=== PATIENT | female | born 1960 | race Caucasian/White ===

== ENCOUNTER → 2016-09-09 | Outpatient (CLI) | payer OTHER ==
[~2016-09-09] MED LIST: ACET-1228 PO; ASCO500T16 PO; CALCCHW PO; CHOL100010 PO; CMD/25 PO; CYAN10004 PO; DOXE50CA3 PO; DULO60CA44 PO; FOLI1TAB7 PO; IMT100 PO; IPRA17AE2 INH; IPRA1AER2 INH; OMEG10007 PO; SPRIN/30 INH; TRAM-10 PO; TRAZ50TA35 PO
--- NOTE | 2016-09-09 16:49 | DIAGNOSTIC IMAGING REPORT ---
Venous Doppler left leg LEFT VENOUS DOPP LOWER EXT UNILAT CLINICAL HISTORY: L LEG EDEMA pain. Edema. TECHNIQUE: Venous Doppler COMPARISON STUDY: None FINDINGS: Study is negative for acute deep venous thrombosis IMPRESSION: No evidence for acute deep venous thrombosis. Incidental note is made of 1.8 x 1.0 cm complex area adjacent to the superior medial calf which potentially represents an old hematoma Electronically signed by: Uche Everett M.D. 09/09/2016 4:47 PM Dictated Date/Time: 09/09/2016 4:46 PM
== END | disposition home or self-care (01) ==
LOC: C.ULTR 15:55
PROVIDERS: ATTEND Physician Assistant
DX: R60.0 Localized edema (principal)

== ENCOUNTER → 2017-08-05 | Outpatient (CLI) | payer OTHER ==
[~2017-08-05] MED LIST changes: -FOLI1TAB7 PO; +FOLI1TAB8 PO
--- NOTE | 2017-08-05 17:14 | DIAGNOSTIC IMAGING REPORT ---
BILATERAL UPPER EXTREMITY VENOUS DOPPLER HISTORY: Bilateral arm pain. COMPARISON STUDY: Venous Doppler 10/16/2013. FINDINGS: The bilateral internal jugular veins are patent. There is normal flow within the subclavian veins. There is normal flow and compressibility within the bilateral axillary, basilic, brachial, radial, ulnar, and visualized cephalic veins. IMPRESSION: No DVT within the right or left upper extremity. Electronically signed by: Luis Ricketts M.D. 08/05/2017 5:12 PM Dictated Date/Time: 08/05/2017 5:10 PM
--- NOTE | 2017-08-05 17:15 | DIAGNOSTIC IMAGING REPORT ---
ANKLE BRACHIAL INDEX COMPLETE HISTORY: Peripheral arterial disease. Right leg bypass graft. COMPARISON STUDY: Right lower extremity arterial Doppler study 09/20/2014. FINDINGS: The right ankle-brachial index measured with the posterior tibial artery was 1.01 and the dorsalis pedis artery was 1.15. The left ankle-brachial index measured with the posterior tibial artery is 1.05 and the dorsalis pedis artery was 1.15. IMPRESSION: Normal bilateral ankle brachial indices as described above. Electronically signed by: Luis Ricketts M.D. 08/05/2017 5:14 PM Dictated Date/Time: 08/05/2017 5:13 PM
== END | disposition home or self-care (01) ==
LOC: C.ULTR 14:44
PROVIDERS: ATTEND Nurse Practitioner
DX: I73.9 Peripheral vascular disease, unspecified (principal); M79.604 Pain in right leg; R60.0 Localized edema; M79.601 Pain in right arm; M79.602 Pain in left arm

== ENCOUNTER 2020-07-30 08:14 | Observation (INO) ==
[2020-07-30 09:49] LABS: Basophils # (auto) 0.02 K/uL (0-0.2); Basophils % (auto) 0.3 %; Eosinophils # (auto) 0.05 K/uL (0-0.5); Eosinophils % (auto) 0.7 %; Hematocrit (blood only) 38.8 % (37-47); Immature Granulocytes # (auto) 0.03 K/uL (0.00-0.02); Immature Granulocytes % (auto) 0.4 %; Lymphocytes # (auto) 1.13 K/uL (1.2-3.4); Lymphocytes % (auto) 15.3 %; Mean Corpuscular Hemoglobin 33.4 pg (25-34); Mean Corpuscular Hgb Conc 33.5 g/dL (32-36); Mean Corpuscular Volume 99.7 fL (80-100); Mean Platelet Volume 10.6 fL (7.4-10.4); Monocytes # (auto) 0.72 K/uL (0.11-0.59); Monocytes % (auto) 9.7 %; Neutrophils # (auto) 5.45 K/uL (1.4-6.5); Neutrophils % (auto) 73.6 %; Platelet Count 214 K/uL (130-400); RDW Coefficient of Variation 16.8 % (11.5-14.5); RDW Standard Deviation 60.5 fL (36.4-46.3); Red Blood Count 3.89 M/uL (4.2-5.4)
--- NOTE | 2020-07-30 09:53 | XRay Report ---
XR chest 1V portable CLINICAL HISTORY: Chest Pain COMPARISON STUDY: Chest radiograph July 22, 2014. FINDINGS: Lung volumes are normal. Lungs are clear. There is no pneumothorax or pleural effusion. Car diac size is normal. Mediastinal contours are normal. There is no evidence for pulmonary edema. IMPRESSION: No acute cardiopulmonary findings. ACT 112: Negative or not required by law. Electronically signed by: Jaime Zuñiga M.D. 07/30/2020 9:51 AM
[2020-07-30 10:07] LABS: Alanine Aminotransferase 35 U/L (12-78); Albumin Level 2.8 gm/dl (3.4-5.0); Aspartate Aminotransferase 61 U/L (15-37); BUN Creatinine Ratio 5.3 (10-20); Blood Urea Nitrogen 3 mg/dl (7-18); Carbon Dioxide 29 mmol/L (21-32); Chloride 102 mmol/L (98-107); Creatinine Clr Calc Pharmacy 76.8 ml/min; Est GFR (African American) 110.8; Est GFR (Non-African American) 95.6; Glucose 91 mg/dl (70-99); Potassium 3.2 mmol/L (3.5-5.1); Sodium 137 mmol/L (136-145)
[2020-07-30 10:12] LABS: Albumin Globulin Ratio 0.8 (0.9-2); Alkaline Phosphatase 188 U/L (45-117); Bilirubin,Total 1.1 mg/dl (0.2-1); Globulin 3.4 gm/dl (2.5-4.0); Total Protein 6.2 gm/dl (6.4-8.2); Troponin I < 0.015 ng/ml (0-0.045)
[2020-07-30 10:14] LABS: INR 2.7 (0.9-1.1); Prothrombin Time 25.1 Seconds (9.0-12.0)
--- NOTE | 2020-07-30 11:25 | Electrocardiogram Report ---
Test Reason : Blood Pressure : / mmHG Vent. Rate : 091 BPM Atrial Rate : 091 BPM P-R Int : 126 ms QRS Dur : 078 ms QT Int : 370 ms P-R-T Axes : 050 065 024 degrees QTc Int : 455 ms Normal sinus rhythm Nonspecific ST and T wave abnormality Abnormal ECG When compared with ECG of 20-DEC-2017 14:03, No significant change Confirmed by Cipriano Ledesma ([id number]) on 07/30/2020 11:24:30 AM Referred By: Stephen Carver Confirmed By:Cipriano Ledesma
--- NOTE | 2020-07-30 11:34 | History & Physical Report ---
Date of Service July 30, 2020 Assessment & Plan (1) Angina at rest: - Admit to [facility] - Consult cardiology, appreciate recommendations, anticipate cardiac catheterization tomorrow - Holding Coumadin - regimen of 1.5 mg daily with home INR checks. - Goal of INR below 1.8 to do cath - Continue Toprol XL 25 mg daily, sublingual nitroglycerin, aspirin and statin therapy. - Start IV heparin no bolus for ppx. - Allow diet now and make NPO after midnight (2) Tobacco abuse: - Cessation encouraged (3) HLD (hyperlipidemia): - Cont statin therapy as above. (4) Chronic pain: - Reports R hip and Left shoulder are main areas of pain - Pt reports home dosing of MS ER 30 mg HS and MS IR 15 mg HS - PDMP checked: Pt is prescribed MS ER 15 mg BID and MS IR 15 mg prn daily. Naloxone prn for reversal. - Medical marijuana oils used at home (5) MDD (major depressive disorder): - Recently given Rx for Paxil although has not started this medication yet. Had previously been on cymbalta but stopped taking it last year. Mood is worse recently. Pt had previously been underweight and currently struggling with nausea/further weight loss, this medication may assist with stopping further weight loss. Possible adverse effects and side effects were discussed with her by PCP. Pt reports anxiety about taking new medications. Consider outpatient psych/counseling/therapy. (6) DVT prophylaxis: - teds, scds, Coumadin on hold as above CODE: Full code Dispo: From home, likely to remain in the hospital x 1-2 days History of Present Illness Primary Care Provider: Pieter Benavides MD This mera 60 yo F with PMHx of PVD, DVT on coumadin, COPD, HTN, HLD, MTHFR mutation s/p multiple extensive venous grafting and procedures on BLE, anxiety, chronic pain on narcotics, avascular necrosis of the R hip, tobacco abuse, history of alcohol abuse, MDD, medical marijuana use, neuropathy who presents to the ER after referral from cardiology. Pt was referred to see cardiology by her PCP recently, and was in to see Dr. Carver yesterday, 07/29/20, where she was evaluated for a 3-week history of chest heaviness, tightness and palpitations. Her chest heaviness occurs at rest and with minimal exertion and last for short period of time. It is worsened with minimal exertion. She admits to dyspnea without lightheadedness or dizziness. Patient was instructed to hold Coumadin last evening which she has done in anticipation of cardiac cath. It was recommended that she have inpatient evaluation and coronary angiography due to EKG changes and unstable angina, however the patient preferred to wait an additional 24 hours before doing this due to significant anxiety. She has had a very poor appetite and feels nauseated daily with one episode of vomited daily as well. She states she weighs around 128 lbs but has weighed less than 100 lbs when she was having surgeries for veins due to clotting issues and was in [place] for extended hospitalizations a few years ago. She was unable to take any of her morning medications today due to her increased anxiety. Pt has been using her morphine sulfate ER 15 mg 2 tablets at bedtime along with immediate release morphine 15 mg at bedtime, as she would "rather suffer through the day and get some relief and sleep through the night". She receives narcotic medication from her PCP. She does use medical marijuana oils during the day. Her mood is poor, has been on cymbalta previously but hasn't been taking this for months. She was prescribed paxil at last PCP visit but hasn't started it. Patient is requesting "sleeping medication" prior to any second IV site insertion due to significant issues with placement with hx of poor venous access. Allergies Allergy/AdvReac Type Severity Reaction Status Date / Time vitamin K2 Allergy Severe SOB CHEST Verified 07/30/20 10:44 PAIN SHAKING Home Medications Medication Instructions Recorded Confirmed Type Combivent Respimat 1 puff INHALATION QID 09/13/18 07/30/20 History ascorbic acid (vitamin C) 500 mg PO QAM 09/13/18 07/30/20 History atorvastatin 40 mg PO QAM 09/13/18 07/30/20 History cyanocobalamin (vitamin B-12) 1,000 mcg PO QAM 09/13/18 07/30/20 History [Vitamin B-12] Medical Marijuanas ~ Oil Vape 0 inh INHALATION UD 07/30/20 07/30/20 History morphine 15 mg PO BID 07/30/20 07/30/20 History morphine 15 mg PO HS PRN 07/30/20 07/30/20 History warfarin 1.5 mg PO UD 07/30/20 07/30/20 History enoxaparin 50 mg SUBCUT Q12H #6 ml 08/01/20 Rx ergocalciferol (vitamin D2) 50,000 unit PO DAILY #10 cap 08/01/20 Rx nicotine [Nicoderm CQ] 21 mg TRANSDERMAL QAM #14 ea 08/01/20 Rx Past Med/Surg History Medical History (Updated 08/02/20 @ 00:05 by Background Harika) Chest pain Chronic back pain COPD (chronic obstructive pulmonary disease) COPD (chronic obstructive pulmonary disease) NO PROBLEMS Deep vein thrombosis Deep vein thrombosis (2016) FEMORAL BYPASS IN BILATERAL LEGS Degenerative disc disease Depression Diverticular disease Factor 5 Leiden mutation, heterozygous Fibromyalgia GERD (gastroesophageal reflux disease) History of MTHFR mutation Migraine MTHFR mutation Osteoarthritis PAD (peripheral artery disease) Peptic ulcer disease CURRENT Peripheral neuropathy Peripheral vascular disease Peripheral vascular disease Surgical History H/O surgical biopsy VAGINAL BIOPSY H/O vascular surgery MULTIPLE BILATERAL LEG SURGERIES History of arthroscopy LEFT SHOULDER History of section X1 History of cholecystectomy LAP History of colonoscopy History of esophagogastroduodenoscopy (EGD) EGD 12/23/2017. Sedation no issues. History of nasal septoplasty History of right cataract extraction History of tonsillectomy Social History Smoking Status: Current every day smoker Tobacco Type: Cigarettes Cigarettes Per Day: 30; Second Hand Exposure: No; Do You Dip or Chew Tobacco: No; Tobacco Cessation Education Requested by Patient: No Hx Alcohol Use: Yes Alcohol type: beer, wine and hard liquor Hx Substance Use: No Preferred Language: Estonian Communication Ability: Effective Acid Correction Hand Required: No Beliefs That Will Affect Care: None Current Living Situation: Alone Other Information That Helps Us Care for You: No ("i'm fragile and always cold") Feels Safe at Home: Yes Safety Concerns: Feels Safe At This Time Assistive Devices: None Review of Systems Review of Systems: Constitutional: No fever, sweats or chills, + fatigue Eyes: No diplopia, no worsening or blurred vision ENT: normal hearing, no trouble swallowing Respiratory: No cough, sputum, + dyspnea on exertion and with ADLs Cardiovascular: + Chronic intermittent chest pain, tightness and heaviness as per HPI, no palpitations, no lightheadedness or dizziness Abdomen: No pain, + nausea, + vomiting, + poor appetite, no diarrhea or constipation Musculoskeletal: Chronic right hip pain, left shoulder pain, no calf pain, no swelling Neurologic: No weakness, numbness/tingling, or balance problems Psychiatric: + anxiety and depression Skin: No rash or itch Physical Exam Physical Exam: General: awake, alert, no apparent distress, fatigue, + thin Head: Normocephalic, atraumatic ENT: PERRL, EOMI, no pharyngeal exudate, mucous membranes moist Chest: Clear to auscultation, on room air, no adventitious breath sounds Cardiac: Regular rate and rhythm, + few extra beats, no murmur, no JVD, normal peripheral pulses, good capillary refill Abdominal: NABS x 4 quadrants, soft, nondistended, nontender to palpation, no rebound or guarding Extremities: + Scarring lower legs bilaterally status post venous grafting otherwise normal inspection, no peripheral edema or erythema, calfs nontender to palpation Psych: + Depressed mood and flat affect Neuro: AAO x 3, strength intact bilaterally and rated 5/5, no motor deficits, speech is clear, no peripheral sensory deficits Results & Data Results & Data ([facility]) Vital Signs (Past 12 Hours) Vital Signs Temp Pulse Resp BP Pulse Ox 07/30/20 10:15 75 12 110/73 98 07/30/20 08:40 98 07/30/20 08:30 85 15 119/91 96 07/30/20 08:24 36.9 C 88 18 119/91 98 Laboratory Results Laboratory Results - last 24 hr 07/30/20 07/30/20 07/30/20 09:29 09:29 09:29 WBC 7.40 RBC 3.89 L Hgb 13.0 Hct 38.8 MCV 99.7 MCH 33.4 MCHC 33.5 RDW Std Deviation 60.5 H RDW Coeff of Shaun 16.8 H Plt Count 214 MPV 10.6 H Immature Gran % (Auto) 0.4 Neut % (Auto) 73.6 Lymph % (Auto) 15.3 Thomas % (Auto) 9.7 Eos % (Auto) 0.7 Baso % (Auto) 0.3 Neut # (Auto) 5.45 Lymph # (Auto) 1.13 L Thomas # (Auto) 0.72 H Eos # (Auto) 0.05 Baso # (Auto) 0.02 Immature Gran # (Auto) 0.03 H PT 25.1 H INR 2.7 H Sodium 137 Potassium 3.2 L Chloride 102 Carbon Dioxide 29 Anion Gap 6.0 BUN 3 L Creatinine 0.64 Est Cr Clr Drug Dosing 76.8 Est GFR ( Amer) 110.8 Est GFR (Non-Af Amer) 95.6 BUN/Creatinine Ratio 5.3 L Glucose 91 Calcium 9.0 Total Bilirubin 1.1 H AST 61 H ALT 35 Alkaline Phosphatase 188 H Troponin I < 0.015 Total Protein 6.2 L Albumin 2.8 L Globulin 3.4 Albumin/Globulin Ratio 0.8 L COVID-19 Eval Order SARS-CoV-2 (PCR) Influenza Type A (PCR) Influenza Type B (PCR) RSV (RT-PCR) 07/30/20 07/30/20 09:58 09:58 WBC RBC Hgb Hct MCV MCH MCHC RDW Std Deviation RDW Coeff of Shaun Plt Count MPV Immature Gran % (Auto) Neut % (Auto) Lymph % (Auto) Thomas % (Auto) Eos % (Auto) Baso % (Auto) Neut # (Auto) Lymph # (Auto) Thomas # (Auto) Eos # (Auto) Baso # (Auto) Immature Gran # (Auto) PT INR Sodium Potassium Chloride Carbon Dioxide Anion Gap BUN Creatinine Est Cr Clr Drug Dosing Est GFR ( Amer) Est GFR (Non-Af Amer) BUN/Creatinine Ratio Glucose Calcium Total Bilirubin AST ALT Alkaline Phosphatase Troponin I Total Protein Albumin Globulin Albumin/Globulin Ratio COVID-19 Eval Order CovFluRsv at [facility] SARS-CoV-2 (PCR) NEGATIVE Influenza Type A (PCR) Negative Influenza Type B (PCR) Negative RSV (RT-PCR) Negative Diagnostic Findings Chest X-Ray 07/30/20 08:40 XR chest 1V portable CLINICAL HISTORY: Chest Pain COMPARISON STUDY: Chest radiograph July 22, 2014. FINDINGS: Lung volumes are normal. Lungs are clear. There is no pneumothorax or pleural effusion. Cardiac size is normal. Mediastinal contours are normal. There is no evidence for pulmonary edema. IMPRESSION: No acute cardiopulmonary findings. ACT 112: Negative or not required by law. Electronically signed by: Jaime Zuñiga M.D. 07/30/2020 9:51 AM ECG Additional Comments: 30-JUL-2020 08:24:20 [facility]-EDSTAT ROUTINE RETRIEVAL Normal sinus rhythm Nonspecific ST and T wave abnormality Abnormal ECG When compared with ECG of 20-DEC-2017 14:03, No significant change Confirmed by Cipriano Ledesma ([id number]) on 07/30/2020 11:24:30 AM 25mm/s 10mm/mV 150Hz 9.0.9 12SL 241 HD ELIZABETH: 12 Referred by: Stephen Carver Confirmed By: Cipriano Ledesma Vent. rate 91 BPM AR interval 126 ms QRS duration 78 ms QT/QTc 370/455 ms Code Status & VTE Plan Code Status Full code - discussed with the patient at bedside Supervising Physician Co-Signing Physician Notes 60 yo F admitted with chest pain at rest angina symptoms initial cardiac markers , EKG wnl , ordered for serial markers , resting ECHO , cardiology hermilo Alexandra MD
[2020-07-30 11:40] LABS: Influenza A virus by PCR Negative (Neg); Influenza B virus by PCR Negative (Neg); RSV by PCR Negative (Neg); SARS CoV2 RNA(COVID-19) InHosp NEGATIVE (Negative)
[2020-07-30] MEDS ORDERED: IPRATROPIUM BROMIDE/ALBUTEROL respimat INH INH SCH (13:03)
[2020-07-30] MEDS ORDERED: ONDANSETRON INJ 2 MG/ML 2 ML VIAL IV PRN (13:03)
[2020-07-30] MEDS ORDERED: ACETAMINOPHEN 325 MG TAB PO PRN (13:03)
[2020-07-30] MEDS ORDERED: NITROGLYCERIN SL 0.4 MG/TAB TAB SL PRN (13:03)
--- NOTE | 2020-07-30 13:04 | Emergency Department Note ---
History of Present Illness General Chief complaint: Cardiac Assessment Stated complaint: CHEST PAIN/PALPITATIONS/REFERRED BY DR Orlando Seen by Provider: 07/30/20 08:40 Source: patient Mode of arrival: ambulatory Limitations: no limitations History of Present Illness Provider complaint: Chest pain Maximum Pain Intensity: 3 This is a 60-year-old female who presents to the ED with a chief complaint of chest pain. She was actually seen by Dr. Poe yesterday and told to come to the ER at that time. She decided to come in this morning. She is chronically on Coumadin for DVT. The patient states that she was told to come here because she needed a cardiac catheterization. She has recently been feeling tired and having heart palpitations as well as intermittent sharp pains and some heaviness in her chest. The patient has no other complaints at this time. No fevers or recent illness. Symptoms are worse with exertion. Home Medications Medication Instructions Recorded Confirmed Type Combivent Respimat 1 puff INHALATION QID 09/13/18 07/30/20 History ascorbic acid (vitamin C) 500 mg PO QAM 09/13/18 07/30/20 History atorvastatin 40 mg PO QAM 09/13/18 07/30/20 History cyanocobalamin (vitamin B-12) 1,000 mcg PO QAM 09/13/18 07/30/20 History [Vitamin B-12] Medical Marijuanas ~ Oil Vape 0 inh INHALATION UD 07/30/20 07/30/20 History morphine 15 mg PO BID 07/30/20 07/30/20 History morphine 15 mg PO HS PRN 07/30/20 07/30/20 History warfarin [Coumadin] 1.5 mg PO UD 07/30/20 07/30/20 History Allergies Allergy/AdvReac Type Severity Reaction Status Date / Time vitamin K2 Allergy Severe SOB CHEST Verified 07/30/20 10:44 PAIN SHAKING Past Med/Surg History Medical History (Updated 07/30/20 @ 13:05 by Bony Pulido DO) Chronic back pain COPD (chronic obstructive pulmonary disease) NO PROBLEMS Deep vein thrombosis (2016) FEMORAL BYPASS IN BILATERAL LEGS Degenerative disc disease Depression Diverticular disease Factor 5 Leiden mutation, heterozygous Fibromyalgia GERD (gastroesophageal reflux disease) History of MTHFR mutation Migraine Osteoarthritis Peptic ulcer disease CURRENT Peripheral neuropathy Peripheral vascular disease Surgical History H/O surgical biopsy VAGINAL BIOPSY H/O vascular surgery MULTIPLE BILATERAL LEG SURGERIES History of arthroscopy LEFT SHOULDER History of section X1 History of cholecystectomy LAP History of colonoscopy History of esophagogastroduodenoscopy (EGD) EGD 12/23/2017. Sedation no issues. History of nasal septoplasty History of right cataract extraction History of tonsillectomy Social History Smoking Status: Current every day smoker Tobacco Type: Cigarettes Second Hand Exposure: No; Hx Alcohol Use: No Hx Substance Use: Yes Last Used Substance: Unknown Last Used Substance Other:: DAILY USE MEDICAL MARIJUANA Substance Use Type Other:: DRONABINOL - FOR INCREASI NG APPETITE Preferred Language: Macedonian Communication Ability: Effective Breast Splitter Required: No Beliefs That Will Affect Care: None Current Living Situation: Alone Feels Safe at Home: Yes Assistive Devices: Glasses and Walker Review of Systems A total of 10 systems reviewed and were otherwise negative Physical Exam Vital Signs Vital Signs - 24 hr 07/30/20 08:24 07/30/20 08:30 07/30/20 08:40 Temperature 36.9 C Temperature Source Oral Pulse Rate 88 85 Pulse Rate from SpO2 Sensor 94 H Pulse Rhythm Regular Pulse Strength Normal Respiratory Rate 18 15 Respiratory Effort / Characteristics Non-Labored Spontaneous Respiratory Depth Normal Respiratory Pattern Regular Blood Pressure 119/91 119/91 Blood Pressure Mean 100 100 Blood Pressure Position Lying Pulse Oximetry 98 96 98 Oxygen Delivery Method Room Air Room Air Sepsis Recent Fever Within 48 Hours No Sepsis New/Unexplained Change in Mental Status No Sepsis Action Taken by Nursing No Action Required 07/30/20 10:15 07/30/20 10:30 07/30/20 11:00 Temperature Temperature Source Pulse Rate 75 80 82 Pulse Rate from SpO2 Sensor 75 84 Pulse Rhythm Pulse Strength Respiratory Rate 12 14 18 Respiratory Effort / Characteristics Respiratory Depth Respiratory Pattern Blood Pressure 110/73 100/67 99/65 L Blood Pressure Mean 85 78 76 Blood Pressure Position Pulse Oximetry 98 97 Oxygen Delivery Method Sepsis Recent Fever Within 48 Hours Sepsis New/Unexplained Change in Mental Status Sepsis Action Taken by Nursing 07/30/20 11:30 07/30/20 12:00 07/30/20 12:30 Temperature Temperature Source Pulse Rate 75 Pulse Rate from SpO2 Sensor 80 78 76 Pulse Rhythm Pulse Strength Respiratory Rate 20 22 17 Respiratory Effort / Characteristics Respiratory Depth Respiratory Pattern Blood Pressure 96/65 L 114/78 113/69 Blood Pressure Mean 75 90 83 Blood Pressure Position Pulse Oximetry 95 100 96 Oxygen Delivery Method Sepsis Recent Fever Within 48 Hours Sepsis New/Unexplained Change in Mental Status Sepsis Action Taken by Nursing 07/30/20 12:55 Temperature Temperature Source Pulse Rate Pulse Rate from SpO2 Sensor Pulse Rhythm Pulse Strength Respiratory Rate Respiratory Effort / Characteristics Respiratory Depth Respiratory Pattern Blood Pressure Blood Pressure Mean Blood Pressure Position Pulse Oximetry Oxygen Delivery Method Room Air Sepsis Recent Fever Within 48 Hours Sepsis New/Unexplained Change in Mental Status Sepsis Action Taken by Nursing CONSTITUTIONAL/VITAL SIGNS: Reviewed / noted above. GENERAL: Non-toxic in appearance. INTEGUMENTARY: Warm, dry, and [place]. HEAD: Normocephalic. EYES: without scleral icterus or trauma. ENT/OROPHARYNX: clear and moist. LYMPHADENOPATHY/NECK: Is supple without lymphadenopathy or meningismus. RESPIRATORY: Lungs clear and equal. CARDIOVASCULAR: Regular rate and rhythm. GI/ABDOMEN: Soft and nontender. No organomegaly or pulsatile mass. No rebound or guarding. Normal bowel sounds. EXTREMITIES: Warm and well perfused. BACK: No CVA tenderness. NEUROLOGICAL: Intact without focal deficits. PSYCHIATRIC: normal affect. MUSCULOSKELETAL: Normally developed with good muscle tone. TRIAGE NURSING DOCUMENTATION REVIEWED. Medical Decision Making Differential Diagnosis The differential that was considered includes acute myocardial infarction, acute coronary syndrome, myocarditis, pericarditis, pericardial effusions /tamponade, esophageal perforation, thoracic aortic dissection, pulmonary embolism, pneumonia, pneumothorax, pancreatitis, shingles, acute cholecystitis, perforated abdominal viscus. Medical Records Attestation: I reviewed the patient's medical records. Home Medications Current Medication List: was personally reviewed by me Laboratory Data Attestation: I reviewed the patient's lab results. Result diagrams: 07/30/20 09:29 07/30/20 09:29 Lab Results 07/30/20 07/30/20 07/30/20 Range/Units 09:29 09:29 09:29 WBC 7.40 (4.8-10.8) K/uL RBC 3.89 L (4.2-5.4) M/uL Hgb 13.0 (12.0-16.0) g/dL Hct 38.8 (37-47) % MCV 99.7 (80-100) fL MCH 33.4 (25-34) pg MCHC 33.5 (32-36) g/dL RDW Std Deviation 60.5 H (36.4-46.3) fL RDW Coeff of Shaun 16.8 H (11.5-14.5) % Plt Count 214 (130-400) K/uL MPV 10.6 H (7.4-10.4) fL Immature Gran % (Auto) 0.4 % Neut % (Auto) 73.6 % Lymph % (Auto) 15.3 % [place] % (Auto) 9.7 % Eos % (Auto) 0.7 % Baso % (Auto) 0.3 % Neut # (Auto) 5.45 (1.4-6.5) K/uL Lymph # (Auto) 1.13 L (1.2-3.4) K/uL [place] # (Auto) 0.72 H (0.11-0.59) K/uL Eos # (Auto) 0.05 (0-0.5) K/uL Baso # (Auto) 0.02 (0-0.2) K/uL Immature Gran # (Auto) 0.03 H (0.00-0.02) K/uL PT 25.1 H (9.0-12.0) Seconds INR 2.7 H (0.9-1.1) Sodium 137 (136-145) mmol/L Potassium 3.2 L (3.5-5.1) mmol/L Chloride 102 (98-107) mmol/L Carbon Dioxide 29 (21-32) mmol/L Anion Gap 6.0 (3-11) BUN 3 L (7-18) mg/dl Creatinine 0.64 (0.6-1.2) mg/dl Est Cr Clr Drug Dosing 76.8 ml/min Est GFR ( Amer) 110.8 Est GFR (Non-Af Amer) 95.6 BUN/Creatinine Ratio 5.3 L (10-20) Glucose 91 (70-99) mg/dl Calcium 9.0 (8.5-10.1) mg/dl Total Bilirubin 1.1 H (0.2-1) mg/dl AST 61 H (15-37) U/L ALT 35 (12-78) U/L Alkaline Phosphatase 188 H (45-117) U/L Troponin I < 0.015 (0-0.045) ng/ml Total Protein 6.2 L (6.4-8.2) gm/dl Albumin 2.8 L (3.4-5.0) gm/dl Globulin 3.4 (2.5-4.0) gm/dl Albumin/Globulin Ratio 0.8 L (0.9-2) COVID-19 Eval Order SARS-CoV-2 (PCR) (Negative) Influenza Type A (PCR) (Neg) Influenza Type B (PCR) (Neg) RSV (RT-PCR) (Neg) 07/30/20 07/30/20 Range/Units 09:58 09:58 WBC (4.8-10.8) K/uL RBC (4.2-5.4) M/uL Hgb (12.0-16.0) g/dL Hct (37-47) % MCV (80-100) fL MCH (25-34) pg MCHC (32-36) g/dL RDW Std Deviation (36.4-46.3) fL RDW Coeff of Shaun (11.5-14.5) % Plt Count (130-400) K/uL MPV (7.4-10.4) fL Immature Gran % (Auto) % Neut % (Auto) % Lymph % (Auto) % [place] % (Auto) % Eos % (Auto) % Baso % (Auto) % Neut # (Auto) (1.4-6.5) K/uL Lymph # (Auto) (1.2-3.4) K/uL [place] # (Auto) (0.11-0.59) K/uL Eos # (Auto) (0-0.5) K/uL Baso # (Auto) (0-0.2) K/uL Immature Gran # (Auto) (0.00-0.02) K/uL PT (9.0-12.0) Seconds INR (0.9-1.1) Sodium (136-145) mmol/L Potassium (3.5-5.1) mmol/L Chloride (98-107) mmol/L Carbon Dioxide (21-32) mmol/L Anion Gap (3-11) BUN (7-18) mg/dl Creatinine (0.6-1.2) mg/dl Est Cr Clr Drug Dosing ml/min Est GFR ( Amer) Est GFR (Non-Af Amer) BUN/Creatinine Ratio (10-20) Glucose (70-99) mg/dl Calcium (8.5-10.1) mg/dl Total Bilirubin (0.2-1) mg/dl AST (15-37) U/L ALT (12-78) U/L Alkaline Phosphatase (45-117) U/L Troponin I (0-0.045) ng/ml Total Protein (6.4-8.2) gm/dl Albumin (3.4-5.0) gm/dl Globulin (2.5-4.0) gm/dl Albumin/Globulin Ratio (0.9-2) COVID-19 Eval Order CovFluRsv at [facility] SARS-CoV-2 (PCR) NEGATIVE (Negative) Influenza Type A (PCR) Negative (Neg) Influenza Type B (PCR) Negative (Neg) RSV (RT-PCR) Negative (Neg) Imaging Data Radiologist's Impression: Chest X-Ray 07/30/20 08:40 XR chest 1V portable CLINICAL HISTORY: Chest Pain COMPARISON STUDY: Chest radiograph July 22, 2014. FINDINGS: Lung volumes are normal. Lungs are clear. There is no pneumothorax or pleural effusion. Cardiac size is normal. Mediastinal contours are normal. There is no evidence for pulmonary edema. IMPRESSION: No acute cardiopulmonary findings. ACT 112: Negative or not required by law. Electronically signed by: Jaime Zuñiga M.D. 07/30/2020 9:51 AM ECG Data Attestation: I personally reviewed and interpreted this ECG as follows: Indication: + chest pain Rate (beats per minute): 90 Rhythm: + normal sinus ECG ST segments: no ST elevation ECG Findings: no PVCs MDM Narrative Patient presents with chest pain as detailed above. The patient's EKG showed a normal sinus rhythm with some nonspecific changes. CBC and chemistry panel was unremarkable. INR 2.7. Troponin was negative and a chest x-ray did not show acute process. Dr. Medina saw the patient as the patient was referred from Dr. Carver. The hospitalist will see the patient for inpatient evaluation and care. Impression & Plan Chest pain Discharge Plan Visit Data Chief Complaint: Cardiac Assessment Stated Complaint: CHEST PAIN/PALPITATIONS/REFERRED BY ED Provider: Bony Pulido Discharge Problem: Chest pain Patient Disposition: Admitted As Inpatient Discharge Instructions Interventions: ED Discharge Assessment Last Done: 07/30/20 12:55 Discharge Problem: Chest pain Qualifiers: Chest pain type: precordial pain Qualified Code(s): R07.2 - Precordial pain
--- NOTE | 2020-07-30 13:12 | Cardiology Consultation ---
Date of Consultation July 30, 2020 Assessment & Plan (1) Unstable angina: (2) PVD (peripheral vascular disease): (3) Tobacco abuse: (4) MTHFR gene mutation: This patient has significant peripheral vascular disease and now presents with symptoms consistent with exertional angina which is crescendoing. The patient has been on warfarin due to history of DVT and MTHFR gene mutation. Her INR is 2.1. I will give her oral vitamin K today. She does list vitamin K as an allergy however, in further questioning she states that she underwent surgery and immediately afterwards was given some vitamin K which caused her to have shaking. It truly does not sound like an allergy to me but perhaps a reaction to postanesthesia. We will check an INR in the morning. I would like the INR to be more in the normal range as this patient has peripheral vascular disease including a previous graft of her lower extremity. This may limit our access options and I would not want to get into bleeding complications. She should be started on heparin tonight which can be stopped in the morning before her heart catheterization. History of Present Illness Attending Physician: Ree Alexandra MD History of Present Illness This is a 60-year-old female with an extensive past medical history for peripheral vascular disease. She is followed by vascular surgery and had a graft placed in her right lower extremity which by duplex in November was patent. Most of her surgical procedures have been done on the right lower extremity. According to records she did have a left femoral artery pseudoaneurysm repair. She has a MTHFR mutation and a previous right lower extremity DVT and is chronically anticoagulated with warfarin. She has a history of cigarette smoking. She was seen by Dr. Carver at our clinic yesterday with symptoms of activity related chest heaviness and tightness which she felt was crescendo angina. He recommended a cardiac catheterization however the patient was reluctant at that time to be admitted. She is now presented to the emergency department and has been admitted to the hospital. Allergies Allergy/AdvReac Type Severity Reaction Status Date / Time vitamin K2 Allergy Severe SOB CHEST Verified 07/30/20 10:44 PAIN SHAKING Home Medications Medication Instructions Recorded Confirmed Type Combivent Respimat 1 puff INHALATION QID 09/13/18 07/30/20 History ascorbic acid (vitamin C) 500 mg PO QAM 09/13/18 07/30/20 History atorvastatin 40 mg PO QAM 09/13/18 07/30/20 History cyanocobalamin (vitamin B-12) 1,000 mcg PO QAM 09/13/18 07/30/20 History [Vitamin B-12] Medical Marijuanas ~ Oil Vape 0 inh INHALATION UD 07/30/20 07/30/20 History morphine 15 mg PO BID 07/30/20 07/30/20 History morphine 15 mg PO HS PRN 07/30/20 07/30/20 History warfarin [Coumadin] 1.5 mg PO UD 07/30/20 07/30/20 History Patient History Medical History (Updated 07/31/20 @ 21:58 by Sujatha Prescott DO) Chronic back pain COPD (chronic obstructive pulmonary disease) NO PROBLEMS Deep vein thrombosis (2015) FEMORAL BYPASS IN BILATERAL LEGS Degenerative disc disease Depression Diverticular disease Factor 5 Leiden mutation, heterozygous Fibromyalgia GERD (gastroesophageal reflux disease) History of MTHFR mutation Migraine Osteoarthritis Peptic ulcer disease CURRENT Peripheral neuropathy Peripheral vascular disease Surgical History H/O surgical biopsy VAGINAL BIOPSY H/O vascular surgery MULTIPLE BILATERAL LEG SURGERIES History of arthroscopy LEFT SHOULDER History of section X1 History of cholecystectomy LAP History of colonoscopy History of esophagogastroduodenoscopy (EGD) EGD 12/23/2017. Sedation no issues. History of nasal septoplasty History of right cataract extraction History of tonsillectomy Social History Smoking Status: Current every day smoker Tobacco Type: Cigarettes Cigarettes Per Day: 30; Second Hand Exposure: No; Do You Dip or Chew Tobacco: No; Tobacco Cessation Education Requested by Patient: No Hx Alcohol Use: Yes Alcohol type: beer, wine and hard liquor Hx Substance Use: No Preferred Language: Lithuanian Communication Ability: Effective Automation Technologist Required: No Beliefs That Will Affect Care: None Current Living Situation: Alone Other Information That Helps Us Care for You: No ("i'm fragile and always cold") Feels Safe at Home: Yes Safety Concerns: Feels Safe At This Time Assistive Devices: None Review of Systems Review of Systems: All systems reviewed & are unremarkable except as noted in HPI & below Nothing additional to add. Physical Exam Physical Exam: General: no acute distress and stated age Head: normocephalic, no masses, lesions, tenderness or abnormalities Eyes: conjunctiva are pink and non-injected, sclera clear Neck: supple, no adenopathy, no bruits, normal jugular venous pulse, no hepatojugular reflux Chest: normal shape and normal respiratory effort Lungs: clear to auscultation and percussion Cardiac Exam: - regular rate & rhythm, no murmurs gallops or rubs - normal S1, normal S2 Pulses: 2(+) throughout Abdomen: abdomen soft, non-tender, no abnormal masses and no hepatosplenomegaly Musculoskeletal: no gait disturbance, no joint inflammation, no deforming arthritis Extremities: no edema and no cyanosis Neuro: grossly normal exam Results & Data ([facility]) Vital Signs (Past 12 Hours) Vital Signs Temp Pulse Pulse Resp BP BP Pulse Ox 07/30/20 13:05 37.3 C 77 18 127/83 98 07/30/20 12:30 75 17 113/69 96 07/30/20 12:00 22 114/78 100 07/30/20 11:30 20 96/65 L 95 07/30/20 11:00 82 18 99/65 L 97 07/30/20 10:30 80 14 100/67 07/30/20 10:15 75 12 110/73 98 07/30/20 08:40 98 07/30/20 08:30 85 15 119/91 96 07/30/20 08:24 36.9 C 88 18 119/91 98 Laboratory Results Laboratory Results - last 24 hr 07/30/20 07/30/20 07/30/20 09:29 09:29 09:29 WBC 7.40 RBC 3.89 L Hgb 13.0 Hct 38.8 MCV 99.7 MCH 33.4 MCHC 33.5 RDW Std Deviation 60.5 H RDW Coeff of Shaun 16.8 H Plt Count 214 MPV 10.6 H Immature Gran % (Auto) 0.4 Neut % (Auto) 73.6 Lymph % (Auto) 15.3 [place] % (Auto) 9.7 Eos % (Auto) 0.7 Baso % (Auto) 0.3 Neut # (Auto) 5.45 Lymph # (Auto) 1.13 L [place] # (Auto) 0.72 H Eos # (Auto) 0.05 Baso # (Auto) 0.02 Immature Gran # (Auto) 0.03 H PT 25.1 H INR 2.7 H Sodium 137 Potassium 3.2 L Chloride 102 Carbon Dioxide 29 Anion Gap 6.0 BUN 3 L Creatinine 0.64 Est Cr Clr Drug Dosing 76.8 Est GFR ( Amer) 110.8 Est GFR (Non-Af Amer) 95.6 BUN/Creatinine Ratio 5.3 L Glucose 91 Calcium 9.0 Total Bilirubin 1.1 H AST 61 H ALT 35 Alkaline Phosphatase 188 H Troponin I < 0.015 Total Protein 6.2 L Albumin 2.8 L Globulin 3.4 Albumin/Globulin Ratio 0.8 L COVID-19 Eval Order SARS-CoV-2 (PCR) Influenza Type A (PCR) Influenza Type B (PCR) RSV (RT-PCR) 07/30/20 07/30/20 09:58 09:58 WBC RBC Hgb Hct MCV MCH MCHC RDW Std Deviation RDW Coeff of Shaun Plt Count MPV Immature Gran % (Auto) Neut % (Auto) Lymph % (Auto) [place] % (Auto) Eos % (Auto) Baso % (Auto) Neut # (Auto) Lymph # (Auto) [place] # (Auto) Eos # (Auto) Baso # (Auto) Immature Gran # (Auto) PT INR Sodium Potassium Chloride Carbon Dioxide Anion Gap BUN Creatinine Est Cr Clr Drug Dosing Est GFR ( Amer) Est GFR (Non-Af Amer) BUN/Creatinine Ratio Glucose Calcium Total Bilirubin AST ALT Alkaline Phosphatase Troponin I Total Protein Albumin Globulin Albumin/Globulin Ratio COVID-19 Eval Order CovFluRsv at [facility] SARS-CoV-2 (PCR) NEGATIVE Influenza Type A (PCR) Negative Influenza Type B (PCR) Negative RSV (RT-PCR) Negative Medications Administered Current Inpatient Medications Acetaminophen (Acetaminophen 325 Mg Tab) 650 mg PO Q4H PRN PRN Reason: Moderate Pain Stop: 08/29/20 13:02 Albuterol (Albuterol Hfa 8 Gm Inhaler (Combivent Respimat P&T Subs)) 1 puffs INH QIDR TERENCE Stop: 08/29/20 14:59 Aspirin (Aspirin 81 Mg Ectab) 81 mg PO QAM TERENCE Stop: 08/30/20 08:59 Atorvastatin Calcium (Atorvastatin 40 Mg Tab) 40 mg PO QAM TERENCE Stop: 08/30/20 08:59 Sodium Chloride (Nss 1000ml) 1,000 mls @ 1 mls/hr IV .Q24H TERENCE Stop: 08/29/20 13:44 Ipratropium [place] (Ipratropium Hfa Inhaler (Combivent Respimat P&T Subs)) 1 puffs INH QIDR TERENCE Stop: 08/29/20 14:59 Metoprolol Succinate (Metoprolol Succ 25mg Ext Rel Tab) 25 mg PO QAM TERENCE Stop: 08/30/20 08:59 Morphine Sulfate (Morphine Sulfate Ir 15 Mg Tab (Immediate Release)) 15 mg PO HS PRN PRN Reason: Pain Stop: 08/13/20 13:02 Morphine Sulfate (Morphine Sulfate Cr 15 Mg Tabcr) 30 mg PO HS TERENCE Stop: 08/13/20 20:59 Nitroglycerin (Nitroglycerin Sl 0.4 Mg/Tab Tab) 0.4 mg SL PRN PRN PRN Reason: Chest Pain Stop: 08/29/20 13:02 Ondansetron HCl (Ondansetron Inj 2 Mg/Ml 2 Ml Vial) 4 mg IV Q4H PRN PRN Reason: Nausea And Vomiting Stop: 08/29/20 13:02 Phytonadione (Phytonadione 5 Mg Tab) 5 mg PO NOW STA Stop: 07/30/20 13:30
[2020-07-30] MEDS ORDERED: PHYTONADIONE 5 MG TAB PO STA (13:29)
[2020-07-30] MEDS ORDERED: Heparin IV Adult Wt-Based Standard *NO* Bolus Protocol IV ONE (13:48)
[2020-07-30] MEDS ORDERED: HEPARIN SODIUM/DEXTROSE 25,000 UNITS/500 ML BAG IV SCH (14:03)
[2020-07-30] MEDS: MoRPHine SULFATE CR 15 MG TABCR PO SCH (14:38)
[2020-07-30] MEDS ORDERED: POTASSIUM CHLORIDE CRTAB 20 MEQ TABCR PO STA (15:10)
[2020-07-30] MEDS: Ipratropium HFA Inhaler (Combivent Respimat P&T Subs) INH SCH ×2 (15:15→19:31)
[2020-07-30] MEDS: Albuterol HFA 8 GM Inhaler (Combivent Respimat P&T Subs) INH SCH ×2 (15:16→19:31)
[2020-07-30] MEDS: NICOTINE 21 MG/24 HR TDSY TD SCH (15:43)
[2020-07-30] MEDS: POTASSIUM CHLORIDE / WTR 10 MEQ/100 ML PLCT IV SCH ×2 (16:09→19:55)
[2020-07-30] MEDS ORDERED: MoRPHine SULFATE CR 15 MG TABCR PO SCH (21:00)
[2020-07-30] MEDS: MoRPHine SULFATE IR 15 MG TAB (IMMEDIATE RELEASE) PO PRN (21:01)
[2020-07-30 23:04] LABS: Partial Thromboplastin Ratio 4.3
[2020-07-30 23:07] LABS: Partial Thromboplastin Time 111.9 Seconds (21.0-31.0)
[2020-07-31] MEDS: SODIUM CHLORIDE 0.9% 1000ML 1,000 ML IV SCH ×2 (00:17→20:15)
[2020-07-31] MEDS: MoRPHine SULFATE CR 15 MG TABCR PO SCH ×3 (00:21→22:59)
[2020-07-31 06:55] LABS: Hematocrit (blood only) 37.5 % (37-47); Hemoglobin 12.2 g/dL (12.0-16.0); Mean Corpuscular Hemoglobin 33.2 pg (25-34); Mean Corpuscular Hgb Conc 32.5 g/dL (32-36); Mean Corpuscular Volume 102.2 fL (80-100); Mean Platelet Volume 10.5 fL (7.4-10.4); Platelet Count 216 K/uL (130-400); RDW Standard Deviation 64.2 fL (36.4-46.3); Red Blood Count 3.67 M/uL (4.2-5.4); White Blood Count 5.59 K/uL (4.8-10.8)
[2020-07-31] MEDS: Albuterol HFA 8 GM Inhaler (Combivent Respimat P&T Subs) INH SCH ×4 (06:58→20:15)
[2020-07-31] MEDS: Ipratropium HFA Inhaler (Combivent Respimat P&T Subs) INH SCH ×4 (06:59→20:15)
[2020-07-31 07:13] LABS: Estimated Average Glucose 94 mg/dl; Hemoglobin A1C 4.9 % (4.5-5.6)
[2020-07-31 07:18] LABS: INR 1.3 (0.9-1.1); Partial Thromboplastin Ratio 2.7; Prothrombin Time 12.8 Seconds (9.0-12.0)
[2020-07-31 07:30] LABS: Albumin Level 2.4 gm/dl (3.4-5.0); BUN Creatinine Ratio 5.3 (10-20); Calcium 8.1 mg/dl (8.5-10.1); Creatinine Clr Calc Pharmacy 79.1 ml/min; Est GFR (African American) 117.9; Est GFR (Non-African American) 101.8; Potassium 3.4 mmol/L (3.5-5.1)
[2020-07-31 07:33] LABS: Albumin Globulin Ratio 0.8 (0.9-2); Bilirubin,Total 1.4 mg/dl (0.2-1); Globulin 2.9 gm/dl (2.5-4.0); Phosphorus 3.5 mg/dl (2.5-4.9); Total Protein 5.3 gm/dl (6.4-8.2)
[2020-07-31] MEDS: NICOTINE 21 MG/24 HR TDSY TD SCH (08:27)
[2020-07-31] MEDS: ATORVASTATIN 40 MG TAB PO SCH (08:28)
[2020-07-31] MEDS: ASPIRIN 81 MG ECTAB PO SCH (08:28)
[2020-07-31] MEDS: METOPROLOL SUCC 25MG EXT REL TAB PO SCH (08:28)
[2020-07-31] MEDS ORDERED: POTASSIUM CHLORIDE CRTAB 20 MEQ TABCR PO ONE (10:15)
[2020-07-31] MEDS ORDERED: HEPARIN (PORCINE) 1000 UNIT/ML 10 ML (CATH LAB USE ONLY) ONE (11:04)
[2020-07-31] MEDS ORDERED: niCARdipine HCL INJ 2.5 MG/ML 10 ML AMP ONE (11:04)
[2020-07-31] MEDS ORDERED: MIDAZOLAM HCL 1 MG/ML 2ML VIAL ONE (11:04)
[2020-07-31] MEDS ORDERED: NITROGLYCERIN/D5W 100MCG/ML 20ML SYR ONE (11:04)
[2020-07-31] MEDS ORDERED: fentaNYL citrate 100 MCG/2 ML VIAL ONE (11:04)
--- NOTE | 2020-07-31 12:18 | Cardiac Catheterization ---
Date of Service July 31, 2020 Cardiac Cath Report Cardiac Cath Report Procedure: 1. Coronary angiography History: This is a 60-year-old female with severe peripheral vascular disease especially of her lower extremities. She presented with exertional chest pain and was referred for cardiac catheterization. She has a history of paroxysmal atrial fibrillation and has been anticoagulated with warfarin which needed to be reversed prior to the cardiac catheterization. Procedure summary: After informed consent was obtained the patient was brought to the cardiac catheterization lab where access was obtained using a retrograde Salinger technique from the right radial artery. Preformed 5 Iraqi diagnostic catheters were utilized for the coronary angiograms. Following the procedure the patient was returned to her room in stable condition. ACC data: Start time 11:31 AM End time 11:55 AM Opening aortic pressure 132/79 Closing aortic pressure 119/75 Sedation 2 mg intravenous Versed IV fluid 50 cc normal saline Contrast 40 cc Visipaque Fluoroscopy time 1.6 minutes Radiation 131 mGy DAP 13.46 Gy/cm Right dominant system AUC score 7 Coronary angiography: Selective injections of the left coronary artery revealed the left main trunk to be patent. The LAD extends to the apex of the heart. There is a large first diagonal branch which has a 50-60% narrowing at its ostium. A second diagonal branch is widely patent. The left circumflex artery consists principally of a large single marginal branch. The left circumflex artery is widely patent. Injections of the right coronary artery revealed to be dominant. The right coronary artery is widely patent. Summary: The patient has minor coronary artery disease of a single diagonal branch from the LAD. Otherwise, the coronary anatomy is widely patent. Recommendations: Encourage the patient to stop smoking. Continued medical management of the patient's vascular disease.
[2020-07-31] MEDS: MoRPHine SULFATE 2 MG/ML CARP IV PRN ×2 (13:19→18:27)
[2020-07-31] MEDS ORDERED: POTASSIUM CHLORIDE PWD 20 MEQ PACK PO ONE (14:00)
[2020-07-31 14:14] LABS: Partial Thromboplastin Time 27.3 Seconds (21.0-31.0)
[2020-07-31] MEDS ORDERED: WARFARIN SOD 2 MG TAB PO SCH (18:30)
--- NOTE | 2020-07-31 21:13 | Hospitalist Progress Note ---
Date of Service July 31, 2020 Assessment & Plan (1) Depression: Positive symptoms for depression including pain, fatigue, etc. She has had significant emotional stressors as above in addition to chronic pain that is poorly controlled on narcotic medication. She has discussed starting Paxil with her primary care provider, which would be a good thing to try upon discharge with close PCP follow-up and monitoring. (2) PAD (peripheral artery disease): chronic, stable, cont home therapy including aspirin and statin. Smoking cessation highly encouraged. (3) Deep vein thrombosis: h/o multiple recurring DVTs in setting of hypercoagulable mutation. Cont coumadin indefinitely. (4) MTHFR mutation: resume coumadin today post-procedure. (5) Tobacco abuse: - Cessation encouraged, Nicoderm. (6) Chronic pain: Chronic morphine-reviewed PDMP for accuracy.- Medical marijuana oils used at home for the last year. No recent changes in her supplier. (7) COPD (chronic obstructive pulmonary disease): chronic, stable. Stop smoking. Bronchodilator therapy as needed. (8) DVT prophylaxis: coumadin Full Code Dispo-to home in am. Sujatha Prescott DO [facility] Hospitalist Admission and Anticipated Discharge Date Admission Date: July 30, 2020 Subjective 60-year-old female with chronic pain on long-term morphine presented with EKG abnormalities and a 3-week history of palpitations and generalized symptoms including increased fatigue generalized pain, difficulty sleeping, apathy to food, and lack of concentration ability. She clearly has many symptoms consistent with depression and has recently been offered Paxil by her primary care provider. She reports trying Cymbalta in the past unsuccessfully because of GI upset. She was focusing on chest heaviness on admission, but now refers to her pain is all over and more generalized. Heart catheterization was clear today. Despite palpitations, telemetry review reveals no evidence of arrhythmia or PVCs. She does describe a recent emotional transition that is causing her stress where her daughter went from relying on her care to obtaining support in a new relationship, no longer needing her assistance. She verbalized this has made her feel badly. We also discussed that when people have chronic pain, depression is not far behind. We discussed better options for control of depression and how emotional pain can lead to somatic manifestations. She verbalized understanding and a renewed sense of enlightenment with respect to her symptoms. Review of Systems Review of Systems: All systems reviewed & are unremarkable except as noted in Subjective Physical Exam Physical Exam: CONSTITUTIONAL: WNWD, vitals as above, generally well-appearing EYES: normal conjunctivae, no scleral icterus ENT: external ear and nose normal, MMM RESPIRATORY: clear to auscultation bilaterally, no crackles, rales or wheezes, normal respiratory effort CARDIOVASCULAR: regular rate and rhythm, S1 and 2 heard without murmurs, gallops or rubs, no JVD, no peripheral edema, TR band in place on the right wrist. GASTROINTESTINAL: soft, nontender, nondistended. MUSCULOSKELETAL: strength 5/5 throughout, head is normocephalic and atraumatic, neck supple, normal palpation of chest wall without tenderness SKIN: warm and dry NEUROLOGIC: CN 2-12 grossly intact, no sensory deficit, normal cognition, normal speech. No gross focal deficits. PSYCHIATRIC: alert cooperative and oriented to person, place and time. Results & Data Results & Data ([facility]) Vital Signs (Past 12 Hours) Vital Signs Temp Pulse Pulse Resp BP Pulse Ox 07/31/20 19:36 36.8 C 74 16 117/71 99 07/31/20 17:22 36.8 C 69 18 107/69 98 07/31/20 16:22 36.9 C 73 17 115/64 97 07/31/20 16:00 74 07/31/20 15:22 36.8 C 68 20 105/72 98 07/31/20 14:22 36.8 C 72 18 117/69 97 07/31/20 13:22 36.9 C 69 17 111/76 97 07/31/20 13:15 36.8 C 75 18 120/74 98 07/31/20 13:02 36.8 C 71 18 104/65 99 07/31/20 12:45 64 18 113/75 98 07/31/20 12:30 36.9 C 74 18 129/70 98 07/31/20 12:20 76 18 100/67 96 07/31/20 12:06 72 18 126/80 98 07/31/20 11:00 83 119/74 96 Laboratory Results Short CBC 07/31/20 Range/Units 06:34 WBC 5.59 (4.8-10.8) K/uL Hgb 12.2 (12.0-16.0) g/dL Hct 37.5 (37-47) % Plt Count 216 (130-400) K/uL BMP 07/31/20 06:34 Sodium 143 Potassium 3.4 L Chloride 110 H Carbon Dioxide 30 BUN 3 L Creatinine 0.53 L Glucose 83 Calcium 8.1 L Liver Function 07/31/20 Range/Units 06:34 Total Bilirubin 1.4 H (0.2-1) mg/dl AST 49 H (15-37) U/L ALT 30 (12-78) U/L Alkaline Phosphatase 153 H (45-117) U/L Albumin 2.4 L (3.4-5.0) gm/dl Medications Administered Current Inpatient Medications Acetaminophen (Acetaminophen 325 Mg Tab) 650 mg PO Q4H PRN PRN Reason: Moderate Pain Stop: 08/29/20 13:02 Albuterol (Albuterol Hfa 8 Gm Inhaler (Combivent Respimat P&T Subs)) 1 puffs INH QIDR [facility] Stop: 08/29/20 14:59 Last Admin: 07/31/20 20:15 Dose: Not Given Documented by: Aspirin (Aspirin 81 Mg Ectab) 81 mg PO [facility] Stop: 08/30/20 08:59 Last Admin: 07/31/20 08:28 Dose: 81 mg Documented by: Atorvastatin Calcium (Atorvastatin 40 Mg Tab) 40 mg PO [facility] Stop: 08/30/20 08:59 Last Admin: 07/31/20 08:28 Dose: 40 mg Documented by: Sodium Chloride (Nss 1000ml) 1,000 mls @ 46 mls/hr IV .[id number] [facility] Stop: 08/30/20 00:00 Last Admin: 07/31/20 20:15 Dose: 46 mls/hr Documented by: Ipratropium [place] (Ipratropium Hfa Inhaler (Combivent Respimat P&T Subs)) 1 puffs INH QIDR [facility] Stop: 08/29/20 14:59 Last Admin: 07/31/20 20:15 Dose: Not Given Documented by: Metoprolol Succinate (Metoprolol Succ 25mg Ext Rel Tab) 25 mg PO [facility] Stop: 08/30/20 08:59 Last Admin: 07/31/20 08:28 Dose: 25 mg Documented by: Miscellaneous (Remove Nicoderm Patch) 1 ea N/A DAILY@0859 [facility] Stop: 08/30/20 08:58 Last Admin: 07/31/20 08:28 Dose: 1 ea Documented by: Morphine Sulfate (Morphine Sulfate Ir 15 Mg Tab (Immediate Release)) 15 mg PO HS PRN PRN Reason: Pain Stop: 08/13/20 13:02 Last Admin: 07/30/20 21:01 Dose: 15 mg Documented by: Morphine Sulfate (Morphine Sulfate Cr 15 Mg Tabcr) 15 mg PO Q12H [facility] Stop: 08/13/20 14:14 Last Admin: 07/31/20 12:37 Dose: 15 mg Documented by: Morphine Sulfate (Morphine Sulfate 2 Mg/Ml Carp) 2 mg IV Q2H PRN PRN Reason: Pain Stop: 08/14/20 10:09 Last Admin: 07/31/20 18:27 Dose: 2 mg Documented by: Nicotine (Nicotine 21 Mg/24 Hr Tdsy) 21 mg TD QAM [facility] Stop: 08/29/20 14:44 Last Admin: 07/31/20 08:27 Dose: 21 mg Documented by: Nitroglycerin (Nitroglycerin Sl 0.4 Mg/Tab Tab) 0.4 mg SL PRN PRN PRN Reason: Chest Pain Stop: 08/29/20 13:02 Ondansetron HCl (Ondansetron Inj 2 Mg/Ml 2 Ml Vial) 4 mg IV Q4H PRN PRN Reason: Nausea And Vomiting Stop: 08/29/20 13:02 Warfarin Sodium (Warfarin Sod 2 Mg Tab) 2 mg PO DAILY@1600 [facility] Stop: 08/30/20 18:29 Last Admin: 07/31/20 20:04 Dose: 2 mg Documented by:
[2020-07-31] MEDS ORDERED: IPRATROPIUM BROMIDE HFA INHALER INH PRN (22:07)
[2020-07-31] MEDS ORDERED: ALBUTEROL HFA 8 GM INHALER INH PRN (22:07)
[2020-07-31] MEDS: MoRPHine SULFATE IR 15 MG TAB (IMMEDIATE RELEASE) PO PRN (22:10)
[2020-08-01 07:05] LABS: Hemoglobin 11.4 g/dL (12.0-16.0); Mean Corpuscular Hemoglobin 33.8 pg (25-34); Mean Corpuscular Hgb Conc 32.6 g/dL (32-36); Mean Corpuscular Volume 103.9 fL (80-100); Platelet Count 203 K/uL (130-400); RDW Standard Deviation 64.5 fL (36.4-46.3); Red Blood Count 3.37 M/uL (4.2-5.4)
[2020-08-01 07:20] LABS: INR 1.1 (0.9-1.1); Prothrombin Time 10.8 Seconds (9.0-12.0)
[2020-08-01 07:34] LABS: Albumin Level 2.3 gm/dl (3.4-5.0); BUN Creatinine Ratio 4.5 (10-20); Calcium 8.4 mg/dl (8.5-10.1); Creatinine Clr Calc Pharmacy 97.4 ml/min; Est GFR (African American) 126.3; Potassium 4.1 mmol/L (3.5-5.1)
[2020-08-01 07:37] LABS: Albumin Globulin Ratio 0.8 (0.9-2); Bilirubin,Total 1.1 mg/dl (0.2-1); Globulin 2.9 gm/dl (2.5-4.0); Total Protein 5.2 gm/dl (6.4-8.2)
[2020-08-01] MEDS: ATORVASTATIN 40 MG TAB PO SCH (08:27)
[2020-08-01] MEDS: ASPIRIN 81 MG ECTAB PO SCH (08:27)
[2020-08-01] MEDS: METOPROLOL SUCC 25MG EXT REL TAB PO SCH (08:27)
[2020-08-01] MEDS: NICOTINE 21 MG/24 HR TDSY TD SCH (08:27)
[2020-08-01] MEDS: MoRPHine SULFATE 2 MG/ML CARP IV PRN (08:54)
--- NOTE | 2020-08-01 09:29 | Cardiology Progress Note ---
Date of Service August 01, 2020 Assessment & Plan (1) Unstable angina: (2) PVD (peripheral vascular disease): (3) Tobacco abuse: (4) MTHFR gene mutation: The patient's cardiac catheterization negative for significant coronary artery disease. I believe her chest pain is noncardiac in origin. The hospitalist note is appreciated. She does have a lot of mental health issues as well as opioid dependence. No additional cardiac testing at this time. The patient will need to be bridged with either heparin or Lovenox until her INR is therapeutic. She can be discharged per the hospitalist service. Admission and Anticipated Discharge Date Admission Date: July 30, 2020 Subjective Discussed the results of the cardiac cath with the patient. She had an uneventful night. Review of Systems Review of Systems: All systems reviewed & are unremarkable except as noted in Subjective Physical Exam Physical Exam: General: no acute distress and stated age Head: normocephalic, no masses, lesions, tenderness or abnormalities Eyes: conjunctiva are pink and non-injected, sclera clear Neck: supple, no adenopathy, no bruits, normal jugular venous pulse, no hepatojugular reflux Chest: normal shape and normal respiratory effort Lungs: clear to auscultation and percussion Cardiac Exam: - regular rate & rhythm, no murmurs gallops or rubs - normal S1, normal S2 Pulses: 2(+) throughout Abdomen: abdomen soft, non-tender, no abnormal masses and no hepatosplenomegaly Musculoskeletal: no gait disturbance, no joint inflammation, no deforming arthritis Extremities: no edema and no cyanosis Neuro: grossly normal exam Results & Data ([facility]) Vital Signs (Past 12 Hours) Vital Signs Temp Pulse Pulse Resp BP Pulse Ox 08/01/20 07:35 36.7 C 71 20 107/74 97 08/01/20 07:15 68 08/01/20 03:37 36.5 C 80 14 112/72 93 07/31/20 22:57 36.7 C 56 L 20 121/76 98 Laboratory Results Laboratory Results - last 24 hr 07/31/20 08/01/20 08/01/20 13:47 06:21 06:21 WBC 4.80 RBC 3.37 L Hgb 11.4 L Hct 35.0 L MCV 103.9 H MCH 33.8 MCHC 32.6 RDW Std Deviation 64.5 H RDW Coeff of Shaun 17.0 H Plt Count 203 MPV 11.0 H PT 10.8 INR 1.1 APTT 27.3 PTT Ratio 1.0 Sodium Potassium Chloride Carbon Dioxide Anion Gap BUN Creatinine Est Cr Clr Drug Dosing Est GFR ( Amer) Est GFR (Non-Af Amer) BUN/Creatinine Ratio Glucose Calcium Total Bilirubin AST ALT Alkaline Phosphatase Total Protein Albumin Globulin Albumin/Globulin Ratio 08/01/20 06:21 WBC RBC Hgb Hct MCV MCH MCHC RDW Std Deviation RDW Coeff of Shaun Plt Count MPV PT INR APTT PTT Ratio Sodium 143 Potassium 4.1 D Chloride 112 H Carbon Dioxide 28 Anion Gap 3.0 BUN 2 L Creatinine 0.43 L Est Cr Clr Drug Dosing 97.4 Est GFR ( Amer) 126.3 Est GFR (Non-Af Amer) 109.0 BUN/Creatinine Ratio 4.5 L Glucose 80 Calcium 8.4 L Total Bilirubin 1.1 H AST 50 H ALT 31 Alkaline Phosphatase 151 H Total Protein 5.2 L Albumin 2.3 L Globulin 2.9 Albumin/Globulin Ratio 0.8 L Medications Administered Current Inpatient Medications Acetaminophen (Acetaminophen 325 Mg Tab) 650 mg PO Q4H PRN PRN Reason: Moderate Pain Stop: 08/29/20 13:02 Albuterol (Albuterol Hfa 8 Gm Inhaler) 1 puffs INH QIDR PRN PRN Reason: SOB/wheezing Stop: 08/29/20 14:59 Aspirin (Aspirin 81 Mg Ectab) 81 mg PO [facility] Stop: 08/30/20 08:59 Last Admin: 08/01/20 08:27 Dose: 81 mg Documented by: Atorvastatin Calcium (Atorvastatin 40 Mg Tab) 40 mg PO [facility] Stop: 08/30/20 08:59 Last Admin: 08/01/20 08:27 Dose: 40 mg Documented by: Ipratropium Geff (Ipratropium Geff Hfa Inhaler) 1 puffs INH QIDR PRN PRN Reason: SOB/wheezing Stop: 08/29/20 14:59 Metoprolol Succinate (Metoprolol Succ 25mg Ext Rel Tab) [facility] Stop: 08/30/20 08:59 Last Admin: 08/01/20 08:27 Dose: 25 mg Documented by: Miscellaneous (Remove Nicoderm Patch) 1 ea N/A DAILY@0859 [facility] Stop: 08/30/20 08:58 Last Admin: 08/01/20 08:26 Dose: 1 ea Documented by: Morphine Sulfate (Morphine Sulfate Ir 15 Mg Tab (Immediate Release)) 15 mg PO HS PRN PRN Reason: Pain Stop: 08/13/20 13:02 Last Admin: 07/31/20 22:10 Dose: 15 mg Documented by: Morphine Sulfate (Morphine Sulfate Cr 15 Mg Tabcr) 15 mg PO Q12H [facility] Stop: 08/13/20 14:14 Last Admin: 07/31/20 22:59 Dose: 15 mg Documented by: Morphine Sulfate (Morphine Sulfate 2 Mg/Ml Carp) 2 mg IV Q2H PRN PRN Reason: Pain Stop: 08/14/20 10:09 Last Admin: 08/01/20 08:54 Dose: 2 mg Documented by: Nicotine (Nicotine 21 Mg/24 Hr Tdsy) 21 mg TD QAM [facility] Stop: 08/29/20 14:44 Last Admin: 08/01/20 08:27 Dose: 21 mg Documented by: Nitroglycerin (Nitroglycerin Sl 0.4 Mg/Tab Tab) 0.4 mg SL PRN PRN PRN Reason: Chest Pain Stop: 08/29/20 13:02 Ondansetron HCl (Ondansetron Inj 2 Mg/Ml 2 Ml Vial) 4 mg IV Q4H PRN PRN Reason: Nausea And Vomiting Stop: 08/29/20 13:02 Last Admin: 08/01/20 08:52 Dose: 4 mg Documented by: Warfarin Sodium (Warfarin Sod 2 Mg Tab) 2 mg PO DAILY@1600 [facility] Stop: 08/30/20 18:29 Last Admin: 07/31/20 20:04 Dose: 2 mg Documented by:
[2020-08-01] MEDS ORDERED: ENOXAPARIN INJ 60 MG/0.6 ML SYR SQ SCH (10:30)
[2020-08-01] MEDS: MoRPHine SULFATE CR 15 MG TABCR PO SCH (12:54)
--- NOTE | 2020-08-01 13:41 | Discharge Summary ---
Date of Service August 01, 2020 Admission HPI Per Admitting Provider This mera 60 yo F with PMHx of PVD, DVT on coumadin, COPD, HTN, HLD, MTHFR mutation s/p multiple extensive venous grafting and procedures on BLE, anxiety, chronic pain on narcotics, avascular necrosis of the R hip, tobacco abuse, history of alcohol abuse, MDD, medical marijuana use, neuropathy who presents to the ER after referral from cardiology. Pt was referred to see cardiology by her PCP recently, and was in to see Dr. Carver yesterday, 07/29/20, where she was evaluated for a 3-week history of chest heaviness, tightness and palpitations. Her chest heaviness occurs at rest and with minimal exertion and last for short period of time. It is worsened with minimal exertion. She admits to dyspnea without lightheadedness or dizziness. Patient was instructed to hold Coumadin last evening which she has done in anticipation of cardiac cath. It was recommended that she have inpatient evaluation and coronary angiography due to EKG changes and unstable angina, however the patient preferred to wait an additional 24 hours before doing this due to significant anxiety. She has had a very poor appetite and feels nauseated daily with one episode of vomited daily as well. She states she weighs around 128 lbs but has weighed less than 100 lbs when she was having surgeries for veins due to clotting issues and was in [place] for extended hospitalizations a few years ago. She was unable to take any of her morning medications today due to her increased anxiety. Pt has been using her morphine sulfate ER 15 mg 2 tablets at bedtime along with immediate release morphine 15 mg at bedtime, as she would "rather suffer through the day and get some relief and sleep through the night". She receives narcotic medication from her PCP. She does use medical marijuana oils during the day. Her mood is poor, has been on cymbalta previously but hasn't been taking this for months. She was prescribed paxil at last PCP visit but hasn't started it. Patient is requesting "sleeping medication" prior to any second IV site insertion due to significant issues with placement with hx of poor venous access. Admission Exam Per Admitting Provider General: awake, alert, no apparent distress, fatigue, + thin Head: Normocephalic, atraumatic ENT: PERRL, EOMI, no pharyngeal exudate, mucous membranes moist Chest: Clear to auscultation, on room air, no adventitious breath sounds Cardiac: Regular rate and rhythm, + few extra beats, no murmur, no JVD, normal peripheral pulses, good capillary refill Abdominal: NABS x 4 quadrants, soft, nondistended, nontender to palpation, no rebound or guarding Extremities: + Scarring lower legs bilaterally status post venous grafting otherwise normal inspection, no peripheral edema or erythema, calfs nontender to palpation Psych: + Depressed mood and flat affect Neuro: AAO x 3, strength intact bilaterally and rated 5/5, no motor deficits, speech is clear, no peripheral sensory deficits Principal Diagnosis Depression/Anxiety Uncontrolled chronic pain Narcotic dependence vitamin D insufficiency Deep vein thrombosis MTHFR mutation Tobacco abuse Discharge Exam CONSTITUTIONAL: WNWD, vitals as above, generally well-appearing EYES: normal conjunctivae, no scleral icterus ENT: external ear and nose normal, MMM RESPIRATORY: clear to auscultation bilaterally, no crackles, rales or wheezes, normal respiratory effort CARDIOVASCULAR: regular rate and rhythm, S1 and 2 heard without murmurs, woods ps or rubs, no JVD, no peripheral edema GASTROINTESTINAL: soft, nontender, nondistended. MUSCULOSKELETAL: strength 5/5 throughout, head is normocephalic and atraumatic, ambulating around the room. SKIN: warm and dry NEUROLOGIC: CN 2-12 grossly intact, no sensory deficit, normal cognition, normal speech. no gross deficits. PSYCHIATRIC: alert cooperative and oriented to person, place and time. Discharge Data Allergies Allergy/AdvReac Type Severity Reaction Status Date / Time vitamin K2 Allergy Severe SOB CHEST Verified 07/30/20 10:44 PAIN SHAKING Consultations 07/30/20 13:03 Consult Cardiology Routine Procedures Performed Operation Date: 07/31/20 11:00 Actual Procedures p Cath, Cors with Grafts (no LV) - Darryn Medina DO s Cineradiography w/Routine Exam - Darryn Medina DO Ordered Studies Laboratory Results WBC 4.80 K/uL (4.8-10.8) 08/01/20 06:21 RBC 3.37 M/uL (4.2-5.4) L 08/01/20 06:21 Hgb 11.4 g/dL (12.0-16.0) L 08/01/20 06:21 Hct 35.0 % (37-47) L 08/01/20 06:21 MCV 103.9 fL (80-100) H 08/01/20 06:21 MCH 33.8 pg (25-34) 08/01/20 06:21 MCHC 32.6 g/dL (32-36) 08/01/20 06: RDW Std Deviation 64.5 fL (36.4-46.3) H 08/01/20 06: RDW Coeff of Shaun 17.0 % (11.5-14.5) H 08/01/20 06:21 Plt Count 203 K/uL (130-400) 08/01/20 06:21 MPV 11.0 fL (7.4-10.4) H 08/01/20 06:21 Immature Gran % (Auto) 0.4 % 07/30/20 09: Neut % (Auto) 73.6 % 07/30/20 09:29 Lymph % (Auto) 15.3 % 07/30/20 09:29 Bowman % (Auto) 9.7 % 07/30/20 09:29 Eos % (Auto) 0.7 % 07/30/20 09:29 Baso % (Auto) 0.3 % 07/30/20 09:29 Neut # (Auto) 5.45 K/uL (1.4-6.5) 07/30/20 09:29 Lymph # (Auto) 1.13 K/uL (1.2-3.4) L 07/30/20 09:29 Bowman # (Auto) 0.72 K/uL (0.11-0.59) H 07/30/20 09:29 Eos # (Auto) 0.05 K/uL (0-0.5) 07/30/20 09:29 Baso # (Auto) 0.02 K/uL (0-0.2) 07/30/20 09:29 Immature Gran # (Auto) 0.03 K/uL (0.00-0.02) H 07/30/20 09:29 PT 10.8 Seconds (9.0-12.0) 08/01/20 06: INR 1.1 (0.9-1.1) 08/01/20 06:21 APTT 27.3 Seconds (21.0-31.0) 07/31/20 13:47 PTT Ratio 1.0 07/31/20 13:47 Sodium 143 mmol/L (136-145) 08/01/20 06:21 Potassium 4.1 mmol/L (3.5-5.1) D 08/01/20 06:21 Chloride 112 mmol/L (98-107) H 08/01/20 06:21 Carbon Dioxide 28 mmol/L (21-32) 08/01/20 06:21 Anion Gap 3.0 (3-11) 08/01/20 06:21 BUN 2 mg/dl (7-18) L 08/01/20 06:21 Creatinine 0.43 mg/dl (0.6-1.2) L 08/01/20 06:21 Est Cr Clr Drug Dosing 97.4 ml/min 08/01/20 06:21 Est GFR ( Amer) 126.3 08/01/20 06:21 Est GFR (Non-Af Amer) 109.0 08/01/20 06:21 BUN/Creatinine Ratio 4.5 (10-20) L 08/01/20 06:21 Glucose 80 mg/dl (70-99) 08/01/20 06:21 Estimat Average Glucose 94 mg/dl 07/31/20 06:34 Hemoglobin A1c 4.9 % (4.5-5.6) 07/31/20 06:34 Calcium 8.4 mg/dl (8.5-10.1) L 08/01/20 06:21 Phosphorus 3.5 mg/dl (2.5-4.9) 07/31/20 06:34 Magnesium 2.0 mg/dl (1.8-2.4) 07/31/20 06:34 Total Bilirubin 1.1 mg/dl (0.2-1) H 08/01/20 06:21 AST 50 U/L (15-37) H 08/01/20 06:21 ALT 31 U/L (12-78) 08/01/20 06:21 Alkaline Phosphatase 151 U/L (45-117) H 08/01/20 06:21 Troponin I < 0.015 ng/ml (0-0.045) 07/30/20 09:29 Total Protein 5.2 gm/dl (6.4-8.2) L 08/01/20 06:21 Albumin 2.3 gm/dl (3.4-5.0) L 08/01/20 06:21 Globulin 2.9 gm/dl (2.5-4.0) 08/01/20 06:21 Albumin/Globulin Ratio 0.8 (0.9-2) L 08/01/20 06:21 25-OH Vitamin D Total 26.3 ng/ml (30-100) L 08/01/20 12:55 TSH 3.910 uIu/ml (0.300-4.500) 08/01/20 06:21 COVID-19 Eval Order CovFluRsv at [facility] 07/30/20 09:58 SARS-CoV-2 (PCR) NEGATIVE (Negative) 07/30/20 09:58 Influenza Type A (PCR) Negative (Neg) 07/30/20 09:58 Influenza Type B (PCR) Negative (Neg) 07/30/20 09:58 RSV (RT-PCR) Negative (Neg) 07/30/20 09:58 Impressions Chest X-Ray 07/30/20 08:40 XR chest 1V portable CLINICAL HISTORY: Chest Pain COMPARISON STUDY: Chest radiograph July 22, 2014. FINDINGS: Lung volumes are normal. Lungs are clear. There is no pneumothorax or pleural effusion. Cardiac size is normal. Mediastinal contours are normal. There is no evidence for pulmonary edema. IMPRESSION: No acute cardiopulmonary findings. ACT 112: Negative or not required by law. Electronically signed by: Jaime Zuñiga M.D. 07/30/2020 9:51 AM Hospital Course (1) Depression: (2) PAD (peripheral artery disease): (3) Deep vein thrombosis: (4) MTHFR mutation: (5) Tobacco abuse: (6) Vitamin D insufficiency: (7) Chronic pain: The patient is a 60-year-old female who has been experiencing worsening pain fatigue, difficulty sleeping, apathy to food, lack of concentration ability over the last 3 weeks. She also reports significant palpitations during the day that are nonspecific in addition to some generalized chest pain. She has a known history of significant peripheral vascular disease and was admitted to the hospitalist service on telemetry. A consult was placed to cardiology. Given her exertional angina symptoms which appear to be crescendoing, a cardiac catheterization was recommended. She was given oral vitamin K to reverse her INR of 2.1. Cardiac catheterization was performed on 07/31. This revealed minor coronary artery disease of a single diagonal branch in the LAD otherwise the coronary anatomy was widely patent. She was returned to the floor and monitored again overnight. She remained hemodynamically stable and afebrile during her entire hospitalization and there were no events on telemetry during her stay. Additional work-up included a TSH which was within normal limits at 3.91 and a 25 hydroxy vitamin D level which was slightly insufficient at 26. She was given vitamin D supplementation prior to discharge and encouraged to follow-up with her primary care doctor after starting the Paxil which was recently recommended. It was clear through our conversation that she has uncontrolled depression and anxiety likely related to her chronic pain in addition to recent emotional stressors with her daughter. Further counseling to help with this is also recommended in addition to smoking cessation strategies, and looking into alternative therapies for improved pain control. She will need Lovenox for bridge therapy to Coumadin with a goal INR of 2-3. She is typically followed in the [facility] system, reporting to be a home check patient. INR on day of discharge was 1.1. At time of discharge she was feeling better from a symptom standpoint and close primary care follow-up was recommended. Total Time Total Time Spent Total Time Spent (In Minutes): 60 Total Time Includes: Examination of the Patient, Discharge Planning, Medication Reconciliation and Communication With Other Providers Discharge Plan Discharge Items Reason For Visit: UNSTABLE ANGINA Discharge Diagnosis: Depression/Anxiety Uncontrolled chronic pain Narcotic dependence vitamin D insufficiency Deep vein thrombosis MTHFR mutation Tobacco abuse Follow-up/Referrals: Pieter Benavides MD [Primary Care Provider] - (Date & Time 08/07/2020 4:00 PM Provider Pieter Benavides MD Department Family Practice [facility] ) Medications and DC Order Prescriptions: New enoxaparin 60 mg/0.6 mL Syringe 50 mg subcut Q12H Qty: 6 RF: 0 nicotine [Nicoderm CQ] 21 mg/24 hr Patch 24 Hour 21 mg transdermal QAM Qty: 14 RF: 0 ergocalciferol (vitamin D2) 1,250 mcg (50,000 unit) capsule 50,000 unit PO DAILY Qty: 10 RF: 0 Continued atorvastatin 40 mg Tablet 40 mg PO QAM RF: 0 ascorbic acid (vitamin C) 500 mg Capsule 500 mg PO QAM RF: 0 cyanocobalamin (vitamin B-12) [Vitamin B-12] 1,000 mcg Tablet 1,000 mcg PO QAM RF: 0 Combivent Respimat 20-100 mcg/actuation Mist 1 puff INHALATION QID RF: 0 morphine 15 mg Tablet Extended Release 15 mg PO BID RF: 0 warfarin [Coumadin] 1 mg Tablet 1.5 mg PO UD RF: 0 morphine 15 mg Tablet 15 mg PO HS PRN (Reason: Pain) RF: 0 Medical Marijuanas ~ Oil Vape 0 inh inhalation UD RF: 0 Admission Data Admit Date/Time: 07/30/20 12:12 Attending Provider: Sujatha Prescott Admit Provider: Renae Loo Primary Care Provider: Pieter Benavides Other Providers: Darryn Medina
== END 2020-08-01 15:03 | disposition home or self-care (01) ==
LOC: ED 08:14 → SUATTDRO 12:12 → INTOOBSV 12:12 → 2S 12:12
PROC: CLB.CCG (2020-07-31 11:00)

== ENCOUNTER 2022-05-30 11:33 | Inpatient (IN) ==
--- NOTE | 2022-05-30 12:14 | Emergency Department Note ---
Impression & Plan Acute confusion, Generalized weakness, Nausea & vomiting, Supratherapeutic INR, COPD exacerbation ED Provider Note INFORMANT: Patient and daughter ED PROVIDER(S): Micky Jarvis MD CHIEF COMPLAINT: Confusion and shortness of breath PLAN: Disposition: Admitted Condition: Good Outpatient prescription management: none Referral: None MEDICAL DECISION MAKING: Patient presented because of confusion. She also had respiratory complaints. She has a history of COPD. Her chest x-ray revealed COPD changes but no evidence of pneumonia. ECG showed no ischemia. The patient's CBC and chemistry panel were unremarkable. She did have a mild elevation of her CO2 which is abou t baseline for her. LFTs are minimally elevated but unchanged. There was no significant change in her ECG compared to prior. Patient's head CT did not reveal any acute bleeding or other gross abnormalities. She was found to have a significant elevation of her INR. I suspect this is secondary to her not eating and her antibiotic use. Urinalysis pending. Patient was treated with a DuoNeb and Solu-Medrol. Given the confusion and supratherapeutic INR coupled with her decline I discussed further management in the hospital. Patient and daughter were in agreement. Consultation was made with the [facility] service. Patient was evaluated in the ER and admitted for further management. After review of the information above and other included data, I feel the patient would benefit from inpatient treatment. Discussed with cnc manager.. Triage Nursing notes reviewed and agree them. Vital Signs: reviewed and remarkable for no significant abnormalities Prior /Outside records reviewed: none Differential diagnosis: Infection, hypoglycemia, electrolyte abnormalities, overdose, toxicologic, ACS,CVA, ICH, neurologic, trauma, as well as other pathologies. Diagnostics, as interpreted by me: ECG: Twelve-lead ECG reveals a normal sinus rhythm at 93 bpm. Inferior T wave inversion in anterior Q waves inversion present. No ST elevation. Cardiac Monitoring: Cardiac monitoring ordered by me: The patient was placed on continuous cardiac monitoring and observed. It revealed a normal sinus rhythm at 98 beats per minute without ectopy or evidence of dysrhythmia. Medical decision rules: none Imaging studies: Head CT: A noncontrast CT scan of the head was performed and was negative for tumor, fracture, intracranial hemorrhage, or other acute pathology. Chest x-ray. Findings: A chest x-ray was performed and revealed no pneumothorax, effusion, infiltrate, pulmonary edema, free air under the diaphragm, or wide mediastinum. Findings consistent with COPD noted. I refer you to the EMR for further details. HPI: The patient is a 62year old female who presents to the Emergency Room with complaints of confusion and shortness of breath. This started over the last week and is worsening. Patient's daughter is present and helps with the history. Patient had URI symptoms over a week ago and went to the primary physician. Chest x-ray was negative. The patient had worsening cough symptoms and feeling short of breath. She has a history of COPD and primary care then prescribed her an antibiotic, daughter thinks minocycline. The patient also notes the following associated symptoms, occasional nausea and vomiting, generalized weakness. Daughter notes that over the last 48 hours she has become more confused and more weak. Patient denies any trauma. She has chronic leg pain from peripheral neuropathy. She is on chronic pain medication for that. She denies any new or different pains. The patient has found no relieving factors. Current pain is rated as 0/10. Pt denies LOC, headache, fevers, chills, diaphoresis, visual changes, neck pain, chest pain, abdominal pain, back pain, melena, hematochezia, urinary symptoms, numbness, weakness, lymphadenopathy, rash, or other complaints. PAST MEDICAL HISTORY: See Below, DVT, arterial thromboembolism, supratherapeutic INR, ICH, COPD PAST SURGICAL HISTORY: See Below, vascular surgery right lower extremity SOCIAL HISTORY: See Below, smokes HOME MEDICATIONS: See Below ALLERGIES: See Below VITALS: See Below PHYSICAL EXAMINATION: GENERAL: Awake, tired-appearing, in no distress HENT: Normocephalic, atraumatic. Oropharynx unremarkable. EYES: Normal conjunctiva. Sclera non-icteric. PERRLA, EOMI NECK: Inspection normal. Non-tender. Supple. No nuchal rigidity. FROM. No masses. RESPIRATORY: Clear to auscultation. No wheezes. No rales. Normal respiratory effort. CARDIAC: Borderline tachycardic rate. Normal rhythm. No murmurs. No rubs. Extremities warm and well perfused. Pulses equal. No JVD. GI: Soft, non-distended. No tenderness to palpation. No rebound or guarding. No masses. RECTAL: Deferred. MUSCULOSKELETAL: Atraumatic. Chest examination reveals no tenderness. The back is symmetrical on inspection without obvious abnormality. There is no CVA tenderness to palpation. No joint edema. LOWER EXTREMITIES: Calves are equal size bilaterally and non-tender. Trace edema. No discoloration. Scars noted RLE NEURO: Occasional repetitive questioning. Otherwise relatively normal sensorium. No sensory or motor deficits noted. SKIN: No rash or jaundice noted. Past Med/Surg History Medical History (Updated 05/30/22 @ 17:49 by Micky Jarvis MD) Angina at rest Chest pain Chronic back pain Chronic pain COPD (chronic obstructive pulmonary disease) COPD (chronic obstructive pulmonary disease) NO PROBLEMS Deep vein thrombosis Deep vein thrombosis (2016) FEMORAL BYPASS IN BILATERAL LEGS Degenerative disc disease Depression Depression Diverticular disease DVT prophylaxis Factor 5 Leiden mutation, heterozygous Fibromyalgia GERD (gastroesophageal reflux disease) History of MTHFR mutation HLD (hyperlipidemia) MDD (major depressive disorder) Migraine MTHFR gene mutation MTHFR mutation Osteoarthritis PAD (peripheral artery disease) Peptic ulcer disease CURRENT Peripheral neuropathy Peripheral vascular disease Peripheral vascular disease PVD (peripheral vascular disease) Tobacco abuse Unstable angina Vitamin D insufficiency Surgical History H/O surgical biopsy VAGINAL BIOPSY H/O vascular surgery MULTIPLE BILATERAL LEG SURGERIES History of arthroscopy LEFT SHOULDER History of section X1 History of cholecystectomy LAP History of colonoscopy History of esophagogastroduodenoscopy (EGD) EGD 12/23/2017. Sedation no issues. History of nasal septoplasty History of right cataract extraction History of tonsillectomy Family History (Updated 05/30/22 @ 15:58 by Jimena Pat PA-C) Other Coronary heart disease Social History Smoking Status: Current every day smoker Tobacco Type: Cigarettes Cigarettes Per Day: 30; Second Hand Exposure: No; Hx Alcohol Use: Yes Alcohol type: beer, wine and hard liquor Hx Substance Use: No Preferred Language: Bahraini Communication Ability: Effective Commercial Account Executive Required: No Beliefs That Will Affect Care: None Current Living Situation: Alone Feels Safe at Home: Yes Assistive Devices: None Allergies Allergies Allergy/AdvReac Type Severity Reaction Status Date / Time vitamin K2 Allergy Severe SOB CHEST Verified 05/30/22 13:45 PAIN SHAKING Home Meds Home Medications Medication Instructions Recorded Confirmed ascorbic acid (vitamin C) 500 mg 500 mg PO QAM 09/13/18 05/30/22 capsule atorvastatin 40 mg tablet 40 mg PO QAM 09/13/18 05/30/22 cyanocobalamin (vitamin B-12) 1,000 mcg PO QAM 09/13/18 05/30/22 1,000 mcg tablet (Vitamin B-12) Medical Marijuanas ~ Oil Vape 0 inh inhalation UD 07/30/20 05/30/22 morphine 15 mg immediate release 15 mg PO BID PRN Severe Pain 07/30/20 05/30/22 tablet (Scale Score 7-10) morphine 15 mg tablet,extended 15 mg PO BID 07/30/20 05/30/22 release albuterol sulfate 90 mcg/actuation 2 puff inhalation QID PRN 05/30/22 05/30/22 aerosol inhaler Shortness Of Breath Or Wheezing aspirin 81 mg tablet,delayed 81 mg PO DAILY 05/30/22 05/30/22 release cyclobenzaprine 5 mg tablet 5 mg PO HS 05/30/22 05/30/22 doxycycline hyclate 100 mg capsule 100 mg PO BID 05/30/22 05/30/22 gabapentin 300 mg capsule 300 mg PO TID 05/30/22 05/30/22 mirtazapine 30 mg tablet 30 mg PO HS 05/30/22 05/30/22 warfarin 2.5 mg tablet 1.25 mg PO UD 05/30/22 05/30/22 Results & Data (ED) Vital Signs Vital Signs - 24 hr 05/30/22 11:40 05/30/22 12:09 05/30/22 11:49 Temperature 36.4 C L Temperature Source Temporal Artery Scan Pulse Rate 98 H 98 H 97 H Pulse Rate from SpO2 Sensor Pulse Rhythm Regular Respiratory Rate 22 19 Respiratory Effort / Characteristics Respiratory Depth Respiratory Pattern Blood Pressure 119/78 Blood Pressure Mean 91 Pulse Oximetry 96 97 Oxygen Delivery Method Room Air Room Air Oxygen Flow Rate 0 Sepsis Recent Fever Within 48 Hours No Sepsis New/Unexplained Change in Mental Status N/A Sepsis Action Taken by Nursing No Action Required Oxygen Flow Rate - Titration 05/30/22 11:49 05/30/22 11:49 05/30/22 11:50 Temperature Temperature Source Pulse Rate 95 H Pulse Rate from SpO2 Sensor 95 H Pulse Rhythm Respiratory Rate 15 Respiratory Effort / Characteristics Non-Labored Spontaneous Respiratory Depth Normal Respiratory Pattern Regular Blood Pressure Blood Pressure Mean Pulse Oximetry 97 98 Oxygen Delivery Method Room Air Room Air Oxygen Flow Rate 0 Sepsis Recent Fever Within 48 Hours Sepsis New/Unexplained Change in Mental Status Sepsis Action Taken by Nursing Oxygen Flow Rate - Titration 0 05/30/22 12:00 05/30/22 12:00 05/30/22 12:30 Temperature Temperature Source Pulse Rate 96 H 91 H Pulse Rate from SpO2 Sensor 97 H Pulse Rhythm Respiratory Rate 16 11 L Respiratory Effort / Characteristics Respiratory Depth Respiratory Pattern Blood Pressure 120/85 Blood Pressure Mean 96 Pulse Oximetry 99 Oxygen Delivery Method Room Air Oxygen Flow Rate Sepsis Recent Fever Within 48 Hours Sepsis New/Unexplained Change in Mental Status Sepsis Action Taken by Nursing Oxygen Flow Rate - Titration 05/30/22 12:50 05/30/22 12:51 05/30/22 13:02 Temperature Temperature Source Pulse Rate 96 H 118 H Pulse Rate from SpO2 Sensor 92 H Pulse Rhythm Respiratory Rate 16 11 L Respiratory Effort / Characteristics Respiratory Depth Respiratory Pattern Blood Pressure 116/79 Blood Pressure Mean 91 Pulse Oximetry 91 Oxygen Delivery Method Oxygen Flow Rate Sepsis Recent Fever Within 48 Hours Sepsis New/Unexplained Change in Mental Status Sepsis Action Taken by Nursing Oxygen Flow Rate - Titration 05/30/22 13:30 05/30/22 13:30 05/30/22 14:00 Temperature Temperature Source Pulse Rate 93 H Pulse Rate from SpO2 Sensor 93 H Pulse Rhythm Respiratory Rate 17 Respiratory Effort / Characteristics Respiratory Depth Respiratory Pattern Blood Pressure 110/84 113/72 Blood Pressure Mean 92 85 Pulse Oximetry 98 Oxygen Delivery Method Room Air Oxygen Flow Rate Sepsis Recent Fever Within 48 Hours Sepsis New/Unexplained Change in Mental Status Sepsis Action Taken by Nursing Oxygen Flow Rate - Titration 05/30/22 14:00 Temperature Temperature Source Pulse Rate 96 H Pulse Rate from SpO2 Sensor 96 H Pulse Rhythm Respiratory Rate 25 H Respiratory Effort / Characteristics Respiratory Depth Respiratory Pattern Blood Pressure Blood Pressure Mean Pulse Oximetry 97 Oxygen Delivery Method Oxygen Flow Rate Sepsis Recent Fever Within 48 Hours Sepsis New/Unexplained Change in Mental Status Sepsis Action Taken by Nursing Oxygen Flow Rate - Titration Laboratory Data 05/30/22 12:17 05/30/22 12:17 Lab Results 05/30/22 05/30/22 05/30/22 Range/Units 12:17 12:17 12:17 WBC 8.80 (4.8-10.8) K/ul RBC 3.87 L (4.20-5.40) M/uL Hgb 13.2 (12.0-16.0) g/dl Hct 37.5 (37.0-47.0) % MCV 96.9 (80.0-100.0) fL MCH 34.1 H (25.0-34.0) pg MCHC 35.2 (32.0-36.0) g/dL RDW Std Deviation 51.8 H (36.4-46.3) fL RDW Coeff of Shaun 14.6 H (11.5-14.5) % Plt Count 261 (130-400) K/uL MPV 10.8 (9.4-12.4) fL Immature Gran % (Auto) 0.5 % Neut % (Auto) 83.0 % Lymph % (Auto) 8.8 % Eaton % (Auto) 7.4 % Eos % (Auto) 0.0 % Baso % (Auto) 0.3 % Neut # (Auto) 7.31 H (1.40-6.50) K/uL Lymph # (Auto) 0.77 L (1.2-3.4) K/uL Eaton # (Auto) 0.65 H (0.11-0.59) K/uL Eos # (Auto) 0.00 (0-0.50) K/uL Baso # (Auto) 0.03 (0-0.2) K/uL Immature Gran # (Auto) 0.04 (0.01-0.20) K/uL PT > 90.0 H (9.0-12.0) Seconds INR > 9.6 H* (0.9-1.1) VBG pH (7.36-7.41) VBG pCO2 (38-50) mmHg VBG pO2 mmHg VBG HCO3 mmol/L VBG O2 Saturation % VBG Base Excess mEq/L Sodium 135 L (136-145) mmol/L Potassium 3.7 (3.5-5.1) mmol/L Chloride 92 L (98-107) mmol/L Carbon Dioxide 35 H (21-32) mmol/L Anion Gap 8 (3-11) BUN 12 (6-23) mg/dl Creatinine 0.82 (0.6-1.2) mg/dl Est Cr Clr Drug Dosing 51.9 ml/min Est GFR ( Amer) 87.6 ml/min Est GFR (Non-Af Amer) 75.6 ml/min BUN/Creatinine Ratio 14.6 (10-20) Glucose 94 (70-99(Fasting)) mg/dl Calcium 9.2 (8.5-10.1) mg/dl Magnesium 1.6 L (1.7-2.4) mg/dl Total Bilirubin 0.7 (0.2-1.0) mg/dl AST 45 H (13-39) U/L ALT 24 (7-52) U/L Alkaline Phosphatase 162 H (34-104) U/L Troponin I High Sens 10.3 (0-14) pg/ml B-Natriuretic Peptide (0-100) pg/ml Total Protein 7.1 (6.0-8.3) gm/dl Albumin 3.5 (3.4-5.0) gm/dl Globulin 3.6 (2.5-4.0) gm/dl Albumin/Globulin Ratio 1.0 (0.9-2) SARS-CoV-2, RNA, NAAT (NEGATIVE) 05/30/22 05/30/22 05/30/22 Range/Units 12:17 13:30 13:30 WBC (4.8-10.8) K/ul RBC (4.20-5.40) M/uL Hgb (12.0-16.0) g/dl Hct (37.0-47.0) % MCV (80.0-100.0) fL MCH (25.0-34.0) pg MCHC (32.0-36.0) g/dL RDW Std Deviation (36.4-46.3) fL RDW Coeff of Shaun (11.5-14.5) % Plt Count (130-400) K/uL MPV (9.4-12.4) fL Immature Gran % (Auto) % Neut % (Auto) % Lymph % (Auto) % Eaton % (Auto) % Eos % (Auto) % Baso % (Auto) % Neut # (Auto) (1.40-6.50) K/uL Lymph # (Auto) (1.2-3.4) K/uL Eaton # (Auto) (0.11-0.59) K/uL Eos # (Auto) (0-0.50) K/uL Baso # (Auto) (0-0.2) K/uL Immature Gran # (Auto) (0.01-0.20) K/uL PT (9.0-12.0) Seconds INR (0.9-1.1) VBG pH 7.44 H (7.36-7.41) VBG pCO2 52 H (38-50) mmHg VBG pO2 27 mmHg VBG HCO3 35 mmol/L VBG O2 Saturation < 60.0 % VBG Base Excess 9.4 mEq/L Sodium (136-145) mmol/L Potassium (3.5-5.1) mmol/L Chloride (98-107) mmol/L Carbon Dioxide (21-32) mmol/L Anion Gap (3-11) BUN (6-23) mg/dl Creatinine (0.6-1.2) mg/dl Est Cr Clr Drug Dosing ml/min Est GFR ( Amer) ml/min Est GFR (Non-Af Amer) ml/min BUN/Creatinine Ratio (10-20) Glucose (70-99(Fasting)) mg/dl Calcium (8.5-10.1) mg/dl Magnesium (1.7-2.4) mg/dl Total Bilirubin (0.2-1.0) mg/dl AST (13-39) U/L ALT (7-52) U/L Alkaline Phosphatase (34-104) U/L Troponin I High Sens (0-14) pg/ml B-Natriuretic Peptide 122 H (0-100) pg/ml Total Protein (6.0-8.3) gm/dl Albumin (3.4-5.0) gm/dl Globulin (2.5-4.0) gm/dl Albumin/Globulin Ratio (0.9-2) SARS-CoV-2, RNA, NAAT NEGATIVE (NEGATIVE) Administered Medications Sodium Chloride (Nss) 500 mls @ 125 mls/hr IV .Q4H TERENCE Stop: 06/29/22 14:44 Last Admin: 05/30/22 15:34 Dose: 125 mls/hr Documented By: ANNA Discontinued Medications Albuterol (Albut/Ipratrop 3mg/0.5mg Neb 3 Ml Vial) 3 ml NEB NOW STA; Protocol Stop: 05/30/22 13:24 Last Admin: 05/30/22 13:31 Dose: 3 ml Documented By: ANNA Promethazine HCl 12.5 mg/ (Sodium Chloride) 50.5 mls @ 202 mls/hr IV Q6H PRN PRN Reason: Nausea And Vomiting Stop: 06/29/22 14:31 Last Infusion: 05/30/22 15:27 Dose: 0 mls/hr Documented By: Admin: 05/30/22 14:41 Dose: 202 mls/hr Documented By: AM Sodium Chloride (Nss 1000ml) 500 mls @ 999 mls/hr IV .Q31M ONE Stop: 05/30/22 15:15 Last Infusion: 05/30/22 15:38 Dose: 0 mls/hr Documented By: Admin: 05/30/22 14:52 Dose: 999 mls/hr Documented By: AM Methylprednisolone (Methylprednisolone 125 Mg/2 Ml Vial) 60 mg IV NOW STA Stop: 05/30/22 13:24 Last Admin: 05/30/22 13:28 Dose: 60 mg Documented By: ANNA Phytonadione (Phytonadione 5 Mg Tab) 5 mg PO NOW STA Stop: 05/30/22 15:08 Last Admin: 05/30/22 15:36 Dose: 5 mg Documented By: ANNA Imaging Data Radiologist's Impression: Chest X-Ray 05/30/22 11:49 XR chest 1V portable HISTORY: 62 years-old Female Dyspnea acute shortness of breath COMPARISON: Chest radiograph 07/30/2020 TECHNIQUE: AP view of the chest FINDINGS: Cardiomediastinal and hilar silhouettes are within normal limits. No pneumothorax, large pleural effusion, airspace consolidation or overt pulmonary edema. Bones appear grossly intact. Cholecystectomy. Mid to lower thoracic levoscoliosis. IMPRESSION: No acute process. ACT 112: Negative or not required by law. The above report was generated using voice recognition software. It may contain grammatical, syntax or spelling errors. Electronically signed by: Quan Coker M.D. 05/30/2022 12:[address] 05/30/22 12:02 CT head/brain wo con CLINICAL HISTORY: 62 years-old Female with confusion. Acutely altered mental status TECHNIQUE: Multiple axial CT images of the head were obtained without contrast. A dose lowering technique was utilized adhering to the principles of ALARA. CT DOSE: 601.98 mGy.cm COMPARISON: 12/20/2017 FINDINGS: No acute intracranial hemorrhage, midline shift, intracranial mass, hydrocephalus, territorial ischemia or abnormal extra-axial collection. Mild involutional changes. White matter hypodensities suggestive of chronic microvascular ischemic disease. The calvarium is intact. Prior bilateral lens repair. The paranasal sinuses, mastoid air cells, and middle ear cavities are clear. IMPRESSION: No acute intracranial abnormality. ACT 112: Negative or not required by law. The above report was generated using voice recognition software. It may contain grammatical, syntax or spelling errors. Electronically signed by: Quan Coker M.D. 05/30/2022 1:06 PM Discharge Plan Visit Data Chief Complaint: Shortness of Breath/Dyspnea Stated Complaint: DIFFICULTY BREATHING, CONFUSION, GENERALIZED PAIN ED Provider: Micky Jarvis Discharge Problem: Acute confusion, Generalized weakness, Nausea & vomiting, Supratherapeutic INR, COPD exacerbation Discharge Instructions Interventions: ED Discharge Assessment Last Done: 05/30/22 17:37
[2022-05-30 12:39] LABS: Basophils # (auto) 0.03 K/uL (0-0.2); Basophils % (auto) 0.3 %; Hematocrit (blood only) 37.5 % (37.0-47.0); Hemoglobin 13.2 g/dl (12.0-16.0); Immature Granulocytes # (auto) 0.04 K/uL (0.01-0.20); Immature Granulocytes % (auto) 0.5 %; Lymphocytes # (auto) 0.77 K/uL (1.2-3.4); Lymphocytes % (auto) 8.8 %; Mean Corpuscular Hemoglobin 34.1 pg (25.0-34.0); Mean Corpuscular Hgb Conc 35.2 g/dL (32.0-36.0); Mean Corpuscular Volume 96.9 fL (80.0-100.0); Mean Platelet Volume 10.8 fL (9.4-12.4); Monocytes # (auto) 0.65 K/uL (0.11-0.59); Monocytes % (auto) 7.4 %; Neutrophils # (auto) 7.31 K/uL (1.40-6.50); Platelet Count 261 K/uL (130-400); RDW Coefficient of Variation 14.6 % (11.5-14.5); RDW Standard Deviation 51.8 fL (36.4-46.3); Red Blood Count 3.87 M/uL (4.20-5.40)
--- NOTE | 2022-05-30 12:51 | XRay Report ---
XR chest 1V portable HISTORY: 62 years-old Female Dyspnea acute shortness of breath COMPARISON: Chest radiograph 07/30/2020 TECHNIQUE: AP view of the chest FINDINGS: Cardiomediastinal and hilar silhouettes are within normal limits. No pneumothorax, large pleural effu augie, airspace consolidation or overt pulmonary edema. Bones appear grossly intact. Cholecystectomy. Mid to lower thoracic levoscoliosis. IMPRESSION: No acute process. ACT 112: Negative or not required by law. The above report was generated using voice recognition software. It may contain grammatical, syntax o r spelling errors. Electronically signed by: Quan Coker M.D. 05/30/2022 12:50 PM
[2022-05-30 12:52] LABS: Albumin Level 3.5 gm/dl (3.4-5.0); BUN Creatinine Ratio 14.6 (10-20); Bilirubin,Total 0.7 mg/dl (0.2-1.0); Calcium 9.2 mg/dl (8.5-10.1); Creatinine Clr Calc Pharmacy 51.9 ml/min; Est GFR (African American) 87.6 ml/min; Est GFR (Non-African American) 75.6 ml/min; Globulin 3.6 gm/dl (2.5-4.0); Magnesium 1.6 mg/dl (1.7-2.4); Potassium 3.7 mmol/L (3.5-5.1); Total Protein 7.1 gm/dl (6.0-8.3)
[2022-05-30 12:59] LABS: Troponin I High Sensitivity 10.3 pg/ml (0-14)
--- NOTE | 2022-05-30 13:07 | CT Scan Report ---
CT head/brain wo con CLINICAL HISTORY: 62 years-old Female with confusion. Acutely altered mental status TECHNIQUE: Multiple axial CT images of the head were obtained without contrast. A dose lowering tech nique was utilized adhering to the principles of ALARA. CT DOSE: 601.98 mGy.cm COMPARISON: 12/20/2017 FINDINGS: No acute intracranial hemorrhage, midline shift, intracranial mass, hydrocephalus, territorial ischem ia or abnormal extra-axial collection. Mild involutional changes. White matter hypodensities suggesti ve of chronic microvascular ischemic disease. The calvarium is intact. Prior bilateral lens repair. The paranasal sinuses, mastoid air cells, and m iddle ear cavities are clear. IMPRESSION: No acute intracranial abnormality. ACT 112: Negative or not required by law. The above report was generated using voice recognition software. It may contain grammatical, syntax o r spelling errors. Electronically signed by: Quan Coker M.D. 05/30/2022 1:06 PM
[2022-05-30 13:15] LABS: Prothrombin Time > 90.0 Seconds (9.0-12.0)
[2022-05-30 13:21] LABS: INR > 9.6 (0.9-1.1)
[2022-05-30] MEDS ORDERED: ALBUT/IPRATROP 3MG/0.5MG NEB 3 ML VIAL NEB STA (13:23)
[2022-05-30] MEDS ORDERED: methylPREDNISolone 125 MG/2 ML VIAL IV STA (13:23)
[2022-05-30 13:39] LABS: Base Excess VBG 9.4 mEq/L; HCO3 VBG 35 mmol/L; Oxygen Saturation VBG < 60.0 %; PCO2 VBG 52 mmHg (38-50); PO2 VBG 27 mmHg; pH VBG 7.44 (7.36-7.41)
--- NOTE | 2022-05-30 14:06 | History & Physical Report ---
Date of Service May 30, 2022 Assessment & Plan (1) Encephalopathy: Plan: Patient is 62 y/o F with PMH HTN, HLD, COPD, PVD s/p extensive surgery, recurrent DVT chronically anticoagulated on Coumadin, MTHFR mutation, chronic pain, neuropathy, chronic narcotic use, medical marijuana use, anxiety, depression, tobacco use presented to ER for altered mental status x 2 days ? Metabolic encephalopathy possibly secondary to underlying illness, dehydration CT head: No acute changes UA negative Drug screen positive opiates (pt on chronic morphine) Pt denies increased morhine use at home Hold morphine, gabapentin, mirtazapine, Flexeril for now and monitor mental sta tus IVF (2) Bronchitis: Plan: COPD History URI symptoms 2 weeks ago 05/21/2022 outpatient respiratory panel positive for coronavirus NL63, negative SARS-CoV-2, Negative group A strep PCR, CXR: no acute findings on report. She was treated conservatively. She was having continued fatigue, rhinorrhea and cough 05/26/2022 started doxycycline Today in ER afebrile, no hypoxia on room air. No leukocytosis. Negative SARS-CoV-2. Negative Respiratory panel CXR: No acute infiltrate ER doctor reported mild wheezing. Patient was given Solu-Medrol, albuterol neb with resolution of wheezing Patient reports resolution of cough, congestion and denies increased shortness of breath. Less likely COPD exacerbation at this time Will hold further steroids, hold doxycycline and further monitor Start Rocephin to cover pulmonary source and possible underlying UTI Scheduled DuoNebs CBC, CMP in a.m. (3) Supratherapeutic INR: (4) Nausea & vomiting: Plan: Nausea, intermittent vomiting past couple of days Possibly secondary to doxycycline Denies abdominal pain Gentle IVF Clear liquid diet for now Phenergan as needed nausea secondary to prolonged QTc Monitor (5) Recurrent deep vein thrombosis (DVT): (6) MTHFR gene mutation: Plan: Chronically anticoagulated on Coumadin INR:>9.6 CT head: No acute bleed No other acute bleeding reported Vitamin K 5 mg p.o. ?possible vitamin K IV allergy listed. Reported pt coming out of surgery and anesthesia and was given IV vitamin K and had noted shaking. It was unclear if this was secondary to vitamin K but it was listed as an allergy Hold Coumadin INR in a.m. (7) Hypomagnesemia: Plan: Magnesium: 1.6 Replace and monitor (8) Peripheral neuropathy: (9) Chronic pain: Plan: On chronic morphine Hold morphine, gabapentin, Flexeril currently with altered mental status (10) PAD (peripheral artery disease): Plan: History extensive surgery including (right common femoral embolectomy, right popliteal and right AT/DP embolectomy and lower leg fasciotomies in 06/2014, s/p angioplasty right SFA on 02/18/2015, right common femoral artery to peroneal artery bypass 08/19/2015) Continue aspirin, atorvastatin [place] [facility] [place] (11) Prolonged QT interval: Plan: Avoid QTc prolonging agents when possible EKG in a.m. (12) Tobacco use: Plan: Smoking cessation encouraged DVT Prophylaxis Current supratherapeutic INR Full Code as per discussion with pt Follows with Dr Benavides for routine care Pt was seen and care coordinated with Dr Carreon. See addendum I spent a total of 76 minutes reviewing notes, outpatient records, labs, medication, coordinating, documenting and providing care for this patient excluding time spent in the performance of separately billed services. Plan delayed entry date of service noted above Attending Addendum: care coordinated with EDGAR Freguson please refer to her notes for full details, I agree with her notes patient seen and examined, records reviewed by myself as well on exam, patient seen sitting up in bed, not in distress states breathing is somewhat better patient noted to be forgetful no other symptoms diagnoses and plan of care as per EDGAR Ferguson notes Jim Carreon MD History of Present Illness Chief Complaint: [facility] Primary Care Provider: Pieter Benavides MD Patient is 62 y/o F with PMH HTN, HLD, COPD, PVD s/p extensive surgery including (right common femoral embolectomy, right popliteal and right AT/DP embolectomy and lower leg fasciotomies in 06/2014, s/p angioplasty right SFA on 02/18/2015, right common femoral artery to peroneal artery bypass 08/19/2015), recurrent DVT chronically anticoagulated on Coumadin, MTHFR mutation, chronic pain, neuropathy, chronic narcotic use, medical marijuana use, anxiety, depression, tobacco use presented to ER for altered mental status. History obtained from patient, patient's daughter, outpatient chart review. Patient reports sore throat, green rhinorrhea, green productive cough, tactile fevers 2 weeks ago. Reports grandchild had strep throat at the time. She was seen at PCPs office. Outpatient chart reviewed and on 05/21/2022 respiratory panel positive for coronavirus NL63, negative SARS-CoV-2, Negative group A strep PCR, CXR: no acute findings on report. She was treated conservatively. She was having continued fatigue, rhinorrhea and cough and called PCPs office on 05/26/2022 and was called in doxycycline. States sore throat, rhinorrhea and cough have resolved. No further fever/chills. She does not think she has been feeling short of breath. Is unsure if she has been having wheezing. Denies chest pain. Past 4 days with nausea and intermittent vomiting. Has decreased appetite. Has not been eating or drinking. Denies abdominal pain. Daughter thinks vomiting started after started taking doxycycline. Does not think she took her doxycycline yesterday. Patient states she overall does not feel well. Patient with increased confusion in the past 2 days. Daughter states that she has been repeating herself and they have had the same conversation numerous times. She also is uncertain of the date. Daughter states at baseline patient will have some forgetfulness and usually makes notes as reminders but is not this confused. Daughter does report history of delirium during past hospitalizations. Patient manages own medications and previously was doing well with this. Patient states recently has only been taking morphine once daily at bedtime for pain. Patient currently confused on her home medications and dosages. She states she has been taking Coumadin 1.25mg daily, last dose was yesterday. Per outpatient [facility] pharmacy on 05/14/22 INR: 4.6 and Coumadin dose was 0mg on Mon, Wed, Fri and 1.25mg all other days. She does not have recorded INR in chart since that time. She does not think that she has taken additional morphine. Chronic leg swelling, denies any increase. Denies diaphoresis, hematemesis, melena, hematochezia, abdominal pain, CURRY, dizziness, syncope, vision changes, neck pain, CP, orthopnea, palpitations, hemoptysis, otalgia, extremity weakness, rashes, dysuria, urinary frequency, hematuria.. Allergies Allergy/AdvReac Type Severity Reaction Status Date / Time vitamin K2 Allergy Severe SOB CHEST Verified 05/30/22 13:45 PAIN SHAKING Home Medications Medication Instructions Recorded Confirmed Type ascorbic acid (vitamin C) 500 mg 500 mg PO QAM 09/13/18 05/30/22 History capsule atorvastatin 40 mg tablet 40 mg PO QAM 09/13/18 05/30/22 History cyanocobalamin (vitamin B-12) 1,000 mcg PO QAM 09/13/18 05/30/22 History 1,000 mcg tablet (Vitamin B-12) Medical Marijuanas ~ Oil Vape 0 inh inhalation UD 07/30/20 05/30/22 History morphine 15 mg immediate release 15 mg PO BID PRN Severe Pain 07/30/20 05/30/22 History tablet (Scale Score 7-10) morphine 15 mg tablet,extended 15 mg PO BID 07/30/20 05/30/22 History release albuterol sulfate 90 mcg/actuation 2 puff inhalation QID PRN 05/30/22 05/30/22 History aerosol inhaler Shortness Of Breath Or Wheezing aspirin 81 mg tablet,delayed 81 mg PO DAILY 05/30/22 05/30/22 History release cyclobenzaprine 5 mg tablet 5 mg PO HS 05/30/22 05/30/22 History doxycycline hyclate 100 mg capsule 100 mg PO BID 05/30/22 05/30/22 History gabapentin 300 mg capsule 300 mg PO TID 05/30/22 05/30/22 History mirtazapine 30 mg tablet 30 mg PO HS 05/30/22 05/30/22 History warfarin 2.5 mg tablet 1.25 mg PO UD 05/30/22 05/30/22 History Past Med/Surg History Medical History (Updated 05/30/22 @ 17:49 by Micky Jarvis MD) Angina at rest Chest pain Chronic back pain Chronic pain COPD (chronic obstructive pulmonary disease) COPD (chronic obstructive pulmonary disease) NO PROBLEMS Deep vein thrombosis Deep vein thrombosis (2016) FEMORAL BYPASS IN BILATERAL LEGS Degenerative disc disease Depression Depression Diverticular disease DVT prophylaxis Factor 5 Leiden mutation, heterozygous Fibromyalgia GERD (gastroesophageal reflux disease) History of MTHFR mutation HLD (hyperlipidemia) MDD (major depressive disorder) Migraine MTHFR gene mutation MTHFR mutation Osteoarthritis PAD (peripheral artery disease) Peptic ulcer disease CURRENT Peripheral neuropathy Peripheral vascular disease Peripheral vascular disease PVD (peripheral vascular disease) Tobacco abuse Unstable angina Vitamin D insufficiency Surgical History H/O surgical biopsy VAGINAL BIOPSY H/O vascular surgery MULTIPLE BILATERAL LEG SURGERIES History of arthroscopy LEFT SHOULDER History of section X1 History of cholecystectomy LAP History of colonoscopy History of esophagogastroduodenoscopy (EGD) EGD 12/23/2017. Sedation no issues. History of nasal septoplasty History of right cataract extraction History of tonsillectomy Family History (Updated 05/30/22 @ 15:58 by Jimena Pat PA-C) Other Coronary heart disease Social History Smoking Status: Current every day smoker Tobacco Type: Cigarettes Cigarettes Per Day: 30; Second Hand Exposure: No; Do You Dip or Chew Tobacco: No; Tobacco Cessation Education Requested by Patient: No Hx Alcohol Use: Yes Alcohol type: beer, wine and hard liquor Hx Substance Use: No Preferred Language: Telugu Communication Ability: Effective [employer] Science [employer] Required: No Beliefs That Will Affect Care: None Current Living Situation: Alone Other Information That Helps Us Care for You: No Feels Safe at Home: Yes Safety Concerns: Feels Safe At This Time Assistive Devices: None Review of Systems Review of Systems: All systems reviewed & are unremarkable except as noted in HPI & below Physical Exam Physical Exam: General: no acute distress, thin elderly female Head: normocephalic, atraumatic Eyes: PERRL, EOM's intact, conjunctiva non-injected, anicteric ENT: normal inspection external ears, nose, mucous membranes dry Neck: supple, trachea midline Lungs: clear, no respiratory distress, no wheezing/rhonchi/rales CV: RRR, no murmur, no pretibial edema Abd: normal BS, soft, non-tender Ext: no cyanosis, no calf tenderness, +surgical scars noted right leg, right leg trace edema Neuro: Alert, oriented to person and place. Thinks 2022 or 2022, unsure of month or day. no focal deficits noted, normal affect Skin: warm, dry Results & Data Results & Data ([facility]) Vital Signs (Past 12 Hours) Vital Signs Temp Pulse Resp BP Pulse Ox O2 Del Method O2 Flow Rate 05/30/22 13:30 93 H 17 98 Room Air 05/30/22 13:30 110/84 05/30/22 13:02 118 H 11 L 91 05/30/22 12:51 116/79 05/30/22 12:50 96 H 16 05/30/22 12:30 91 H 11 L 05/30/22 12:00 96 H 16 99 Room Air 05/30/22 12:00 120/85 05/30/22 11:50 95 H 15 98 Room Air 05/30/22 11:49 97 Room Air 0 05/30/22 11:49 97 H 19 97 Room Air 0 05/30/22 12:09 98 H 05/30/22 11:40 36.4 C L 98 H 22 119/78 96 Room Air Laboratory Results Short CBC 05/30/22 Range/Units 12:17 WBC 8.80 (4.8-10.8) K/ul Hgb 13.2 (12.0-16.0) g/dl Hct 37.5 (37.0-47.0) % Plt Count 261 (130-400) K/uL BMP 05/30/22 12:17 Sodium 135 L Potassium 3.7 Chloride 92 L Carbon Dioxide 35 H BUN 12 Creatinine 0.82 Glucose 94 Calcium 9.2 Liver Function 05/30/22 Range/Units 12:17 Total Bilirubin 0.7 (0.2-1.0) mg/dl AST 45 H (13-39) U/L ALT 24 (7-52) U/L Alkaline Phosphatase 162 H (34-104) U/L Albumin 3.5 (3.4-5.0) gm/dl Urine 05/30/22 Range/Units 15:19 Urine Color Dark Yellow Urine Appearance Clear (Clear) Urine pH 6.0 (4.5-7.5) Ur Specific [place] 1.011 (1.000-1.030) Urine Protein Negative (Negative) Urine Glucose (UA) Negative (Negative) Diagnostic Findings Chest X-Ray 05/30/22 11:49 XR chest 1V portable HISTORY: 62 years-old Female Dyspnea acute shortness of breath COMPARISON: Chest radiograph 07/30/2020 TECHNIQUE: AP view of the chest FINDINGS: Cardiomediastinal and hilar silhouettes are within normal limits. No pneumothorax, large pleural effusion, airspace consolidation or overt pulmonary edema. Bones appear grossly intact. Cholecystectomy. Mid to lower thoracic levoscoliosis. IMPRESSION: No acute process. ACT 112: Negative or not required by law. The above report was generated using voice recognition software. It may contain grammatical, syntax or spelling errors. Electronically signed by: Quan Coker M.D. 05/30/2022 12:[address] 05/30/22 12:02 CT head/brain wo con CLINICAL HISTORY: 62 years-old Female with confusion. Acutely altered mental status TECHNIQUE: Multiple axial CT images of the head were obtained without contrast. A dose lowering technique was utilized adhering to the principles of ALARA. CT DOSE: 601.98 mGy.cm COMPARISON: 12/20/2017 FINDINGS: No acute intracranial hemorrhage, midline shift, intracranial mass, hydr ocephalus, territorial ischemia or abnormal extra-axial collection. Mild involutional changes. White matter hypodensities suggestive of chronic microvascular ischemic disease. The calvarium is intact. Prior bilateral lens repair. The paranasal sinuses, mastoid air cells, and middle ear cavities are clear. IMPRESSION: No acute intracranial abnormality. ACT 112: Negative or not required by law. The above report was generated using voice recognition software. It may contain grammatical, syntax or spelling errors. Electronically signed by: Quan Coker M.D. 05/30/2022 1:06 PM ECG Rate (beats per minute): 93 Rhythm: sinus rhythm Additional Comments: t wave flattening inferior, anterior, lateral leads
[2022-05-30] MEDS ORDERED: PROMETHAZINE HCL 12.5 MG in SODIUM CHLORIDE 0.9% 50 ML IV PRN (14:32)
[2022-05-30] MEDS ORDERED: SODIUM CHLORIDE 0.9% 1000ML 500 ML IV ONE (14:45)
--- NOTE | 2022-05-30 14:50 | Electrocardiogram Report ---
Test Reason : Blood Pressure : / mmHG Vent. Rate : 093 BPM Atrial Rate : 093 BPM P-R Int : 116 ms QRS Dur : 086 ms QT Int : 438 ms P-R-T Axes : 038 064 -33 degrees QTc Int : 544 ms Normal sinus rhythm Diffuse Nonspecific ST and T wave abnormality Abnormal ECG When compared with ECG of 30-JUL-2020 08:24, No significant change Confirmed by Catarino Jewell ([id number]) on 05/30/2022 2:49:58 PM Referred By: NO PCP Confirmed By:Catarino Jewell
[2022-05-30] MEDS ORDERED: PHYTONADIONE 5 MG TAB PO STA (15:07)
[2022-05-30 15:33] LABS: Appearance Urine Clear (Clear); Bilirubin Urine Negative (Negative); Blood Urine Negative (Negative); Color Urine Dark Yellow; Glucose Urine UA Negative (Negative); Ketones Urine Trace (Negative); Leukocyte Esterase Urine Negative (Negative); Nitrite Urine Negative (Negative); Protein Urine Negative (Negative); Specific Gravity Urine 1.011 (1.000-1.030); Urobilinogen Urine Negative (Negative)
[2022-05-30] MEDS: SODIUM CHLORIDE 0.9% 500 ML IV SCH ×2 (15:34→19:47)
[2022-05-30 15:54] LABS: Amphetamines+Metham, Urine Neg (Neg); Barbiturates, Urine Neg (Neg); Benzodiazepine, Urine Neg (Neg); Cocaine, Urine Neg (Neg); MDMA (Ecstacy), Urine Neg (Neg); Methadone, Urine Neg (Neg); Opiate, Urine Pos (Neg); Phencyclidine, Urine Neg (Neg)
[2022-05-30 16:31] LABS: Adenovirus PCR Not Detected (NotDetected); Bordetella parapertussis PCR Not Detected (NotDetected); Bordetella pertussis PCR Not Detected (NotDetected); Chlamydia pneumoniae PCR Not Detected (NotDetected); Coronavirus 229E PCR Not Detected (NotDetected); Coronavirus CoV-2 (COVID19)PCR Not Detected (NotDetected); Coronavirus HKU1 PCR Not Detected (NotDetected); Coronavirus NL63 PCR Not Detected (NotDetected); Coronavirus OC43PCR Not Detected (NotDetected); Human Metapneumovirus PCR Not Detected (NotDetected); Influenza A PCR Not Detected (NotDetected); Influenza B PCR Not Detected (NotDetected); Mycoplasma pneumoniae PCR Not Detected (NotDetected); Parainfluenza Virus 1 PCR Not Detected (NotDetected); Parainfluenza Virus 2 PCR Not Detected (NotDetected); Parainfluenza Virus 3 PCR Not Detected (NotDetected); Parainfluenza Virus 4 PCR Not Detected (NotDetected); Respiratory Syncytial VirusPCR Not Detected (NotDetected); Rhinovirus/Enterovirus PCR Not Detected (NotDetected)
[2022-05-30] MEDS ORDERED: MAGNESIUM SULFATE / D5W 1 GM/100 ML BAG IV ONE (17:36)
[2022-05-30] MEDS ORDERED: SODIUM CHLORIDE 0.9% 1000ML 1,000 ML IV SCH (17:36)
[2022-05-30] MEDS ORDERED: POLYETHYLENE (MIRALAX) 17 GM PACK PO PRN (17:36)
[2022-05-30] MEDS ORDERED: ACETAMINOPHEN 325 MG TAB PO PRN (17:36)
[2022-05-30] MEDS ORDERED: PROMETHAZINE HCL 6.25 MG in SODIUM CHLORIDE 0.9% 50 ML IV PRN (17:36)
[2022-05-30] MEDS: THIAMINE HCL 100 MG in SYRINGE 9 ML IV SCH (17:59)
[2022-05-30] MEDS: cefTRIAXone SODIUM 1,000 MG in DEXTROSE 5% AD-VAN 50 ML IV SCH (18:03)
[2022-05-30 18:27] LABS: Vitamin B12 > 1500 pg/ml (180-914)
[2022-05-30] MEDS: ALBUT/IPRATROP 3MG/0.5MG NEB 3 ML VIAL NEB SCH (19:26)
--- NOTE | 2022-05-30 23:25 | Magnetic Resonance Report ---
Exam(s): MRI HEAD Without Contrast EXAM: MR Head Without Intravenous Contrast CLINICAL HISTORY: Reason for exam: confusion, r/o acute cva. TECHNIQUE: Magnetic resonance images of the head/brain without intravenous contrast in multiple planes. COMPARISON: No relevant prior studies available. FINDINGS: No acute intracranial hemorrhage. No midline shift or mass effect. The territorial aviles-white matter differentiation is maintained throughout. Age-related cerebral volume loss. Periventricular and subcortical white matter T2 signal intensity, consistent with chronic microangiopathy. The visualized orbits appear grossly unremarkable. The calvarium is intact. The visualized paranasal sinuses and mastoid air cells are grossly clear. IMPRESSION: No acute intracranial hemorrhage, midline shift, or mass effect. No acute territorial infarct. Electronically signed by: Stevenson Mohr MD 05/30/22 23:24 PM
[2022-05-30] MEDS ORDERED: MoRPHine SULFATE IR 15 MG TAB (IMMEDIATE RELEASE) PO STA (23:44)
[2022-05-31] MEDS: ALBUT/IPRATROP 3MG/0.5MG NEB 3 ML VIAL NEB SCH ×2 (07:23→11:00)
[2022-05-31 07:35] LABS: Basophils # (auto) 0.02 K/uL (0-0.2); Basophils % (auto) 0.3 %; Eosinophils # (auto) 0.01 K/uL (0-0.50); Eosinophils % (auto) 0.2 %; Hematocrit (blood only) 32.1 % (37.0-47.0); Hemoglobin 11.1 g/dl (12.0-16.0); Immature Granulocytes # (auto) 0.05 K/uL (0.01-0.20); Immature Granulocytes % (auto) 0.8 %; Lymphocytes # (auto) 1.24 K/uL (1.2-3.4); Lymphocytes % (auto) 20.4 %; Mean Corpuscular Hemoglobin 34.4 pg (25.0-34.0); Mean Corpuscular Hgb Conc 34.6 g/dL (32.0-36.0); Mean Corpuscular Volume 99.4 fL (80.0-100.0); Mean Platelet Volume 10.8 fL (9.4-12.4); Monocytes # (auto) 0.62 K/uL (0.11-0.59); Monocytes % (auto) 10.2 %; Neutrophils # (auto) 4.13 K/uL (1.40-6.50); Neutrophils % (auto) 68.1 %; Nucleated RBC # (auto) 0.02 K/uL (0-0.12); Nucleated RBC % (auto) 0.3 %; Platelet Count 181 K/uL (130-400); RDW Coefficient of Variation 14.7 % (11.5-14.5); RDW Standard Deviation 53.6 fL (36.4-46.3); Red Blood Count 3.23 M/uL (4.20-5.40); White Blood Count 6.07 K/ul (4.8-10.8)
[2022-05-31 07:48] LABS: Albumin Level 2.5 gm/dl (3.4-5.0); Bilirubin,Total 0.8 mg/dl (0.2-1.0); Calcium 8.1 mg/dl (8.5-10.1); Potassium 3.3 mmol/L (3.5-5.1)
[2022-05-31 07:55] LABS: Albumin Globulin Ratio 0.9 (0.9-2); Creatinine Clr Calc Pharmacy 69.9 ml/min; Est GFR (African American) 110.4 ml/min; Est GFR (Non-African American) 95.3 ml/min; Globulin 2.7 gm/dl (2.5-4.0); Total Protein 5.2 gm/dl (6.0-8.3)
[2022-05-31 08:05] LABS: INR 2.3 (0.9-1.1)
[2022-05-31] MEDS: MoRPHine SULFATE IR 15 MG TAB (IMMEDIATE RELEASE) PO PRN ×2 (08:42→23:26)
[2022-05-31] MEDS: FOLIC ACID 1 MG in SYRINGE 9.8 ML IV SCH (08:43)
[2022-05-31] MEDS: THIAMINE HCL 100 MG in SYRINGE 9 ML IV SCH (08:43)
[2022-05-31] MEDS: ATORVASTATIN 40 MG TAB PO SCH (08:47)
[2022-05-31] MEDS: ASPIRIN 81 MG ECTAB PO SCH (08:47)
[2022-05-31] MEDS: GABAPENTIN 300 MG CAP PO SCH ×2 (08:47→13:13)
[2022-05-31] MEDS: CYANOCOBALAMIN (B-12) 500 MCG TABLET PO SCH (08:47)
[2022-05-31] MEDS ORDERED: FIRST - Mouthwash BLM 119 ML PO PRN (10:22)
[2022-05-31] MEDS ORDERED: FIRST - Mouthwash BLM 119 ML PO ONE (10:45)
[2022-05-31] MEDS ORDERED: ALBUT/IPRATROP 3MG/0.5MG NEB 3 ML VIAL NEB PRN (13:06)
--- NOTE | 2022-05-31 16:18 | Hospitalist Progress Note ---
Date of Service May 31, 2022 Assessment & Plan (1) Encephalopathy: Plan: Per admitting EDGAR notes with addendum: Patient is 62 y/o F with PMH HTN, HLD, COPD, PVD s/p extensive surgery, recurrent DVT chronically anticoagulated on Coumadin, MTHFR mutation, chronic p ain, neuropathy, chronic narcotic use, medical marijuana use, anxiety, depression, tobacco use presented to ER for altered mental status x 2 days ? Metabolic encephalopathy possibly secondary to underlying illness, dehydration CT head: No acute changes UA negative Drug screen positive opiates (pt on chronic morphine) Pt denies increased morhine use at home Hold morphine, gabapentin, mirtazapine, Flexeril for now and monitor mental status IVF 05/31 Mental status much improved compared to yesterday Brain MRI: No acute CVA, no acute process TSH, folate, vitamin B12: Normal Confusion likely secondary to possible accidental polypharmacy, underlying acute bronchitis Continue IV ceftriaxone for acute bronchitis, as needed nebs Continue usual morphine p.o. twice daily as needed, gabapentin at at bedtime, Flexeril as needed PT and OT evaluation Monitor closely (2) Bronchitis: Plan: COPD History URI symptoms 2 weeks ago 05/21/2022 outpatient respiratory panel positive for coronavirus NL63, negative SARS-CoV-2, Negative group A strep PCR, CXR: no acute findings on report. She was treated conservatively. She was having continued fatigue, rhinorrhea and cough 05/26/2022 started doxycycline Today in ER afebrile, no hypoxia on room air. No leukocytosis. Negative SARS-CoV-2. Negative Respiratory panel CXR: No acute infiltrate ER doctor reported mild wheezing. Patient was given Solu-Medrol, albuterol neb with resolution of wheezing Patient reports resolution of cough, congestion and denies increased shortness of breath. Less likely COPD exacerbation at this time Will hold further steroids, hold doxycycline and further monitor Start Rocephin to cover pulmonary source and possible underlying UTI Scheduled DuoNebs CBC, CMP in a.m. 05/31 On room air, no wheezing Continue IV ceftriaxone, as needed nebs Monitor closely Blood cultures negative so far (3) Supratherapeutic INR: Plan: INR 2.3 Was given vitamin K 5 mg p.o. yesterday Check INR tomorrow (4) Nausea & vomiting: Plan: Nausea, intermittent vomiting past couple of days Possibly secondary to doxycycline Denies abdominal pain Gentle IVF Clear liquid diet for now Phenergan as needed nausea secondary to prolonged QTc Monitor 05/31 Nausea and vomiting likely secondary to doxycycline Improving Continue to monitor (5) Recurrent deep vein thrombosis (DVT): (6) MTHFR gene mutation: Plan: Chronically anticoagulated on Coumadin INR:>9.6 CT head: No acute bleed No other acute bleeding reported Vitamin K 5 mg p.o. ?possible vitamin K IV allergy listed. Reported pt coming out of surgery and anesthesia and was given IV vitamin K and had noted shaking. It was unclear if this was secondary to vitamin K but it was listed as an allergy Hold Coumadin INR in a.m. 05/31 INR 2.3 Check INR tomorrow (7) Hypomagnesemia: Plan: Magnesium: 1.6 Replace and monitor Hypokalemia Replacement in progress (8) Peripheral neuropathy: (9) Chronic pain: Plan: On chronic morphine Measurements of meds per above (10) PAD (peripheral artery disease): Plan: History extensive surgery including (right common femoral embolectomy, right popliteal and right AT/DP embolectomy and lower leg fasciotomies in 06/2014, s/p angioplasty right SFA on 02/18/2015, right common femoral artery to peroneal artery bypass 08/19/2015) Continue aspirin, atorvastatin Continue outpatient [facility] [place] (11) Prolonged QT interval: Plan: Avoid QTc prolonging agents when possible EKG in a.m. Repeat EKG pending (12) Tobacco use: Plan: Smoking cessation encouraged DVT Prophylaxis INR 2.3 Full Code as per discussion with pt Disposition Anticipate discharge to home medically stable plan of care discussed with patient and her daughter Nicolasa at the bedside in detail and at length all questions answered they are understanding, agreeable, comfortable with the plan of care Plan delayed entry date of service noted above Attending Addendum: care coordinated with EDGAR Ferguson please refer to her notes for full details, I agree with her notes patient seen and examined, records reviewed by myself as well on exam, patient seen sitting up in bed, not in distress states breathing is somewhat better patient noted to be forgetful no other symptoms diagnoses and plan of care as per EDGAR Ferguson notes Jim Carreon MD Admission and Anticipated Discharge Date Admission Date: May 31, 2022 Subjective Follow-up for altered mental status, confusion, bronchitis Etc. Seen resting in bed, sitting up, patient's daughter Nicolasa at the bedside visiting Patient alert, oriented x3, answering questions appropriate Able to identify what she ate for breakfast adequately Able to discuss Coumadin dosing, and routine with INR checks As per patient's daughter, patient mental status is significantly better today Patient reports sore throat and irritation of her mouth Worse with eating/drinking Reports some chest congestion, occasional cough No shortness of breath No other symptoms Review of Systems Review of Systems: all noted and negative except for above Physical Exam Physical Exam: General- oriented x 3, not in distress, speaks in sentences with no effort or accessory muscle use Mouth-positive erythema in the hypopharynx, dry tongue No oral thrush Eyes- anicteric Neck- no JVD Lungs-somewhat diminished but clear breath sounds bilaterally, no rales/wheezes Heart- normal rate, regular rhythm; no murmurs Abdomen- normal bowel sounds, nondistended, soft, nontender Extremities- no pretibial edema, no calf tenderness Neuro- alert, oriented x 3; no gross focal neurologic deficits Skin- warm & dry Results & Data Results & Data ([facility]) Vital Signs (Past 12 Hours) Vital Signs Temp Pulse Pulse Resp BP BP Pulse Ox 05/31/22 15:37 37.0 C 110 H 18 102/74 96 05/31/22 14:12 107 H 05/31/22 11:23 36.7 C 89 18 99/63 L 97 05/31/22 11:02 73 18 98 05/31/22 07:49 36.8 C 84 16 109/73 93 05/31/22 07:26 80 16 98 05/31/22 07:14 05/31/22 06:00 87 05/31/22 04:58 36.8 C 90 17 103/71 94 O2 Del Method 05/31/22 15:37 Room Air 05/31/22 14:12 05/31/22 11:23 Room Air 05/31/22 11:02 Room Air 05/31/22 07:49 Room Air 05/31/22 07:26 Room Air 05/31/22 07:14 Room Air 05/31/22 06:00 05/31/22 04:58 Room Air all noted and reviewed including below
[2022-05-31] MEDS: POTASSIUM CHLORIDE CRTAB 20 MEQ TABCR PO STA ×2 (16:38→16:47)
[2022-05-31] MEDS ORDERED: POTASSIUM CHLORIDE PWD 20 MEQ PACK PO ONE (17:00)
[2022-05-31] MEDS: cefTRIAXone SODIUM 1,000 MG in DEXTROSE 5% AD-VAN 50 ML IV SCH (17:10)
[2022-06-01 07:26] LABS: INR 1.2 (0.9-1.1); Prothrombin Time 12.7 Seconds (9.0-12.0)
--- NOTE | 2022-06-01 08:56 | Electrocardiogram Report ---
Test Reason : Blood Pressure : / mmHG Vent. Rate : 085 BPM Atrial Rate : 085 BPM P-R Int : 138 ms QRS Dur : 074 ms QT Int : 376 ms P-R-T Axes : 065 059 -05 degrees QTc Int : 447 ms Normal sinus rhythm Diffuse Nonspecific ST and T wave abnormality Abnormal ECG When compared with ECG of 30-MAY-2022 11:53, No significant change Confirmed by Catarino Jewell ([id number]) on 06/01/2022 8:55:35 AM Referred By: NO PCP Confirmed By:Catarino Jewell
[2022-06-01] MEDS: ASPIRIN 81 MG ECTAB PO SCH (08:59)
[2022-06-01] MEDS: ATORVASTATIN 40 MG TAB PO SCH (08:59)
[2022-06-01] MEDS: CYANOCOBALAMIN (B-12) 500 MCG TABLET PO SCH (08:59)
[2022-06-01] MEDS: FOLIC ACID 1 MG in SYRINGE 9.8 ML IV SCH (09:00)
[2022-06-01] MEDS: THIAMINE HCL 100 MG in SYRINGE 9 ML IV SCH (09:00)
[2022-06-01] MEDS ORDERED: LACTULOSE SYRUP 20 GM/30 ML UDC PO ONE (09:13)
[2022-06-01 09:24] LABS: BUN Creatinine Ratio 13.7 (10-20); Creatinine Clr Calc Pharmacy 59.6 ml/min; Est GFR (African American) 100.9 ml/min; Potassium 3.9 mmol/L (3.5-5.1)
[2022-06-01] MEDS: CHLORASEPTIC 1.4% SOLN 180 ML BTL MT SCH ×4 (11:31→19:59)
[2022-06-01] MEDS: FLUTICASONE PROPIONATE NA SPR 16 GM BTL SCH ×2 (11:32→19:58)
--- NOTE | 2022-06-01 13:01 | Hospitalist Progress Note ---
Date of Service June 01, 2022 Assessment & Plan (1) Encephalopathy: Plan: Per admitting [facility] notes with addendum: Patient is 62 y/o F with PMH HTN, HLD, COPD, PVD s/p extensive surgery, recurrent DVT chronically anticoagulated on Coumadin, MTHFR mutation, chronic p ain, neuropathy, chronic narcotic use, medical marijuana use, anxiety, depression, tobacco use presented to ER for altered mental status x 2 days ? Metabolic encephalopathy possibly secondary to underlying illness, dehydration CT head: No acute changes UA negative Drug screen positive opiates (pt on chronic morphine) Pt denies increased morhine use at home Hold morphine, gabapentin, mirtazapine, Flexeril for now and monitor mental status IVF 05/31 Mental status much improved compared to yesterday Brain MRI: No acute CVA, no acute process TSH, folate, vitamin B12: Normal Confusion likely secondary to possible accidental polypharmacy, underlying acute bronchitis Continue IV ceftriaxone for acute bronchitis, as needed nebs Continue usual morphine p.o. twice daily as needed, gabapentin at at bedtime, Flexeril as needed PT and OT evaluation Monitor closely 06/01 Patient oriented x3, answers all questions appropriately Able to give good recollection of medical history Continue IV ceftriaxone for acute bronchitis, possible upper respiratory infection Tolerating usual morphine, gabapentin, Flexeril We will confirm with patient if she actually takes Remeron at bedtime (2) Bronchitis: Plan: COPD History URI symptoms 2 weeks ago 05/21/2022 outpatient respiratory panel positive for coronavirus NL63, negative SARS-CoV-2, Negative group A strep PCR, CXR: no acute findings on report. She was treated conservatively. She was having continued fatigue, rhinorrhea and cough 05/26/2022 started doxycycline Today in ER afebrile, no hypoxia on room air. No leukocytosis. Negative SARS-CoV-2. Negative Respiratory panel CXR: No acute infiltrate ER doctor reported mild wheezing. Patient was given Solu-Medrol, albuterol neb with resolution of wheezing Patient reports resolution of cough, congestion and denies increased shortness of breath. Less likely COPD exacerbation at this time Will hold further steroids, hold doxycycline and further monitor Start Rocephin to cover pulmonary source and possible underlying UTI Scheduled DuoNebs CBC, CMP in a.m. 05/31 On room air, no wheezing Continue IV ceftriaxone, as needed nebs Monitor closely Blood cultures negative so far 06/01 Respiratory status stable Ambulating in the hallways with no problems Blood cultures negative (3) Supratherapeutic INR: Plan: INR 2.3 Was given vitamin K 5 mg p.o. yesterday Check INR tomorrow 06/01 INR 1.2 Resume Coumadin, 1.5 mg today, heparin subcu every 8 hours until INR therapeutic Check INR daily (4) Nausea & vomiting: Plan: Nausea, intermittent vomiting past couple of days Possibly secondary to doxycycline Denies abdominal pain Gentle IVF Clear liquid diet for now Phenergan as needed nausea secondary to prolonged QTc Monitor 05/31 Nausea and vomiting likely secondary to doxycycline Improving Continue to monitor 06/01 Nausea and vomiting improved Chloraseptic spray every 6 hours (5) Recurrent deep vein thrombosis (DVT): Plan: Patient reports bilateral leg edema of the legs-mild is chronic (6) MTHFR gene mutation: Plan: Chronically anticoagulated on Coumadin INR:>9.6 CT head: No acute bleed No other acute bleeding reported Vitamin K 5 mg p.o. ?possible vitamin K IV allergy listed. Reported pt coming out of surgery and anesthesia and was given IV vitamin K and had noted shaking. It was unclear if this was secondary to vitamin K but it was listed as an allergy Hold Coumadin INR in a.m. 05/31 INR 2.3 Check INR tomorrow 06/01 Coumadin 1.5 mg today Heparin subcu every 8 hours (7) Hypomagnesemia: Plan: Magnesium: 1.6 Replace and monitor Hypokalemia Replacement in progress (8) Peripheral neuropathy: (9) Chronic pain: Plan: On chronic morphine Measurements of meds per above (10) PAD (peripheral artery disease): Plan: History extensive surgery including (right common femoral embolectomy, right popliteal and right AT/DP embolectomy and lower leg fasciotomies in 06/2014, s/p angioplasty right SFA on 02/18/2015, right common femoral artery to peroneal artery bypass 08/19/2015) Continue aspirin, atorvastatin Continue outpatient [facility] [place] (11) Prolonged QT interval: Plan: Avoid QTc prolonging agents when possible EKG in a.m. Repeat EKG QT corrected normal (12) Tobacco use: Plan: Smoking cessation encouraged DVT Prophylaxis INR 1.2 Full Code as per discussion with pt Disposition Anticipate discharge to home medically stable plan of care discussed with patient and her daughter Nicolasa at the bedside in detail and at length all questions answered they are understanding, agreeable, comfortable with the plan of care Admission and Anticipated Discharge Date Admission Date: May 31, 2022 Subjective Follow-up for confusion, acute bronchitis, etc. Seen sitting up in bed, comfortable, not in distress, on room air States she feels improved compared to yesterday Denies shortness of breath, has intermittent dry cough, reports some chest congestion but ambulating in the hallways with no shortness of breath, cough, chest pain Still having sore throat, associated with nasal drainage Denies abdominal pain, nausea or vomiting, tolerating diet well Positive constipation, last bowel movement last week Positive flatus No other symptom Review of Systems Review of Systems: all noted and negative except for above Physical Exam Physical Exam: General- oriented x 3, not in distress, speaks in sentences with no effort or accessory muscle use Eyes- anicteric Neck- no JVD Lungs- clear breath sounds, no crackles or wheezing bilaterally Heart- normal rate, regular rhythm; no murmurs Abdomen- normal bowel sounds, nondistended, soft, no tenderness Extremities-mild edema left greater than right, no erythema/warmth/tenderness Neuro- alert, oriented x 3; no gross focal neurologic deficits Skin- warm & dry Results & Data Results & Data ([facility]) Vital Signs (Past 12 Hours) Vital Signs Temp Pulse Pulse Resp BP Pulse Ox O2 Del Method 06/01/22 07:25 36.6 C 83 18 93/60 L 96 Room Air 06/01/22 07:30 Room Air 06/01/22 07:28 83 06/01/22 04:00 36.8 C 89 18 107/72 95 Room Air all noted and reviewed including below
[2022-06-01] MEDS: MoRPHine SULFATE IR 15 MG TAB (IMMEDIATE RELEASE) PO PRN (13:11)
[2022-06-01] MEDS: HEPARIN SOD 5,000 UNIT/0.5 ML VIAL SQ SCH ×2 (15:41→20:00)
[2022-06-01] MEDS ORDERED: WARFARIN SOD 2 MG TAB PO ONE (16:00)
[2022-06-01] MEDS: cefTRIAXone SODIUM 1,000 MG in DEXTROSE 5% AD-VAN 50 ML IV SCH (17:59)
[2022-06-01] MEDS: GABAPENTIN 300 MG CAP PO SCH (20:00)
[2022-06-02] MEDS: CHLORASEPTIC 1.4% SOLN 180 ML BTL MT SCH ×6 (01:44→20:32)
[2022-06-02] MEDS: MoRPHine SULFATE IR 15 MG TAB (IMMEDIATE RELEASE) PO PRN (01:59)
[2022-06-02] MEDS: HEPARIN SOD 5,000 UNIT/0.5 ML VIAL SQ SCH ×3 (04:29→23:17)
[2022-06-02 07:21] LABS: INR 1.2 (0.9-1.1); Prothrombin Time 12.4 Seconds (9.0-12.0)
[2022-06-02] MEDS: CYANOCOBALAMIN (B-12) 500 MCG TABLET PO SCH (09:07)
[2022-06-02] MEDS: ATORVASTATIN 40 MG TAB PO SCH (09:07)
[2022-06-02] MEDS: FOLIC ACID 1 MG TAB PO SCH (09:08)
[2022-06-02] MEDS: FLUTICASONE PROPIONATE NA SPR 16 GM BTL SCH ×2 (09:08→20:30)
[2022-06-02] MEDS: ASPIRIN 81 MG ECTAB PO SCH (09:08)
[2022-06-02] MEDS: THIAMINE HCL 100 MG TAB PO SCH (09:08)
[2022-06-02 10:22] LABS: Codeine Urine NEGATIVE ng/mL (<50); Hydrocodone Urine NEGATIVE ng/mL (<50); Hydromor Urine 634 ng/mL (<50); Morphine Urine >10000 ng/mL (<50); Norhydrocodone Conf Ur NEGATIVE ng/mL (<50); Noroxycodone Urine NEGATIVE ng/mL (<50); Oxycodone Urine NEGATIVE ng/mL (<50); Oxymorph Urine NEGATIVE ng/mL (<50)
--- NOTE | 2022-06-02 12:37 | Hospitalist Progress Note ---
Date of Service June 02, 2022 Assessment & Plan (1) Bronchitis: (2) Encephalopathy: Plan: (1) Encephalopathy: *Possible accidental OD of narcotics *Possible Toxic encephalopathy due to narcotics Plan: Per admitting [facility] notes with addendum: Patient is 62 y/o F with PMH HTN, HLD, COPD, PVD s/p extensive surgery, recurrent DVT chronically anticoagulated on Coumadin, MTHFR mutation, chronic pain, neuropathy, chronic narcotic use, medical marijuana use, anxiety, depression, tobacco use presented to ER for altered mental status x 2 days ? Metabolic encephalopathy possibly secondary to underlying illness, dehydration CT head: No acute changes UA negative Drug screen positive opiates (pt on chronic morphine) Pt denies increased morhine use at home Hold morphine, gabapentin, mirtazapine, Flexeril for now and monitor mental status IVF 05/31 Mental status much improved compared to yesterday Brain MRI: No acute CVA, no acute process TSH, folate, vitamin B12: Normal Confusion likely secondary to possible accidental polypharmacy, underlying acute bronchitis Continue IV ceftriaxone for acute bronchitis, as needed nebs Continue usual morphine p.o. twice daily as needed, gabapentin at at bedtime, Flexeril as needed PT and OT evaluation Monitor closely 06/01 Patient oriented x3, answers all questions appropriately Able to give good recollection of medical history Continue IV ceftriaxone for acute bronchitis, possible upper respiratory infection Tolerating usual morphine, gabapentin, Flexeril We will confirm with patient if she actually takes Remeron at bedtime 06/02 Mental status back to baseline Continue ceftriaxone Monitor closely (2) Bronchitis: Plan: COPD History URI symptoms 2 weeks ago 05/21/2022 outpatient respiratory panel positive for coronavirus NL63, negative SARS-CoV-2, Negative group A strep PCR, CXR: no acute findings on report. She was treated conservatively. She was having continued fatigue, rhinorrhea and cough 05/26/2022 started doxycycline Today in ER afebrile, no hypoxia on room air. No leukocytosis. Negative SARS-CoV-2. Negative Respiratory panel CXR: No acute infiltrate ER doctor reported mild wheezing. Patient was given Solu-Medrol, albuterol neb with resolution of wheezing Patient reports resolution of cough, congestion and denies increased shortness of breath. Less likely COPD exacerbation at this time Will hold further steroids, hold doxycycline and further monitor Start Rocephin to cover pulmonary source and possible underlying UTI Scheduled DuoNebs CBC, CMP in a.m. 05/31 On room air, no wheezing Continue IV ceftriaxone, as needed nebs Monitor closely Blood cultures negative so far 06/01 Respiratory status stable Ambulating in the hallways with no problems Blood cultures negative 06/02 Continues to improve Monitor closely (3) Supratherapeutic INR: Plan: INR 2.3 Was given vitamin K 5 mg p.o. yesterday Check INR tomorrow 06/01 INR 1.2 Resume Coumadin, 1.5 mg today, heparin subcu every 8 hours until INR therapeutic Check INR daily 06/02 INR still 1.2 Coumadin 2 mg given Heparin subcu until INR therapeutic INR daily (4) Nausea & vomiting: Plan: Nausea, intermittent vomiting past couple of days Possibly secondary to doxycycline Denies abdominal pain Gentle IVF Clear liquid diet for now Phenergan as needed nausea secondary to prolonged QTc Monitor 05/31 Nausea and vomiting likely secondary to doxycycline Improving Continue to monitor 06/01 Nausea and vomiting improved Chloraseptic spray every 6 hours 06/02 Resolved (5) Recurrent deep vein thrombosis (DVT): Plan: Patient reports bilateral leg edema of the legs-mild is chronic (6) MTHFR gene mutation: Plan: Chronically anticoagulated on Coumadin INR:>9.6 CT head: No acute bleed No other acute bleeding reported Vitamin K 5 mg p.o. ?possible vitamin K IV allergy listed. Reported pt coming out of surgery and anesthesia and was given IV vitamin K and had noted shaking. It was unclear if this was secondary to vitamin K but it was listed as an allergy Hold Coumadin INR in a.m. 05/31 INR 2.3 Check INR tomorrow 06/01 Coumadin 1.5 mg today Heparin subcu every 8 hours (7) Hypomagnesemia: Plan: Magnesium: 1.6 Replace and monitor Hypokalemia Replacement in progress (8) Peripheral neuropathy: (9) Chronic pain: Plan: On chronic morphine Measurements of meds per above (10) PAD (peripheral artery disease): Plan: History extensive surgery including (right common femoral embolectomy, right popliteal and right AT/DP embolectomy and lower leg fasciotomies in 06/2014, s/p angioplasty right SFA on 02/18/2015, right common femoral artery to peroneal artery bypass 08/19/2015) Continue aspirin, atorvastatin Continue outpatient [facility] vascular surgery follow-up (11) Prolonged QT interval: Plan: Avoid QTc prolonging agents when possible EKG in a.m. Repeat EKG QT corrected normal (12) Tobacco use: Plan: Smoking cessation encouraged DVT Prophylaxis INR 1.2 Coumadin Full Code as per discussion with pt Disposition Anticipate discharge to home medically stable plan of care discussed with patient and her daughter Nicolasa at the bedside in detail and at length all questions answered Admission and Anticipated Discharge Date Admission Date: May 31, 2022 Subjective Follow-up for encephalopathy, acute bronchitis, etc. Seen resting in bed, sitting up, not in distress, States she continues to feel improved overall No problems with breathing, minimal dry cough Sore throat improving No other new symptoms Review of Systems Review of Systems: all noted and negative except for above Physical Exam Physical Exam: General- oriented x 3, not in distress, speaks in sentences with no effort or accessory muscle use Eyes- anicteric Neck- no JVD Lungs- clear BS BL Heart- normal rate, regular rhythm; no murmurs Abdomen- normal bowel sounds, nondistended, soft, nontender Extremities- no pretibial edema, no calf tenderness Neuro- alert, oriented x 3; no gross focal neurologic deficits Skin- warm & dry Results & Data Results & Data ([facility]) Vital Signs (Past 12 Hours) Vital Signs Temp Pulse Pulse Resp BP BP Pulse Ox 06/02/22 10:47 36.8 C 75 18 91/62 L 98 06/02/22 07:30 83 06/02/22 07:25 36.8 C 87 18 88/60 L 97 06/02/22 03:20 38.6 C H 78 16 96/69 L 96 O2 Del Method 06/02/22 10:47 Room Air 06/02/22 07:30 06/02/22 07:25 Room Air 06/02/22 03:20 Room Air all noted and reviewed including below
[2022-06-02] MEDS ORDERED: WARFARIN SOD 2 MG TAB PO SCH (16:00)
[2022-06-02] MEDS ORDERED: WARFARIN SOD 0.5 MG TAB PO ONE (16:56)
[2022-06-02] MEDS: cefTRIAXone SODIUM 1,000 MG in DEXTROSE 5% AD-VAN 50 ML IV SCH (17:43)
[2022-06-02] MEDS: GABAPENTIN 300 MG CAP PO SCH (20:30)
[2022-06-02] MEDS ORDERED: OLANZapine 10 MG/2.1 ML SDV IM STA (21:47)
[2022-06-02] MEDS ORDERED: LACTATED RINGER'S 1,000 ML IV ONE (21:49)
[2022-06-03] MEDS ORDERED: LORazepam 0.5 MG TAB PO STA (01:23)
[2022-06-03] MEDS: CHLORASEPTIC 1.4% SOLN 180 ML BTL MT SCH ×6 (01:29→19:57)
[2022-06-03] MEDS: MELATONIN 3 MG TAB PO PRN ×2 (01:34→22:02)
[2022-06-03] MEDS: HEPARIN SOD 5,000 UNIT/0.5 ML VIAL SQ SCH (05:10)
[2022-06-03] MEDS ORDERED: SODIUM CHLORIDE 0.9% 1000ML 500 ML IV ONE (07:25)
[2022-06-03 08:06] LABS: Basophils # (auto) 0.05 K/uL (0-0.2); Basophils % (auto) 0.7 %; Eosinophils # (auto) 0.18 K/uL (0-0.50); Eosinophils % (auto) 2.5 %; Hematocrit (blood only) 28.7 % (37.0-47.0); Hemoglobin 9.6 g/dl (12.0-16.0); Immature Granulocytes # (auto) 0.06 K/uL (0.01-0.20); Immature Granulocytes % (auto) 0.8 %; Lymphocytes # (auto) 1.31 K/uL (1.2-3.4); Lymphocytes % (auto) 18.1 %; Mean Corpuscular Hemoglobin 33.8 pg (25.0-34.0); Mean Corpuscular Hgb Conc 33.4 g/dL (32.0-36.0); Mean Corpuscular Volume 101.1 fL (80.0-100.0); Mean Platelet Volume 11.3 fL (9.4-12.4); Monocytes # (auto) 0.71 K/uL (0.11-0.59); Monocytes % (auto) 9.8 %; Neutrophils # (auto) 4.91 K/uL (1.40-6.50); Neutrophils % (auto) 68.1 %; Platelet Count 189 K/uL (130-400); RDW Coefficient of Variation 14.7 % (11.5-14.5); RDW Standard Deviation 54.8 fL (36.4-46.3); Red Blood Count 2.84 M/uL (4.20-5.40); White Blood Count 7.22 K/ul (4.8-10.8)
[2022-06-03 08:30] LABS: INR 1.1 (0.9-1.1)
[2022-06-03 08:51] LABS: BUN Creatinine Ratio 10.4 (10-20); Calcium 8.2 mg/dl (8.5-10.1); Creatinine Clr Calc Pharmacy 64.5 ml/min; Est GFR (African American) 107.7 ml/min; Est GFR (Non-African American) 92.9 ml/min; Potassium 3.7 mmol/L (3.5-5.1)
[2022-06-03] MEDS: FLUTICASONE PROPIONATE NA SPR 16 GM BTL SCH ×2 (09:27→19:57)
[2022-06-03] MEDS: THIAMINE HCL 100 MG TAB PO SCH (09:28)
[2022-06-03] MEDS: ATORVASTATIN 40 MG TAB PO SCH (09:28)
[2022-06-03] MEDS: CYANOCOBALAMIN (B-12) 500 MCG TABLET PO SCH (09:28)
[2022-06-03] MEDS: FOLIC ACID 1 MG TAB PO SCH (09:28)
[2022-06-03] MEDS: ASPIRIN 81 MG ECTAB PO SCH (09:28)
[2022-06-03] MEDS ORDERED: MIRTAZAPINE TAB 15 MG TAB PO ONE (09:41)
[2022-06-03] MEDS: ENOXAPARIN INJ 40 MG/0.4 ML SYR SQ SCH (11:12)
--- NOTE | 2022-06-03 13:21 | Hospitalist Progress Note ---
Date of Service June 03, 2022 Assessment & Plan (1) Bronchitis: (2) Encephalopathy: Plan: (1) Encephalopathy: *Possible accidental OD of narcotics *Possible Toxic encephalopathy due to narcotics Plan: Per admitting [facility] notes with addendum: Patient is 62 y/o F with PMH HTN, HLD, COPD, PVD s/p extensive surgery, recurrent DVT chronically anticoagulated on Coumadin, MTHFR mutation, chronic pain, neuropathy, chronic narcotic use, medical marijuana use, anxiety, depression, tobacco use presented to ER for altered mental status x 2 days ? Metabolic encephalopathy possibly secondary to underlying illness, dehydration CT head: No acute changes UA negative Drug screen positive opiates (pt on chronic morphine) Pt denies increased morhine use at home Hold morphine, gabapentin, mirtazapine, Flexeril for now and monitor mental status IVF 05/31 Mental status much improved compared to yesterday Brain MRI: No acute CVA, no acute process TSH, folate, vitamin B12: Normal Confusion likely secondary to possible accidental polypharmacy, underlying acute bronchitis Continue IV ceftriaxone for acute bronchitis, as needed nebs Continue usual morphine p.o. twice daily as needed, gabapentin at at bedtime, Flexeril as needed PT and OT evaluation Monitor closely 06/01 Patient oriented x3, answers all questions appropriately Able to give good recollection of medical history Continue IV ceftriaxone for acute bronchitis, possible upper respiratory infection Tolerating usual morphine, gabapentin, Flexeril We will confirm with patient if she actually takes Remeron at bedtime 06/02 Mental status back to baseline Continue ceftriaxone Monitor closely 06/03 agitated overnight consistent with delirium resume usual Remeron 30mg- verified with outpatient pharmacy records delirium prevention strategies monitor closely (2) Bronchitis: Plan: COPD History URI symptoms 2 weeks ago 05/21/2022 outpatient respiratory panel positive for coronavirus NL63, negative SARS-CoV-2, Negative group A strep PCR, CXR: no acute findings on report. She was treated conservatively. She was having continued fatigue, rhinorrhea and cough 05/26/2022 started doxycycline Today in ER afebrile, no hypoxia on room air. No leukocytosis. Negative SARS-CoV-2. Negative Respiratory panel CXR: No acute infiltrate ER doctor reported mild wheezing. Patient was given Solu-Medrol, albuterol neb with resolution of wheezing Patient reports resolution of cough, congestion and denies increased shortness of breath. Less likely COPD exacerbation at this time Will hold further steroids, hold doxycycline and further monitor Start Rocephin to cover pulmonary source and possible underlying UTI Scheduled DuoNebs CBC, CMP in a.m. 05/31 On room air, no wheezing Continue IV ceftriaxone, as needed nebs Monitor closely Blood cultures negative so far 06/01 Respiratory status stable Ambulating in the hallways with no problems Blood cultures negative 06/02 Continues to improve Monitor closely 06/03 mostly resolved (3) Supratherapeutic INR: Plan: INR 2.3 Was given vitamin K 5 mg p.o. yesterday Check INR tomorrow 06/01 INR 1.2 Resume Coumadin, 1.5 mg today, heparin subcu every 8 hours until INR therapeutic Check INR daily 06/02 INR still 1.2 Coumadin 2 mg given Heparin subcu until INR therapeutic INR daily 06/03 INR 1.[address] Estrada recommend coumadin 2.5mg po monitor INR Lovenox 40mg SQ daily (4) Nausea & vomiting: Plan: Nausea, intermittent vomiting past couple of days Possibly secondary to doxycycline Denies abdominal pain Gentle IVF Clear liquid diet for now Phenergan as needed nausea secondary to prolonged QTc Monitor 05/31 Nausea and vomiting likely secondary to doxycycline Improving Continue to monitor 06/01 Nausea and vomiting improved Chloraseptic spray every 6 hours 06/03 Resolved (5) Recurrent deep vein thrombosis (DVT): Plan: Patient reports bilateral leg edema of the legs-mild is chronic (6) MTHFR gene mutation: Plan: Chronically anticoagulated on Coumadin INR:>9.6 CT head: No acute bleed No other acute bleeding reported Vitamin K 5 mg p.o. ?possible vitamin K IV allergy listed. Reported pt coming out of surgery and anesthesia and was given IV vitamin K and had noted shaking. It was unclear if this was secondary to vitamin K but it was listed as an allergy Hold Coumadin INR in a.m. 05/31 INR 2.3 Check INR tomorrow 06/01 Coumadin 1.5 mg today Heparin subcu every 8 hours 06/03 management per above (7) Hypomagnesemia: Plan: Magnesium: 1.6 Replace and monitor Hypokalemia Replacement in progress (8) Peripheral neuropathy: (9) Chronic pain: Plan: On chronic morphine Measurements of meds per above (10) PAD (peripheral artery disease): Plan: History extensive surgery including (right common femoral embolectomy, right popliteal and right AT/DP embolectomy and lower leg fasciotomies in 06/2014, s/p angioplasty right SFA on 02/18/2015, right common femoral artery to peroneal artery bypass 08/19/2015) Continue aspirin, atorvastatin [place] [facility] [place] (11) Prolonged QT interval: Plan: Avoid QTc prolonging agents when possible EKG in a.m. Repeat EKG QT corrected normal (12) Tobacco use: Plan: Smoking cessation encouraged DVT Prophylaxis INR 1.1 Coumadin Full Code as per discussion with pt Disposition Anticipate discharge to home medically stable plan of care discussed with patient and her daughter Nicolasa at the bedside in detail and at length all questions answered Admission and Anticipated Discharge Date Admission Date: May 31, 2022 Subjective ff up for confusion, acute bronchitis, etc seen resting in bed, comfortable sitting up was agitated overnight, required zyprexa, ativan alert but appears somewhat confused states she feels like she is in a residential etc patient reassured states breathing is fine sore throat improving no other symptoms Review of Systems Review of Systems: all noted and negative except for above Physical Exam Physical Exam: General- oriented x 2, not in distress, speaks in sentences with no effort or accessory muscle use Eyes- anicteric Neck- no JVD Lungs- clear BS bilaterally, no rales/wheezes Heart- normal rate, regular rhythm; no murmurs Abdomen- normal bowel sounds, nondistended, soft, nontender Extremities- no pretibial edema, no calf tenderness Neuro- alert, oriented x 2; no gross focal neurologic deficits Skin- warm & dry Results & Data Results & Data ([facility]) Vital Signs (Past 12 Hours) Vital Signs Temp Pulse Resp BP BP Pulse Ox O2 Del Method 06/03/22 12:01 37.3 C 96 H 18 95/65 L 95 Room Air 06/03/22 10:14 Room Air 06/03/22 08:45 62 101/68 06/03/22 07:18 36.5 C 88 16 86/56 L 98 Room Air all noted and reviewed including below
[2022-06-03] MEDS ORDERED: WARFARIN SOD 2.5 MG TAB PO SCH (16:00)
[2022-06-03] MEDS: cefTRIAXone SODIUM 1,000 MG in DEXTROSE 5% AD-VAN 50 ML IV SCH (17:20)
[2022-06-03] MEDS ORDERED: MIRTAZAPINE TAB 15 MG TAB PO SCH (21:00)
[2022-06-04] MEDS: CHLORASEPTIC 1.4% SOLN 180 ML BTL MT SCH ×6 (01:19→20:22)
[2022-06-04 07:53] LABS: INR 1.2 (0.9-1.1); Prothrombin Time 13.1 Seconds (9.0-12.0)
[2022-06-04] MEDS: CYANOCOBALAMIN (B-12) 500 MCG TABLET PO SCH (08:10)
[2022-06-04] MEDS: ENOXAPARIN INJ 40 MG/0.4 ML SYR SQ SCH (08:10)
[2022-06-04] MEDS: SODIUM CHLORIDE 0.9% 1000ML 1,000 ML IV SCH ×2 (08:10→23:23)
[2022-06-04] MEDS: FLUTICASONE PROPIONATE NA SPR 16 GM BTL SCH ×2 (08:10→20:19)
[2022-06-04] MEDS: THIAMINE HCL 100 MG TAB PO SCH (08:11)
[2022-06-04] MEDS: ATORVASTATIN 40 MG TAB PO SCH (08:11)
[2022-06-04] MEDS: FOLIC ACID 1 MG TAB PO SCH (08:11)
[2022-06-04] MEDS: ASPIRIN 81 MG ECTAB PO SCH (08:11)
[2022-06-04] MEDS: MoRPHine SULFATE IR 15 MG TAB (IMMEDIATE RELEASE) PO PRN (09:28)
[2022-06-04 10:42] LABS: Basophils # (auto) 0.03 K/uL (0-0.2); Basophils % (auto) 0.5 %; Eosinophils # (auto) 0.11 K/uL (0-0.50); Eosinophils % (auto) 1.9 %; Hematocrit (blood only) 26.7 % (37.0-47.0); Hemoglobin 9.2 g/dl (12.0-16.0); Immature Granulocytes % (auto) 1.7 %; Lymphocytes # (auto) 0.89 K/uL (1.2-3.4); Lymphocytes % (auto) 15.5 %; Mean Corpuscular Hemoglobin 34.3 pg (25.0-34.0); Mean Corpuscular Hgb Conc 34.5 g/dL (32.0-36.0); Mean Corpuscular Volume 99.6 fL (80.0-100.0); Mean Platelet Volume 10.8 fL (9.4-12.4); Monocytes # (auto) 0.65 K/uL (0.11-0.59); Monocytes % (auto) 11.3 %; Neutrophils # (auto) 3.98 K/uL (1.40-6.50); Neutrophils % (auto) 69.1 %; Platelet Count 184 K/uL (130-400); RDW Standard Deviation 54.4 fL (36.4-46.3); Red Blood Count 2.68 M/uL (4.20-5.40); White Blood Count 5.76 K/ul (4.8-10.8)
--- NOTE | 2022-06-04 13:15 | Hospitalist Progress Note ---
Date of Service June 04, 2022 Assessment & Plan (1) Bronchitis: (2) Encephalopathy: Plan: (1) Encephalopathy: *Possible accidental OD of narcotics *Possible Toxic encephalopathy due to narcotics Plan: Per admitting [facility] notes with addendum: Patient is 62 y/o F with PMH HTN, HLD, COPD, PVD s/p extensive surgery, recurrent DVT chronically anticoagulated on Coumadin, MTHFR mutation, chronic pain, neuropathy, chronic narcotic use, medical marijuana use, anxiety, depression, tobacco use presented to ER for altered mental status x 2 days ? Metabolic encephalopathy possibly secondary to underlying illness, dehydration CT head: No acute changes UA negative Drug screen positive opiates (pt on chronic morphine) Pt denies increased morhine use at home Hold morphine, gabapentin, mirtazapine, Flexeril for now and monitor mental status IVF 05/31 Mental status much improved compared to yesterday Brain MRI: No acute CVA, no acute process TSH, folate, vitamin B12: Normal Confusion likely secondary to possible accidental polypharmacy, underlying acute bronchitis Continue IV ceftriaxone for acute bronchitis, as needed nebs Continue usual morphine p.o. twice daily as needed, gabapentin at at bedtime, Flexeril as needed PT and OT evaluation Monitor closely 06/01 Patient oriented x3, answers all questions appropriately Able to give good recollection of medical history Continue IV ceftriaxone for acute bronchitis, possible upper respiratory infection Tolerating usual morphine, gabapentin, Flexeril We will confirm with patient if she actually takes Remeron at bedtime 06/02 Mental status back to baseline Continue ceftriaxone Monitor closely 06/03 agitated overnight consistent with delirium resume usual Remeron 30mg- verified with outpatient pharmacy records delirium prevention strategies monitor closely 06/04 Patient had a good night Continue usual Remeron at night Delirium prevention strategies (2) Bronchitis: Plan: COPD History URI symptoms 2 weeks ago 05/21/2022 outpatient respiratory panel positive for coronavirus NL63, negative SARS-CoV-2, Negative group A strep PCR, CXR: no acute findings on report. She was treated conservatively. She was having continued fatigue, rhinorrhea and cough 05/26/2022 started doxycycline Today in ER afebrile, no hypoxia on room air. No leukocytosis. Negative SARS-CoV-2. Negative Respiratory panel CXR: No acute infiltrate ER doctor reported mild wheezing. Patient was given Solu-Medrol, albuterol neb with resolution of wheezing Patient reports resolution of cough, congestion and denies increased shortness of breath. Less likely COPD exacerbation at this time Will hold further steroids, hold doxycycline and further monitor Start Rocephin to cover pulmonary source and possible underlying UTI Scheduled DuoNebs CBC, CMP in a.m. 05/31 On room air, no wheezing Continue IV ceftriaxone, as needed nebs Monitor closely Blood cultures negative so far 06/01 Respiratory status stable Ambulating in the hallways with no problems Blood cultures negative 06/02 Continues to improve Monitor closely 06/03 mostly resolved 06/04 Respiratory status stable Cough resolved (3) Supratherapeutic INR: Plan: INR 2.3 Was given vitamin K 5 mg p.o. yesterday Check INR tomorrow 06/01 INR 1.2 Resume Coumadin, 1.5 mg today, heparin subcu every 8 hours until INR therapeutic Check INR daily 06/02 INR still 1.2 Coumadin 2 mg given Heparin subcu until INR therapeutic INR daily 06/03 INR 1.1 discussed with [address] [id number] Dr. Estrada recommend coumadin 2.5mg po monitor INR Lovenox 40mg SQ daily 06/04 Management per below (4) Nausea & vomiting: Plan: Nausea, intermittent vomiting past couple of days Possibly secondary to doxycycline Denies abdominal pain Gentle IVF Clear liquid diet for now Phenergan as needed nausea secondary to prolonged QTc Monitor 05/31 Nausea and vomiting likely secondary to doxycycline Improving Continue to monitor 06/01 Nausea and vomiting improved Chloraseptic spray every 6 hours 06/03 Resolved 06/04 Resolved (5) Recurrent deep vein thrombosis (DVT): Plan: Patient reports bilateral leg edema of the legs-mild is chronic (6) MTHFR gene mutation: Plan: Chronically anticoagulated on Coumadin INR:>9.6 CT head: No acute bleed No other acute bleeding reported Vitamin K 5 mg p.o. ?possible vitamin K IV allergy listed. Reported pt coming out of surgery and anesthesia and was given IV vitamin K and had noted shaking. It was unclear if this was secondary to vitamin K but it was listed as an allergy Hold Coumadin INR in a.m. 05/31 INR 2.3 Check INR tomorrow 06/01 Coumadin 1.5 mg today Heparin subcu every 8 hours 06/03 management per above 06/04 Admitted with supratherapeutic INR of more than 9 Vitamin K 5 mg p.o. given Patient's INR still 1.2 despite increasing Coumadin Patient having challenges at home managing her Coumadin, calling the Coumadin clinic Discussed with Dr. Estrada regarding transitioning patient to NOAC Dr. Estrada recommending Eliquis 2.5 mg p.o. twice daily Follow-up closely with hematology clinic (7) Hypomagnesemia: Plan: Magnesium: 1.6 Replace and monitor Hypokalemia Replacement in progress (8) Peripheral neuropathy: (9) Chronic pain: Plan: On chronic morphine Measurements of meds per above (10) PAD (peripheral artery disease): Plan: History extensive surgery including (right common femoral embolectomy, right popliteal and right AT/DP embolectomy and lower leg fasciotomies in 06/2014, s/p angioplasty right SFA on 02/18/2015, right common femoral artery to peroneal artery bypass 08/19/2015) Continue aspirin, atorvastatin Continue outpatient [facility] vascular surgery follow-up (11) Prolonged QT interval: Plan: Avoid QTc prolonging agents when possible EKG in a.m. Repeat EKG QT corrected normal (12) Tobacco use: Plan: Smoking cessation encouraged DVT Prophylaxis We will transition to Eliquis tonryanne Full Code as per discussion with pt Disposition Anticipate discharge to home tomorrow medically stable plan of care discussed with patient and her daughter Nicolasa over the phone in detail and at length all questions answered They are understanding and agreeable with plan of care Admission and Anticipated Discharge Date Admission Date: May 31, 2022 Subjective ff up for confusion, etc No acute events overnight as per RN seen resting in bed, sitting up, in good spirits Alert, oriented x3, answers all questions appropriately States she continues to feel improved No shortness of breath, chest pain, sore throat improving No bleeding No leg pain No other symptoms Review of Systems Review of Systems: all noted and negative except for above Physical Exam Physical Exam: General- oriented x 3, not in distress, speaks in sentences with no effort or accessory muscle use Eyes- anicteric Neck- no JVD Lungs- clear breath sounds bilaterally, no rales/wheezes Heart- normal rate, regular rhythm; no murmurs Abdomen- normal bowel sounds, nondistended, soft, nontender Extremities- no pretibial edema, no calf tenderness Neuro- alert, oriented x 3; no gross focal neurologic deficits Skin- warm & dry Results & Data Results & Data ([facility]) Vital Signs (Past 12 Hours) Vital Signs Temp Pulse Resp BP Pulse Ox O2 Del Method 06/04/22 10:57 36.9 C 87 16 96/61 L 99 Room Air 06/04/22 10:14 Room Air 06/04/22 07:21 36.8 C 70 16 90/66 L 95 Room Air 06/04/22 05:05 88/59 L 06/04/22 04:00 36.9 C 81 20 83/48 L 97 Room Air all noted and reviewed including below
[2022-06-04] MEDS ORDERED: FLUCONAZOLE 50 MG TAB PO ONE (17:05)
[2022-06-04] MEDS: cefTRIAXone SODIUM 1,000 MG in DEXTROSE 5% AD-VAN 50 ML IV SCH (17:21)
[2022-06-04] MEDS: APIXABAN 2.5 MG TAB PO SCH (20:20)
[2022-06-04] MEDS: MELATONIN 3 MG TAB PO PRN (20:56)
[2022-06-04] MEDS ORDERED: MIRTAZAPINE TAB 15 MG TAB PO SCH (21:00)
[2022-06-05] MEDS: CHLORASEPTIC 1.4% SOLN 180 ML BTL MT SCH ×3 (01:49→07:31)
--- NOTE | 2022-06-05 06:11 | Consultation ---
Date of Consultation June 05, 2022 Assessment & Plan (1) Recurrent deep vein thrombosis (DVT): Patient with recurrent DVT has been on warfarin but with some issues consistent therapeutic dosing. She been followed in the anticoagulation clinic by Dr. Estrada. I coordinated a conversation between Dr. Estrada and the hospital service and treatment decisions will be made through that interaction Plan Dr. Estrada will be offering advice for optimal further anticoagulation management History of Present Illness Reason for Consultation: History of pathologic thrombosis currently on warfarin, consultation seeks input on conversion to a DOAC Attending Physician: Jim Carreon MD Allergies Allergy/AdvReac Type Severity Reaction Status Date / Time vitamin K2 Allergy Severe SOB CHEST Verified 05/30/22 13:45 PAIN SHAKING Home Medications Medication Instructions Recorded Confirmed Type ascorbic acid (vitamin C) 500 mg 500 mg PO QAM 09/13/18 05/30/22 History capsule atorvastatin 40 mg tablet 40 mg PO QAM 09/13/18 05/30/22 History cyanocobalamin (vitamin B-12) 1,000 mcg PO QAM 09/13/18 05/30/22 History 1,000 mcg tablet (Vitamin B-12) Medical Marijuanas ~ Oil Vape 0 inh inhalation UD 07/30/20 05/30/22 History morphine 15 mg immediate release 15 mg PO BID PRN Severe Pain 07/30/20 05/30/22 History tablet (Scale Score 7-10) morphine 15 mg tablet,extended 15 mg PO BID 07/30/20 05/30/22 History release albuterol sulfate 90 mcg/actuation 2 puff inhalation QID PRN 05/30/22 05/30/22 History aerosol inhaler Shortness Of Breath Or Wheezing aspirin 81 mg tablet,delayed 81 mg PO DAILY 05/30/22 05/30/22 History release cyclobenzaprine 5 mg tablet 5 mg PO HS 05/30/22 05/30/22 History doxycycline hyclate 100 mg capsule 100 mg PO BID 05/30/22 05/30/22 History gabapentin 300 mg capsule 300 mg PO TID 05/30/22 05/30/22 History mirtazapine 30 mg tablet 30 mg PO HS 05/30/22 05/30/22 History warfarin 2.5 mg tablet 1.25 mg PO UD 05/30/22 05/30/22 History Patient History Medical History (Updated 05/30/22 @ 17:49 by Micky Jarvis MD) Angina at rest Chest pain Chronic back pain Chronic pain COPD (chronic obstructive pulmonary disease) COPD (chronic obstructive pulmonary disease) NO PROBLEMS Deep vein thrombosis Deep vein thrombosis (2016) FEMORAL BYPASS IN BILATERAL LEGS Degenerative disc disease Depression Depression Diverticular disease DVT prophylaxis Factor 5 Leiden mutation, heterozygous Fibromyalgia GERD (gastroesophageal reflux disease) History of MTHFR mutation HLD (hyperlipidemia) MDD (major depressive disorder) Migraine MTHFR gene mutation MTHFR mutation Osteoarthritis PAD (peripheral artery disease) Peptic ulcer disease CURRENT Peripheral neuropathy Peripheral vascular disease Peripheral vascular disease PVD (peripheral vascular disease) Tobacco abuse Unstable angina Vitamin D insufficiency Surgical History H/O surgical biopsy VAGINAL BIOPSY H/O vascular surgery MULTIPLE BILATERAL LEG SURGERIES History of arthroscopy LEFT SHOULDER History of section X1 History of cholecystectomy LAP History of colonoscopy History of esophagogastroduodenoscopy (EGD) EGD 12/23/2017. Sedation no issues. History of nasal septoplasty History of right cataract extraction History of tonsillectomy Family History (Updated 05/30/22 @ 15:58 by Jimena Pat PA-C) Other Coronary heart disease Social History Smoking Status: Current every day smoker Tobacco Type: Cigarettes Cigarettes Per Day: 30; Second Hand Exposure: No; Do You Dip or Chew Tobacco: No; Tobacco Cessation Education Requested by Patient: No Hx Alcohol Use: Yes Alcohol type: beer, wine and hard liquor Hx Substance Use: No Preferred Language: [place] Communication Ability: Effective [employer] Required: No Beliefs That Will Affect Care: None Current Living Situation: Alone Other Information That Helps Us Care for You: No Feels Safe at Home: Yes Safety Concerns: Feels Safe At This Time Assistive Devices: None Results & Data ([facility]) Vital Signs (Past 12 Hours) Vital Signs Temp Pulse Resp BP Pulse Ox O2 Del Method 06/05/22 03:42 36.9 C 87 18 122/70 98 Room Air 06/05/22 00:00 36.9 C 89 18 110/64 97 Room Air 06/04/22 19:00 37.0 C 85 18 112/77 98 Room Air 03/10/23 20:00 36.7 C 87 18 114/77 97 Room Air 06/04/22 19:39 Room Air PG Care Time/CCT Total # of Minutes Spent Total Time Spent with Patient: Total time spent is greater than 50% in coordination of care (as documented) at patient's floor/unit and/or counseling patient: Coding Level of Care Code None Diagnoses Recurrent deep vein thrombosis (DVT) I82.409
[2022-06-05] MEDS: CYANOCOBALAMIN (B-12) 500 MCG TABLET PO SCH (07:30)
[2022-06-05] MEDS: FOLIC ACID 1 MG TAB PO SCH (07:30)
[2022-06-05] MEDS: FLUTICASONE PROPIONATE NA SPR 16 GM BTL SCH (07:30)
[2022-06-05] MEDS: ATORVASTATIN 40 MG TAB PO SCH (07:30)
[2022-06-05] MEDS: ASPIRIN 81 MG ECTAB PO SCH (07:30)
[2022-06-05] MEDS: THIAMINE HCL 100 MG TAB PO SCH (07:30)
[2022-06-05] MEDS: APIXABAN 2.5 MG TAB PO SCH (07:31)
[2022-06-05] MEDS ORDERED: LACTULOSE SYRUP 20 GM/30 ML UDC PO ONE (09:43)
--- NOTE | 2022-06-05 09:43 | Hospitalist Progress Note ---
Date of Service June 05, 2022 Assessment & Plan (1) Acute confusion: Plan: 1) Bronchitis: (2) Encephalopathy: Plan: (1) Encephalopathy: *Possible accidental OD of narcotics *Possible Toxic encephalopathy due to narcotics Plan: Per admitting EDGAR notes with addendum: Patient is 62 y/o F with PMH HTN, HLD, COPD, PVD s/p extensive surgery, recurrent DVT chronically anticoagulated on Coumadin, MTHFR mutation, chronic pain, neuropathy, chronic narcotic use, medical marijuana use, anxiety, depression, tobacco use presented to ER for altered mental status x 2 days Metabolic encephalopathy possibly secondary to underlying illness-acute bronchitis, dehydration-possible accidental overdose of narcotics CT head: No acute changes UA negative Drug screen positive opiates (pt on chronic morphine) Brain MRI: No acute CVA, no acute process TSH, folate, vitamin B12: Normal Bronchitis treated as below Usual morphine, gabapentin, Flexeril, Remeron gradually reintroduce Patient's mental status gradually improved, back to baseline (2) Acute bronchitis: Plan: COPD History URI symptoms 2 weeks ago 05/21/2022 outpatient respiratory panel positive for coronavirus NL63, negative SARS-CoV-2, Negative group A strep PCR, CXR: no acute findings on report. She was treated conservatively. She was having continued fatigue, rhinorrhea and cough 05/26/2022 started doxycycline ER afebrile, no hypoxia on room air. No leukocytosis. Negative SARS-CoV-2. Negative Respiratory panel CXR: No acute infiltrate ER doctor reported mild wheezing. Patient was given Solu-Medrol, albuterol neb with resolution of wheezing Patient reports resolution of cough, congestion and denies increased shortness of breath. Less likely COPD exacerbation at this time Cough, congestion resolved Given ceftriaxone IV x5 days Discharge on cefdinir x2 more days (3) Supratherapeutic INR: Plan: History of recurrent DVTs, arterial thrombosis MTHFR mutation INR more than 9.6 on admission Patient likely accidentally ingested additional Coumadin when she was confused Vitamin K 5 mg p.o. given INR lowered to 1.2, given increased dose of Coumadin but INR still low Patient having difficulty with managing Coumadin at home Discussed with gluer and slicer hand Dr. Estrada, agreed to transition patient to Eliquis 2.5 mg p.o. twice daily Discharge plan: Eliquis 2.5 mg p.o. daily follow-up with gluer and slicer hand in 2 weeks (4) Nausea & vomiting: Plan: Nausea, intermittent vomiting past couple of days Likely secondary to doxycycline Resolved (5) Recurrent deep vein thrombosis (DVT): Plan: Patient reports bilateral leg edema of the legs-mild is chronic Recent Doppler ultrasound: Negative for DVT (6) MTHFR gene mutation: Plan: Chronically anticoagulated on Coumadin Management per above (7) Hypomagnesemia: Plan: Hypokalemia Replaced (8) Peripheral neuropathy: (9) Chronic pain: Plan: On chronic morphine Measurements of meds per above (10) PAD (peripheral artery disease): Plan: History extensive surgery including (right common femoral embolectomy, right popliteal and right AT/DP embolectomy and lower leg fasciotomies in 06/2014, s/p angioplasty right SFA on 02/18/2015, right common femoral artery to peroneal artery bypass 08/19/2015) Continue aspirin, atorvastatin Continue outpatient [facility] [place] vascular surgery follow-up (11) Prolonged QT interval: Plan: Avoid QTc prolonging agents when possible Repeat EKG QT corrected normal (12) Tobacco use: Plan: Smoking cessation encouraged Disposition: Discharge to home Follow-up with PCP in 1 week Follow-up with gluer and slicer hand in 2 weeks (2) Encephalopathy: Admission and Anticipated Discharge Date Admission Date: May 31, 2022 Subjective Follow-up for encephalopathy, acute bronchitis, etc. Seen sitting up in bed, comfortable, not in distress In good spirits States she feels fine overall Oriented, answering questions appropriately No bleeding No shortness of breath, chest pain, dizziness, palpitations Reports positive constipation with positive flatus, no nausea or vomiting No other symptoms States she is ready and like to be discharged today Review of Systems Review of Systems: all noted and negative except for above Physical Exam Physical Exam: General- oriented x 3, not in distress, speaks in sentences with no effort or accessory muscle use Eyes- anicteric Neck- no JVD Lungs- clear breath sounds bilaterally, no rales/wheezes Heart- normal rate, regular rhythm; no murmurs Abdomen- normal bowel sounds, nondistended, soft, nontender Extremities- no pretibial edema, no calf tenderness Neuro- alert, oriented x 3; no gross focal neurologic deficits Skin- warm & dry Results & Data Results & Data ([facility]) Vital Signs (Past 12 Hours) Vital Signs Temp Pulse Resp BP BP Pulse Ox O2 Del Method 06/05/22 07:35 Room Air 06/05/22 07:33 36.9 C 92 H 20 112/77 96 Room Air 06/05/22 03:42 36.9 C 87 18 122/70 98 Room Air 06/05/22 00:00 36.9 C 89 18 110/64 97 Room Air all noted and reviewed including below
--- NOTE | 2022-06-05 10:08 | Discharge Summary ---
Discharge Summary Date of Service June 05, 2022 Notes For Next Care Provider Medication Changes From Visit New medications: Eliquis 2.5 mg p.o. twice daily Cefdinir 30 mg p.o. twice daily x2 days Discontinued medications: Warfarin- changed to Eliquis, patient having challenges with Coumadin doses Flexeril- to avoid confusion Doxycycline-changed to cefdinir Medication changes: Morphine changed to HS from BID (patient only takes gabapentin at bedtime) Gabapentin changed to HS (patient only takes gabapentin at bedtime) Admission HPI Per Admitting Provider Patient is 62 y/o F with PMH HTN, HLD, COPD, PVD s/p extensive surgery including (right common femoral embolectomy, right popliteal and right AT/DP embolectomy and lower leg fasciotomies in 06/2014, s/p angioplasty right SFA on 02/18/2015, right common femoral artery to peroneal artery bypass 08/19/2015), recurrent DVT chronically anticoagulated on Coumadin, MTHFR mutation, chronic pain, neuropathy, chronic narcotic use, medical marijuana use, anxiety, depression, tobacco use presented to ER for altered mental status. History obtained from patient, patient's daughter, outpatient chart review. Patient reports sore throat, green rhinorrhea, green productive cough, tactile fevers 2 weeks ago. Reports grandchild had strep throat at the time. She was seen at PCPs office. Outpatient chart reviewed and on 05/21/2022 respiratory panel positive for coronavirus NL63, negative SARS-CoV-2, Negative group A strep PCR, CXR: no acute findings on report. She was treated conservatively. She was having continued fatigue, rhinorrhea and cough and called PCPs office on 05/26/2022 and was called in doxycycline. States sore throat, rhinorrhea and cough have resolved. No further fever/chills. She does not think she has been feeling short of breath. Is unsure if she has been having wheezing. Denies chest pain. Past 4 days with nausea and intermittent vomiting. Has decreased appetite. Has not been eating or drinking. Denies abdominal pain. Daughter thinks vomiting started after started taking doxycycline. Does not think she took her doxycycline yesterday. Patient states she overall does not feel well. Patient with increased confusion in the past 2 days. Daughter states that she has been repeating herself and they have had the same conversation numerous times. She also is uncertain of the date. Daughter states at baseline patient will have some forgetfulness and usually makes notes as reminders but is not this confused. Daughter does report history of delirium during past hospitalizations. Patient manages own medications and previously was doing well with this. Patient states recently has only been taking morphine once daily at bedtime for pain. Patient currently confused on her home medications and dosages. She states she has been taking Coumadin 1.25mg daily, last dose was yesterday. Per outpatient [facility] pharmacy on 05/14/22 INR: 4.6 and Coumadin dose was 0mg on Mon, Wed, Fri and 1.25mg all other days. She does not have recorded INR in chart since that time. She does not think that she has taken additional morphine. Chronic leg swelling, denies any increase. Denies diaphoresis, hematemesis, melena, hematochezia, abdominal pain, CURRY, dizziness, syncope, vision changes, neck pain, CP, orthopnea, palpitations, hemoptysis, otalgia, extremity weakness, rashes, dysuria, urinary frequency, hematuria.. Principal Dx & Hospital Course #1 = Principal Diagnosis (1) Acute confusion: (1) Encephalopathy: *Possible accidental OD of narcotics *Possible Toxic encephalopathy due to narcotics Plan: Per admitting [facility] notes with addendum: Patient is 62 y/o F with PMH HTN, HLD, COPD, PVD s/p extensive surgery, recurrent DVT chronically anticoagulated on Coumadin, MTHFR mutation, chronic pain, neuropathy, chronic narcotic use, medical marijuana use, anxiety, depression, tobacco use presented to ER for altered mental status x 2 days Metabolic encephalopathy possibly secondary to underlying illness-acute bronchitis, dehydration-possible accidental overdose of narcotics CT head: No acute changes UA negative Drug screen positive opiates (pt on chronic morphine) Brain MRI: No acute CVA, no acute process TSH, folate, vitamin B12: Normal Bronchitis treated as below Usual morphine, gabapentin, Flexeril, Remeron gradually reintroduce Patient's mental status gradually improved, back to baseline (2) Acute bronchitis: Plan: COPD History URI symptoms 2 weeks ago 05/21/2022 outpatient respiratory panel positive for coronavirus NL63, negative SARS-CoV-2, Negative group A strep PCR, CXR: no acute findings on report. She was treated conservatively. She was having continued fatigue, rhinorrhea and cough 05/26/2022 started doxycycline ER afebrile, no hypoxia on room air. No leukocytosis. Negative SARS-CoV-2. Negative Respiratory panel CXR: No acute infiltrate ER doctor reported mild wheezing. Patient was given Solu-Medrol, albuterol neb with resolution of wheezing Patient reports resolution of cough, congestion and denies increased shortness of breath. Less likely COPD exacerbation at this time Cough, congestion resolved Given ceftriaxone IV x5 days Discharge on cefdinir x2 more days (3) Supratherapeutic INR, possible accidental intake of additional Coumadin due to confusion Plan: History of recurrent DVTs, arterial thrombosis MTHFR mutation INR more than 9.6 on admission Patient likely accidentally ingested additional Coumadin when she was confused Vitamin K 5 mg p.o. given INR lowered to 1.2, given increased dose of Coumadin but INR still low Patient having difficulty with managing Coumadin at home Discussed with raw finish mill operator Dr. Estrada, agreed to transition patient to Eliquis 2.5 mg p.o. twice daily Discharge plan: Eliquis 2.5 mg p.o. daily follow-up with raw finish mill operator in 2 weeks (4) Nausea & vomiting: Plan: Nausea, intermittent vomiting past couple of days Likely secondary to doxycycline Resolved (5) Recurrent deep vein thrombosis (DVT), arterial thrombosis: Plan: Patient reports bilateral leg edema of the legs-mild is chronic Recent Doppler ultrasound: Negative for DVT (6) MTHFR gene mutation: Plan: Chronically anticoagulated on Coumadin Management per above (7) Hypomagnesemia: Plan: Hypokalemia Replaced (8) Peripheral neuropathy: (9) Chronic pain: Plan: On chronic morphine Measurements of meds per above (10) PAD (peripheral artery disease): Plan: History extensive surgery including (right common femoral embolectomy, right popliteal and right AT/DP embolectomy and lower leg fasciotomies in 06/2014, s/p angioplasty right SFA on 02/18/2015, right common femoral artery to peroneal artery bypass 08/19/2015) Continue aspirin, atorvastatin Continue outpatient [facility] vascular surgery follow-up (11) Prolonged QT interval: Plan: Avoid QTc prolonging agents when possible Repeat EKG QT corrected normal (12) Tobacco use: Plan: Smoking cessation encouraged Disposition: Discharge to home Follow-up with PCP in 1 week Follow-up with raw finish mill operator in 2 weeks Discharge Exam General- oriented x 3, not in distress, speaks in sentences with no effort or accessory muscle use Eyes- anicteric Neck- no JVD Lungs- clear breath sounds bilaterally, no rales/wheezes Heart- normal rate, regular rhythm; no murmurs Abdomen- normal bowel sounds, nondistended, soft, nontender Extremities- no pretibial edema, no calf tenderness Neuro- alert, oriented x 3; no gross focal neurologic deficits Skin- warm & dry Updated Medication List Medication Instructions Recorded Confirmed Type ascorbic acid (vitamin C) 500 mg 500 mg PO QAM 09/13/18 05/30/22 History capsule atorvastatin 40 mg tablet 40 mg PO QAM 09/13/18 05/30/22 History cyanocobalamin (vitamin B-12) 1,000 mcg PO QAM 09/13/18 05/30/22 History 1,000 mcg tablet (Vitamin B-12) Medical Marijuanas ~ Oil Vape 0 inh inhalation UD 07/30/20 05/30/22 History morphine 15 mg immediate release 15 mg PO BID PRN Severe Pain 07/30/20 05/30/22 History tablet (Scale Score 7-10) morphine 15 mg tablet,extended 15 mg PO BID 07/30/20 05/30/22 History release albuterol sulfate 90 mcg/actuation 2 puff inhalation QID PRN 05/30/22 05/30/22 History aerosol inhaler Shortness Of Breath Or Wheezing aspirin 81 mg tablet,delayed 81 mg PO DAILY 05/30/22 05/30/22 History release cyclobenzaprine 5 mg tablet 5 mg PO HS 05/30/22 05/30/22 History doxycycline hyclate 100 mg capsule 100 mg PO BID 05/30/22 05/30/22 History gabapentin 300 mg capsule 300 mg PO TID 05/30/22 05/30/22 History mirtazapine 30 mg tablet 30 mg PO HS 05/30/22 05/30/22 History warfarin 2.5 mg tablet 1.25 mg PO UD 05/30/22 05/30/22 History apixaban 2.5 mg tablet (Eliquis) 2.5 mg PO BID 30 days #60 tabs 06/05/22 Rx cefdinir 300 mg capsule 300 mg PO BID 2 days #4 caps 06/05/22 Rx Hospital Stay Data Consultations 05/30/22 14:08 ED Decision to Admit Stat 06/04/22 10:18 Consult Hematology Routine Diagnostic Imagining Performed 05/30/22 12:02 CT head/brain wo con Stat 05/30/22 17:00 MRI Brain [MR brain wo con] Routine COMPARISON: No relevant prior studies available. FINDINGS: No acute intracranial hemorrhage. No midline shift or mass effect. The territorial aviles-white matter differentiation is maintained throughout. Age-related cerebral volume loss. Periventricular and subcortical white matter T2 signal intensity, consistent with chronic microangiopathy. The visualized orbits appear grossly unremarkable. The calvarium is intact. The visualized paranasal sinuses and mastoid air cells are grossly clear. IMPRESSION: No acute intracranial hemorrhage, midline shift, or mass effect. No acute territorial infarct. Electronically signed by: Stevenson Mohr MD 05/30/22 23:24 PM Pending Results Patient Have Any Pending Studies at Discharge: No Discharge Instructions Given to Patient (Per Discharging Provider) PLEASE REFER TO YOUR NEW MEDICATION LIST AND FOLLOW INSTRUCTIONS CAREFULLY. YOUR NEW MEDICATIONS INCLUDE: Stop Coumadin. Start Eliquis 2.5 mg p.o. twice daily. (Blood thinner to prevent blood clots.) You still need 2 more days of antibiotics- Cefdinir 300mg BID. Take a laxative daily. Plenty of fluids. Always maintain well-hydrated. PLEASE CALL YOUR PRIMARY CARE PHYSICIAN OR RETURN TO THE ER IF WITH WORSENING OF SYMPTOMS, INCLUDING Confusion, fevers chills, shortness of breath, cough, abdominal pain, bleeding, etc. FOLLOW UP WITH PRIMARY CARE PHYSICIAN OUTLINED ABOVE. IF YOU SUSTAIN ANY HEAD INJURY, PLEASE PROCEED TO THE ER IMMEDIATELY FOR EVALUATION, EVEN IF YOU ARE NOT HAVING ANY SYMPTOMS. Total Time Total Time Spent Total Time Spent (In Minutes): >30 minutes
== END 2022-06-05 11:38 | disposition home or self-care (01) | DRG 917 ==
LOC: EDINP 11:33 → ED 11:33 → EDINP 17:37 → 2N 21:27

== ENCOUNTER 2022-06-12 16:52 | Inpatient (IN) ==
[2022-06-12] MEDS ORDERED: ONDANSETRON INJ 2 MG/ML 2 ML VIAL IV STA (17:03)
[2022-06-12] MEDS ORDERED: ACETAMINOPHEN 1,000 MG/100 ML VIAL IV STA (17:03)
[2022-06-12] MEDS ORDERED: MoRPHine SULFATE 4 MG/ML 1 ML CARP\\VIAL IV STA (17:03)
[2022-06-12] MEDS ORDERED: SODIUM CHLORIDE 0.9% 1000ML 500 ML IV ONE (17:03)
--- NOTE | 2022-06-12 17:09 | Emergency Department Note ---
Impression & Plan Closed fracture of left hip, Hypokalemia, Fall, Coagulopathy ED Provider Note NAME: ELVIE GUERRA AGE: 62 SEX: F : 1960 ARRIVES VIA: Ambulance INFORMANT: [Patient][nursing, ems] ED PROVIDER(S): [Zechariah Meyers MD] CHIEF COMPLAINT: Fall, hip pain HISTORY OF PRESENT ILLNESS: The patient is a 62-year-old female who was in her basic health today. She was at her home and somehow, fell. She had been leaning on the counter. Patient did not lose consciousness, she did not hit her head or injure her neck. She landed on her left hip and was not able to walk after. The pain in the hip is severe. She denies back pain or chest pain, there is no rib pain. No abdominal pain. Of note, she is on Eliquis. In route to the hospital, the patient was given 50 mcg of fentanyl intranasal. Looking at old records, the patient was discharged from the hospital about a week ago. She was in for confusion thought secondary to medications. PMHx/PSHx: See Below SOCIAL HISTORY: See Below. PHYSICAL EXAM: GENERAL: Patient is in mild distress from pain. HEENT: No acute trauma, normocephalic atraumatic, mucous membranes moist, no nasal congestion. NECK: No stridor, no adenopathy, nontender cervical spine, trachea is midline. LUNGS: Clear to auscultation bilaterally, no wheeze, no rhonchi, breath sounds equal. HEART: Without murmurs gallops or rubs, regular rate and rhythm. ABDOMEN: Soft, nontender, bowel sounds positive, no peritonitis. EXTREMITIES: No cyanosis. There is some mild edema to the left lower extremity. The left foot is warm. She can wiggle the toes on the left without difficulty. The left knee does not seem tender and the patella is in proper position. The left lower extremity in general is externally rotated and slightly shortened. She is tender to palpate the left hip and left proximal femur. NEUROLOGIC: Oriented x 3, no acute motor or sensory deficits, no focal weakness. SKIN: No rash, no jaundice, no diaphoresis. DIFFERENTIAL DIAGNOSIS: Hip fracture, femur fracture, pelvis fracture, contusion, strain, sprain, intracranial bleeding or C-spine injury, among others. EMERGENCY DEPARTMENT COURSE/PROCEDURES: Prior/Outside records reviewed: Recent discharge note. ECG per my interpretation: Indication was fall and hip fracture. The ECG shows a normal sinus rhythm with a rate of 94. There is significant baseline artifact. No obvious ST elevation, no PVCs. QTc is 460. Continuous Cardiac Monitoring per my interpretation: An order was placed for continuous cardiac monitoring. The monitor shows a rate of 98 with normal sinus rhythm. MEDICAL DECISION MAKING: There is no leukocytosis. The patient is anemic however, this is a baseline finding for her. There is a normal platelet count. INR is elevated at 1.3, likely from her Eliquis use. Potassium was low at 3.1. No renal failure. No concerning liver enzyme elevation. ECG shows a normal sinus rhythm, no ischemia or dysrhythmia. Chest film does not show mediastinal widening, pneumonia or pneumothorax per my review. Left hip and pelvis film shows a left hip fracture, no pelvic fracture per my review. Brain CT shows no acute bleed or mass effect. C-spine CT shows no acute fracture. On exam, the patient had left hip pain, no other injuries noted by exam. The patient received IV saline, 500 cc. She was given IV potassium, IV Zofran and IV morphine, she was given IV Tylenol. A Villanueva catheter was placed. I did speak with the patient about her findings, she understands the need for a hospital stay and that she will require orthopedic surgery. I did speak with case management. I did call and speak with orthopedics, Dr. Baker. I spoke with the on-call hospitalist. DISPOSITION: The patient's presentation and findings warrant a hospital stay. Past Med/Surg History Medical History Angina at rest Chest pain Chronic back pain Chronic pain COPD (chronic obstructive pulmonary disease) COPD (chronic obstructive pulmonary disease) NO PROBLEMS Deep vein thrombosis Deep vein thrombosis (2016) FEMORAL BYPASS IN BILATERAL LEGS Degenerative disc disease Depression Depression Diverticular disease DVT prophylaxis Factor 5 Leiden mutation, heterozygous Fibromyalgia GERD (gastroesophageal reflux disease) History of MTHFR mutation HLD (hyperlipidemia) MDD (major depressive disorder) Migraine MTHFR gene mutation MTHFR mutation Osteoarthritis PAD (peripheral artery disease) Peptic ulcer disease CURRENT Peripheral neuropathy Peripheral vascular disease Peripheral vascular disease PVD (peripheral vascular disease) Tobacco abuse Unstable angina Vitamin D insufficiency Surgical History H/O surgical biopsy VAGINAL BIOPSY H/O vascular surgery MULTIPLE BILATERAL LEG SURGERIES History of arthroscopy LEFT SHOULDER History of section X1 History of cholecystectomy LAP History of colonoscopy History of esophagogastroduodenoscopy (EGD) EGD 12/23/2017. Sedation no issues. 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 Required: No Beliefs That Will Affect Care: None Current Living Situation: Alone Feels Safe at Home: Yes Assistive Devices: None Allergies Allergies Allergy/AdvReac Type Severity Reaction Status Date / Time vitamin K2 Allergy Severe SOB CHEST Verified 05/30/22 13:45 PAIN SHAKING Home Meds Home Medications Medication Instructions Recorded Confirmed ascorbic acid (vitamin C) 500 mg 500 mg PO QAM 09/13/18 05/30/22 capsule atorvastatin 40 mg tablet 40 mg PO QAM 09/13/18 05/30/22 cyanocobalamin (vitamin B-12) 1,000 mcg PO QAM 09/13/18 05/30/22 1,000 mcg tablet (Vitamin B-12) Medical Marijuanas ~ Oil Vape 0 inh inhalation UD 07/30/20 05/30/22 albuterol sulfate 90 mcg/actuation 2 puff inhalation QID PRN 05/30/22 05/30/22 aerosol inhaler Shortness Of Breath Or Wheezing aspirin 81 mg tablet,delayed 81 mg PO DAILY 05/30/22 05/30/22 release mirtazapine 30 mg tablet 30 mg PO HS 05/30/22 05/30/22 Previous Rx's Medication Instructions Recorded apixaban 2.5 mg tablet (Eliquis) 2.5 mg PO BID 30 days #60 tabs 06/05/22 gabapentin 300 mg capsule 300 mg PO HS #30 caps 03/11/23 morphine 15 mg immediate release 15 mg PO HS #10 tabs 06/05/22 tablet morphine 15 mg tablet,extended 15 mg PO HS #10 tabs 06/05/22 release Results & Data (ED) Vital Signs Vital Signs - 24 hr 06/12/22 17:03 06/12/22 17:03 06/12/22 18:00 Pulse Rate 98 H 99 H Pulse Rate [Right Finger] 98 H Pulse Rhythm [Right Finger] Regular Respiratory Rate 18 18 Respiratory Effort / Characteristics Non-Labored Spontaneous Non-Labored Spontaneous Respiratory Depth Normal Normal Respiratory Pattern Regular Regular Blood Pressure 111/81 Blood Pressure [Right Arm] 111/81 Blood Pressure Mean 91 Blood Pressure Mean [Right Arm] 91 Blood Pressure Position Lying Blood Pressure Position [Right Arm] Lying Pulse Oximetry 97 97 Oxygen Delivery Method Room Air Room Air Sepsis Recent Fever Within 48 Hours No Sepsis New/Unexplained Change in Mental Status No Sepsis Action Taken by Nursing No Action Required Home Medications Current Medication List: was personally reviewed by me Laboratory Data Attestation: I reviewed the patient's lab results. 06/12/22 17:18 06/12/22 17:18 Lab Results 06/12/22 06/12/22 06/12/22 Range/Units 17:18 17:18 17:18 WBC 9.02 (4.8-10.8) K/ul RBC 3.10 L (4.20-5.40) M/uL Hgb 10.5 L (12.0-16.0) g/dl Hct 31.5 L (37.0-47.0) % MCV 101.6 H (80.0-100.0) fL MCH 33.9 (25.0-34.0) pg MCHC 33.3 (32.0-36.0) g/dL RDW Std Deviation 53.9 H (36.4-46.3) fL RDW Coeff of Shaun 14.5 (11.5-14.5) % Plt Count 356 (130-400) K/uL MPV 10.6 (9.4-12.4) fL Immature Gran % (Auto) 0.7 % Neut % (Auto) 78.9 % Lymph % (Auto) 10.2 % [place] % (Auto) 7.3 % Eos % (Auto) 2.5 % Baso % (Auto) 0.4 % Neut # (Auto) 7.11 H (1.40-6.50) K/uL Lymph # (Auto) 0.92 L (1.2-3.4) K/uL [place] # (Auto) 0.66 H (0.11-0.59) K/uL Eos # (Auto) 0.23 (0-0.50) K/uL Baso # (Auto) 0.04 (0-0.2) K/uL Immature Gran # (Auto) 0.06 (0.01-0.20) K/uL PT 14.0 H (9.0-12.0) Seconds INR 1.3 H (0.9-1.1) APTT 34.1 H (21.0-31.0) Seconds PTT Ratio 1.2 Sodium 138 (136-145) mmol/L Potassium 3.1 L (3.5-5.1) mmol/L Chloride 102 (98-107) mmol/L Carbon Dioxide 28 (21-32) mmol/L Anion Gap 8 (3-11) BUN 3 L (6-23) mg/dl Creatinine 0.56 L (0.6-1.2) mg/dl Est Cr Clr Drug Dosing 80.3 ml/min Est GFR ( Amer) 114.2 ml/min Est GFR (Non-Af Amer) 98.5 ml/min BUN/Creatinine Ratio 5.4 L (10-20) Glucose 90 (70-99(Fasting)) mg/dl Calcium 8.2 L (8.5-10.1) mg/dl Total Bilirubin 0.7 (0.2-1.0) mg/dl AST 38 (13-39) U/L ALT 23 (7-52) U/L Alkaline Phosphatase 129 H (34-104) U/L Total Protein 5.6 L (6.0-8.3) gm/dl Albumin 2.6 L (3.4-5.0) gm/dl Globulin 3.0 (2.5-4.0) gm/dl Albumin/Globulin Ratio 0.9 (0.9-2) Administered Medications Morphine Sulfate (Morphine Sulfate 4 Mg/Ml 1 Ml Carp\Vial) 4 mg IV Q30M PRN PRN Reason: Severe Pain (Rating 7,8,9,10) Stop: 06/26/22 17:02 Last Admin: 06/12/22 17:59 Dose: 4 mg Documented By: FELISA Discontinued Medications Acetaminophen (Ofirmev) 1,000 mg in 100 mls @ 400 mls/hr IV NOW STA Stop: 06/12/22 17:17 Last Infusion: 06/12/22 17:59 Dose: 0 mls/hr Documented By: Admin: 06/12/22 17:15 Dose: 400 mls/hr Documented By: FELISA Sodium Chloride (Nss 1000ml) 500 mls @ 999 mls/hr IV .Q31M ONE Stop: 06/12/22 17:33 Last Admin: 06/12/22 17:17 Dose: 999 mls/hr Documented By: FELISA Morphine Sulfate (Morphine Sulfate 4 Mg/Ml 1 Ml Carp\Vial) 4 mg IV NOW STA Stop: 06/12/22 17:04 Last Admin: 06/12/22 17:16 Dose: 4 mg Documented By: FELISA Ondansetron HCl (Ondansetron Inj 2 Mg/Ml 2 Ml Vial) 4 mg IV NOW STA Stop: 06/12/22 17:04 Last Admin: 06/12/22 17:16 Dose: 4 mg Documented By: FELISA Imaging Data Radiologist's Impression: Cervical Spine CT 06/12/22 17:03 CT OF THE CERVICAL SPINE WITHOUT CONTRAST CLINICAL HISTORY: fall, pain COMPARISON STUDY: Cervical spine radiograph December 24, 2012 and MRI of the cervical spine December 25, 2012. TECHNIQUE: Helical axial images of the cervical spine were obtained without IV contrast. Sagittal and coronal reconstructions were viewed. Automated exposure control was utilized for the study. A dose lowering technique was utilized adhering to the principles of ALARA. FINDINGS: Mild leftward curvature of the cervical spine. Vertebral body heights are maintained. No acute cervical spine fracture or subluxation is present. There is no prevertebral edema. Facet joints are intact. Moderate multilevel degenerative changes are present. There is an air-fluid level with secretions within the left maxillary sinus. Mild emphysema with the lung apices. IMPRESSION: No acute cervical spine fracture or subluxation. ACT 112: Negative or not required by law. Electronically signed by: Jaime Zuñiga M.D. 06/12/2022 6:[address] 06/12/22 17:03 CT OF THE HEAD WITHOUT CONTRAST CLINICAL HISTORY: eliquis, fall COMPARISON STUDY: Head CT and MRI of the brain May 30, 2022. CT DOSE: 954.40 mGy.cm TECHNIQUE: Helical axial images of the head were obtained without IV contrast. Automated exposure control was utilized for the study. A dose lowering technique was utilized adhering to the principles of ALARA. FINDINGS: No acute intracranial hemorrhage, midline shift or mass effect is present. The ventricular system is unremarkable. The basal cisterns are patent. No extra-axial collections are present. There are no findings to suggest acute dural sinus thrombosis or acute territorial infarct. There is no acute calvarial fracture. Left maxillary sinus secretions are noted with air-fluid level. These have increased since MRI of May 30, 2022. IMPRESSION: 1. No acute intracranial findings. 2. No acute calvarial fracture. ACT 112: Negative or not required by law. Electronically signed by: Jaime Zuñiga M.D. 06/12/2022 6:06 PM Hip/Pelvis X-Ray 06/12/22 17:03 XR hip LT 2V w pelvis CLINICAL HISTORY: fall, pain COMPARISON: CTA of the abdomen and pelvis December 20, 2017. FINDINGS: There is an acute displaced left femoral neck fracture. Fracture is displaced approximately 1.4 cm. There is no proximal right femoral fracture. Old right inferior pubic ramus fracture is noted. Sacroiliac joints and symphysis pubis are intact. IMPRESSION: Acute displaced left femoral neck fracture. ACT 112: Negative or not required by law. Electronically signed by: Jaime Zuñiga M.D. 06/12/2022 6:08 PM Chest X-Ray 06/12/22 17:04 XR chest 1V portable CLINICAL HISTORY: hip fx COMPARISON STUDY: Chest radiograph May 30, 2022. FINDINGS: Lung volumes are normal. Lungs are clear. There is no pneumothorax or pleural effusion. Cardiac size is normal. Mediastinal contours are normal. There is no evidence for pulmonary edema. IMPRESSION: No acute cardiopulmonary findings. ACT 112: Negative or not required by law. Electronically signed by: Jaime Zuñiga M.D. 06/12/2022 6:02 PM Discharge Plan Visit Data Chief Complaint: Fall Stated Complaint: FALL, HIP PAIN ED Provider: Zechariah Meyers Discharge Problem: Closed fracture of left hip, Hypokalemia, Fall, Coagulopathy Patient Disposition: Admitted As Inpatient Condition: Fair Forms Stand Alone Forms: [facility] [employer] Prescriptions Prescriptions: No Action atorvastatin 40 mg Tablet 40 mg PO QAM ascorbic acid (vitamin C) 500 mg Capsule 500 mg PO QAM cyanocobalamin (vitamin B-12) [Vitamin B-12] 1,000 mcg Tablet 1,000 mcg PO QAM Medical Marijuanas ~ Oil Vape 0 inh inhalation UD mirtazapine 30 mg tablet 30 mg PO HS aspirin 81 mg Tablet,Delayed Release (Dr/Ec) 81 mg PO DAILY albuterol sulfate 90 mcg/actuation HFA aerosol inhaler 2 puff INHALATION QID PRN (Reason: Shortness Of Breath Or Wheezing) Eliquis 2.5 mg Tablet 2.5 mg PO BID 30 Days Qty: 60 1RF gabapentin 300 mg capsule 300 mg PO HS Qty: 30 0RF morphine 15 mg Tablet Extended Release 15 mg PO HS Qty: 10 0RF morphine 15 mg Tablet 15 mg PO HS Qty: 10 0RF Referrals Referrals: Pieter Benavides MD [Primary Care Provider] - Closed fracture of left hip Qualifiers: Encounter type: initial encounter Qualified Code(s): S72.002A - Fracture of unspecified part of neck of left femur, initial encounter for closed fracture Fall Qualifiers: Encounter type: initial encounter Qualified Code(s): W19.XXXA - Unspecified fall, initial encounter
[2022-06-12 17:52] LABS: Albumin Globulin Ratio 0.9 (0.9-2); Albumin Level 2.6 gm/dl (3.4-5.0); BUN Creatinine Ratio 5.4 (10-20); Basophils # (auto) 0.04 K/uL (0-0.2); Basophils % (auto) 0.4 %; Bilirubin,Total 0.7 mg/dl (0.2-1.0); Calcium 8.2 mg/dl (8.5-10.1); Creatinine Clr Calc Pharmacy 80.3 ml/min; Eosinophils # (auto) 0.23 K/uL (0-0.50); Eosinophils % (auto) 2.5 %; Est GFR (African American) 114.2 ml/min; Est GFR (Non-African American) 98.5 ml/min; Hematocrit (blood only) 31.5 % (37.0-47.0); Hemoglobin 10.5 g/dl (12.0-16.0); Immature Granulocytes # (auto) 0.06 K/uL (0.01-0.20); Immature Granulocytes % (auto) 0.7 %; Lymphocytes # (auto) 0.92 K/uL (1.2-3.4); Lymphocytes % (auto) 10.2 %; Mean Corpuscular Hemoglobin 33.9 pg (25.0-34.0); Mean Corpuscular Hgb Conc 33.3 g/dL (32.0-36.0); Mean Corpuscular Volume 101.6 fL (80.0-100.0); Mean Platelet Volume 10.6 fL (9.4-12.4); Monocytes # (auto) 0.66 K/uL (0.11-0.59); Monocytes % (auto) 7.3 %; Neutrophils # (auto) 7.11 K/uL (1.40-6.50); Neutrophils % (auto) 78.9 %; Platelet Count 356 K/uL (130-400); Potassium 3.1 mmol/L (3.5-5.1); RDW Coefficient of Variation 14.5 % (11.5-14.5); RDW Standard Deviation 53.9 fL (36.4-46.3); Total Protein 5.6 gm/dl (6.0-8.3); White Blood Count 9.02 K/ul (4.8-10.8)
[2022-06-12] MEDS: MoRPHine SULFATE 4 MG/ML 1 ML CARP\\VIAL IV PRN ×3 (17:59→19:28)
--- NOTE | 2022-06-12 18:03 | XRay Report ---
XR chest 1V portable CLINICAL HISTORY: hip fx COMPARISON STUDY: Chest radiograph May 30, 2022. FINDINGS: Lung volumes are normal. Lungs are clear. There is no pneumothorax or pleural effusion. Car diac size is normal. Mediastinal contours are normal. There is no evidence for pulmonary edema. IMPRESSION: No acute cardiopulmonary findings. ACT 112: Negative or not required by law. Electronically signed by: Jaime Zuñiga M.D. 06/12/2022 6:02 PM
[2022-06-12 18:05] LABS: INR 1.3 (0.9-1.1); Partial Thromboplastin Ratio 1.2; Partial Thromboplastin Time 34.1 Seconds (21.0-31.0)
[2022-06-12] MEDS ORDERED: POTASSIUM CHLORIDE / WTR 10 MEQ/100 ML PLCT IV ONE (18:06)
--- NOTE | 2022-06-12 18:09 | XRay Report ---
XR hip LT 2V w pelvis CLINICAL HISTORY: fall, pain COMPARISON: CTA of the abdomen and pelvis December 20, 2017. FINDINGS: There is an acute displaced left femoral neck fracture. Fracture is displaced approximatel y 1.4 cm. There is no proximal right femoral fracture. Old right inferior pubic ramus fracture is not ed. Sacroiliac joints and symphysis pubis are intact. IMPRESSION: Acute displaced left femoral neck fracture. ACT 112: Negative or not required by law. Electronically signed by: Jaime Zuñiga M.D. 06/12/2022 6:08 PM
--- NOTE | 2022-06-12 18:09 | CT Scan Report ---
CT OF THE HEAD WITHOUT CONTRAST CLINICAL HISTORY: eliquis, fall COMPARISON STUDY: Head CT and MRI of the brain May 30, 2022. CT DOSE: 954.40 mGy.cm TECHNIQUE: Helical axial images of the head were obtained without IV contrast. Automated exposure con trol was utilized for the study. A dose lowering technique was utilized adhering to the principles o f ALARA. FINDINGS: No acute intracranial hemorrhage, midline shift or mass effect is present. The ventricular system is unremarkable. The basal cisterns are patent. No extra-axial collections are present. There are no findings to suggest acute dural sinus thrombosis or acute territorial infarct. There is no acu te calvarial fracture. Left maxillary sinus secretions are noted with air-fluid level. These have inc reased since MRI of May 30, 2022. IMPRESSION: 1. No acute intracranial findings. 2. No acute calvarial fracture. ACT 112: Negative or not required by law. Electronically signed by: Jaime Zuñiga M.D. 06/12/2022 6:06 PM
--- NOTE | 2022-06-12 18:14 | CT Scan Report ---
CT OF THE CERVICAL SPINE WITHOUT CONTRAST CLINICAL HISTORY: fall, pain COMPARISON STUDY: Cervical spine radiograph December 24, 2012 and MRI of the cervical spine Septemb 2012. TECHNIQUE: Helical axial images of the cervical spine were obtained without IV contrast. Sagittal a nd coronal reconstructions were viewed. Automated exposure control was utilized for the study. A do se lowering technique was utilized adhering to the principles of ALARA. FINDINGS: Mild leftward curvature of the cervical spine. Vertebral body heights are maintained. No ac [place] cervical spine fracture or subluxation is present. There is no prevertebral edema. Facet joints a re intact. Moderate multilevel degenerative changes are present. There is an air-fluid level with sec retions within the left maxillary sinus. Mild emphysema with the lung apices. IMPRESSION: No acute cervical spine fracture or subluxation. ACT 112: Negative or not required by law. Electronically signed by: Jaime Zuñiga M.D. 06/12/2022 6:11 PM
[2022-06-12 18:47] LABS: Appearance Urine Clear (Clear); Bilirubin Urine Negative (Negative); Blood Urine Negative (Negative); Color Urine Yellow; Glucose Urine UA Negative (Negative); Ketones Urine Negative (Negative); Leukocyte Esterase Urine Negative (Negative); Nitrite Urine Negative (Negative); Protein Urine Negative (Negative); Specific Gravity Urine 1.004 (1.000-1.030); Urobilinogen Urine Negative (Negative)
[2022-06-12] MEDS ORDERED: HYDROmorphone INJ 0.5 MG/0.5 ML SYR IV STA ×2 (19:30→20:33)
--- NOTE | 2022-06-12 20:08 | History & Physical Report ---
Date of Service June 12, 2022 Assessment & Plan (1) Closed fracture of left hip: (2) Fall: (3) Hypokalemia: (4) Recurrent deep vein thrombosis (DVT): (5) Chronic pain: (6) Peripheral neuropathy: (7) Insomnia: Plan L femoral neck fracture 2/ Fall: -Hip xray: Acute displaced left femoral neck fracture. -CT C spine, CT head and CXR: no acute finding -VSS - normal Cr and pt has chronic anemia but hgb similar to previous values -NPO after MN ---- ortho consult ---- will hold aspirin and eliquis ---- depending on the ortho recommendation will decide on starting pt on therapeutic heparin drip -K+ getting repleted -Pt is acceptable risk for surgery Chronic pain with morphine use: -will continue pts ER morphine 15mg qhs and hold her short active morphine ---- will do prn 1mg IV morphine q6hr for severe pain Insomnia and peripheral neuropathy: -continue Gabapentin and remeron qhs PAD with multiple surgeries: -will hold aspirin due to potential surgery -will continue statin COPD: -prn albuterol Diet: Heart healthy, but NPO after MN DVT PPx: acute Hip fracture, NO AC or SCD Code Status: FULL CODE Emergency Contact:DaughterYaquelin Sifuentes [phone] History of Present Illness Chief Complaint: fall Primary Care Provider: Pieter Benavides MD Pt is a 62 y/o F with hx of COPD, HTN, HLD, PAD with multiple surgery, recurrent DVT on eliquis, chronic morphine use, MTFHR mutation, Depression, anxiety came to the ER after a mechanical fall. Pt fell at her home and hit her L side. Denied any LOC or head trauma or prodromal symptoms. At bedside: pt complained of L leg pain. Denied any N/V or CURRY or dizziness. Denied any hx of OK or CVA. Has tolerated Gen anesthesia in the past Ortho aware of the pt. Allergies Allergy/AdvReac Type Severity Reaction Status Date / Time vitamin K2 Allergy Severe SOB CHEST Verified 06/12/22 19:16 PAIN SHAKING Home Medications Medication Instructions Recorded Confirmed Type ascorbic acid (vitamin C) 500 mg 500 mg PO QAM 09/13/18 06/12/22 History capsule atorvastatin 40 mg tablet 40 mg PO QAM 09/13/18 06/12/22 History cyanocobalamin (vitamin B-12) 1,000 mcg PO QAM 09/13/18 06/12/22 History 1,000 mcg tablet (Vitamin B-12) Medical Marijuanas ~ Oil Vape 0 inh inhalation UD 07/30/20 06/12/22 History albuterol sulfate 90 mcg/actuation 2 puff inhalation QID PRN 05/30/22 06/12/22 History aerosol inhaler Shortness Of Breath Or Wheezing mirtazapine 30 mg tablet 30 mg PO HS 05/30/22 06/12/22 History gabapentin 300 mg capsule 300 mg PO HS #30 caps 06/05/22 06/12/22 Rx morphine 15 mg tablet,extended 15 mg PO HS #10 tabs 06/05/22 06/12/22 Rx release apixaban 5 mg tablet (Eliquis) 5 mg PO BID 06/12/22 06/12/22 History aspirin 81 mg capsule 81 mg PO DAILY 06/12/22 06/12/22 History morphine 15 mg immediate release 15 mg PO BID PRN Severe Pain 06/12/22 06/12/22 History tablet (Scale Score 7-10) Past Med/Surg History Medical History (Updated 06/12/22 @ 20:05 by Leonel Sanchez MD) Angina at rest Chest pain Chronic back pain Chronic pain COPD (chronic obstructive pulmonary disease) COPD (chronic obstructive pulmonary disease) NO PROBLEMS Deep vein thrombosis Deep vein thrombosis (2015) FEMORAL BYPASS IN BILATERAL LEGS Degenerative disc disease Depression Depression Diverticular disease DVT prophylaxis Factor 5 Leiden mutation, heterozygous Fibromyalgia GERD (gastroesophageal reflux disease) History of MTHFR mutation HLD (hyperlipidemia) MDD (major depressive disorder) Migraine MTHFR gene mutation MTHFR mutation Osteoarthritis PAD (peripheral artery disease) Peptic ulcer disease CURRENT Peripheral neuropathy Peripheral vascular disease Peripheral vascular disease PVD (peripheral vascular disease) Tobacco abuse Unstable angina Vitamin D insufficiency Surgical History H/O surgical biopsy VAGINAL BIOPSY H/O vascular surgery MULTIPLE BILATERAL LEG SURGERIES History of arthroscopy LEFT SHOULDER History of section X1 History of cholecystectomy LAP History of colonoscopy History of esophagogastroduodenoscopy (EGD) EGD 12/23/2017. Sedation no issues. History of nasal septoplasty History of right cataract extraction History of tonsillectomy Family History Other Coronary heart disease Social History Smoking Status: Never smoker Tobacco Type: Cigarettes Cigarettes Per Day: 30; Second Hand Exposure: No; Hx Alcohol Use: Yes Alcohol type: beer, wine and hard liquor Hx Substance Use: No Preferred Language: Sami Communication Ability: Effective Lab Rn Required: No Beliefs That Will Affect Care: None Current Living Situation: Alone Feels Safe at Home: Yes Assistive Devices: None Review of Systems Review of Systems: At least 10 Review of systems were reviewed and all negative except as indicated in HPI Physical Exam Physical Exam: General:. NAD, well developed, well nourished, average body habitus HEENT:. Normocephalic and atraumatic, Normal Conjunctiva, EOMI, Sclera is non- icteric Lungs:. No signs of respiratory distress, CTA, no wheezing or crackles Heart:. Normal S1, S2, no murmur Abdominal:. ND, Soft, NT MSK:externally rotated L leg, no swelling near the L hip area but TTP, RLE: mild pitting edema with multiple scars Psych:. AAOx3, normal affect Results & Data Results & Data Vital Signs (Past 12 Hours) Vital Signs Pulse Pulse Resp BP BP Pulse Ox O2 Del Method 06/12/22 19:02 98 H 18 102/63 98 Room Air 06/12/22 18:00 99 H 06/12/22 17:03 98 H 18 111/81 97 Room Air 06/12/22 17:03 98 H 18 111/81 97 Room Air Laboratory Results Short CBC 06/12/22 Range/Units 17:18 WBC 9.02 (4.8-10.8) K/ul Hgb 10.5 L (12.0-16.0) g/dl Hct 31.5 L (37.0-47.0) % Plt Count 356 (130-400) K/uL BMP 06/12/22 17:18 Sodium 138 Potassium 3.1 L Chloride 102 Carbon Dioxide 28 BUN 3 L Creatinine 0.56 L Glucose 90 Calcium 8.2 L Liver Function 06/12/22 Range/Units 17:18 Total Bilirubin 0.7 (0.2-1.0) mg/dl AST 38 (13-39) U/L ALT 23 (7-52) U/L Alkaline Phosphatase 129 H (34-104) U/L Albumin 2.6 L (3.4-5.0) gm/dl Urine 06/12/22 Range/Units 18:13 Urine Color Yellow Urine Appearance Clear (Clear) Urine pH 6.0 (4.5-7.5) Ur Specific [place] 1.004 (1.000-1.030) Urine Protein Negative (Negative) Urine Glucose (UA) Negative (Negative) Diagnostic Findings Cervical Spine CT 06/12/22 17:03 CT OF THE CERVICAL SPINE WITHOUT CONTRAST CLINICAL HISTORY: fall, pain COMPARISON STUDY: Cervical spine radiograph December 24, 2012 and MRI of the cervical spine December 25, 2012. TECHNIQUE: Helical axial images of the cervical spine were obtained without IV contrast. Sagittal and coronal reconstructions were viewed. Automated exposure control was utilized for the study. A dose lowering technique was utilized adhering to the principles of ALARA. FINDINGS: Mild leftward curvature of the cervical spine. Vertebral body heights are maintained. No acute cervical spine fracture or subluxation is present. There is no prevertebral edema. Facet joints are intact. Moderate multilevel degenerative changes are present. There is an air-fluid level with secretions within the left maxillary sinus. Mild emphysema with the lung apices. IMPRESSION: No acute cervical spine fracture or subluxation. ACT 112: Negative or not required by law. Electronically signed by: Jaime Zuñiga M.D. 06/12/2022 6:[address] 06/12/22 17:03 CT OF THE HEAD WITHOUT CONTRAST CLINICAL HISTORY: eliquis, fall COMPARISON STUDY: Head CT and MRI of the brain May 30, 2022. CT DOSE: 954.40 mGy.cm TECHNIQUE: Helical axial images of the head were obtained without IV contrast. Automated exposure control was utilized for the study. A dose lowering technique was utilized adhering to the principles of ALARA. FINDINGS: No acute intracranial hemorrhage, midline shift or mass effect is present. The ventricular system is unremarkable. The basal cisterns are patent. No extra-axial collections are present. There are no findings to suggest acute dural sinus thrombosis or acute territorial infarct. There is no acute calvarial fracture. Left maxillary sinus secretions are noted with air-fluid level. These have increased since MRI of May 30, 2022. IMPRESSION: 1. No acute intracranial findings. 2. No acute calvarial fracture. ACT 112: Negative or not required by law. Electronically signed by: Jaime Zuñiga M.D. 06/12/2022 6:06 PM Hip/Pelvis X-Ray 06/12/22 17:03 XR hip LT 2V w pelvis CLINICAL HISTORY: fall, pain COMPARISON: CTA of the abdomen and pelvis December 20, 2017. FINDINGS: There is an acute displaced left femoral neck fracture. Fracture is displaced approximately 1.4 cm. There is no proximal right femoral fracture. Old right inferior pubic ramus fracture is noted. Sacroiliac joints and symphysis pubis are intact. IMPRESSION: Acute displaced left femoral neck fracture. ACT 112: Negative or not required by law. Electronically signed by: Jaime Zuñiga M.D. 06/12/2022 6:08 PM Chest X-Ray 06/12/22 17:04 XR chest 1V portable CLINICAL HISTORY: hip fx COMPARISON STUDY: Chest radiograph May 30, 2022. FINDINGS: Lung volumes are normal. Lungs are clear. There is no pneumothorax or pleural effusion. Cardiac size is normal. Mediastinal contours are normal. There is no evidence for pulmonary edema. IMPRESSION: No acute cardiopulmonary findings. ACT 112: Negative or not required by law. Electronically signed by: Jaime Zuñiga M.D. 06/12/2022 6:02 PM Code Status & VTE Plan VTE Prophylaxis Plan VTE Prophylaxis will be ordered: Yes (1) Closed fracture of left hip Encounter type: initial encounter Qualified Code(s): S72.002A - Fracture of unspecified part of neck of left femur, initial encounter for closed fracture (2) Fall Encounter type: initial encounter Qualified Code(s): W19.XXXA - Unspecified fall, initial encounter
[2022-06-12] MEDS ORDERED: ALBUTEROL HFA 8 GM INHALER INH PRN (21:37)
[2022-06-12] MEDS: MoRPHine SULFATE 2 MG/ML CARP IV PRN (23:35)
[2022-06-12] MEDS: MoRPHine SULFATE CR 15 MG TABCR PO SCH (23:35)
[2022-06-12] MEDS: GABAPENTIN 300 MG CAP PO SCH (23:55)
[2022-06-12] MEDS: MIRTAZAPINE TAB 15 MG TAB PO SCH (23:55)
[2022-06-13] MEDS: MoRPHine SULFATE 2 MG/ML CARP IV PRN ×3 (05:22→21:52)
[2022-06-13 07:39] LABS: Basophils # (auto) 0.03 K/uL (0-0.2); Basophils % (auto) 0.4 %; Eosinophils # (auto) 0.06 K/uL (0-0.50); Eosinophils % (auto) 0.8 %; Hematocrit (blood only) 28.8 % (37.0-47.0); Hemoglobin 9.4 g/dl (12.0-16.0); Immature Granulocytes # (auto) 0.04 K/uL (0.01-0.20); Immature Granulocytes % (auto) 0.5 %; Lymphocytes # (auto) 0.42 K/uL (1.2-3.4); Lymphocytes % (auto) 5.4 %; Mean Corpuscular Hemoglobin 33.3 pg (25.0-34.0); Mean Corpuscular Hgb Conc 32.6 g/dL (32.0-36.0); Mean Corpuscular Volume 102.1 fL (80.0-100.0); Mean Platelet Volume 10.5 fL (9.4-12.4); Monocytes # (auto) 0.77 K/uL (0.11-0.59); Monocytes % (auto) 9.9 %; Neutrophils # (auto) 6.43 K/uL (1.40-6.50); Platelet Count 277 K/uL (130-400); RDW Coefficient of Variation 14.5 % (11.5-14.5); RDW Standard Deviation 54.3 fL (36.4-46.3); Red Blood Count 2.82 M/uL (4.20-5.40); White Blood Count 7.75 K/ul (4.8-10.8)
--- NOTE | 2022-06-13 07:40 | Electrocardiogram Report ---
Test Reason : Blood Pressure : / mmHG Vent. Rate : 094 BPM Atrial Rate : 094 BPM P-R Int : 126 ms QRS Dur : 066 ms QT Int : 368 ms P-R-T Axes : 072 072 085 degrees QTc Int : 460 ms Poor data quality, interpretation may be adversely affected Normal sinus rhythm Nonspecific T wave abnormality Abnormal ECG When compared with ECG of 31-MAY-2022 17:56, Nonspecific T wave abnormality, improved in Inferior leads Nonspecific T wave abnormality, worse in Lateral leads Confirmed by Reilly Ramirez ([id number]) on 06/13/2022 7:40:03 AM Referred By: REFERRED SELF Confirmed By:Oleg Ramirez
[2022-06-13 08:11] LABS: Albumin Level 2.6 gm/dl (3.4-5.0); Calcium 7.9 mg/dl (8.5-10.1); Creatinine Clr Calc Pharmacy 102.4 ml/min; Est GFR (African American) 124.6 ml/min; Est GFR (Non-African American) 107.5 ml/min; Globulin 2.6 gm/dl (2.5-4.0); Potassium 4.2 mmol/L (3.5-5.1); Total Protein 5.2 gm/dl (6.0-8.3)
--- NOTE | 2022-06-13 09:39 | Orthopedic Consultation ---
Date of Consultation June 13, 2022 Assessment & Plan (1) Closed fracture of left hip: The patient is a 62 year old female who sustained a Traumatic Osteoporotic fracture of left femoral neck in setting of ground level fall. After orthopedic consult discussing the patients treatment options of conservative versus surgical intervention, the patient and her daughter her POA agreed for a planned hemiarthroplasty. Since the patient was ambulatory prior to the injury and to avoid the risks of bed sores, pulmonary complications, and to give the patient the best chance for ambulation, I recommended surgery. The POA understands the risks of surgery, which include but are not limited to: bleeding, infection, re- operation, damage to nerves and arteries, continued pain, failure of the hardware, fracture, dislocation, DVT, DE, stroke, and . In addition the patient and POA is aware of the 20% morbidity associated with hip fracture for up to 1 year following a hip fracture. The POA understands all of these instructions and explanations, all of their questions have been satisfactorily addressed. The patient and POA has elected to proceed with surgery and the informed consent was signed via telephone confirmation. The patient has a Villanueva in place. Continue pain control. Unable to preform today as unable to reverse Eliquis and OR is unavailable. Can eat today, NPO with fluids after midnight. The patient has been admitted to the Hospitalist service. The patient has been placed on the add-on list for tomorrow and I or Dr. Shepard will preform depending on OR and surgeon availability. Will plan to proceed with surgery tomorrow if medically cleared. Present on Admission?: Yes History of Present Illness Reason for Consultation: Left hip fracture Requesting Physician: Dr. Baker covering for Dr. Shepard Attending Physician: Belem Mays MD History of Present Illness Pt is a 62 year old female with ground level fall was brought to ED and X-rays were obtained and she was found to have a femoral neck fracture. She was admitted to hospitalist service. She has a hx of COPD, HTN, HLD, PAD with multiple surgery, recurrent DVT on Eliquis, chronic morphine use, MTFHR mutation, Depression, anxiety, dementia. Her daughter is her POA. She is an ambulator that uses assisted devices for long distances. They would prefer to have Dr. Shepard take care of her. Allergies Allergy/AdvReac Type Severity Reaction Status Date / Time vitamin K2 Allergy Severe SOB CHEST Verified 06/12/22 19:16 PAIN SHAKING Home Medications Medication Instructions Recorded Confirmed Type ascorbic acid (vitamin C) 500 mg 500 mg PO QAM 09/13/18 06/12/22 History capsule atorvastatin 40 mg tablet 40 mg PO QAM 09/13/18 06/12/22 History cyanocobalamin (vitamin B-12) 1,000 mcg PO QAM 09/13/18 06/12/22 History 1,000 mcg tablet (Vitamin B-12) Medical Marijuanas ~ Oil Vape 0 inh inhalation UD 07/30/20 06/12/22 History albuterol sulfate 90 mcg/actuation 2 puff inhalation QID PRN 05/30/22 06/12/22 History aerosol inhaler Shortness Of Breath Or Wheezing mirtazapine 30 mg tablet 30 mg PO HS 05/30/22 06/12/22 History gabapentin 300 mg capsule 300 mg PO HS #30 caps 06/05/22 06/12/22 Rx morphine 15 mg tablet,extended 15 mg PO HS #10 tabs 06/05/22 06/12/22 Rx release apixaban 5 mg tablet (Eliquis) 5 mg PO BID 06/12/22 06/12/22 History aspirin 81 mg capsule 81 mg PO DAILY 06/12/22 06/12/22 History morphine 15 mg immediate release 15 mg PO BID PRN Severe Pain 06/12/22 06/12/22 History tablet (Scale Score 7-10) Patient History Medical History Angina at rest Chest pain Chronic back pain Chronic pain COPD (chronic obstructive pulmonary disease) COPD (chronic obstructive pulmonary disease) NO PROBLEMS Deep vein thrombosis Deep vein thrombosis (2016) FEMORAL BYPASS IN BILATERAL LEGS Degenerative disc disease Depression Depression Diverticular disease DVT prophylaxis Factor 5 Leiden mutation, heterozygous Fibromyalgia GERD (gastroesophageal reflux disease) History of MTHFR mutation HLD (hyperlipidemia) MDD (major depressive disorder) Migraine MTHFR gene mutation MTHFR mutation Osteoarthritis PAD (peripheral artery disease) Peptic ulcer disease CURRENT Peripheral neuropathy Peripheral vascular disease Peripheral vascular disease PVD (peripheral vascular disease) Tobacco abuse Unstable angina Vitamin D insufficiency Surgical History H/O surgical biopsy VAGINAL BIOPSY H/O vascular surgery MULTIPLE BILATERAL LEG SURGERIES History of arthroscopy LEFT SHOULDER History of section X1 History of cholecystectomy LAP History of colonoscopy History of esophagogastroduodenoscopy (EGD) EGD 12/23/2017. Sedation no issues. History of nasal septoplasty History of right cataract extraction History of tonsillectomy Family History Other Coronary heart disease Social History Smoking Status: Current every day smoker Tobacco Type: Cigarettes Cigarettes Per Day: 30; Second Hand Exposure: No; Do You Dip or Chew Tobacco: No; Tobacco Cessation Education Requested by Patient: No Hx Alcohol Use: Yes Alcohol type: beer, wine and hard liquor Hx Substance Use: No Preferred Language: Cymraes Communication Ability: Effective Hot Box Operator Required: No Beliefs That Will Affect Care: None Current Living Situation: Alone Other Information That Helps Us Care for You: No Feels Safe at Home: Yes Safety Concerns: Feels Safe At This Time Assistive Devices: None Review of Systems Review of Systems: Unobtainable due to cognitive status Physical Exam Physical Exam: Patient sleepy and confused. LLE: Sensation to light touch unchanged. BCR < 2sec. Able to move toes and ankle. Shortened and externally rotated. + tenderness to palpation groin. Results & Data Vital Signs (Past 12 Hours) Vital Signs Temp Pulse Pulse Resp BP Pulse Ox O2 Del Method 06/13/22 07:55 36.4 C L 102 H 16 104/63 97 Room Air 06/13/22 07:52 95 H 06/13/22 03:07 37.4 C 99 H 18 118/70 100 Nasal Cannula 06/12/22 22:50 Nasal Cannula 06/12/22 22:50 36.9 C 98 H 16 140/72 98 Nasal Cannula 06/12/22 23:02 98 H O2 Flow Rate 06/13/22 07:55 06/13/22 07:52 06/13/22 03:07 4 06/12/22 22:50 4 06/12/22 22:50 4 06/12/22 23:02 Laboratory Results Laboratory Results WBC 7.75 K/ul (4.8-10.8) 06/13/22 07:05 RBC 2.82 M/uL (4.20-5.40) L 06/13/22 07:05 Hgb 9.4 g/dl (12.0-16.0) L 06/13/22 07:05 Hct 28.8 % (37.0-47.0) L 06/13/22 07:05 MCV 102.1 fL (80.0-100.0) H 06/13/22 07:05 MCH 33.3 pg (25.0-34.0) 06/13/22 07:05 MCHC 32.6 g/dL (32.0-36.0) 06/13/22 07:05 RDW Std Deviation 54.3 fL (36.4-46.3) H 06/13/22 07:05 RDW Coeff of Shaun 14.5 % (11.5-14.5) 06/13/22 07:05 Plt Count 277 K/uL (130-400) 06/13/22 07:05 MPV 10.5 fL (9.4-12.4) 06/13/22 07:05 Immature Gran % (Auto) 0.5 % 06/13/22 07:05 Neut % (Auto) 83.0 % 06/13/22 07:05 Lymph % (Auto) 5.4 % 06/13/22 07:05 [place] % (Auto) 9.9 % 06/13/22 07:05 Eos % (Auto) 0.8 % 06/13/22 07:05 Baso % (Auto) 0.4 % 06/13/22 07:05 Neut # (Auto) 6.43 K/uL (1.40-6.50) 06/13/22 07:05 Lymph # (Auto) 0.42 K/uL (1.2-3.4) L 06/13/22 07:05 [place] # (Auto) 0.77 K/uL (0.11-0.59) H 06/13/22 07:05 Eos # (Auto) 0.06 K/uL (0-0.50) 06/13/22 07:05 Baso # (Auto) 0.03 K/uL (0-0.2) 06/13/22 07:05 Immature Gran # (Auto) 0.04 K/uL (0.01-0.20) 06/13/22 07:05 PT 14.0 Seconds (9.0-12.0) H 06/12/22 17:18 INR 1.3 (0.9-1.1) H 06/12/22 17:18 APTT 34.1 Seconds (21.0-31.0) H 06/12/22 17:18 PTT Ratio 1.2 06/12/22 17:18 Sodium 142 mmol/L (136-145) 06/13/22 05:38 Potassium 4.2 mmol/L (3.5-5.1) D 06/13/22 05:38 Chloride 108 mmol/L (98-107) H 06/13/22 05:38 Carbon Dioxide 27 mmol/L (21-32) 06/13/22 05:38 Anion Gap 7 (3-11) 06/13/22 05:38 BUN 3 mg/dl (6-23) L 06/13/22 05:38 Creatinine 0.43 mg/dl (0.6-1.2) L 06/13/22 05:38 Est Cr Clr Drug Dosing 102.4 ml/min 06/13/22 05:38 Est GFR ( Amer) 124.6 ml/min 06/13/22 05:38 Est GFR (Non-Af Amer) 107.5 ml/min 06/13/22 05:38 BUN/Creatinine Ratio 7.0 (10-20) L 06/13/22 05:38 Glucose 78 mg/dl (70-99(Fasting)) 06/13/22 05:38 Calcium 7.9 mg/dl (8.5-10.1) L 06/13/22 05:38 Total Bilirubin 1.0 mg/dl (0.2-1.0) 06/13/22 05:38 AST 48 U/L (13-39) H 06/13/22 05:38 ALT 25 U/L (7-52) 06/13/22 05:38 Alkaline Phosphatase 130 U/L (34-104) H 06/13/22 05:38 Total Protein 5.2 gm/dl (6.0-8.3) L 06/13/22 05:38 Albumin 2.6 gm/dl (3.4-5.0) L 06/13/22 05:38 Globulin 2.6 gm/dl (2.5-4.0) 06/13/22 05:38 Albumin/Globulin Ratio 1.0 (0.9-2) 06/13/22 05:38 Urine Color Yellow 06/12/22 18:13 Urine Appearance Clear (Clear) 06/12/22 18:13 Urine pH 6.0 (4.5-7.5) 06/12/22 18:13 Ur Specific [place] 1.004 (1.000-1.030) 06/12/22 18:13 Urine Protein Negative (Negative) 06/12/22 18:13 Urine Glucose (UA) Negative (Negative) 06/12/22 18:13 Urine Ketones Negative (Negative) 06/12/22 18:13 Urine Blood Negative (Negative) 06/12/22 18:13 Urine Nitrite Negative (Negative) 06/12/22 18:13 Urine Bilirubin Negative (Negative) 06/12/22 18:13 Urine Urobilinogen Negative (Negative) 06/12/22 18:13 Ur Leukocyte Esterase Negative (Negative) 06/12/22 18:13 SARS-CoV-2, RNA, NAAT NEGATIVE (NEGATIVE) 06/12/22 18:[address] 06/12/22 17:03 CT OF THE CERVICAL SPINE WITHOUT CONTRAST CLINICAL HISTORY: fall, pain COMPARISON STUDY: Cervical spine radiograph December 24, 2012 and MRI of the cervical spine December 25, 2012. TECHNIQUE: Helical axial images of the cervical spine were obtained without IV contrast. Sagittal and coronal reconstructions were viewed. Automated exposure control was utilized for the study. A dose lowering technique was utilized adhering to the principles of ALARA. FINDINGS: Mild leftward curvature of the cervical spine. Vertebral body heights are maintained. No acute cervical spine fracture or subluxation is present. There is no prevertebral edema. Facet joints are intact. Moderate multilevel degenerative changes are present. There is an air-fluid level with secretions within the left maxillary sinus. Mild emphysema with the lung apices. IMPRESSION: No acute cervical spine fracture or subluxation. ACT 112: Negative or not required by law. Electronically signed by: Jaime Zuñiga M.D. 06/12/2022 6:[address] 06/12/22 17:03 CT OF THE HEAD WITHOUT CONTRAST CLINICAL HISTORY: eliquis, fall COMPARISON STUDY: Head CT and MRI of the brain May 30, 2022. CT DOSE: 954.40 mGy.cm TECHNIQUE: Helical axial images of the head were obtained without IV contrast. Automated exposure control was utilized for the study. A dose lowering technique was utilized adhering to the principles of ALARA. FINDINGS: No acute intracranial hemorrhage, midline shift or mass effect is present. The ventricular system is unremarkable. The basal cisterns are patent. No extra-axial collections are present. There are no findings to suggest acute dural sinus thrombosis or acute territorial infarct. There is no acute calvarial fracture. Left maxillary sinus secretions are noted with air-fluid level. These have increased since MRI of May 30, 2022. IMPRESSION: 1. No acute intracranial findings. 2. No acute calvarial fracture. ACT 112: Negative or not required by law. Electronically signed by: Jaime Zuñiga M.D. 06/12/2022 6:06 PM Hip/Pelvis X-Ray 06/12/22 17:03 XR hip LT 2V w pelvis CLINICAL HISTORY: fall, pain COMPARISON: CTA of the abdomen and pelvis December 20, 2017. FINDINGS: There is an acute displaced left femoral neck fracture. Fracture is displaced approximately 1.4 cm. There is no proximal right femoral fracture. Old right inferior pubic ramus fracture is noted. Sacroiliac joints and symphysis pubis are intact. IMPRESSION: Acute displaced left femoral neck fracture. ACT 112: Negative or not required by law. Electronically signed by: Jaime Zuñiga M.D. 06/12/2022 6:08 PM Chest X-Ray 06/12/22 17:04 XR chest 1V portable CLINICAL HISTORY: hip fx COMPARISON STUDY: Chest radiograph May 30, 2022. FINDINGS: Lung volumes are normal. Lungs are clear. There is no pneumothorax or pleural effusion. Cardiac size is normal. Mediastinal contours are normal. There is no evidence for pulmonary edema. IMPRESSION: No acute cardiopulmonary findings. ACT 112: Negative or not required by law. Electronically signed by: Jaime Zuñiga M.D. 06/12/2022 6:02 PM (1) Closed fracture of left hip Encounter type: initial encounter Qualified Code(s): S72.002A - Fracture of unspecified part of neck of left femur, initial encounter for closed fracture
[2022-06-13] MEDS: CYANOCOBALAMIN (B-12) 500 MCG TABLET PO SCH (09:42)
[2022-06-13] MEDS: ASCORBIC ACID 500 MG TAB PO SCH (09:42)
[2022-06-13] MEDS: ATORVASTATIN 40 MG TAB PO SCH (09:42)
--- NOTE | 2022-06-13 13:19 | Hospitalist Progress Note ---
Date of Service June 13, 2022 Assessment & Plan (1) Closed fracture of left hip: Plan: L femoral neck fracture 2/ Fall: Hip xray: Acute displaced left femoral neck fracture. CT C spine, CT head and CXR: no acute findin Aspirin and eliquis are on hold Adequate pain medications, n.p.o. for tonight for possible surgery tomorrow Appreciate Ortho input and recommendation (2) Fall: Plan: Likely mechanical fall (3) Hypokalemia: Plan: Will be replaced (4) Recurrent deep vein thrombosis (DVT): Plan: Has been on Eliquis On hold for possible surgery tomorrow (5) Chronic pain: Plan: Chronic pain with morphine use: Will continue pts ER morphine 15mg qhs and hold her short active morphine Will do prn 1mg IV morphine q6hr for severe pain No pain at rest (6) Peripheral neuropathy: Plan: PAD with multiple surgeries: -will hold aspirin due to potential surgery -will continue statin (7) Insomnia: Plan: Insomnia and peripheral neuropathy: -continue Gabapentin and remeron qhs Plan COPD: -prn albuterol Diet: Heart healthy, but NPO after MN DVT PPx: acute Hip fracture, NO AC or SCD Code Status: FULL CODE Emergency Contact:DaughterYaquelin Sifuentes [phone] Admission and Anticipated Discharge Date Admission Date: June 12, 2022 Subjective 06/13/2022 The patient was seen and examined in medical telemetry unit She has been pleasantly confused but denies any other significant symptoms Complains of pain in the left hip secondary to fracture Review of Systems Review of Systems: All systems reviewed and are unremarkable except as noted below Musculoskeletal: Pain in the left hip with movement of the left lower extremity Physical Exam Physical Exam: Lying in bed comfortably Constitutional: + ill appearing and average body habitus Eyes: PERRL, conjunctivae normal, anicteric sclerae ENMT: external ear and nose normal, oropharynx normal Neck: trachea midline, no thyromegaly Respiratory: no respiratory distress Auscultation: lungs clear to auscultation bilaterally Cardiovascular: Rate/Rhythm: regular rate and regular rhythm; not tachycardic Heart Sounds: normal S1 and normal S2; no murmur Extremities: no edema Gastrointestinal (Abdomen): Inspection/Auscultation: normal bowel sounds; abdomen not distended Percussion/Palpation: abdomen soft; abdomen nontender Musculoskeletal: Hip: + hip abnormal to inpsection (Left hip area) and + joint line tenderness (Left hip) Any movement of the left lower extremity produces pain in the left hip Neurologic: Alert and awake. Pleasantly confused. Moves all limbs though less with the left lower extremity Lymphatic: no cervical or axillary lymphadenopathy Results & Data Results & Data Vital Signs (Past 12 Hours) Vital Signs Temp Pulse Pulse Resp BP Pulse Ox O2 Del Method 06/13/22 12:14 36.8 C 89 16 91/60 L 98 Room Air 06/13/22 11:18 Nasal Cannula 06/13/22 07:55 36.4 C L 102 H 16 104/63 97 Room Air 06/13/22 07:52 95 H 06/13/22 03:07 37.4 C 99 H 18 118/70 100 Nasal Cannula O2 Flow Rate 06/13/22 12:14 06/13/22 11:18 2 06/13/22 07:55 06/13/22 07:52 06/13/22 03:07 4 Laboratory Results Short CBC 06/12/22 06/13/22 Range/Units 17:18 07:05 WBC 9.02 7.75 (4.8-10.8) K/ul Hgb 10.5 L 9.4 L (12.0-16.0) g/dl Hct 31.5 L 28.8 L (37.0-47.0) % Plt Count 356 277 (130-400) K/uL BMP 06/12/22 06/13/22 17:18 05:38 Sodium 138 142 Potassium 3.1 L 4.2 D Chloride 102 108 H Carbon Dioxide 28 27 BUN 3 L 3 L Creatinine 0.56 L 0.43 L Glucose 90 78 Calcium 8.2 L 7.9 L Liver Function 06/12/22 06/13/22 Range/Units 17:18 05:38 Total Bilirubin 0.7 1.0 (0.2-1.0) mg/dl AST 38 48 H (13-39) U/L ALT 23 25 (7-52) U/L Alkaline Phosphatase 129 H 130 H (34-104) U/L Albumin 2.6 L 2.6 L (3.4-5.0) gm/dl Urine 06/12/22 Range/Units 18:13 Urine Color Yellow Urine Appearance Clear (Clear) Urine pH 6.0 (4.5-7.5) Ur Specific [place] 1.004 (1.000-1.030) Urine Protein Negative (Negative) Urine Glucose (UA) Negative (Negative) Medications Administered Current Inpatient Medications Albuterol (Albuterol Hfa 8 Gm Inhaler) 2 puffs INH QID PRN PRN Reason: Shortness Of Breath Or Wheezing Stop: 07/12/22 21:36 Ascorbic Acid (Ascorbic Acid 500 Mg Tab) 500 mg PO [facility] Stop: 07/13/22 08:59 Last Admin: 06/13/22 09:42 Dose: 500 mg Atorvastatin Calcium (Atorvastatin 40 Mg Tab) 40 mg PO [facility] Stop: 07/13/22 08:59 Last Admin: 06/13/22 09:42 Dose: 40 mg Cyanocobalamin (Cyanocobalamin (B-12) 500 Mcg Tablet) 1,000 mcg PO [facility] Stop: 07/13/22 08:59 Last Admin: 06/13/22 09:42 Dose: 1,000 mcg Gabapentin (Gabapentin 300 Mg Cap) 300 mg PO [facility] Stop: 07/12/22 21:36 Last Admin: 06/12/22 23:55 Dose: 300 mg Mirtazapine (Mirtazapine Tab 15 Mg Tab) 30 mg PO [facility] Stop: 07/12/22 21:36 Last Admin: 06/12/22 23:55 Dose: 30 mg Morphine Sulfate (Morphine Sulfate 4 Mg/Ml 1 Ml Carp\Vial) 4 mg IV Q30M PRN PRN Reason: Severe Pain (Rating 7,8,9,10) Stop: 06/26/22 17:02 Last Admin: 06/12/22 19:28 Dose: 4 mg Morphine Sulfate (Morphine Sulfate Cr 15 Mg Tabcr) 15 mg PO [facility] Stop: 06/26/22 21:36 Last Admin: 06/12/22 23:35 Dose: 15 mg Morphine Sulfate (Morphine Sulfate 2 Mg/Ml Carp) 1 mg IV Q6H PRN PRN Reason: Severe Pain (Scale 7, 8, 9,10) Stop: 06/26/22 21:36 Last Admin: 06/13/22 05:22 Dose: 1 mg (1) Closed fracture of left hip Encounter type: initial encounter Qualified Code(s): S72.002A - Fracture of unspecified part of neck of left femur, initial encounter for closed fracture (2) Fall Encounter type: initial encounter Qualified Code(s): W19.XXXA - Unspecified fall, initial encounter
[2022-06-13] MEDS: ACETAMINOPHEN 325 MG TAB PO PRN (18:40)
[2022-06-13] MEDS: MoRPHine SULFATE CR 15 MG TABCR PO SCH (20:13)
[2022-06-13] MEDS: GABAPENTIN 300 MG CAP PO SCH (20:13)
[2022-06-13] MEDS: MIRTAZAPINE TAB 15 MG TAB PO SCH (20:13)
[2022-06-14] MEDS: MELATONIN 3 MG TAB PO PRN ×2 (00:25→22:46)
[2022-06-14 07:29] LABS: Basophils # (auto) 0.06 K/uL (0-0.2); Basophils % (auto) 0.8 %; Eosinophils # (auto) 0.36 K/uL (0-0.50); Eosinophils % (auto) 4.9 %; Hematocrit (blood only) 31.6 % (37.0-47.0); Hemoglobin 10.2 g/dl (12.0-16.0); Immature Granulocytes # (auto) 0.02 K/uL (0.01-0.20); Immature Granulocytes % (auto) 0.3 %; Lymphocytes # (auto) 1.22 K/uL (1.2-3.4); Lymphocytes % (auto) 16.5 %; Mean Corpuscular Hemoglobin 33.3 pg (25.0-34.0); Mean Corpuscular Hgb Conc 32.3 g/dL (32.0-36.0); Mean Corpuscular Volume 103.3 fL (80.0-100.0); Mean Platelet Volume 10.6 fL (9.4-12.4); Monocytes # (auto) 0.68 K/uL (0.11-0.59); Monocytes % (auto) 9.2 %; Neutrophils # (auto) 5.05 K/uL (1.40-6.50); Neutrophils % (auto) 68.3 %; Platelet Count 300 K/uL (130-400); RDW Coefficient of Variation 14.6 % (11.5-14.5); RDW Standard Deviation 55.2 fL (36.4-46.3); Red Blood Count 3.06 M/uL (4.20-5.40); White Blood Count 7.39 K/ul (4.8-10.8)
[2022-06-14 07:53] LABS: BUN Creatinine Ratio 8.3 (10-20); Calcium 7.9 mg/dl (8.5-10.1); Creatinine Clr Calc Pharmacy 92.3 ml/min; Est GFR (African American) 120.1 ml/min; Est GFR (Non-African American) 103.7 ml/min; Potassium 3.5 mmol/L (3.5-5.1)
[2022-06-14] MEDS: ACETAMINOPHEN 325 MG TAB PO PRN (08:35)
[2022-06-14] MEDS: ATORVASTATIN 40 MG TAB PO SCH (08:36)
[2022-06-14] MEDS: ASCORBIC ACID 500 MG TAB PO SCH (08:36)
[2022-06-14] MEDS: CYANOCOBALAMIN (B-12) 500 MCG TABLET PO SCH (08:36)
--- NOTE | 2022-06-14 08:42 | Anesthesiology Consultation ---
Date of Service June 14, 2022 Assessment & Plan Chart Review Chart Review: data entry representative initiated History Surgery Operation Date: 06/14/22 07:00 Proposed Procedures p Left Anterior Total Hip Arthroplasty - Alberto Shepard DO Height/Weight Height: 5 ft 2 in Weight: 49.4 kg Allergies Allergy/AdvReac Type Severity Reaction Status Date / Time vitamin K2 Allergy Severe SOB CHEST Verified 06/12/22 19:16 PAIN SHAKING Medications Home Medications Medication Instructions Recorded Confirmed Last Taken ascorbic acid (vitamin C) 500 mg 500 mg PO QAM 09/13/18 06/12/22 07/29/20 capsule atorvastatin 40 mg tablet 40 mg PO QAM 09/13/18 06/12/22 06/12/22 09:00 cyanocobalamin (vitamin B-12) 1,000 mcg PO QAM 09/13/18 06/12/22 07/29/20 1,000 mcg tablet (Vitamin B-12) Medical Marijuanas ~ Oil Vape 0 inh inhalation UD 07/30/20 06/12/22 Unknown albuterol sulfate 90 mcg/actuation 2 puff inhalation QID PRN 05/30/22 06/12/22 Unknown aerosol inhaler Shortness Of Breath Or Wheezing mirtazapine 30 mg tablet 30 mg PO HS 05/30/22 06/12/22 Unknown gabapentin 300 mg capsule 300 mg PO HS #30 caps 06/05/22 06/12/22 Unknown morphine 15 mg tablet,extended 15 mg PO HS #10 tabs 06/05/22 06/12/22 07/29/20 release apixaban 5 mg tablet (Eliquis) 5 mg PO BID 06/12/22 06/12/22 06/12/22 09:00 aspirin 81 mg capsule 81 mg PO DAILY 06/12/22 06/12/22 Unknown morphine 15 mg immediate release 15 mg PO BID PRN Severe Pain 06/12/22 06/12/22 Unknown tablet (Scale Score 7-10) Active Medications Generic Name Dose Route Start Last Admin Trade Name Freq PRN Reason Stop Dose Admin Acetaminophen 650 mg 06/13/22 18:33 06/14/22 08:35 Acetaminophen 325 Mg Tab PO 07/13/22 18:32 650 mg Q4H PRN Administration Pain Ascorbic Acid 500 mg 06/13/22 09:00 06/14/22 08:36 Ascorbic Acid 500 Mg Tab PO 07/13/22 08:59 500 mg QAM TERENCE Administration Atorvastatin Calcium 40 mg 06/13/22 09:00 06/14/22 08:36 Atorvastatin 40 Mg Tab PO 07/13/22 08:59 40 mg QAM [facility] Administration Cyanocobalamin 1,000 mcg 06/13/22 09:00 06/14/22 08:36 Cyanocobalamin (B-12) 500 Mcg Tablet PO 07/13/22 08:59 1,000 mcg QAM TER[facility] Administration Gabapentin 300 mg 06/12/22 21:37 06/13/22 20:13 Gabapentin 300 Mg Cap PO 07/12/22 21:36 300 mg HS [facility] Administration Melatonin 3 mg 06/13/22 23:55 06/14/22 00:25 Melatonin 3 Mg Tab PO 07/13/22 23:54 3 mg HS PRN Administration Sleep Mirtazapine 30 mg 06/12/22 21:37 06/13/22 20:13 Mirtazapine Tab 15 Mg Tab PO 07/12/22 21:36 30 mg HS [facility] Administration Morphine Sulfate 4 mg 06/12/22 17:03 06/12/22 19:28 Morphine Sulfate 4 Mg/Ml 1 Ml Carp\Vial IV 06/26/22 17:02 4 mg Q30M PRN Administration Severe Pain (Rating 7,8,9,10) Morphine Sulfate 15 mg 06/12/22 21:37 06/13/22 20:13 Morphine Sulfate Cr 15 Mg Tabcr PO 06/26/22 21:36 15 mg HS [facility] Administration Morphine Sulfate 1 mg 06/12/22 21:37 06/13/22 21:52 Morphine Sulfate 2 Mg/Ml Carp IV 06/26/22 21:36 1 mg Q6H PRN Administration Severe Pain (Scale 7, 8, 9,10) NPO Date Last Intake of Fluids: 06/13/22 Time Last Intake of Fluids: 00:00 Time Last Intake of Solids: 17:30 Past Medical History Medical History Angina at rest Chest pain Chronic back pain Chronic pain COPD (chronic obstructive pulmonary disease) COPD (chronic obstructive pulmonary disease) NO PROBLEMS Deep vein thrombosis Deep vein thrombosis (2016) FEMORAL BYPASS IN BILATERAL LEGS Degenerative disc disease Depression Depression Diverticular disease DVT prophylaxis Factor 5 Leiden mutation, heterozygous Fibromyalgia GERD (gastroesophageal reflux disease) History of MTHFR mutation HLD (hyperlipidemia) MDD (major depressive disorder) Migraine MTHFR gene mutation MTHFR mutation Osteoarthritis PAD (peripheral artery disease) Peptic ulcer disease CURRENT Peripheral neuropathy Peripheral vascular disease Peripheral vascular disease PVD (peripheral vascular disease) Tobacco abuse Unstable angina Vitamin D insufficiency Past Family History Family History Other Coronary heart disease Past Surgical History Surgical History H/O surgical biopsy VAGINAL BIOPSY H/O vascular surgery MULTIPLE BILATERAL LEG SURGERIES History of arthroscopy LEFT SHOULDER History of section X1 History of cholecystectomy LAP History of colonoscopy History of esophagogastroduodenoscopy (EGD) EGD 12/23/2017. Sedation no issues. History of nasal septoplasty History of right cataract extraction History of tonsillectomy Social History Smoking Status: Current every day smoker tobacco type: cigarettes Smoking cigarettes per day: 30 Do You Dip or Chew Tobacco: No Hx Alcohol Use: Yes Alcohol type: beer, wine and hard liquor alcohol intake frequency: a few times a month Hx Substance Use: No substance use type: does not use Substance Use Type Other:: DRONABINOL - FOR INCREASING APPETITE Last Used Substance: Unknown Last Used Substance Other:: DAILY USE MEDICAL MARIJUANA Physical Exam Vital Signs Last Vital Signs Temp 98.4 F 06/14/22 06:47 Pulse 93 H 06/14/22 06:47 Resp 18 06/14/22 06:47 BP 114/77 06/14/22 06:47 Pulse Ox 98 06/14/22 06:47 O2 Del Method Nasal Cannula 06/14/22 06:47 O2 Flow Rate 2 06/14/22 06:47 Testing Laboratory Results 06/14/22 07:04 06/14/22 07:04 PT 14.0 Seconds (9.0-12.0) H 06/12/22 17:18 INR 1.3 (0.9-1.1) H 06/12/22 17:18 APTT 34.1 Seconds (21.0-31.0) H 06/12/22 17:18 Urine Color Yellow 06/12/22 18:13 Urine Appearance Clear (Clear) 06/12/22 18:13 Urine pH 6.0 (4.5-7.5) 06/12/22 18:13 Ur Specific [place] 1.004 (1.000-1.030) 06/12/22 18:13 Urine Protein Negative (Negative) 06/12/22 18:13 Urine Glucose (UA) Negative (Negative) 06/12/22 18:13 Urine Ketones Negative (Negative) 06/12/22 18:13 Urine Nitrite Negative (Negative) 06/12/22 18:13 Ur Leukocyte Esterase Negative (Negative) 06/12/22 18:13 Electrocardiogram Date: 06/12/22 Poor data quality, interpretation may be adversely affected Normal sinus rhythm, rate 94 bpm Nonspecific T wave abnormality Abnormal ECG When compared with ECG of 31-MAY-2022 17:56, Nonspecific T wave abnormality, improved in Inferior leads Nonspecific T wave abnormality, worse in Lateral leads Confirmed by Reilly Ramirez ([id number]) on 06/13/2022 7:40:03 AM Chest X-Ray Date: 06/12/22
[2022-06-14] MEDS ORDERED: ceFAZolin 2000MG 2,000 MG/15 ML SYR IV ONE (10:00)
--- NOTE | 2022-06-14 10:03 | History & Physical Bridge Note ---
Date of Service June 14, 2022 History & Physical Bridge Note I have examined the patient, reviewed the History & Physical and in the interval since the performance of the History & Physical I have noted the following changes of clinical significance: no changes noted
--- NOTE | 2022-06-14 10:03 | Orthopedic Progress Note ---
Date of Service June 14, 2022 Assessment & Plan (1) Closed fracture of left hip: I discussed the diagnosis and treatment options with her at bedside. We will proceed with a left anterior total of arthroplasty. She understands the risk benefits alternatives procedure elected to proceed. Questions were answered. I will talk to her power of health care attorney before I sign consent. She is currently NPO. We will plan to do the procedure later today. Subjective Genesis was seen and examined at bedside this morning. Overall she seems fairly comfortable. She is also a little bit confused. She does not recall falling and injuring her left hip. She was comfortable overnight. She has no new complaints.. Review of Systems All systems reviewed & are unremarkable except as noted in HPI & below. Physical Exam On physical examination of her left hip, she has pain with logroll. There are no abrasions, lesions, lacerations of the skin.. Results & Data Results & Data Laboratory Results . Diagnostic Findings X-rays of the left hip and pelvis show a displaced left femoral neck fracture.. PG Care Time/CCT Total # of Minutes Spent Total Time Spent with Patient: Total time spent is greater than 50% in coordination of care (as documented) at patient's floor/unit and/or counseling patient: Coding Level of Care Code 81117 SUB INP/OBS CARE 2/35MIN (57 - DECISION FOR SURGERY) Diagnoses Closed fracture of left hip S72.002A Encounter type: initial encounter (1) Closed fracture of left hip Encounter type: initial encounter Qualified Code(s): S72.002A - Fracture of unspecified part of neck of left femur, initial encounter for closed fracture
[2022-06-14] MEDS ORDERED: PROPOFOL IV EMULSION 10 MG/ML 20 ML VIAL IV ONE (11:53)
[2022-06-14] MEDS ORDERED: DEXAMETHASONE SOD INJ 4 MG/ML VIAL ONE (11:53)
[2022-06-14] MEDS ORDERED: fentaNYL citrate PF 100 MCG/2 ML VIAL ONE (11:53)
[2022-06-14] MEDS ORDERED: ONDANSETRON INJ 2 MG/ML 2 ML VIAL ONE (11:53)
[2022-06-14] MEDS ORDERED: MIDAZOLAM HCL 1 MG/ML 2ML VIAL ONE (11:54)
[2022-06-14] MEDS: MoRPHine SULFATE 2 MG/ML CARP IV PRN (12:05)
[2022-06-14] MEDS ORDERED: SODIUM CHLORIDE 0.9% 250 ML IV PRN (13:01)
[2022-06-14] MEDS ORDERED: Nursing to Pharmacy Communication STA (13:05)
[2022-06-14] MEDS ORDERED: ORTHO JOINT MIX INFIL ONE (13:30)
[2022-06-14] MEDS ORDERED: ROCURONIUM BROMIDE 10 MG/ML 5 ML VIAL IV ONE (13:56)
[2022-06-14] MEDS ORDERED: ePHEDrine sulfate 50 MG/ML AMP ONE (13:56)
[2022-06-14] MEDS ORDERED: PHENYLEPHRINE 100MCG/ML 5ML SYR ONE (13:56)
[2022-06-14] MEDS ORDERED: SUGAMMADEX SODIUM 200 MG/2 ML VIAL IV ONE (13:56)
[2022-06-14] MEDS ORDERED: PHENYLEPHRINE HCL 10 MG/ML VIAL ONE (14:06)
--- NOTE | 2022-06-14 14:51 | Hospitalist Progress Note ---
Date of Service June 14, 2022 Assessment & Plan (1) Closed fracture of left hip: Plan: L femoral neck fracture 2/ Fall: Hip xray: Acute displaced left femoral neck fracture. CT C spine, CT head and CXR: no acute findin Aspirin and eliquis are on hold Adequate pain medications, n.p.o. for tonight for possible surgery tomorrow Appreciate Ortho input and recommendation Will have left total hip arthroplasty this afternoon by Dr. Shepard Pain medications as per Ortho-Will need PT and OT evaluation History of hospital psychosis Significant as per the daughter and is requesting psych evaluation We will see her following surgery and may ask for psych evaluation while in the hospital (2) Fall: Plan: Likely mechanical fall Likely to need rehab placement (3) Hypokalemia: Plan: Will be replaced Normalized (4) Recurrent deep vein thrombosis (DVT): Plan: Has been on Eliquis On hold for possible surgery tomorrow We will restart Eliquis as per Ortho recommendation (5) Chronic pain: Plan: Chronic pain with morphine use: Will continue pts ER morphine 15mg qhs and hold her short active morphine Will do prn 1mg IV morphine q6hr for severe pain No pain at rest (6) Peripheral neuropathy: Plan: PAD with multiple surgeries: -will hold aspirin due to potential surgery -will continue statin (7) Insomnia: Plan: Insomnia and peripheral neuropathy: -continue Gabapentin and remeron qhs Plan COPD: -prn albuterol Diet: Heart healthy, but NPO after MN DVT PPx: acute Hip fracture, NO AC or SCD Code Status: FULL CODE Emergency Contact:DaughterYaquelin Sifuentes [phone] Admission and Anticipated Discharge Date Admission Date: June 12, 2022 Subjective 06/13/2022 The patient was seen and examined in medical telemetry unit She has been pleasantly confused but denies any other significant symptoms Complains of pain in the left hip secondary to fracture 12/15/2022 The patient was seen and examined in medical telemetry unit in presence of the daughter She has significant psychosis while in the hospital Still has pain in the left hip but no other acute symptoms We will have surgical repair of the left hip fracture this afternoon Review of Systems Review of Systems: All systems reviewed and are unremarkable except as noted below Musculoskeletal: Pain in the left hip with movement of the left lower extremity Physical Exam Physical Exam: Lying in bed comfortably Constitutional: + ill appearing and average body habitus Eyes: PERRL, conjunctivae normal, anicteric sclerae ENMT: external ear and nose normal, oropharynx normal Neck: trachea midline, no thyromegaly Respiratory: no respiratory distress Auscultation: lungs clear to auscultation bilaterally Cardiovascular: Rate/Rhythm: regular rate and regular rhythm; not tachycardic Heart Sounds: normal S1 and normal S2; no murmur Extremities: no edema Gastrointestinal (Abdomen): Inspection/Auscultation: normal bowel sounds; abdomen not distended Percussion/Palpation: abdomen soft; abdomen nontender Musculoskeletal: Hip: + hip abnormal to inpsection (Left hip area) and + joint line tenderness (Left hip) Neurologic: Alert, awake. Pleasantly confused. Generally weak Psychiatric: Significant occurrence of psychosis while in the hospital. The daughter requested to have a psych evaluation. We will see how she does after surgery and then go from the Lymphatic: no cervical or axillary lymphadenopathy Results & Data Results & Data Vital Signs (Past 12 Hours) Vital Signs Temp Pulse Pulse Resp BP Pulse Ox O2 Del Method 06/14/22 13:06 37 C 90 20 116/70 95 Room Air 06/14/22 11:22 80 06/14/22 11:22 Nasal Cannula 06/14/22 10:54 36.9 C 90 16 92/59 L 92 Room Air 06/14/22 06:47 36.9 C 93 H 18 114/77 98 Nasal Cannula 06/14/22 03:00 78 16 O2 Flow Rate 06/14/22 13:06 06/14/22 11:22 06/14/22 11:22 2 06/14/22 10:54 06/14/22 06:47 2 06/14/22 03:00 Laboratory Results Short CBC 06/14/22 Range/Units 07:04 WBC 7.39 (4.8-10.8) K/ul Hgb 10.2 L (12.0-16.0) g/dl Hct 31.6 L (37.0-47.0) % Plt Count 300 (130-400) K/uL BMP 06/14/22 07:04 Sodium 142 Potassium 3.5 Chloride 107 Carbon Dioxide 33 H BUN 4 L Creatinine 0.48 L Glucose 83 Calcium 7.9 L Medications Administered Current Inpatient Medications Acetaminophen (Acetaminophen 325 Mg Tab) 650 mg PO Q4H PRN PRN Reason: Pain Stop: 07/13/22 18:32 Last Admin: 06/14/22 08:35 Dose: 650 mg Albuterol (Albuterol Hfa 8 Gm Inhaler) 2 puffs INH QID PRN PRN Reason: Shortness Of Breath Or Wheezing Stop: 07/12/22 21:36 Ascorbic Acid (Ascorbic Acid 500 Mg Tab) 500 mg PO QAM [facility] Stop: 07/13/22 08:59 Last Admin: 06/14/22 08:36 Dose: 500 mg Atorvastatin Calcium (Atorvastatin 40 Mg Tab) 40 mg PO QAM [facility] Stop: 07/13/22 08:59 Last Admin: 06/14/22 08:36 Dose: 40 mg Cyanocobalamin (Cyanocobalamin (B-12) 500 Mcg Tablet) 1,000 mcg PO QAM [facility] Stop: 07/13/22 08:59 Last Admin: 06/14/22 08:36 Dose: 1,000 mcg Gabapentin (Gabapentin 300 Mg Cap) 300 mg PO [facility] Stop: 07/12/22 21:36 Last Admin: 06/13/22 20:13 Dose: 300 mg Sodium Chloride (Nss) 250 mls @ 15 mls/hr IV .[id number] PRN PRN Reason: For Transfusion Duration Stop: 06/14/22 23:02 Melatonin (Melatonin 3 Mg Tab) 3 mg PO HS PRN PRN Reason: Sleep Stop: 07/13/22 23:54 Last Admin: 06/14/22 00:25 Dose: 3 mg Mirtazapine (Mirtazapine Tab 15 Mg Tab) 30 mg PO [facility] Stop: 07/12/22 21:36 Last Admin: 06/13/22 20:13 Dose: 30 mg Morphine Sulfate (Morphine Sulfate 4 Mg/Ml 1 Ml Carp\Vial) 4 mg IV Q30M PRN PRN Reason: Severe Pain (Rating 7,8,9,10) Stop: 06/26/22 17:02 Last Admin: 06/12/22 19:28 Dose: 4 mg Morphine Sulfate (Morphine Sulfate Cr 15 Mg Tabcr) 15 mg PO HS [facility] Stop: 06/26/22 21:36 Last Admin: 06/13/22 20:13 Dose: 15 mg Morphine Sulfate (Morphine Sulfate 2 Mg/Ml Carp) 1 mg IV Q6H PRN PRN Reason: Severe Pain (Scale 7, 8, 9,10) Stop: 06/26/22 21:36 Last Admin: 06/14/22 12:05 Dose: 1 mg (1) Closed fracture of left hip Encounter type: initial encounter Qualified Code(s): S72.002A - Fracture of unspecified part of neck of left femur, initial encounter for closed fracture (2) Fall Encounter type: initial encounter Qualified Code(s): W19.XXXA - Unspecified fall, initial encounter
--- NOTE | 2022-06-14 15:02 | Fluoroscopy Report ---
FL hip LT 1V CLINICAL HISTORY: LT ANTERIOR TOTALleft hip arthroplasty COMPARISON STUDY: 06/12/2022 FLUOROSCOPY TIME: 14 seconds FLUOROSCOPY IMAGES: 3 EXPOSURE DOSE: 0.95 mGy FINDINGS: Total joint arthroplasty demonstrates satisfactory alignment. Expected postoperative soft t issue swelling with deep tissue air. No acute fracture or unexpected opaque foreign body. IMPRESSION: Fluoroscopic assistance as above. ACT 112: Negative or not required by law. Electronically signed by: Quan Coker M.D. 06/14/2022 3:00 PM
[2022-06-14] MEDS ORDERED: PROMETHAZINE HCL 12.5 MG in SODIUM CHLORIDE 0.9% 50 ML IV PRN (15:05)
[2022-06-14] MEDS ORDERED: ePHEDrine sulfate 50 MG/ML AMP IV PRN (15:05)
[2022-06-14] MEDS ORDERED: ONDANSETRON INJ 2 MG/ML 2 ML VIAL IV PRN (15:05)
[2022-06-14] MEDS ORDERED: NALOXONE HCL 0.4 MG/1 ML VIAL/CARP IV PRN (15:05)
[2022-06-14] MEDS ORDERED: ATROPINE SULFATE 0.1 MG/ML 10ML SYR IV PRN (15:05)
[2022-06-14] MEDS ORDERED: FLUMAZENIL 0.1 MG/1 ML 10 ML VIAL IV PRN (15:05)
--- NOTE | 2022-06-14 15:05 | Operative Report ---
PG Post Operative Report Pre & Post Diagnosis Operation Date: 06/14/22 07:00 Pre-Op Diagnosis: Displaced left femoral neck fracture Post-Op Diagnosis: Displaced left femoral neck fracture I identified the patient and participated in the time-out.: Yes Procedure Operation Date: 06/14/22 07:00 Actual Procedures p Left Anterior Total Hip Arthroplasty(Left) - Alberto Shepard DO Surgeon Alberto Shepard DO Patient Accounts Specialist Alberto Sauceda PA-C Estimated Blood Loss 100 Findings Consistent with Post-Op Diagnosis Specimens Left femoral head Description of Procedure Implants used I used a [employer] total hip arthroplasty system with a size 4 standard offset Avenir Complete stem, a 46 mm G7 cup with a 25mm screw, an E1 polyethylene liner, a 32 mm ceramic head with a +0 neck. Genesis was brought down from her room for the above procedure. She was seen in the preoperative holding area and the operative extremity was identified and signed. She was given a preoperative antibiotic, and TXA. She was then taken back to the operating room and laid on the table in the supine position. She was given general anesthesia. The operative leg was secured to a Puristst leg positioner. The hip was then prepped and draped in sterile fashion. A timeout was done and the patient and the operative extremity was properly identified. An anterior approach was used. Dissection was taken down through the fascia and the tensor muscle belly was retracted laterally and the rectus was retracted medially. The circumflex vessels were identified and ligated. The capsule was then incised and tagged for later repair. The femoral neck was then cut and the femoral head and neck were removed. The acetabulum was exposed. Time was spent doing a complete circumferential labral release. Sequential reaming of the acetabulum up to a size 45 reamer was done. Final reamings were done under fluoroscopy to ensure appropriate version. A Biomet 46 mm G7 cup was then impacted into place. A single 25 mm screw was placed. The E1 polyethylene liner was then snapped into place. Surrounding soft tissues were then injected with 100 cc of an orthopedic pain control cocktail. The proximal femur was then exposed. Sequential broaching up to a size 4 broach was done. Off that broach a size 32 head with a 0 neck was trialed. The hip was reduced and fluoroscopic images showed anatomic alignment of the implants in acceptable length. The broach was removed. The final size 4 Avenir Complete stem was then impacted into place. A ceramic 32 mm head with a 0 neck was then impacted onto the stem and the hip was reduced. Final fluoroscopic images showed anatomic alignment of the hip. The capsule was then closed with #1 Vicryl suture. A dilute betadyne lavage was then done for 3 minutes. The joint was then irrigated with normal saline solution. The fascia was closed with #1 PDS suture. Skin was closed with 2-0 Vicryl, fanny, and a Silverlon dressing. She was then transferred to a hospital bed and taken to the post anesthesia care unit in stable condition. She tolerated the procedure well. Alberto Sauceda PA-C, was present for the entire procedure. He was critical for patient positioning, prepping, draping, retraction exposure, wound closure and application of sterile dressing. I attest to the content of the Intraoperative Record and any orders documented therein. Any exceptions are noted below.
[2022-06-14] MEDS: fentaNYL citrate PF 100 MCG/2 ML VIAL IV PRN ×4 (15:16→15:31)
[2022-06-14] MEDS: HYDROmorphone INJ 1 MG/ML SYRINGE IV PRN ×3 (15:36→15:46)
--- NOTE | 2022-06-14 15:45 | Anesthesiology Progress Note ---
Date of Service June 14, 2022 Anesthesia Post Procedure Vital Signs Vital Signs: Temp Pulse Pulse Pulse Resp BP BP 06/14/22 15:25 101 H 15 115/74 06/14/22 15:35 94 H 17 114/73 06/14/22 15:15 97 H 15 108/77 06/14/22 15:05 98.2 F 96 H 16 97/67 L 06/14/22 13:06 98.6 F 90 20 116/70 06/14/22 11:22 80 06/14/22 11:22 06/14/22 10:54 98.4 F 90 16 92/59 L 06/14/22 06:47 98.4 F 93 H 18 114/77 06/14/22 03:00 78 16 06/14/22 00:57 94 H 06/14/22 00:38 06/14/22 00:01 98.6 F 94 H 18 117/74 06/13/22 18:31 99.1 F 101 H 16 118/73 Pulse Ox O2 Del Method O2 Flow Rate 06/14/22 15:25 96 Oxymask 2 06/14/22 15:35 98 Oxymask 2 06/14/22 15:15 97 Oxymask 2 06/14/22 15:05 96 Oxymask 2 06/14/22 13:06 95 Room Air 06/14/22 11:22 06/14/22 11:22 Nasal Cannula 2 06/14/22 10:54 92 Room Air 06/14/22 06:47 98 Nasal Cannula 2 06/14/22 03:00 06/14/22 00:57 06/14/22 00:38 Nasal Cannula 2 06/14/22 00:01 94 Room Air 06/13/22 18:31 90 Room Air Pain Intensity Left Hip: Pain Intensity: 7 Transfer of Care Handoff Completed per policy Notes Mental Status: alert / awake / arousable and participated in evaluation Patient Amnestic to Procedure: Yes Nausea / Vomiting: adequately controlled Pain: adequately controlled Airway Patency, RR, SpO2: stable & adequate BP & HR: stable & adequate Hydration State: stable & adequate Anesthetic Complications: no major complications apparent and Pt Satisfied with anesthetic care
--- NOTE | 2022-06-14 19:37 | XRay Report ---
XR hip LT min 2V CLINICAL HISTORY: Post-Operative implant position TECHNIQUE: 2 views of the left hip were obtained. Comparison: Comparison is made to hip radiographs 06/12/2022 FINDINGS: Patient is status post total hip arthroplasty with expected postsurgical changes including soft tissu e swelling and subcutaneous emphysema. IMPRESSION: Expected postoperative appearance status post placement of total hip arthroplasty. ACT 112: Negative or not required by law. Electronically signed by: Flakito Evans M.D. 06/14/2022 7:35 PM
[2022-06-14] MEDS: MoRPHine SULFATE CR 15 MG TABCR PO SCH (22:46)
[2022-06-14] MEDS: GABAPENTIN 300 MG CAP PO SCH (22:46)
[2022-06-14] MEDS: MIRTAZAPINE TAB 15 MG TAB PO SCH (22:46)
[2022-06-14] MEDS: ceFAZolin 2000MG 2,000 MG/15 ML SYR IV SCH (22:47)
[2022-06-14] MEDS ORDERED: OLANZapine 10 MG/2.1 ML SDV IM STA (23:17)
[2022-06-15] MEDS: ceFAZolin 2000MG 2,000 MG/15 ML SYR IV SCH ×2 (00:27→06:25)
[2022-06-15] MEDS: MoRPHine SULFATE 2 MG/ML CARP IV PRN ×3 (02:15→16:59)
--- NOTE | 2022-06-15 05:58 | Orthopedic Progress Note ---
Date of Service June 15, 2022 Assessment & Plan (1) Status post left hip replacement: Overall she is doing fairly well. She is not having much pain in the left hip. She will be seen by physical therapy today for ambulation and range of motion exercises. She is on Eliquis for DVT prophylaxis. She is orthopedically stable for discharge when medically ready. Full orthopedic discharge instructions were placed in the discharge summary. Leyda Hurtado was seen and examined at bedside this morning. Overall she is doing fairly well. She is not having too much pain in the left hip. She has not been up and ambulating yet. She has no complaints.. Review of Systems All systems reviewed & are unremarkable except as noted in HPI & below. Physical Exam On physical examination of the left hip, the dressing is clean and dry. Her leg is out full extension. She has active dorsiflexion plantarflexion of her left ankle.. Results & Data Results & Data Laboratory Results . Diagnostic Findings Postoperative x-rays of the left hip show the prosthesis to be in anatomic alignment without any evidence of fracture, screws, or loosening.. PG Care Time/CCT Total # of Minutes Spent Total Time Spent with Patient: Total time spent is greater than 50% in coordination of care (as documented) at patient's floor/unit and/or counseling patient: Coding Level of Care Code 89289 Post Operative Follow-Up Diagnoses Status post left hip replacement Z96.642
[2022-06-15 08:34] LABS: Basophils # (auto) 0.01 K/uL (0-0.2); Basophils % (auto) 0.1 %; Hematocrit (blood only) 26.4 % (37.0-47.0); Hemoglobin 8.7 g/dl (12.0-16.0); Immature Granulocytes # (auto) 0.04 K/uL (0.01-0.20); Immature Granulocytes % (auto) 0.6 %; Lymphocytes % (auto) 8.9 %; Mean Corpuscular Hemoglobin 33.1 pg (25.0-34.0); Mean Corpuscular Volume 100.4 fL (80.0-100.0); Mean Platelet Volume 11.2 fL (9.4-12.4); Monocytes # (auto) 0.72 K/uL (0.11-0.59); Monocytes % (auto) 10.7 %; Neutrophils # (auto) 5.37 K/uL (1.40-6.50); Neutrophils % (auto) 79.7 %; Platelet Count 283 K/uL (130-400); RDW Coefficient of Variation 14.6 % (11.5-14.5); RDW Standard Deviation 53.2 fL (36.4-46.3); Red Blood Count 2.63 M/uL (4.20-5.40); White Blood Count 6.74 K/ul (4.8-10.8)
[2022-06-15 08:52] LABS: BUN Creatinine Ratio 9.8 (10-20); Calcium 7.7 mg/dl (8.5-10.1); Creatinine Clr Calc Pharmacy 86.9 ml/min; Est GFR (African American) 117.8 ml/min; Est GFR (Non-African American) 101.6 ml/min; Potassium 3.7 mmol/L (3.5-5.1)
[2022-06-15] MEDS: APIXABAN 5 MG TABLET PO SCH ×3 (10:04→20:11)
[2022-06-15] MEDS: ASPIRIN 81 MG ECTAB PO SCH (10:04)
[2022-06-15] MEDS: CYANOCOBALAMIN (B-12) 500 MCG TABLET PO SCH (10:04)
[2022-06-15] MEDS: ASCORBIC ACID 500 MG TAB PO SCH (10:05)
[2022-06-15] MEDS: ATORVASTATIN 40 MG TAB PO SCH (10:05)
--- NOTE | 2022-06-15 15:49 | Hospitalist Progress Note ---
Date of Service June 15, 2022 Assessment & Plan (1) Closed fracture of left hip: Plan: L femoral neck fracture 2/ Fall: Hip xray: Acute displaced left femoral neck fracture. CT C spine, CT head and CXR: no acute findin Aspirin and eliquis are on hold Adequate pain medications, n.p.o. for tonight for possible surgery tomorrow Appreciate Ortho input and recommendation Will have left total hip arthroplasty this afternoon by Dr. Shepard Pain medications as per Ortho-Will need PT and OT evaluation Status post left anterior total hip arthroplasty on 06/14/2022 Will need PT OT evaluation and placement History of hospital psychosis Significant as per the daughter and is requesting psych evaluation We will see her following surgery and may ask for psych evaluation while in the hospital Remains depressed and will ask for psychiatric evaluation (2) Fall: Plan: Likely mechanical fall Likely to need rehab placement (3) Hypokalemia: Plan: Will be replaced Normalized (4) Recurrent deep vein thrombosis (DVT): Plan: Has been on Eliquis On hold for possible surgery tomorrow We will restart Eliquis as per Ortho recommendation Eliquis has been started (5) Chronic pain: Plan: Chronic pain with morphine use: Will continue pts ER morphine 15mg qhs and hold her short active morphine Will do prn 1mg IV morphine q6hr for severe pain No pain at rest (6) Peripheral neuropathy: Plan: PAD with multiple surgeries: -will hold aspirin due to potential surgery -will continue statin (7) Insomnia: Plan: Insomnia and peripheral neuropathy: -continue Gabapentin and remeron qhs Plan COPD: -prn albuterol Diet: Heart healthy, but NPO after MN DVT PPx: acute Hip fracture, NO AC or SCD Code Status: FULL CODE Emergency Contact:Daughter- Maria [phone] Admission and Anticipated Discharge Date Admission Date: June 12, 2022 Subjective 06/13/2022 The patient was seen and examined in medical telemetry unit She has been pleasantly confused but denies any other significant symptoms Complains of pain in the left hip secondary to fracture 12/15/2022 The patient was seen and examined in medical telemetry unit in presence of the daughter She has significant psychosis while in the hospital Still has pain in the left hip but no other acute symptoms We will have surgical repair of the left hip fracture this afternoon 12/16/2022 The patient was seen and examined in medical telemetry unit She is status post left anterior total hip arthroplasty Complains pain in the left hip with movement Remains anxious and looks depressed We will ask for psychiatric evaluation Review of Systems Review of Systems: All systems reviewed and are unremarkable except as noted below Musculoskeletal: Pain in the left hip with movement of the left lower extremity Physical Exam Physical Exam: Lying in bed comfortably Constitutional: + ill appearing and average body habitus Eyes: PERRL, conjunctivae normal, anicteric sclerae ENMT: external ear and nose normal, oropharynx normal Neck: trachea midline, no thyromegaly Respiratory: no respiratory distress Auscultation: lungs clear to auscultation bilaterally Cardiovascular: Rate/Rhythm: regular rate and regular rhythm; not tachycardic Heart Sounds: normal S1 and normal S2; no murmur Extremities: no edema Gastrointestinal (Abdomen): Inspection/Auscultation: normal bowel sounds; abdomen not distended Percussion/Palpation: abdomen soft; abdomen nontender Musculoskeletal: Hip: + hip abnormal to inpsection (Left hip area) and + joint line tenderness (Left hip) Neurologic: Alert and awake. Pleasantly confused. Pain in the left hip with movement of the left lower extremity Psychiatric: Has depression Lymphatic: no cervical or axillary lymphadenopathy Results & Data Results & Data Vital Signs (Past 12 Hours) Vital Signs Temp Pulse Resp BP Pulse Ox O2 Del Method 06/15/22 12:17 37.0 C 100 H 16 100/65 94 Room Air 06/15/22 07:48 36.7 C 100 H 16 93/65 L 96 Room Air Laboratory Results Short CBC 06/15/22 Range/Units 07:46 WBC 6.74 (4.8-10.8) K/ul Hgb 8.7 L (12.0-16.0) g/dl Hct 26.4 L (37.0-47.0) % Plt Count 283 (130-400) K/uL BMP 06/15/22 07:46 Sodium 142 Potassium 3.7 Chloride 107 Carbon Dioxide 32 BUN 5 L Creatinine 0.51 L Glucose 113 H Calcium 7.7 L Medications Administered Current Inpatient Medications Acetaminophen (Acetaminophen 325 Mg Tab) 650 mg PO Q4H PRN PRN Reason: Pain Stop: 07/13/22 18:32 Last Admin: 06/14/22 08:35 Dose: 650 mg Albuterol (Albuterol Hfa 8 Gm Inhaler) 2 puffs INH QID PRN PRN Reason: Shortness Of Breath Or Wheezing Stop: 07/12/22 21:36 Apixaban (Apixaban 5 Mg Tablet) 5 mg PO BID [facility] Stop: 07/15/22 07:59 Last Admin: 06/15/22 10:12 Dose: Not Given Ascorbic Acid (Ascorbic Acid 500 Mg Tab) 500 mg PO QAM [facility] Stop: 07/13/22 08:59 Last Admin: 06/15/22 10:05 Dose: 500 mg Aspirin (Aspirin 81 Mg Ectab) 81 mg PO DAILY [facility] Stop: 07/15/22 08:59 Last Admin: 06/15/22 10:04 Dose: 81 mg Atorvastatin Calcium (Atorvastatin 40 Mg Tab) 40 mg PO QAM [facility] Stop: 07/13/22 08:59 Last Admin: 06/15/22 10:05 Dose: 40 mg Cyanocobalamin (Cyanocobalamin (B-12) 500 Mcg Tablet) 1,000 mcg PO QAM [facility] Stop: 07/13/22 08:59 Last Admin: 06/15/22 10:04 Dose: 1,000 mcg Gabapentin (Gabapentin 300 Mg Cap) 300 mg PO [facility] Stop: 07/12/22 21:36 Last Admin: 06/14/22 22:46 Dose: 300 mg Melatonin (Melatonin 3 Mg Tab) 3 mg PO HS PRN PRN Reason: Sleep Stop: 07/13/22 23:54 Last Admin: 06/14/22 00:25 Dose: 3 mg Mirtazapine (Mirtazapine Tab 15 Mg Tab) 30 mg PO HS [facility] Stop: 07/12/22 21:36 Last Admin: 06/14/22 22:46 Dose: 30 mg Morphine Sulfate (Morphine Sulfate 4 Mg/Ml 1 Ml Carp\Vial) 4 mg IV Q30M PRN PRN Reason: Severe Pain (Rating 7,8,9,10) Stop: 06/26/22 17:02 Last Admin: 06/12/22 19:28 Dose: 4 mg Morphine Sulfate (Morphine Sulfate Cr 15 Mg Tabcr) 15 mg PO HS [facility] Stop: 06/26/22 21:36 Last Admin: 06/14/22 22:46 Dose: 15 mg Morphine Sulfate (Morphine Sulfate 2 Mg/Ml Carp) 1 mg IV Q6H PRN PRN Reason: Severe Pain (Scale 7, 8, 9,10) Stop: 06/26/22 21:36 Last Admin: 06/15/22 10:16 Dose: 1 mg (1) Closed fracture of left hip Encounter type: initial encounter Qualified Code(s): S72.002A - Fracture of unspecified part of neck of left femur, initial encounter for closed fracture (2) Fall Encounter type: initial encounter Qualified Code(s): W19.XXXA - Unspecified fall, initial encounter
--- NOTE | 2022-06-15 15:55 | Psychiatric Consultation ---
Date of Consultation June 15, 2022 Impression / Recommendations Impression 62] yo old woman with history of hospital-acquired delirium admitted for hip fracture now s/p repair whose daughter reports has been becoming increasingly paranoid when talking with her on the phone over the last two days. She certainly has many risk factors for developing hospital acquired delirium given use of opioids from hip fracture, history of delirium, recent surgery, pain, and decreased sleep. She did not present with signs of confusion or psychosis/paranoia during my assessment but delirium classically waxes and wanes so I may have caught her in a moment of improvement. Use of low dose antipsychotic an option if felt to be safe given recent concerns for periods of excessive sedation to help treat what sounds like developing paranoia from delirium. (1) Delirium: Plan -Consider seroquel 12.5 mg po HS prn and can titrate up to 25mg po HS prn for delirium with psychosis as needed; would check EKG QTc routinely. -Consider melatonin 3mg qhs -Continue with delirium prevention measures: raising blinds during the day, closing at night, frequent re-orientation, contact with family/friends, explaining procedures/nursing care measures prior to physical contact, correct any hearing and visual impairments and trying to limit use of deliriogenic medications as possible -For behavioral emergency: olanzapine 2.5 mg IM x 1 (DO NOT exceed 10mg per 24 hours, check EKG if IM dose required, NEVER co-administer with IM or IV benzodiazepines). Psych History Identifying Data 62 yo woman with a history of chronic pain, insomnia admitted medically following hip fracture and now s/p left hip replacement. Psychiatry consulted for medication recommendations for possible delirium. Chief Complaint "I'm good I guess". History of Present Illness Genesis was admitted for lip hip fracture and had surgery yesterday. Today she reports some improvement in pain but continues to have a lot of pain. Her sleep has been "ok". She is glad to have the surgery behind her and hopeful that the pain will continue to get better. She confirms a history of delirium/confusion/psychosis during prior hospitalizations or subacute rehab stays that has always improved once she returns home (she said sometimes symptoms last a few days after returning home but then go away). She denies experiencing any visual or auditory hallucinations, delusions, or paranoia currently but collateral from her daughter notable for Genesis calling her at home and reported high levels of anxiety that seem to be consistent with paranoia and how she has presented in the past. Genesis cannot recall what medications she received in the past when she developed psychosis/delirium but thinks they were helpful and she only took them short-term. She would be willing to try them again as she doesn't want to develop such symptoms and prefers to "get ahead of things". She is oriented x3 though takes a moment to recall the mo nth (settles on May as "I think it's still my birthday month"). Further collateral per psych liason's note from 06/15/2022: "Met with pt. who endorses significant chronic pain. Genesis gives verbal authorization for this RN to talk with her daughter, Maria ([phone]). Maria reports pt. has a history of psychotic episodes during hospitalization and is concerned it is a barrier to her mom's healing. Maria is hopeful that psychiatry would be able to make medication recommendations to help with psychotic symptoms. Per Maria, pt. has not experienced any type of psychosis outside of the hospital setting. Pt. does have a history of anxiety and depression and is prescribed Remeron by PCP. Pt. does not have any history of inpatient mental health treatment. Maria reports pt. is reassured when family visits. Pt. is visiting with her sister and [id number]. Denies any needs at this time." Allergies Allergy/AdvReac Type Severity Reaction Status Date / Time vitamin K2 Allergy Severe SOB CHEST Verified 06/12/22 19:16 PAIN SHAKING Home Medications Medication Instructions Recorded Confirmed Type ascorbic acid (vitamin C) 500 mg 500 mg PO QAM 09/13/18 06/12/22 History capsule atorvastatin 40 mg tablet 40 mg PO QAM 09/13/18 06/12/22 History cyanocobalamin (vitamin B-12) 1,000 mcg PO QAM 09/13/18 06/12/22 History 1,000 mcg tablet (Vitamin B-12) Medical Marijuanas ~ Oil Vape 0 inh inhalation UD 07/30/20 06/12/22 History albuterol sulfate 90 mcg/actuation 2 puff inhalation QID PRN 05/30/22 06/12/22 History aerosol inhaler Shortness Of Breath Or Wheezing mirtazapine 30 mg tablet 30 mg PO HS 05/30/22 06/12/22 History gabapentin 300 mg capsule 300 mg PO HS #30 caps 06/05/22 06/12/22 Rx morphine 15 mg tablet,extended 15 mg PO HS #10 tabs 06/05/22 06/12/22 Rx release apixaban 5 mg tablet (Eliquis) 5 mg PO BID 06/12/22 06/12/22 History aspirin 81 mg capsule 81 mg PO DAILY 06/12/22 06/12/22 History morphine 15 mg immediate release 15 mg PO BID PRN Severe Pain 06/12/22 06/12/22 History tablet (Scale Score 7-10) Patient History Medical History Angina at rest Chest pain Chronic back pain Chronic pain COPD (chronic obstructive pulmonary disease) COPD (chronic obstructive pulmonary disease) NO PROBLEMS Deep vein thrombosis Deep vein thrombosis (2015) FEMORAL BYPASS IN BILATERAL LEGS Degenerative disc disease Depression Depression Diverticular disease DVT prophylaxis Factor 5 Leiden mutation, heterozygous Fibromyalgia GERD (gastroesophageal reflux disease) History of MTHFR mutation HLD (hyperlipidemia) MDD (major depressive disorder) Migraine MTHFR gene mutation MTHFR mutation Osteoarthritis PAD (peripheral artery disease) Peptic ulcer disease CURRENT Peripheral neuropathy Peripheral vascular disease Peripheral vascular disease PVD (peripheral vascular disease) Tobacco abuse Unstable angina Vitamin D insufficiency Surgical History H/O surgical biopsy VAGINAL BIOPSY H/O vascular surgery MULTIPLE BILATERAL LEG SURGERIES History of arthroscopy LEFT SHOULDER History of section X1 History of cholecystectomy LAP History of colonoscopy History of esophagogastroduodenoscopy (EGD) EGD 12/23/2017. Sedation no issues. History of nasal septoplasty History of right cataract extraction History of tonsillectomy Family History Other Coronary heart disease Social History Smoking Status: Current every day smoker Tobacco Type: Cigarettes Cigarettes Per Day: 30; Second Hand Exposure: No; Do You Dip or Chew Tobacco: No; Tobacco Cessation Education Requested by Patient: No Hx Alcohol Use: Yes Alcohol type: beer, wine and hard liquor Hx Substance Use: No Preferred Language: Khmer Communication Ability: Unable Can Inspector Required: No Beliefs That Will Affect Care: None Current Living Situation: Alone Other Information That Helps Us Care for You: No Feels Safe at Home: Yes Safety Concerns: Feels Safe At This Time Assistive Devices: None Physical Exam Psychiatric: Orientation: alert and oriented x 3 Apperance: appropriately dressed and appropriately groomed Eye Contact: good eye contact Motor Behavior: no abnormal motor movements Speech: normal rate/rhythm/volume of speech Affect: + constricted affect Mood: + anxious mood; no depressed mood Thought Process: linear/logical thought process Thought Content: reality based without delusions Suicidal Thoughts: denies suicidal thoughts Homicidal Thoughts: denies homicidal thoughts Hallucinations: no auditory hallucinations and no visual hallucinations Cognition: recent memory grossly intact, remote memory grossly intact, attention grossly intact and language grossly intact Estimated Intelligence: consistent with education level Insight: + fair insight Judgment: + fair judgement Vital Signs (Past 24 Hours): Last Vital Signs Temp 37.0 C 06/15/22 12:17 Pulse 100 H 06/15/22 12:17 Resp 16 06/15/22 12:17 BP 100/65 06/15/22 12:17 Pulse Ox 94 06/15/22 12:17 O2 Del Method Room Air 06/15/22 12:17 O2 Flow Rate 5 06/14/22 20:00 Review of Systems All systems reviewed & are unremarkable except as noted in HPI & below Results & Data (PSY) Laboratory Results Na+ normal Diagnostic Findings QTc 460ms on EKG on 06/12/2022 Medications Administered Acetaminophen (Acetaminophen 325 Mg Tab) 650 mg PO Q4H PRN PRN Reason: Pain Stop: 07/13/22 18:32 Last Admin: 06/14/22 08:35 Dose: 650 mg Documented By: Admin: 06/13/22 18:40 Dose: 650 mg Documented By: GILMAR Apixaban (Apixaban 5 Mg Tablet) 5 mg PO BID TERENCE Stop: 07/15/22 07:59 Last Admin: 06/15/22 10:12 Dose: Not Given Documented By: Admin: 06/15/22 10:04 Dose: 5 mg Documented By: PATT Ascorbic Acid (Ascorbic Acid 500 Mg Tab) 500 mg PO QAM TERENCE Stop: 07/13/22 08:59 Last Admin: 06/15/22 10:05 Dose: 500 mg Documented By: Admin: 06/14/22 08:36 Dose: 500 mg Documented By: Admin: 06/13/22 09:42 Dose: 500 mg Documented By: GILMAR Aspirin (Aspirin 81 Mg Ectab) 81 mg PO DAILY TERENCE Stop: 07/15/22 08:59 Last Admin: 06/15/22 10:04 Dose: 81 mg Documented By: PATT Atorvastatin Calcium (Atorvastatin 40 Mg Tab) 40 mg PO QAM TERENCE Stop: 07/13/22 08:59 Last Admin: 06/15/22 10:05 Dose: 40 mg Documented By: Admin: 06/14/22 08:36 Dose: 40 mg Documented By: Admin: 06/13/22 09:42 Dose: 40 mg Documented By: GILMAR Cyanocobalamin (Cyanocobalamin (B-12) 500 Mcg Tablet) 1,000 mcg PO QAM TERENCE Stop: 07/13/22 08:59 Last Admin: 06/15/22 10:04 Dose: 1,000 mcg Documented By: Admin: 06/14/22 08:36 Dose: 1,000 mcg Documented By: Admin: 06/13/22 09:42 Dose: 1,000 mcg Documented By: GILMAR Gabapentin (Gabapentin 300 Mg Cap) 300 mg PO HS TERENCE Stop: 07/12/22 21:36 Last Admin: 06/14/22 22:46 Dose: 300 mg Documented By: Admin: 06/13/22 20:13 Dose: 300 mg Documented By: Admin: 06/12/22 23:55 Dose: 300 mg Documented By: RACHEL Melatonin (Melatonin 3 Mg Tab) 3 mg PO HS PRN PRN Reason: Sleep Stop: 07/13/22 23:54 Last Admin: 06/14/22 00:25 Dose: 3 mg Documented By: NIKKY Mirtazapine (Mirtazapine Tab 15 Mg Tab) 30 mg PO HS TERENCE Stop: 07/12/22 21:36 Last Admin: 06/14/22 22:46 Dose: 30 mg Documented By: Admin: 06/13/22 20:13 Dose: 30 mg Documented By: Admin: 06/12/22 23:55 Dose: 30 mg Documented By: RACHEL Morphine Sulfate (Morphine Sulfate 4 Mg/Ml 1 Ml Carp\\Vial) 4 mg IV Q30M PRN PRN Reason: Severe Pain (Rating 7,8,9,10) Stop: 06/26/22 17:02 Last Admin: 06/12/22 19:28 Dose: 4 mg Documented By: Admin: 06/12/22 18:53 Dose: 4 mg Documented By: Admin: 06/12/22 17:59 Dose: 4 mg Documented By: FELISA Morphine Sulfate (Morphine Sulfate Cr 15 Mg Tabcr) 15 mg PO HS TERENCE Stop: 06/26/22 21:36 Last Admin: 06/14/22 22:46 Dose: 15 mg Documented By: Admin: 06/13/22 20:13 Dose: 15 mg Documented By: Admin: 06/12/22 23:35 Dose: 15 mg Documented By: RLP Morphine Sulfate (Morphine Sulfate 2 Mg/Ml Carp) 1 mg IV Q6H PRN PRN Reason: Severe Pain (Scale 7, 8, 9,10) Stop: 06/26/22 21:36 Last Admin: 06/15/22 10:16 Dose: 1 mg Documented By: Admin: 06/15/22 02:15 Dose: 1 mg Documented By: Admin: 06/14/22 12:05 Dose: 1 mg Documented By: Admin: 06/13/22 21:52 Dose: 1 mg Documented By: Admin: 06/13/22 14:47 Dose: 1 mg Documented By: Admin: 06/13/22 05:22 Dose: 1 mg Documented By: Admin: 06/12/22 23:35 Dose: 1 mg Documented By: RLP Coding Level of Care Code 27572 IN/OBS CONSULT LVL 3,45M Diagnoses Delirium R41.0
[2022-06-15] MEDS: ACETAMINOPHEN 325 MG TAB PO PRN (18:42)
[2022-06-15] MEDS: GABAPENTIN 300 MG CAP PO SCH (20:11)
[2022-06-15] MEDS: MoRPHine SULFATE CR 15 MG TABCR PO SCH (20:11)
[2022-06-15] MEDS: MELATONIN 3 MG TAB PO PRN (20:11)
[2022-06-15] MEDS: MIRTAZAPINE TAB 15 MG TAB PO SCH (21:53)
[2022-06-16] MEDS: MoRPHine SULFATE 2 MG/ML CARP IV PRN ×2 (06:30→11:46)
--- NOTE | 2022-06-16 06:51 | Orthopedic Progress Note ---
Date of Service June 16, 2022 Assessment & Plan (1) Status post left hip replacement: Overall she seems to be doing fairly well. She is having some soreness in the hip which is to be expected. She is participating with physical therapy but requiring a lot of assistance. She is hoping to go to a rehab facility. She is on Eliquis for DVT prophylaxis. She is orthopedically stable for discharge when a bed becomes available. Full orthopedic discharge instructions were placed in the discharge summary. Leyda Hurtado was seen and examined at bedside this morning. Overall she seems to be doing okay. She is having a lot of soreness in the hip which is to be expected. She was able to ambulate about 20 feet yesterday with physical therapy. She has no other complaints.. Review of Systems All systems reviewed & are unremarkable except as noted in HPI & below. Physical Exam On physical examination left hip, the dressing is clean and dry. Her leg is out full extension. She has active dorsiflexion plantarflexion of her left ankle.. Results & Data Results & Data Laboratory Results . Diagnostic Findings . PG Care Time/CCT Total # of Minutes Spent Total Time Spent with Patient: Total time spent is greater than 50% in coordination of care (as documented) at patient's floor/unit and/or counseling patient: Coding Level of Care Code 12816 Post Operative Follow-Up Diagnoses Status post left hip replacement Z96.642
[2022-06-16 07:29] LABS: Basophils # (auto) 0.02 K/uL (0-0.2); Basophils % (auto) 0.4 %; Eosinophils # (auto) 0.07 K/uL (0-0.50); Eosinophils % (auto) 1.3 %; Hematocrit (blood only) 23.4 % (37.0-47.0); Hemoglobin 7.9 g/dl (12.0-16.0); Immature Granulocytes % (auto) 1.8 %; Lymphocytes # (auto) 1.18 K/uL (1.2-3.4); Lymphocytes % (auto) 21.3 %; Mean Corpuscular Hemoglobin 33.2 pg (25.0-34.0); Mean Corpuscular Hgb Conc 33.8 g/dL (32.0-36.0); Mean Corpuscular Volume 98.3 fL (80.0-100.0); Mean Platelet Volume 11.3 fL (9.4-12.4); Monocytes # (auto) 0.75 K/uL (0.11-0.59); Monocytes % (auto) 13.5 %; Neutrophils # (auto) 3.42 K/uL (1.40-6.50); Neutrophils % (auto) 61.7 %; Platelet Count 276 K/uL (130-400); RDW Coefficient of Variation 15.6 % (11.5-14.5); RDW Standard Deviation 55.1 fL (36.4-46.3); Red Blood Count 2.38 M/uL (4.20-5.40); White Blood Count 5.54 K/ul (4.8-10.8)
[2022-06-16 08:06] LABS: Calcium 7.6 mg/dl (8.5-10.1); Creatinine Clr Calc Pharmacy 97.7 ml/min; Est GFR (African American) 121.8 ml/min; Est GFR (Non-African American) 105.1 ml/min; Potassium 3.6 mmol/L (3.5-5.1)
[2022-06-16 08:25] LABS: Polychromasia 1+; Target Cells 1+
[2022-06-16] MEDS: ASPIRIN 81 MG ECTAB PO SCH (08:40)
[2022-06-16] MEDS: ASCORBIC ACID 500 MG TAB PO SCH (08:40)
[2022-06-16] MEDS: CYANOCOBALAMIN (B-12) 500 MCG TABLET PO SCH (08:40)
[2022-06-16] MEDS: ATORVASTATIN 40 MG TAB PO SCH (08:40)
[2022-06-16] MEDS: APIXABAN 5 MG TABLET PO SCH ×2 (08:40→20:57)
[2022-06-16] MEDS: ACETAMINOPHEN 325 MG TAB PO PRN (08:41)
[2022-06-16] MEDS ORDERED: QUEtiapine FUMARATE 25 MG TABLET PO PRN (14:35)
[2022-06-16] MEDS ORDERED: POLYETHYLENE (MIRALAX) 17 GM PACK PO PRN (15:34)
[2022-06-16] MEDS: POLYETHYLENE (MIRALAX) 17 GM PACK PO SCH (15:45)
--- NOTE | 2022-06-16 16:59 | Hospitalist Progress Note ---
Date of Service June 16, 2022 Assessment & Plan (1) Closed fracture of left hip: Plan: L femoral neck fracture 2/ Fall: Hip xray: Acute displaced left femoral neck fracture. CT C spine, CT head and CXR: no acute findin Aspirin and eliquis are on hold Adequate pain medications, n.p.o. for tonight for possible surgery tomorrow Appreciate Ortho input and recommendation Will have left total hip arthroplasty this afternoon by Dr. Shepard Pain medications as per Ortho-Will need PT and OT evaluation Status post left anterior total hip arthroplasty on 06/14/2022 Will need PT OT evaluation and placement-recommended rehab and she is being accepted to [facility] Hemoglobin is noted to be down at 7.9 Will monitor CBC and PRP if stable she can be discharged to [facility] tomorrow History of hospital psychosis Significant as per the daughter and is requesting psych evaluation We will see her following surgery and may ask for psych evaluation while in the hospital Remains depressed and will ask for psychiatric evaluation Appreciate psych input and recommendation We will add Seroquel 12.5 mg as needed for psychosis and or paranoia (2) Fall: Plan: Likely mechanical fall Likely to need rehab placement (3) Hypokalemia: Plan: Will be replaced Normalized (4) Recurrent deep vein thrombosis (DVT): Plan: Has been on Eliquis On hold for possible surgery tomorrow We will restart Eliquis as per Ortho recommendation Eliquis has been started (5) Chronic pain: Plan: Chronic pain with morphine use: Will continue pts ER morphine 15mg qhs and hold her short active morphine Will do prn 1mg IV morphine q6hr for severe pain No pain at rest (6) Peripheral neuropathy: Plan: PAD with multiple surgeries: -will hold aspirin due to potential surgery -will continue statin (7) Insomnia: Plan: Insomnia and peripheral neuropathy: -continue Gabapentin and remeron qhs Plan COPD: -prn albuterol Diet: Heart healthy, but NPO after MN DVT PPx: acute Hip fracture, NO AC or SCD Code Status: FULL CODE Emergency Contact:Daughter- Maria [phone] Discussed with the daughter Admission and Anticipated Discharge Date Admission Date: June 12, 2022 Subjective 06/13/2022 The patient was seen and examined in medical telemetry unit She has been pleasantly confused but denies any other significant symptoms Complains of pain in the left hip secondary to fracture 12/15/2022 The patient was seen and examined in medical telemetry unit in presence of the daughter She has significant psychosis while in the hospital Still has pain in the left hip but no other acute symptoms We will have surgical repair of the left hip fracture this afternoon 12/16/2022 The patient was seen and examined in medical telemetry unit She is status post left anterior total hip arthroplasty Complains pain in the left hip with movement Remains anxious and looks depressed We will ask for psychiatric evaluation 12/17/2022 The patient was seen and examined in medical telemetry unit She is a status post left anterior total hip arthroplasty on 06/14/2022 Has been stable and denies any significant pain at rest Has been getting physical therapy and is being approved to go to [facility] No more psychosis noted Review of Systems Review of Systems: All systems reviewed and are unremarkable except as noted below Musculoskeletal: Pain in the left hip with movement of the left lower extremity Physical Exam Physical Exam: Lying in bed comfortably Constitutional: + ill appearing and average body habitus Eyes: PERRL, conjunctivae normal, anicteric sclerae ENMT: external ear and nose normal, oropharynx normal Neck: trachea midline, no thyromegaly Respiratory: no respiratory distress Auscultation: lungs clear to auscultation bilaterally Cardiovascular: Rate/Rhythm: regular rate and regular rhythm; not tachycardic Heart Sounds: normal S1 and normal S2; no murmur Extremities: no edema Gastrointestinal (Abdomen): Inspection/Auscultation: normal bowel sounds; abdomen not distended Percussion/Palpation: abdomen soft; abdomen nontender Musculoskeletal: Hip: + hip abnormal to inpsection (Left hip area) and + joint line tenderness (Left hip) Neurologic: Alert, awake. Pleasantly confused. Generally weak Psychiatric: Depressed mood and is anxious. Lymphatic: no cervical or axillary lymphadenopathy Results & Data Results & Data Vital Signs (Past 12 Hours) Vital Signs Temp Pulse Pulse Resp BP Pulse Ox O2 Del Method 06/16/22 16:41 86 06/16/22 15:31 85 06/16/22 15:31 36.9 C 81 18 116/76 96 Room Air 06/16/22 11:31 37.0 C 84 17 101/67 96 Room Air 06/16/22 08:19 36.6 C 77 18 104/54 L 94 Room Air Laboratory Results Short CBC 06/16/22 Range/Units 06:48 WBC 5.54 (4.8-10.8) K/ul Hgb 7.9 L (12.0-16.0) g/dl Hct 23.4 L (37.0-47.0) % Plt Count 276 (130-400) K/uL BMP 06/16/22 06:48 Sodium 145 Potassium 3.6 Chloride 111 H Carbon Dioxide 29 BUN 6 Creatinine 0.46 L Glucose 72 Calcium 7.6 L Medications Administered Current Inpatient Medications Acetaminophen (Acetaminophen 325 Mg Tab) 650 mg PO Q4H PRN PRN Reason: Pain Stop: 07/13/22 18:32 Last Admin: 06/16/22 08:41 Dose: 650 mg Albuterol (Albuterol Hfa 8 Gm Inhaler) 2 puffs INH QID PRN PRN Reason: Shortness Of Breath Or Wheezing Stop: 07/12/22 21:36 Apixaban (Apixaban 5 Mg Tablet) 5 mg PO BID TERENCE Stop: 07/15/22 07:59 Last Admin: 06/16/22 08:40 Dose: 5 mg Ascorbic Acid (Ascorbic Acid 500 Mg Tab) 500 mg PO QAM TERENCE Stop: 07/13/22 08:59 Last Admin: 06/16/22 08:40 Dose: 500 mg Aspirin (Aspirin 81 Mg Ectab) 81 mg PO DAILY TERENCE Stop: 07/15/22 08:59 Last Admin: 06/16/22 08:40 Dose: 81 mg Atorvastatin Calcium (Atorvastatin 40 Mg Tab) 40 mg PO QAM TERENCE Stop: 07/13/22 08:59 Last Admin: 06/16/22 08:40 Dose: 40 mg Cyanocobalamin (Cyanocobalamin (B-12) 500 Mcg Tablet) 1,000 mcg PO QAM TERENCE Stop: 07/13/22 08:59 Last Admin: 06/16/22 08:40 Dose: 1,000 mcg Gabapentin (Gabapentin 300 Mg Cap) 300 mg PO HS TERENCE Stop: 07/12/22 21:36 Last Admin: 06/15/22 20:11 Dose: 300 mg Melatonin (Melatonin 3 Mg Tab) 3 mg PO HS PRN PRN Reason: Sleep Stop: 07/13/22 23:54 Last Admin: 06/15/22 20:11 Dose: 3 mg Mirtazapine (Mirtazapine Tab 15 Mg Tab) 30 mg PO HS TERENCE Stop: 07/12/22 21:36 Last Admin: 06/15/22 21:53 Dose: Not Given Morphine Sulfate (Morphine Sulfate 4 Mg/Ml 1 Ml Carp\Vial) 4 mg IV Q30M PRN PRN Reason: Severe Pain (Rating 7,8,9,10) Stop: 06/26/22 17:02 Last Admin: 06/12/22 19:28 Dose: 4 mg Morphine Sulfate (Morphine Sulfate Cr 15 Mg Tabcr) 15 mg PO HS TERENCE Stop: 06/26/22 21:36 Last Admin: 06/15/22 20:11 Dose: 15 mg Morphine Sulfate (Morphine Sulfate 2 Mg/Ml Carp) 1 mg IV Q6H PRN PRN Reason: Severe Pain (Scale 7, 8, 9,10) Stop: 06/26/22 21:36 Last Admin: 06/16/22 11:46 Dose: 1 mg Polyethylene Glycol (Polyethylene (Miralax) 17 Gm Pack) 17 gm PO DAILY PRN PRN Reason: Constipation Stop: 07/16/22 15:33 Polyethylene Glycol (Polyethylene (Miralax) 17 Gm Pack) 17 gm PO DAILY TERENCE Stop: 07/16/22 15:44 Last Admin: 06/16/22 15:45 Dose: 17 gm Quetiapine Fumarate (Quetiapine Fumarate 25 Mg Tablet) 12.5 mg PO HS PRN PRN Reason: Agitation Stop: 07/16/22 20:59 (1) Closed fracture of left hip Encounter type: initial encounter Qualified Code(s): S72.002A - Fracture of unspecified part of neck of left femur, initial encounter for closed fracture (2) Fall Encounter type: initial encounter Qualified Code(s): W19.XXXA - Unspecified fall, initial encounter
[2022-06-16] MEDS: MoRPHine SULFATE CR 15 MG TABCR PO SCH (20:57)
[2022-06-16] MEDS: MIRTAZAPINE TAB 15 MG TAB PO SCH (20:59)
[2022-06-16] MEDS: GABAPENTIN 300 MG CAP PO SCH (20:59)
[2022-06-16] MEDS: MELATONIN 3 MG TAB PO PRN (20:59)
[2022-06-17 07:24] LABS: Basophils # (auto) 0.06 K/uL (0-0.2); Basophils % (auto) 1.2 %; Eosinophils % (auto) 3.9 %; Hematocrit (blood only) 23.7 % (37.0-47.0); Immature Granulocytes # (auto) 0.12 K/uL (0.01-0.20); Immature Granulocytes % (auto) 2.3 %; Lymphocytes # (auto) 1.26 K/uL (1.2-3.4); Lymphocytes % (auto) 24.7 %; Mean Corpuscular Hemoglobin 33.3 pg (25.0-34.0); Mean Corpuscular Hgb Conc 33.8 g/dL (32.0-36.0); Mean Corpuscular Volume 98.8 fL (80.0-100.0); Mean Platelet Volume 10.6 fL (9.4-12.4); Monocytes # (auto) 0.79 K/uL (0.11-0.59); Monocytes % (auto) 15.5 %; Neutrophils # (auto) 2.68 K/uL (1.40-6.50); Neutrophils % (auto) 52.4 %; Platelet Count 274 K/uL (130-400); RDW Coefficient of Variation 14.9 % (11.5-14.5); RDW Standard Deviation 53.8 fL (36.4-46.3); White Blood Count 5.11 K/ul (4.8-10.8)
[2022-06-17 07:40] LABS: BUN Creatinine Ratio 14.9 (10-20); Calcium 7.6 mg/dl (8.6-10.3); Creatinine Clr Calc Pharmacy 95.6 ml/min; Est GFR (Non-African American) 104.4 ml/min; Potassium 3.6 mmol/L (3.5-5.1)
[2022-06-17] MEDS: ASPIRIN 81 MG ECTAB PO SCH (09:07)
[2022-06-17] MEDS: CYANOCOBALAMIN (B-12) 500 MCG TABLET PO SCH (09:07)
[2022-06-17] MEDS: ASCORBIC ACID 500 MG TAB PO SCH (09:07)
[2022-06-17] MEDS: APIXABAN 5 MG TABLET PO SCH (09:07)
[2022-06-17] MEDS: POLYETHYLENE (MIRALAX) 17 GM PACK PO SCH (09:10)
[2022-06-17] MEDS ORDERED: oxyCODONE/ACETAMINOPHEN 5mg/325mg TAB PO PRN (09:16)
[2022-06-17] MEDS: ATORVASTATIN 40 MG TAB PO SCH (10:04)
--- NOTE | 2022-06-17 11:36 | Discharge Summary ---
Date of Service June 17, 2022 Admission HPI Per Admitting Provider Pt is a 62 y/o F with hx of COPD, HTN, HLD, PAD with multiple surgery, recurrent DVT on eliquis, chronic morphine use, MTFHR mutation, Depression, anxiety came to the ER after a mechanical fall. Pt fell at her home and hit her L side. Denied any LOC or head trauma or prodromal symptoms. At bedside: pt complained of L leg pain. Denied any N/V or CURRY or dizziness. Denied any hx of MT or CVA. Has tolerated Gen anesthesia in the past Ortho aware of the pt. Admission Exam Per Admitting Provider General:.NAD, well developed, well nourished, average body habitus HEENT:.Normocephalic and atraumatic, Normal Conjunctiva, EOMI, Sclera is non- icteric Lungs:.No signs of respiratory distress, CTA, no wheezing or crackles Heart:.Normal S1, S2, no murmur Abdominal:.ND, Soft, NT MSK:externally rotated L leg, no swelling near the L hip area but TTP, RLE: mild pitting edema with multiple scars Psych:.AAOx3, normal affect Principal Diagnosis Closed fracture of left hip status post left anterior total hip arthroplasty 06/14/2022 History of hospital psychosis Fall History of recurrent DVT Discharge Exam GENERAL: Alert and oriented x3. NAD, on RA. Sitting up at the side of the bed. generally weak. appears older than stated age. Anxious appearing. HEENT: No pallor, no icterus. Pupils equal, round and reactive to light. Oral mucosa moist. NECK: No JVD, no neck masses. HEART: S1 and S2 heard. Regular rate and rhythm. No murmur, no gallop. RESPIRATORY SYSTEM: Normal AP diameter. No accessory muscle use. No wheezing, no crackles. ABDOMEN: Soft, bowel sounds present, nontender, no distention. CENTRAL NERVOUS SYSTEM: No facial droop. Speech is clear. Obeys simple commands. Moves extremities. EXTREMITIES: No edema, no erythema seen. lt hip w/ c/d/i dressing, no bruise or erythema noted. Discharge Data Allergies Allergy/AdvReac Type Severity Reaction Status Date / Time vitamin K2 Allergy Severe SOB CHEST Verified 06/12/22 19:16 PAIN SHAKING Consultations 06/15/22 11:26 Consult Psychiatry Routine Procedures Performed Operation Date: 06/14/22 07:00 Actual Procedures p Left Anterior Total Hip Arthroplasty(Left) - Alberto Shepard, Ordered Studies 06/12/22 17:03 CT cervical spine wo con Stat CT head/brain wo con Stat 06/14/22 14:30 FL hip LT 1V Routine Hospital Course (1) Status post left hip replacement: Plan 62-year-old lady was managed for closed fracture of left hip with left anterior total hip arthroplasty on 06/14/[address] Alberto Shepard. Patient is undergoing physical therapy and has been utilizing pain medication. Patient reports moderate pain at left hip, patient to continue to use pain medication and continue to follow with physical therapy. Patient to follow-up with PCP on discharge. Patient to follow-up with orthopedics in 2 weeks upon discharge. Hemoglobin has been stable. Because of the given history of hospital psychosis, will discharge her with as needed Seroquel for psychosis and/or paranoia. Her home medication has been resumed as prior. She will be discharged to [facility] with following instruction at the point of discharge: Follow-up with your primary care physician within a week time and likely you will need labs CBC/CMP/magnesium. Continue with your physical therapy, follow-up with orthopedics in 2 weeks upon discharge. You will be discharged on few days worth of pain medication, if your pain does not resolve or it continues to worsen, then you will need further evaluation either by your PCP or your orthopedics. Take OTC laxatives while on opiates pain medications. Take your medications as prescribed. Home Health Attestation I certify that this patient is under my care and that I, or a physicians household assistant working with me, had a face to-face encounter that meets the home health hehd-gp-sric encounter requirements with this patient. The encounter with the patient was in whole, or in part, for the following medical condition, which is the primary reason for home health care (list medi rebekah condition): I certify that, based on my findings, the following services are medically necessary home health services: My clinical findings support the need for the above services because: Further, I certify that my clinical findings support that this patient is homebound (i.e. absences from home require considerable and taxing effort and are for medical reasons or yazdanism services or infrequently or of short duration when for other reasons) because: Certification for Home Health Services: Based on the above findings, I certify that this patient is confined to the home and needs intermittent detention care, physical therapy and/or speech ther apy or continues to need occupational therapy. The patient is under my care, and I have initiated the establishment of the plan of care. This patient will be followed by a physician who will periodically review the plan of care. Total Time Total Time Spent Total Time Spent (In Minutes): 50 Discharge Plan Discharge Items Patient Disposition: Transfer Inpatient Rehab Fac Reason For Visit: FRACTURE Discharge Diagnosis: Closed fracture of left hip status post left anterior total hip arthroplasty 06/14/2022 History of hospital psychosis Fall History of recurrent DVT Condition on Discharge: Fair Activity: As commented below Non-emergency contact: Primary Care Provider Call non-emergency contact if: you have any medication questions Follow-up/Referrals: Pieter Benavides MD [Primary Care Provider] - Diet: Heart Healthy Georgie Attending Provider Instructions: Follow-up with your primary care physician within a week time and likely you will need labs CBC/CMP/magnesium. Continue with your physical therapy, follow-up with orthopedics in 2 weeks upon discharge. You will be discharged on few days worth of pain medication, if your pain does not resolve or it continues to worsen, then you will need further evaluation either by your PCP or your orthopedics. Take OTC laxatives while on opiates pain medications. Take your medications as prescribed. 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 Do these exercises three times each day including the exercises you were shown in physical therapy. * Get up and walk several times each day.~ For the first four weeks, try not to stand or walk for more than one hour at a time. If you do stand or walk for more than one hour, you will not hurt anything, but your leg will likely swell.~~ * As you feel comfortable, you may change from the walker or crutches to a cane and~then to independent walking. Medications: * Continue your Eliquis as prescribed * Other medications may be prescribed for specific circumstances. If you have any questions, please call the office at . * Resume previous home medications unless otherwise instructed TEDs/Elastic Stockings: The white elastic stockings help limit swelling and prevent blood clots from forming in your legs. The more you wear them, the more they work. Wear them for six weeks. Dressing Care: Leave the Silverlon dressing in place for 7 days. After 7 days you may remove the dressing. If the incision is not draining then you may leave the fanny open to air. If there is a little bit of drainage or if the fanny are getting stuck on your clothing then cover the incision with a dry dressing. The fanny will be removed at your 2 week follow-up appointment. Showering: You may shower with the Silverlon dressing in place. Do not let the shower spray hit the dressing directly. Pat the Silverlon dressing dry. If the dressing becomes wet underneath, then simply remove the dressing. Keep the incision dry until you are 7 days out from the day of surgery. After 7 days you may remove the Silverlon dressing and shower with the fanny exposed. Let soapy water run over the fanny and pat them dry. Do not scrub or soak the incision. Things To Watch For: * Drainage from the incision site that occurs more than one week after your surgery. * Increased redness at the incision site. * Fever above 102 degrees Fahrenheit. * Unusual chest pain or shortness of breath. * Call [facility] at with any of the above problems Follow-Up Visit: Follow-up with Dr. Shepard's PA (Alberto Sauceda) 2-3 weeks after your day of surgery. He will remove your fanny and answer any questions. If you have any additional questions or concerns, Dr Shepard is usually in the office at the same time and will be available Please call the office to set up an appointment for a time that works for you. [phone]. Pending Studies at Discharge: No Stand-Alone Forms: My [facility] Skilled Items Patient informed of condition?: Yes DNR: No Discharge Level of Care: Acute rehab Communicable Disease: No Discharge Prognosis: Stable Lines: None Urinary Catheter: No Medications and DC Order Prescriptions: New quetiapine 25 mg Tablet 12.5 mg PO HS PRN (Reason: delirium w/ psychosis) Qty: 30 0RF oxycodone-acetaminophen [Percocet] 5-325 mg Tablet 1 tab PO Q4H PRN (Reason: moderate to severe pain) Qty: 24 0RF polyethylene glycol 3350 [Miralax] 17 gram Powder In Packet 17 g PO DAILY PRN (Reason: laxative effect) Qty: 30 0RF melatonin 3 mg Tablet 3 mg PO HS PRN (Reason: sleep) Qty: 30 0RF Continued atorvastatin 40 mg Tablet 40 mg PO QAM ascorbic acid (vitamin C) 500 mg Capsule 500 mg PO QAM cyanocobalamin (vitamin B-12) [Vitamin B-12] 1,000 mcg Tablet 1,000 mcg PO QAM Medical Marijuanas ~ Oil Vape 0 inh inhalation UD mirtazapine 30 mg tablet 30 mg PO HS albuterol sulfate 90 mcg/actuation HFA aerosol inhaler 2 puff INHALATION QID PRN (Reason: Shortness Of Breath Or Wheezing) gabapentin 300 mg capsule 300 mg PO HS Qty: 30 0RF morphine 15 mg Tablet Extended Release 15 mg PO HS Qty: 10 0RF morphine 15 mg tablet 15 mg PO BID PRN (Reason: Severe Pain (Scale Score 7-10)) Eliquis 5 mg tablet 5 mg PO BID aspirin 81 mg Capsule 81 mg PO DAILY Discharge Orders: Discharge Order (Routine); Ordered 06/17/22 Ordered By: Jose Cates Admission Data Admit Date/Time: 06/12/22 19:08 Attending Provider: Jose Cates Admit Provider: Leonel Sanchez Primary Care Provider: Pieter Benavides Other Providers: Leonel Sanchez ; [facility] ; [place] ; [facility] ; Velia Maddox ; Chelle Aaron ; Uche Dacosta
== END 2022-06-17 15:40 | DRG 522 ==
LOC: ED 16:52 → SUATTDRO 19:08 → EDINP 19:08 → 2W 22:22

== ENCOUNTER 2024-07-23 15:34 | Inpatient (IN) ==
[2024-07-23 16:15] LABS: Basophils # (auto) 0.05 K/uL (0.00-0.20); Basophils % (auto) 0.7 %; Eosinophils # (auto) 0.12 K/uL (0.00-0.50); Eosinophils % (auto) 1.7 %; Hematocrit (blood only) 28.4 % (37.0-47.0); Hemoglobin 9.6 g/dl (12.0-16.0); Immature Granulocytes # (auto) 0.09 K/uL (0.01-0.20); Immature Granulocytes % (auto) 1.3 %; Lymphocytes # (auto) 0.66 K/uL (1.20-3.40); Lymphocytes % (auto) 9.5 %; Mean Corpuscular Hemoglobin 31.1 pg (25.0-34.0); Mean Corpuscular Hgb Conc 33.8 g/dL (32.0-36.0); Mean Corpuscular Volume 91.9 fL (80.0-100.0); Monocytes % (auto) 11.6 %; Neutrophils % (auto) 75.2 %; Platelet Count 240 K/uL (130-400); RDW Coefficient of Variation 17.2 % (11.5-14.5); Red Blood Count 3.09 M/uL (4.20-5.40); White Blood Count 6.92 K/ul (4.8-10.8)
--- NOTE | 2024-07-23 16:38 | Emergency Department Note ---
Impression & Plan Acute renal failure, Abnormal LFTs, Elevated troponin I level, Pneumonia, Anemia, Fracture, ribs ED Provider Note NAME: ELVIE GUERRA AGE: 64 SEX: F : 1960 ARRIVES VIA: Ambulance INFORMANT: Patient, the patient's family member ED PROVIDER(S): Angel Fox DO CHIEF COMPLAINT: Weakness HPI: The patient is a 64-year-old female who presented to the emergency department with family for an evaluation of weakness. The patient had laboratory studies done recently with her family doctor. She was called and told to come to the emergency department because of abnormal liver function. The patient also had abnormal kidney function. The patient has been using Tylenol for pain. She was seen here 9 days ago and diagnosed with multiple rib fractures. She presents emergency department today at the request of her family doctor. She denies having any decreased urine output. She denies having any new chest pain. She denies having any back pain or lower extremity pain. ROS: See above HPI for pertinent positives & negatives. A total of 10 systems reviewed and were otherwise negative. PAST MEDICAL HISTORY: See Below PAST SURGICAL HISTORY: See Below FAMILY HISTORY: See Below SOCIAL HISTORY: See Below HOME MEDICATIONS: See Below ALLERGIES: See Below VITALS: See Below PHYSICAL EXAMINATION: GENERAL: Patient is awake alert in no acute distress patient is resting comfortably and showing no signs of anxiety EYES: The conjunctivae are clear. The pupils are round and reactive. EARS, NOSE, MOUTH AND THROAT: The nose is without any evidence of any deformity. Mucous membranes are moist. Tongue is midline. NECK: The neck is nontender and supple. RESPIRATORY: Diminished breath sounds are noted throughout. There are rales at both bases. CARDIOVASCULAR: Regular rate and rhythm noted there no murmurs rubs or gallops normal S1 normal S2. GASTROINTESTINAL: The abdomen is soft. Abdomen is nontender. MUSCULOSKELETAL/EXTREMITIES: There is no evidence of gross deformity full range of motion is noted in the hips and shoulders. SKIN: There is no obvious evidence of any rash. There are no petechiae, pallor or cyanosis noted. NEUROLOGIC: Patient is awake alert and oriented to person place and situation. The patient's strength is symmetric. MEDICAL DECISION MAKING: The patient is a 64-year-old female who presented to the emergency department with family for an evaluation. The patient was recently seen in our facility 9 days ago. She had a fall and suffered multiple rib fractures. She came to the emergency department today because of abnormal laboratory studies that were done by her primary care physician. She was found to have signs of acute renal failure. I discussed the patient's laboratory and radiographic studies with her. She was treated with IV fluids as well as IV antibiotics. She was reevaluated multiple times. The patient did not have significant urine output. I discussed her condition with the on-call [facility] hospitalist. They have agreed to evaluate the patient in the emergency department for further management and disposition. Triage Nursing notes reviewed. Prior medical records reviewed Vital Signs: reviewed and remarkable for no significant abnormalities Differential diagnosis: Infection, dehydration, metabolic abnormality, hypo/hyperglycemia, electrolyte disturbance, anemia, hypoxia, cardiac sources, intracerebral event, toxicologic, neurologic, as well as other pathologies. ER treatment provided: See below Diagnostics interpreted by me: ECG: EKG was obtained in the emergency department. My interpretation is normal sinus rhythm at 92 bpm. There was no ectopy. There was no acute ST segment abnormalities noted. QTc was 447 ms. Cardiac Monitoring: An order was placed for continuous cardiac monitoring. The monitor shows a rate of 94 bpm with sinus rhythm. Laboratory studies: As stated above and show below. Imaging studies: See below. Radiographic imaging was reviewed by myself Consultation(s): I discussed this case with Dr. Rizvi who is on-call for the [facility]. Past Med/Surg History Problem List (Updated 07/23/24 @ 18:18 by Angel Fox DO) Fracture, ribs (Acute) Anemia (Acute) Pneumonia (Acute) Elevated troponin I level (Acute) Abnormal LFTs (Acute) Acute renal failure (Acute) Hypokalemia (Acute) Fracture of rib (Acute) B12 deficiency Vitamin D deficiency Alcohol use Small vessel disease, cerebrovascular Cognitive impairment Delirium Status post left hip replacement (~05/2022) Insomnia Coagulopathy (Acute) Fall (Acute) Hypokalemia (Acute) Closed fracture of left hip (Acute) COPD exacerbation (Acute) Supratherapeutic INR (Acute) Hypomagnesemia Tobacco use Prolonged QT interval Recurrent deep vein thrombosis (DVT) Bronchitis Encephalopathy Nausea & vomiting (Acute) Generalized weakness (Acute) Acute confusion (Acute) Chronic pain Encounter for pre-operative examination Encounter for pre-operative examination Peripheral neuropathy Encounter for pre-operative examination Weight loss Depression Protein-calorie malnutrition, severe Abdominal pain Subtherapeutic anticoagulation (Acute) Severe arterial insufficiency of right lower extremity (Acute) Hypotension (Acute) Headache disorder (Chronic) Embolism and thrombosis of arteries of lower extremities (Acute) Cellulitis of right foot (Acute) Arterial occlusion, lower extremity (Acute) PAD (peripheral artery disease) Cellulitis of foot (Acute) Foot pain (Acute) Arterial thromboembolism (Acute 03/12/14) Acute headache (Acute) Hip pain, right (Acute) Fall at home (Acute) Supratherapeutic INR (Acute) Medical History Vitamin D insufficiency Depression MTHFR gene mutation PVD (peripheral vascular disease) Unstable angina Chest pain Tobacco abuse HLD (hyperlipidemia) DVT prophylaxis MDD (major depressive disorder) Angina at rest Peptic ulcer disease CURRENT GERD (gastroesophageal reflux disease) Chronic back pain Degenerative disc disease Osteoarthritis Diverticular disease Factor 5 Leiden mutation, heterozygous Migraine Deep vein thrombosis (2016) FEMORAL BYPASS IN BILATERAL LEGS History of MTHFR mutation Depression COPD (chronic obstructive pulmonary disease) NO PROBLEMS Peripheral vascular disease Fibromyalgia Peripheral vascular disease MTHFR mutation COPD (chronic obstructive pulmonary disease) Deep vein thrombosis Surgical History History of right cataract extraction H/O surgical biopsy VAGINAL BIOPSY History of esophagogastroduodenoscopy (EGD) EGD 12/23/2017. Sedation no issues. History of colonoscopy History of arthroscopy LEFT SHOULDER H/O vascular surgery MULTIPLE BILATERAL LEG SURGERIES History of section X1 History of cholecystectomy LAP History of nasal septoplasty History of tonsillectomy Family History Mother PAD (peripheral artery disease) Arthritis Gastrointestinal disorder Father Heart disease Sister Arthritis Depression Deep vein thrombosis Brother Sepsis Other Coronary heart disease Social History Smoking Status: Current every day smoker Tobacco Type: Cigarettes Cigarettes Per Day: 30; Second Hand Exposure: No; Do You Dip or Chew Tobacco: No; Hx Alcohol Use: Yes Alcohol type: beer, wine and hard liquor Hx Substance Use: No Preferred Language: Citizen Of [place] Communication Ability: Unable Sap [employer] Developer Required: No Beliefs That Will Affect Care: None Current Living Situation: Alone Feels Safe at Home: Yes Assistive Devices: None Allergies Allergies Allergy/AdvReac Type Severity Reaction Status Date / Time menaquinone-7 (vitamin K2) Allergy Severe SOB CHEST Verified 07/23/24 18:08 [vitamin K2] PAIN SHAKING Home Meds Home Medications Medication Instructions Recorded Confirmed atorvastatin 40 mg tablet 40 mg PO QAM 09/13/18 07/23/24 Medical Marijuanas ~ Oil Vape 1 inh inhalation DIRECTED PRN 07/30/20 07/23/24 Unknown mirtazapine 30 mg tablet 30 mg PO HS 05/30/22 07/23/24 apixaban 5 mg tablet (Eliquis) 5 mg PO BID 06/12/22 07/23/24 duloxetine 30 mg capsule,delayed 60 mg PO DAILY 09/21/23 07/23/24 release aspirin 81 mg tablet,delayed 81 mg PO QAM 07/14/24 07/23/24 release Previous Rx's Medication Instructions Recorded polyethylene glycol 3350 17 gram 17 g PO DAILY PRN laxative effect 06/17/22 oral powder packet (Miralax) #30 ea memantine 10 mg tablet 10 mg PO BID #60 tabs 09/21/23 gabapentin 600 mg tablet 600 mg PO BID #60 tabs 09/26/23 lidocaine 4 % topical patch 1 patch topical DAILY PRN pain #5 07/14/24 (Lidocaine Pain Relief) ea Results & Data (ED) Vital Signs Vital Signs - 24 hr 07/23/24 15:40 07/23/24 16:32 Temperature 36.7 C Temperature Source Oral Pulse Rate 95 H 94 H Respiratory Rate 22 Blood Pressure 136/73 Blood Pressure Mean 94 Pulse Oximetry 96 Oxygen Delivery Method Room Air Sepsis Recent Fever Within 48 Hours No Sepsis New/Unexplained Change in Mental Status N/A Sepsis Action Taken by Nursing No Action Required Home Medications Current Medication List: was personally reviewed by me Laboratory Data Attestation: I reviewed the patient's lab results. 07/23/24 15:52 07/23/24 15:52 Lab Results 07/23/24 07/23/24 Range/Units 15:52 17:26 WBC 6.92 (4.8-10.8) K/ul RBC 3.09 L (4.20-5.40) M/uL Hgb 9.6 L (12.0-16.0) g/dl Hct 28.4 L (37.0-47.0) % MCV 91.9 (80.0-100.0) fL MCH 31.1 (25.0-34.0) pg MCHC 33.8 (32.0-36.0) g/dL RDW Std Deviation 51.0 H (36.4-46.3) fL RDW Coeff of Shaun 17.2 H (11.5-14.5) % Plt Count 240 (130-400) K/uL MPV 11.0 (9.4-12.4) fL Immature Gran % (Auto) 1.3 % Neut % (Auto) 75.2 % Lymph % (Auto) 9.5 % [place] % (Auto) 11.6 % Eos % (Auto) 1.7 % Baso % (Auto) 0.7 % Neut # (Auto) 5.20 (1.40-6.50) K/uL Lymph # (Auto) 0.66 L (1.20-3.40) K/uL [place] # (Auto) 0.80 H (0.11-0.59) K/uL Eos # (Auto) 0.12 (0.00-0.50) K/uL Baso # (Auto) 0.05 (0.00-0.20) K/uL Immature Gran # (Auto) 0.09 (0.01-0.20) K/uL PT 11.7 (9.0-12.0) Seconds INR 1.1 (0.9-1.1) APTT 27 (21-31) Seconds PTT Ratio 1.0 Sodium 131 L (136-145) mmol/L Potassium 4.3 (3.5-5.1) mmol/L Chloride 93 L (98-107) mmol/L Carbon Dioxide 19 L (21-32) mmol/L Anion Gap 19 H (3-11) BUN 97 H (6-23) mg/dl Creatinine 8.68 H* (0.6-1.2) mg/dl Est Cr Clr Drug Dosing 5.3 ml/min eGFR 4.65 BUN/Creatinine Ratio 11.2 (10-20) Glucose 75 (70-99(Fasting)) mg/dl Calcium 8.7 (8.6-10.3) mg/dl Total Bilirubin 1.7 H (0.2-1.0) mg/dl AST 209 H (13-39) U/L ALT 640 H (7-52) U/L Alkaline Phosphatase 455 H (34-104) U/L Troponin I High Sens 22.5 H (0-14) pg/ml Total Protein 6.4 (6.0-8.3) gm/dl Albumin 3.2 L (3.4-5.0) gm/dl Globulin 3.2 (2.5-4.0) gm/dl Albumin/Globulin Ratio 1.0 (0.9-2) Lipase 33 (11-82) U/L Urine Color Yellow Urine Appearance Cloudy A (Clear) Urine pH 5.0 (4.5-7.5) Ur Specific [place] 1.011 (1.000-1.030) Urine Protein Trace H (Negative) Urine Glucose (UA) Negative (Negative) Urine Ketones Trace H (Negative) Urine Blood Trace H (Negative) Urine Nitrite Negative (Negative) Urine Bilirubin Negative (Negative) Urine Urobilinogen Negative (Negative) Ur Leukocyte Esterase Trace H (Negative) Urine WBC (Auto) 6-10 H (0-5) /hpf Urine RBC (Auto) 3-5 H (0-2) /hpf U Hyaline Cast (Auto) 6-10 H (0-2) /lpf U Epithel Cells (Auto) >20 H (0-2) /hpf Urine Bacteria (Auto) 2+ H (None Seen) Salicylates < 3.0 L (3.0-30) mg/dl Acetaminophen < 3 L (10-30) ug/ml Administered Medications Sodium Chloride (Nss) 1,000 mls @ 999 mls/hr IV .Q1H1M ONE Stop: 07/23/24 18:38 Last Admin: 07/23/24 18:24 Dose: 999 mls/hr Documented By: INÉS Discontinued Medications Lidocaine HCl (Lidocaine 2% Jelly 5 Ml Tube) Confirm Administered Dose 5 ml EXT .STK-MED ONE Stop: 07/23/24 17:15 Last Admin: 07/23/24 17:29 Dose: 5 ml Documented By: INÉS Imaging Data Attestation: I personally reviewed and interpreted this imaging study as follows: My Impression: 1 view chest x-ray was obtained in the emergency department. My interpretation is elevation and atelectasis at the left base, there is no free air, final report below. CT of the abdomen pelvis was obtained in the emergency department. My interpretation is no free air or signs of bowel obstruction, final report below. CT of the chest was obtained in the emergency department. My interpretation is no free air, atelectasis and infiltrate noted at the right base, final report below. Radiologist's Impression: Chest X-Ray 07/23/24 16:30 Chest radiograph, one view History: Weakness Comparison: July 14, 2024 Findings: Single AP view of the chest performed. Continued opacity of the left lung base obscuring the costophrenic angle. Subtle streaky right basilar opacity. No pneumothorax. The cardiomediastinal silhouette is within normal limits. Normal pulmonary vascularity. No evidence for lymphadenopathy. Left rib fractures are partially seen. Impression: Continued bibasilar opacity, left greater than right, compatible with atelectasis. Left rib fractures. Electronically signed by Reilly Angela 07-23-2024 4:53 PM Abdomen/Pelvis CT 07/23/24 16:33 Clinical History: Acute renal failure Technique: Axial computed tomography images were obtained of the abdomen and pelvis without intravenous contrast. Comparison is made to the prior CT dated 07/14/2024 Findings: The liver is overall of normal size, attenuation, and contour with no sign of cirrhosis or significant fatty infiltration. No definite liver mass lesion is seen on this noncontrast study. The gallbladder appears unremarkable. No bile duct dilatation is noted. The spleen is of normal size. No focal splenic lesion is evident. The pancreas appears normal with no sign of acute or chronic pancreatitis and no mass lesion noted. The pancreatic duct is of normal caliber. The adrenal glands appear unremarkable. No renal or proximal ureteral calculi are seen. There is no hydronephrosis or perinephric stranding. No definite renal mass lesion is identified. The abdominal aorta is of normal caliber. No abdominal adenopathy is seen. There is a small hiatal hernia. There is no sign of small bowel obstruction. There is diverticulosis with possible acute diverticulitis of the descending colon. No free intraperitoneal air is identified. There is a new small amount of ascites No distal ureteral or bladder calculi are seen. No obvious bladder mass lesion is evident. The iliac arteries are of normal caliber. No pelvic adenopathy is noted. Lumbar scoliosis and degenerative disc disease is seen. There is a left hip replacement. No fracture is identified. No focal osseous lesion is seen Impression: 1. New small amount of ascites 2. Diverticulosis with suspected mild acute diverticulitis ACT 112: Positive. There are findings on this exam that require communication between the performing entity and the patient following Patient Test Result [place] Act ([place] ACT 112) guidelines. Electronically signed by Edi Tai 07-23-2024 5:[address] 07/23/24 16:36 Clinical history: Acute renal failure Technique: Axial computed tomography images were obtained of the chest without intravenous contrast Comparison is made to the prior CT dated 07/14/2024 Findings: There is an unchanged 3-4 mm noncalcified right upper lobe nodule. Bilateral lower lobe and linear atelectasis is again seen, worsened in the left lower lobe. There is a small left pleural effusion, increased in size. There is no right pleural effusion or pneumothorax. There are new multifocal groundglass and centrilobular interstitial opacities in the right upper lobe adjacent to the right minor fissure and also in the right middle lobe. This is concerning for bronchopneumonia. There is mild emphysema There is no mediastinal, hilar, or axillary adenopathy. The thoracic aorta is of normal caliber. There is no pericardial effusion. There is coronary atherosclerosis There are unchanged acute/subacute fractures of the left posterior ninth, 10th, and 11th ribs. There are unchanged old right rib fractures. There is thoracic scoliosis and degenerative disc disease. No focal osseous lesion is evident Impression: 1. Unchanged left rib fractures. No pneumothorax is seen 2. Increased small left pleural effusion 3. Suspected new mild right lung bronchopneumonia 4. Worsened lung base atelectasis 5. Emphysema 6. Coronary atherosclerosis ACT 112: Positive. There are findings on this exam that require communication between the performing entity and the patient following Patient Test Result Information Act ([place] ACT 112) guidelines. Electronically signed by Edi Tai 07-23-2024 5:[address] 07/23/24 16:39 Technique: Axial computed tomography images were obtained of the brain without intravenous contrast. Findings: There is diffuse cerebral atrophy, within expected limits for the patient's age. Areas of decreased attenuation are seen within the periventricular white matter, likely representing chronic small vessel ischemic disease. There is no definite sign of acute or old infarction. No intracranial hemorrhage is evident. No definite mass lesion is seen on this noncontrast examination. There is no midline shift or other form of herniation. No hydrocephalus is seen. No fracture is identified. The orbits and the visualized paranasal sinuses appear unremarkable. The mastoid air cells appear clear. Impression: 1. Cerebral atrophy and chronic small vessel ischemic disease 2. Otherwise unremarkable noncontrast CT of the brain Electronically signed by Edi Tai 07-23-2024 5:22 PM Discharge Plan Visit Data Chief Complaint: Abnormal Labs/Diagnostic Testing ED Provider: Angel Fox Discharge Problem: Acute renal failure, Abnormal LFTs, Elevated troponin I level, Pneumonia, Anemia, Fracture, ribs Patient Disposition: Being Evaluated by Hospitalist Forms Stand Alone Forms: My [facility] Prescriptions Prescriptions: No Action gabapentin 600 mg tablet 600 mg PO BID Qty: 60 5RF duloxetine 30 mg capsule,delayed release(DR/EC) 60 mg PO DAILY memantine 10 mg tablet 10 mg PO BID Qty: 60 5RF atorvastatin 40 mg Tablet 40 mg PO QAM Medical Marijuanas ~ Oil Vape 1 inh inhalation DIRECTED PRN (Reason: Unknown) mirtazapine 30 mg tablet 30 mg PO HS Eliquis 5 mg tablet 5 mg PO BID polyethylene glycol 3350 [Miralax] 17 gram Powder In Packet 17 g PO DAILY PRN (Reason: laxative effect) Qty: 30 0RF aspirin 81 mg tablet,delayed release (DR/EC) 81 mg PO QAM lidocaine [Lidocaine Pain Relief] 4 % adhesive patch,medicated 1 patch topical DAILY PRN (Reason: pain) Qty: 5 0RF Rx Instructions: may leave on for up to 12 hrs Referrals Referrals: Pieter Benavides MD [Primary Care Provider] -
[2024-07-23 16:53] LABS: Albumin Level 3.2 gm/dl (3.4-5.0); BUN Creatinine Ratio 11.2 (10-20); Bilirubin,Total 1.7 mg/dl (0.2-1.0); Calcium 8.7 mg/dl (8.6-10.3); Creatinine Clr Calc Pharmacy 5.3 ml/min; Globulin 3.2 gm/dl (2.5-4.0); Potassium 4.3 mmol/L (3.5-5.1); Total Protein 6.4 gm/dl (6.0-8.3)
--- NOTE | 2024-07-23 16:58 | XRay Report ---
Chest radiograph, one view History: Weakness Comparison: July 14, 2024 Findings: Single AP view of the chest performed. Continued opacity of the left lung base obscuring the costophrenic angle. Subtle streaky right basilar opacity. No pneumothorax. The cardiomediastinal silhouette is within normal limits. Normal pulmonary vascularity. No evidence for lymphadenopathy. Left rib fractures are partially seen. Impression: Continued bibasilar opacity, left greater than right, compatible with atelectasis. Left rib fractures. Electronically signed by Reilly Angela 07-23-2024 4:53 PM
[2024-07-23 17:13] LABS: Troponin I High Sensitivity 22.5 pg/ml (0-14)
[2024-07-23 17:18] LABS: Acetaminophen < 3 ug/ml (10-30); Salicylate < 3.0 mg/dl (3.0-30)
--- NOTE | 2024-07-23 17:23 | CT Scan Report ---
Technique: Axial computed tomography images were obtained of the brain without intravenous contrast. Findings: There is diffuse cerebral atrophy, within expected limits for the patient's age. Areas of decreased attenuation are seen within the periventricular white matter, likely representing chronic small vessel ischemic disease. There is no definite sign of acute or old infarction. No intracranial hemorrhage is evident. No definite mass lesion is seen on this noncontrast examination. There is no midline shift or other form of herniation. No hydrocephalus is seen. No fracture is identified. The orbits and the visualized paranasal sinuses appear unremarkable. The mastoid air cells appear clear. Impression: 1. Cerebral atrophy and chronic small vessel ischemic disease 2. Otherwise unremarkable noncontrast CT of the brain Electronically signed by Edi Tai 07-23-2024 5:22 PM
[2024-07-23] MEDS: LIDOCAINE 2% JELLY 5 ML TUBE EXT ONE (17:29)
--- NOTE | 2024-07-23 17:29 | CT Scan Report ---
Clinical history: Acute renal failure Technique: Axial computed tomography images were obtained of the chest without intravenous contrast Comparison is made to the prior CT dated 07/14/2024 Findings: There is an unchanged 3-4 mm noncalcified right upper lobe nodule. Bilateral lower lobe and linear atelectasis is again seen, worsened in the left lower lobe. There is a small left pleural effusion, increased in size. There is no right pleural effusion or pneumothorax. There are new multifocal groundglass and centrilobular interstitial opacities in the right upper lobe adjacent to the right minor fissure and also in the right middle lobe. This is concerning for bronchopneumonia. There is mild emphysema There is no mediastinal, hilar, or axillary adenopathy. The thoracic aorta is of normal caliber. There is no pericardial effusion. There is coronary atherosclerosis There are unchanged acute/subacute fractures of the left posterior ninth, 10th, and 11th ribs. There are unchanged old right rib fractures. There is thoracic scoliosis and degenerative disc disease. No focal osseous lesion is evident Impression: 1. Unchanged left rib fractures. No pneumothorax is seen 2. Increased small left pleural effusion 3. Suspected new mild right lung bronchopneumonia 4. Worsened lung base atelectasis 5. Emphysema 6. Coronary atherosclerosis ACT 112: Positive. There are findings on this exam that require communication between the performing entity and the patient following Patient Test Result Information Act ([place] ACT 112) guidelines. Electronically signed by Edi Tai 07-23-2024 5:29 PM
--- NOTE | 2024-07-23 17:34 | CT Scan Report ---
Clinical History: Acute renal failure Technique: Axial computed tomography images were obtained of the abdomen and pelvis without intravenous contrast. Comparison is made to the prior CT dated 07/14/2024 Findings: The liver is overall of normal size, attenuation, and contour with no sign of cirrhosis or significant fatty infiltration. No definite liver mass lesion is seen on this noncontrast study. The gallbladder appears unremarkable. No bile duct dilatation is noted. The spleen is of normal size. No focal splenic lesion is evident. The pancreas appears normal with no sign of acute or chronic pancreatitis and no mass lesion noted. The pancreatic duct is of normal caliber. The adrenal glands appear unremarkable. No renal or proximal ureteral calculi are seen. There is no hydronephrosis or perinephric stranding. No definite renal mass lesion is identified. The abdominal aorta is of normal caliber. No abdominal adenopathy is seen. There is a small hiatal hernia. There is no sign of small bowel obstruction. There is diverticulosis with possible acute diverticulitis of the descending colon. No free intraperitoneal air is identified. There is a new small amount of ascites No distal ureteral or bladder calculi are seen. No obvious bladder mass lesion is evident. The iliac arteries are of normal caliber. No pelvic adenopathy is noted. Lumbar scoliosis and degenerative disc disease is seen. There is a left hip replacement. No fracture is identified. No focal osseous lesion is seen Impression: 1. New small amount of ascites 2. Diverticulosis with suspected mild acute diverticulitis ACT 112: Positive. There are findings on this exam that require communication between the performing entity and the patient following Patient Test Result [place] Act ([place] ACT 112) guidelines. Electronically signed by Edi Tai 07-23-2024 5:33 PM
[2024-07-23 17:51] LABS: Appearance Urine Cloudy (Clear); Bacteria Urine Automated 2+ (None Seen); Bilirubin Urine Negative (Negative); Blood Urine Trace (Negative); Color Urine Yellow; Epithelial Cell Urine Auto >20 /hpf (0-2); Glucose Urine UA Negative (Negative); Ketones Urine Trace (Negative); Leukocyte Esterase Urine Trace (Negative); Nitrite Urine Negative (Negative); Protein Urine Trace (Negative); Specific Gravity Urine 1.011 (1.000-1.030); Urobilinogen Urine Negative (Negative)
[2024-07-23 17:54] LABS: INR 1.1 (0.9-1.1); Partial Thromboplastin Time 27 Seconds (21-31); Prothrombin Time 11.7 Seconds (9.0-12.0)
[2024-07-23] MEDS: SODIUM CHLORIDE 0.9% 1,000 ML IV ONE ×2 (18:24→19:16)
[2024-07-23 19:12] LABS: Base Excess VBG -4.8 mEq/L; HCO3 VBG 21 mmol/L; Oxygen Saturation VBG < 60.0 %; PCO2 VBG 41 mmHg (38-50); PO2 VBG < 20 mmHg; pH VBG 7.32 (7.36-7.41)
[2024-07-23] MEDS: cefTRIAXone SODIUM 2,000 MG/50 ML BAG IV STA (19:16)
--- NOTE | 2024-07-23 20:30 | History & Physical Report ---
Date of Service July 23, 2024 Assessment & Plan (1) Fracture, ribs: (2) Anemia: (3) Pneumonia: (4) Abnormal LFTs: (5) Acute renal failure: (6) Alcohol use: Plan Patient is a 64-year-old female with past medical history of MTHFR mutation, hyperlipidemia, COPD, peripheral vascular disease, coronary artery disease, prolonged QT syndrome, fibromyalgia, history of DVT, depression, history of traumatic subdural hematoma, PAD status post femoral-tibial bypass, history of tobacco use, history of depression, medical marijuana use, memory problem, alcohol use disorder was sent to the ED after abnormal labs as outpatient. Acute kidney injury Patient presents to the hospital with creatinine of 8.68; creatinine on 07/20 of 5.7. Baseline creatinine of 0.76 on 07/14 History of mechanical fall on 07/14; decreased oral intake due to pain and decreased appetite CK within normal limits Abdominal CTno hydronephrosis VBG shows pH of 7.32. Bicarb of 19 Possible TERESA secondary to decreased oral intake, onset of pneumonia and dehydration; will start IV hydration with normal saline at 80 cc/h. CMP in a.m. Avoid nephrotoxic agent Nephrology consulted Villanueva catheter for strict input and output monitoring Mechanical fall Acute Left-sided rib fracture Left-sided pleural effusion Pneumonia CT chest on admission shows left-sided posterior rib fracture of 9th-11th rib; unchanged old right rib fracture. Also left-sided pleural effusion. Right midlung bronchopneumonia and worsened lung atelectasis. Will start an antibiotic with Zosyn. Obtain a sputum culture. Obtain MRSA nares Pulmonary toileting with hypertonic saline, DuoNebs, flutter valve and incentive spirometry. pain control with dilaudid Elevated liver enzymes Lab work from 07/20AST of 1957, ALT of 2180, ALP of 665 Improvement noted on admission today with AST of 209, ALT of 640 and ALP of 455. Possibly secondary to use of Tylenol, alcohol use or trauma. Tylenol level less than 3 CT abdomen and pelvis do not show any acute finding in the liver Monitor liver enzymes Anemiahemoglobin of 9.6 on admission; was 13.9 on 07/14. Hemoglobin was 12.6 on 07/20. Unknown source of blood loss; patient denies melena, hemoptysis or blood in urine. Patient previously on Eliquis given history of recurrent DVT; will hold for now until hemoglobin stabilizes. Obtain fecal occult. Heparin for DVT prophylaxis Possible UTIurinalysis positive for infection; continue on Zosyn. Follow-up on urine culture and blood culture History of alcohol use disorderalcohol withdrawal protocol, continue thiamine History of recurrent DVT MTHFR mutation Eliquis currently on hold given lowered hemoglobin level. Monitor for any signs or symptoms of bleeding. On heparin drip Peripheral artery diseasecontinue on aspirin; hold statin given elevated liver enzymes Mood disordercontinue on duloxetine and mirtazapine Full code DVT prophylaxis heparin Time spent evaluating patient, direct bedside care, chart review, placing orders, interpretation of diagnostic studies, discussion with consultants, patient, and family members, as well as other required patient management activities is 90 minutes Please note the above document was generated using voice recognition software. It may contain grammatical, syntax or spelling errors. Any formal questions or concerns about the content, text or information contained within the body of this dictation should be directly addressed to the provider for clarification History of Present Illness Chief Complaint: Abnormal labwork Primary Care Provider: Pieter Benavides MD History obtained from interview with the patient and chart review. Medical history of MTHFR mutation, hyperlipidemia, COPD, peripheral vascular disease, coronary artery disease, prolonged QT syndrome, fibromyalgia, history of DVT, depression, history of traumatic subdural hematoma, PAD status post femoral-tibial bypass, history of tobacco use, history of depression, medical marijuana use, memory problem, alcohol use disorder Patient had presented on May 16, 2024 with mechanical fall. She underwent workup including CT chest which showed acute fracture of left 9th, 10th and 11th rib, age indeterminant fractures of right 8th, 9th and 10th rib. CT head, CT cervical spine did not show any acute finding. She was discharged home on tramadol and lidocaine patch for pain control. Patient followed up with her primary care provider on 07/20 with complaint of pain on her left rib. She also reports difficulty sleeping due to pain; also reports cough which was productive. Patient reports that she has not been eating or drinking at home. She started to have cough, reports chills but denies fever. She reports that she is drinking plenty of water. Patient lives alone and has Meals on Wheels delivered which is not appetizing for her. CMP done on 07/20/2024 showed creatinine of 5.7, BUN of 57, serum potassium of 6.2. AST of 1957, ALT of 2180, ALP of 665. BNP of 1362. Patient was asked to go to the ED for evaluation. Allergies Allergy/AdvReac Type Severity Reaction Status Date / Time menaquinone-7 (vitamin K2) Allergy Severe SOB CHEST Verified 07/23/24 18:08 [vitamin K2] PAIN SHAKING Home Medications Medication Instructions Recorded Confirmed Type atorvastatin 40 mg tablet 40 mg PO QAM 09/13/18 07/23/24 History Medical Marijuanas ~ Oil Vape 1 inh inhalation DIRECTED PRN 07/30/20 07/23/24 History Unknown mirtazapine 30 mg tablet 30 mg PO HS 05/30/22 07/23/24 History apixaban 5 mg tablet (Eliquis) 5 mg PO BID 06/12/22 07/23/24 History polyethylene glycol 3350 17 gram 17 g PO DAILY PRN laxative effect 06/17/22 07/23/24 Rx oral powder packet (Miralax) #30 ea duloxetine 30 mg capsule,delayed 60 mg PO DAILY 09/21/23 07/23/24 History release memantine 10 mg tablet 10 mg PO BID #60 tabs 09/21/23 07/23/24 Rx gabapentin 600 mg tablet 600 mg PO BID #60 tabs 09/26/23 07/23/24 Rx aspirin 81 mg tablet,delayed 81 mg PO QAM 07/14/24 07/23/24 History release lidocaine 4 % topical patch 1 patch topical DAILY PRN pain #5 07/14/24 07/23/24 Rx (Lidocaine Pain Relief) ea Past Med/Surg History Problem List (Updated 07/23/24 @ 18:18 by Angel Fox DO) Fracture, ribs (Acute) Anemia (Acute) Pneumonia (Acute) Elevated troponin I level (Acute) Abnormal LFTs (Acute) Acute renal failure (Acute) Hypokalemia (Acute) Fracture of rib (Acute) B12 deficiency Vitamin D deficiency Alcohol use Small vessel disease, cerebrovascular Cognitive impairment Delirium Status post left hip replacement (~05/2022) Insomnia Coagulopathy (Acute) Fall (Acute) Hypokalemia (Acute) Closed fracture of left hip (Acute) COPD exacerbation (Acute) Supratherapeutic INR (Acute) Hypomagnesemia Tobacco use Prolonged QT interval Recurrent deep vein thrombosis (DVT) Bronchitis Encephalopathy Nausea & vomiting (Acute) Generalized weakness (Acute) Acute confusion (Acute) Chronic pain Encounter for pre-operative examination Encounter for pre-operative examination Peripheral neuropathy Encounter for pre-operative examination Weight loss Depression Protein-calorie malnutrition, severe Abdominal pain Subtherapeutic anticoagulation (Acute) Severe arterial insufficiency of right lower extremity (Acute) Hypotension (Acute) Headache disorder (Chronic) Embolism and thrombosis of arteries of lower extremities (Acute) Cellulitis of right foot (Acute) Arterial occlusion, lower extremity (Acute) PAD (peripheral artery disease) Cellulitis of foot (Acute) Foot pain (Acute) Arterial thromboembolism (Acute 03/12/14) Acute headache (Acute) Hip pain, right (Acute) Fall at home (Acute) Supratherapeutic INR (Acute) Medical History Vitamin D insufficiency Depression MTHFR gene mutation PVD (peripheral vascular disease) Unstable angina Chest pain Tobacco abuse HLD (hyperlipidemia) DVT prophylaxis MDD (major depressive disorder) Angina at rest Peptic ulcer disease CURRENT GERD (gastroesophageal reflux disease) Chronic back pain Degenerative disc disease Osteoarthritis Diverticular disease Factor 5 Leiden mutation, heterozygous Migraine Deep vein thrombosis (2016) FEMORAL BYPASS IN BILATERAL LEGS History of MTHFR mutation Depression COPD (chronic obstructive pulmonary disease) NO PROBLEMS Peripheral vascular disease Fibromyalgia Peripheral vascular disease MTHFR mutation COPD (chronic obstructive pulmonary disease) Deep vein thrombosis Surgical History History of right cataract extraction H/O surgical biopsy VAGINAL BIOPSY History of esophagogastroduodenoscopy (EGD) EGD 12/23/2017. Sedation no issues. History of colonoscopy History of arthroscopy LEFT SHOULDER H/O vascular surgery MULTIPLE BILATERAL LEG SURGERIES History of section X1 History of cholecystectomy LAP History of nasal septoplasty History of tonsillectomy Family History Mother PAD (peripheral artery disease) Arthritis Gastrointestinal disorder Father Heart disease Sister Arthritis Depression Deep vein thrombosis Brother Sepsis Other Coronary heart disease Social History Smoking Status: Current every day smoker Tobacco Type: Cigarettes Cigarettes Per Day: 30; Second Hand Exposure: No; Do You Dip or Chew Tobacco: No; Hx Alcohol Use: Yes Alcohol type: beer, wine and hard liquor Hx Substance Use: No Preferred Language: Lao Communication Ability: Unable Printing Table Hand Required: No Beliefs That Will Affect Care: None Current Living Situation: Alone Feels Safe at Home: Yes Assistive Devices: None Review of Systems Review of Systems: All systems reviewed & are unremarkable except as noted in Subjective Physical Exam Physical Exam: Constitutional: Awake, oriented x 3; not in distress. Chest; tenderness in left chest wall Respiratory: Decreased breath sound in bilateral lower lung field. Cardiovascular: RRR, no murmur, no edema Vessels: no JVD or carotid bruit Chest: normal inspection of chest Abdomen: normal bowel sounds, soft, nontender, no hepatosplenomegaly Musculoskeletal: no cyanosis or clubbing, extremities motor strength 5/5 Skin: no rashes, warm and dry normal turgor Neurologic: PERRL, EOMI, accommodation nl, no face palsy, no dysarthria CN's II- XI intact bilaterally and moves all extremities Psychiatric: A+Ox3, euthymic affect Results & Data Results & Data Vital Signs (Past 12 Hours) Vital Signs Temp Pulse Pulse Resp BP BP Pulse Ox 07/23/24 19:32 88 07/23/24 19:00 85 20 122/67 94 07/23/24 19:00 87 20 95 07/23/24 18:00 89 20 115/76 98 07/23/24 16:32 94 H 07/23/24 15:40 36.7 C 95 H 22 136/73 96 O2 Del Method 07/23/24 19:32 07/23/24 19:00 Room Air 07/23/24 19:00 Room Air 07/23/24 18:00 07/23/24 16:32 07/23/24 15:40 Room Air
[2024-07-23] MEDS ORDERED: ALUMINUM/MAGNESIUM SUSP 30 ML UDC PO PRN (20:56)
[2024-07-23] MEDS ORDERED: POLYETHYLENE (MIRALAX) 17 GM PACK PO PRN (20:56)
[2024-07-23] MEDS ORDERED: LORazepam 1 MG TAB PO PRN (20:56)
[2024-07-23] MEDS: ALBUT/IPRATROP 3MG/0.5MG NEB 3 ML VIAL NEB SCH (21:31)
[2024-07-23] MEDS: SODIUM CHLOR 7% 4 ML NEB NEB SCH (21:31)
[2024-07-23] MEDS: MIRTAZAPINE TAB 15 MG TAB PO SCH (22:12)
[2024-07-23] MEDS: THIAMINE HCL 200 MG in SODIUM CHLORIDE 0.9% 50 ML IV SCH (22:13)
[2024-07-23] MEDS: SODIUM CHLORIDE 0.9% 1,000 ML IV SCH (22:14)
[2024-07-23] MEDS: HEPARIN SOD 5,000 UNIT/0.5 ML VIAL SQ SCH (22:44)
[2024-07-23] MEDS: PIPERACILLIN/TAZOBACTAM 4.5 GM/100 ML BAG IV ONE (22:44)
[2024-07-23 23:11] LABS: Urine Potassium 22.1 mmol/L
[2024-07-23] MEDS: HYDROmorphone INJ 0.5 MG/0.5 ML SYR IV PRN (23:15)
[2024-07-23 23:19] LABS: Creatinine Urine Random 54.2 mg/dl
--- NOTE | 2024-07-24 00:12 | Ultrasound Report ---
Exam(s): US RENAL EXAM: US Retroperitoneal Limited, Renal CLINICAL HISTORY: Reason for exam: [place]. TECHNIQUE: Real-time limited ultrasound of the retroperitoneum with image documentation. COMPARISON: No relevant prior studies available. FINDINGS: Right kidney: 10.0 cm in length. No stones. No solid mass. No hydronephrosis. Left kidney: 11.1 cm in length.. No stones. No solid mass. No hydronephrosis. Bladder: Empty with a Villanueva catheter. Other findings: Increased echogenicity of the liver which may represent fatty infiltration. No focal hepatic lesions. Small amount of free fluid. IMPRESSION: No acute abnormalities noted of the kidneys. Small amount of free fluid. Electronically signed by: Andrés Gibbons MD 07/24/24 00:11 AM
--- OUTSIDE RECORDS SUMMARY | 2024-07-24 01:33 | External Medical Summary | Summary of Care ---
Author Name Unknown Organization [facility] Address [address] [place] [address] Phone [phone] Care Team Providers Care Histologist Name Role Phone Pieter Benavides MD Primary Care Provider + Encounter Details Date Type Department Care Team (Late st Contact Info) Description 07/23/2024 Orders Only PATIENT PORTAL DO NOT DELETE THIS DEPT USED BY [place] [id number] Allergies Active Allergy Reactions Criticality Noted Date Comments Vitamin K Chills/rigors 07/29/2014 documented as of this encounter (statuses as of 07/23/2024) Medications Sodium Fluoride 1.1 % Dental Gel (PreviDent) [place] onto teeth 2 times a day. 100 mL 11 3 Active guaiFENesin ER 600 MG Oral Tablet Extended Release 12 Hour (Mucinex) Take 1 Tablet by mouth 2 times a day as needed for Congestion. Take with plenty of water. Do not cut, crush or chew 60 Tablet 2 4 Active Additional Information Patient not taking.Reported on 07/20/2024 Gabapentin 300 MG Oral Capsule (Neurontin) Take 1 Capsule by mouth in the morning and 1 Capsule at noon and 1 Capsule before bedtime. 90 Capsule 4 Active Additional Information Patient taking differently: 600 mgOralBID (.AM/PM), Reported on 07/20/2024 Apixaban 5 MG Oral Tablet (Eliquis)Indicat ions:MTHFR mutation,History of DVT (deep vein thrombosis) Take 1 Tablet by mouth in the morning and 1 Tablet before bedtime. 200 Tablet 3 5 Active Aspirin 81 MG Oral Tablet Delayed Release Take 1 Tablet by mouth in the morning. 100 Tablet 3 5 Active Atorvastatin Calcium 40 MG Oral Tablet (Lipitor)Indicat ions:Dyslipidemi a Take 1 Tablet by mouth in the morning. 100 Tablet 3 5 Active DULoxetine HCl 30 MG Oral Capsule Delayed Release Particles (Cymbalta)Indica tions:Disc disorder of lumbar region Week 1-2: Take 1 capsule once daily. Week 3+: Take 2 capsules once daily 200 Capsule 3 5 Active Mirtazapine 30 MG Oral Tablet (Remeron)Indicat ions:MDD (major depressive disorder), recurrent episode, moderate (HCC),Insomnia, unspecified type Take 1 Tablet by mouth at bedtime. . 100 Tablet 3 5 Active Memantine HCl 10 MG Oral Tablet Take 1 Tablet by mouth in the morning and 1 Tablet before bedtime. 5 Active Ventolin HFA 108 (90 Base) MCG/ACT Inhalation Aerosol Solution Inhale 2 Puffs by mouth every 4 hours as needed for Cough, Shortness of Breath or Wheezing. 18 g 1 5 Active documented as of this encounter (statuses as of 07/23/2024) Active Problems Problem Noted Date Diagnosed Date Alcohol abuse 11/22/2022 Cerebrovascular disease, arteriosclerotic, post- stroke 09/21/2022 Overview (09/21/2022): 09/17 noted on brain MRI. Memory problem 09/06/2022 Age-related osteoporosis wit h current pathol fracture of left femur, with routine healing, subsequent encounter 06/28/2022 S/P hip replacement, left 06/28/2022 Protein-calorie malnutrition 06/12/2022 Neuropathy 06/12/2022 Raynaud's disease without gangrene 05/12/2022 Keratoconjunctivitis sicca o f both eyes not due to Sjogren's syndrome 05/12/2022 COPD, group A, by GOLD 2017 classification 03/08 Overview: Per COPD GOLD Classification Neuropathy of both upper extremities 08/14/2021 Neuropathy involving both lower extremities 07/27 Hypokalemia 10/16/2020 CAD (coronary artery disease) 08/04/2020 Overview (08/04/2020): 07/31/20 mild CAD [facility] 1 diagonal branch Hyperlipidemia, unspecified 04/19/2019 Medical marijuana use 04/19/2019 Recurrent major depressive disorder, in partial remission 12/27/2017 Lung nodule 12/27/2017 Overview (12/27/2017): 12/13 4mm rll @[facility] MEDICATION USE AGREEMENT 11/30/2017 Other osteoporosis without current pathological fracture 03/13/2017 Medical home patient encounter 03/13/2017 Overview (11/19/2022): 01/12 Pap under sedation unable to read. Consider repeat w/anesthesia. COlonoscopy-tubular adenoma oneal 5y 03/13 new dx Osteoporosis-- eval Rx,reassess ETOH Daughter--Mariaabhay Abraham (I see). 12/07 colonoscopy [facility] tubular adenoma. History of tobacco use 05/26/2016 Insomnia 05/25/2016 Prolonged QT syndrome 04/09/2016 Fibromyalgia 12/03/2015 S/P femoral-tibial bypass 11/18/2015 Avascular necrosis of bone of right hip 07/14/19 16 Overview (08/03/2015): 07/11 AVN right hip, no collapse, 08/10 MRI done Full thickness rotator cuff tear 04/28/2015 Ischemic rest pain of lower extremity 02/19/2015 Peripheral vascular disease 09/25/2014 H/O traumatic subdural hematoma 09/21/2014 Lower limb ischemia 09/21/2014 Depression 04/20/2013 History of alcohol abuse 03/28/2013 MTHFR mutation 03/02/2013 Cholelithiasis 02/16/2013 Diverticulosis of colon 07/31/2012 Disc disorder of lumbar region 08/26/2011 History of DVT (deep vein thrombosis) 08/26/2011 Anticoagulation management encounter 08/26/2011 penitentiary current use of anticoagulant therapy 0 08/26/2011 Overview (12/27/2016): ICD-10 update of inactive term Cervical spondylosis 03/06/2002 documented as of this encounter (statuses as of 07/23/2024) Resolved Problems Problem Noted Date Diagnosed Date Resolved Date Possible alcohol use disorde r on screening for alcoholism 09/06/2022 12/17/2022 Medical home patient encounter 06/28/2022 08/24/2022 Malaise and fatigue 05/21/2022 04/05/19 Chest heaviness 05/21/2022 08/17/2022 Upper respiratory tract infection 05/21/2022 07/30/2022 Methylenetetrahydrofolate re ductase deficiency 02/25/2022 11/19/2022 Chronic mesenteric ischemia 05/19/2018 05/22/2018 Severe protein-calorie malnutrition 12/27/2017 04/09/2020 Throat pain 07/13/2016 03/13/2017 COPD, moderate 05/26/2016 03/11/2022 Overview: Per COPD GOLD Classification Tear of left rotator cuff 02/19/2015 Overview (02/19/2015): 02/09 MRI left shoulder tear supraspinatus, infraspinatus and SLAP tear labrum Routine general medical exam ination at a health care facility 12/19/2014 03/02/2017 Overview (01/05/2015): I see daughter Maria Panchal 01/09 brain MRI WNL-[facility] 07/09 Colpo-GREGG I, 09/08 LEEP-GREGG I, 05/12 pap WNL. Neuropathy of right foot 12/19/2014 Altered mental status 10/02/20142014 S/P femoral-popliteal bypass surgery 09/25/2014 11/18/2015 Delirium 09/25/2014 10/02/2014 COPD, severity to be determined 09/25/2014 08/16/2017 Arterial embolism and thromb osis of lower extremity 03/29/2014 03/13/2017 Migraine without status migr ainosus, not intractable 10/24/2013 01/18/2023 Phlebitis and thrombophlebit is of superficial veins of upper extremities 10/17/2013 08/16/2017 Multiple closed stable fract ures of pubic ramus 03/28/2013 12/27/2017 Alcohol withdrawal with delirium 03/28/2013 03/13/2017 Acute blood loss anemia 03/21/201308/27 SDH (subdural hematoma) 03/21/201308/27 Cholelithiases 07/31/2012 02/01/2014 Major depression, single episode 03/06/2012 03/06/2012 Abdominal pain, right upper quadrant 06/15/2010 03/02/2017 Nausea with vomiting 06/15/2010 017 Melena 06/15/2010 03/02/2017 Joint effusion, knee 03/12/2009 017 DISC DIS [id number] 08/23/200706/26 ADVANCE DIRECTIVE INFORMATION 11/11/2004 01/30/2024 Overview (11/11/2004): Yes, Patient instructed to provide copy of advance directive for provider to review and to be scanned into Electronic Medical Record Tobacco use disorder 04/29/2004 011 ADJ DISORDER W/DEPRES MOOD 06/16/2001 0 08/17/2022 Menopause 06/16/2001 05/22/2003 documented as of this encounter (statuses as of 07/23/2024) Immunizations Name Administration Dates Next Due COVID-19 mRNA, LNP-s, No Pre serve, 2-Dose Series (CapLinked) 02/26/2021,08/25/2020,08/04/2020 COVID-19, LNP-s, No Preserve , Ivan-sucrose, Ages 12+ (CapLinked) 08/14/2021 H1N1 2009 Influenza, IM 03/17/2009 Pneumococcal Conjugate Vacci ne, 20-valent ([id number]) 09/06/2022 Pneumococcal Polysaccharide PPV23 (Pneumovax) 06/01/2014,01/03/2009 Seasonal Influenza Vac., MDV , IM, 0.5 mL (Fluzone) 01/17/2014,12/18/2012,12/20/2011,02/01,02/13/2010,01/03/2009,04/12/2007 ,01/31/2006 Seasonal Influenza, High Dos e, Trivalent, PF, IM (Fluzone HD) 2024 Seasonal Influenza, PF, 6 M & above, IM , (FluLaval or Fluzone) 04/23/2021,12/06/2019,12/14/2018,01/10,05/03/2017 Seasonal Influenza, Quadriva lent, No Preserve, IM 12/19/2021,04/09/2016,01/06/2015 TD - Tetanus/Diptheria (ADULT) 03/28/2004 TDAP (age 10 and older)(Boostrix) 04/09/2020 TDAP, Age 7 and older, IM (Adacel) 02/13/2010 Zoster Vaccine Recombinant (Shingrix) 03/07/2019 ,12/14/2018 documented as of this encounter Social History Tobacco Use Types Packs/Day Years Used Date Smoking Tobacco: Every Day Cigarettes 1 36 Smokeless Tobacco: Never Comments:05/12/23 smokes 1 pa ck a day - refused pamphlet Currently smoking 1 pack/day - Started smoking age - 23 Alcohol Use Standard Drinks/Week Comments Yes 0 (1 standard drink = 0.6 oz pure alcohol) approx 3L box wine/2 weeks '23. prev hard ETOH as well. PHQ-2 Answer Date Recorded PHQ Adult Total Score 0 02/25/2022 Hunger Vital Sign Answer Date Recorded Within the past 12 months, y ou worried that your food would run out before you got the money to buy more. Never true 06/08/19 23 Within the past 12 months, t he food you bought just didn't last and you didn't have money to get more. Never true 06/07/2022 Comments No Sex and Gender Information Value Date Recorded Sex Assigned at Not on file Legal Sex Female 7:16 AM EST Gender Identity Not on file Sexual Orientation Not on file Occupation Industry Job Start Date Job End Date disability-SSI Not on file Not on file Not on file documented as of this encounter Functional Status * Are you deaf or do you have serious difficulty hearing? Answer Date of Assessment Author No 10/01/2015 5:37 PM EDT Haven Bernard, RN * Are you blind or do you have serious difficulty seeing, even when wearing glasses? Answer Date of Assessment Author No 10/01/2015 5:37 PM EDT Haven Bernard RN * Do you have serious difficulty walking or climbing stairs? (5 years old or older) Answer Date of Assessment Author Yes 10/01/2015 5:37 PM EDT Haven Bernard RN * Do you have difficulty dressing or bathing? (5 years old or older) Answer Date of Assessment Author No 10/01/2015 5:37 PM EDT Amadeo Bernard RN * Because of a physical, mental, or emotional condition, do you have difficulty doing errands alone such as visiting a doctor’s office or shopping? (15 years old or older) Answer Date of Assessment Author Yes 10/01/2015 5:37 PM EDT Haven Bernard RN documented as of this encounter Mental Status * Because of a physical, mental, or emotional condition, do you have serious difficulty concentrating, remembering, or making decisions? (5 years old or older) Answer Entry Date Author No 10/01/2015 5:37 PM EDT Haven Bernard RN documented in this encounter Plan of Treatment Upcoming Encounters Date Type Department Care Team (Late st Contact Info) Description 08/24/2024 7:15 AM EDT Cardiac Studies Cardiac Studies, [facility] [address] [place] [phone] 09/11/2024 10:00 AM EDT Office Visit Family Practice [facility] [address] [place] [phone] Zoe Gould CRNP [address] [place] [id number] Scheduled Procedures Name Priority Associated Diagnoses Date/Ti me COLONOSCOPY FLEXIBLE PROXIMAL DIAGNOSTIC Recall History of colon polyps Health Maintenance Due Date Last Done Comments DISCUSS TOBACCO CESSATION (REFER TO SMARTSET #3377) 1958 O2 ASSESSMENT COMPLETED IN PAST YEAR FOR COPD 1976 Cologuard 05/31/2003 Fecal Occult Blood Test 05/31/2003 Sigmoidoscopy 05/31/2003 *COPD SEVERITY VERIFIED BY PFT 09/29/2014 Lung Cancer Screening 09/02/2018 09/02/2017, 12/25/2 013 DXA Scan 03/07/2019 03/07/2017 Mammogram 06/05/2021 06/05/2020, 12/08/2016, 12/10/2014, Additional history exists Colonoscopy 01/06/2023 01/06/2018, 11/26, 05/11/2011 Colorectal Cancer Screening 01/06/2023 Depression Monitoring 02/25/2023 02/25/2022 COVID-19 Vaccine ( season) 2023 08/14/2021, 02/26/2021, 08/25/2020, Additional history exists Adult Wellness Visit 2024 Diabetes Screening 07/21/2027 07/20/2024, 0 12/03/2022, 08/09/2022, Additional history exists DTap/Tdap Vaccines (3 - Td or Tdap) 04/09/2030 04/09/2020, 02/13/2010, 03/28/2004 *BISPHONATE OR OTHER ACCEPTABLE MEDICATION NEEDED FOR OSTEOPOROSIS (REFER TO SMARTSET #1146) Addressed 04/13/2017 Overridden sirisha h the intention of not completing the topic VITAMIN D LEVEL ONCE IN A LIFETIME-USE SMARTSET# 56720 Completed 08/16/2017 Pap Smear Discontinued 09/02/2017, 04/29, 06/28/2013, Additional history exists RETIRED - COLONOSCOPY-EVERY 5 YRS AGES 18-100 Discontinued 01/06/2018, 12/10/2011, 05/11/2011 Zoster Vaccines Completed 11/26/2021, 02/25, 12/14/2018 Alpha-1 Antitrypsin Completed 08/09/2022 Pneumococcal Vaccine: 50+ Years Completed 09/06/2022, 06/01/2014, 01/03/2009 Influenza Vaccine (FLU shot) Completed 2024, 12/19/2021, 04/23/2021, Additional history exists HPV (Gardasil) Vaccine Aged Out No lo nger eligible based on patient's age to complete this topic Hepatitis B Vaccine Aged Out No longe r eligible based on patient's age to complete this topic MENINGOCOCCAL (MENACTRA/MENVEO) Aged Out No longer eligible based on patient's age to complete this topic Meningitis B Vaccine (Bexsero/Trumemba) Aged Out No longer eligible based on patient's age to complete this topic documented as of this encounter Medical Devices Implanted Type Area Residential Specialist Device Identifier Shelf Expiration Date Model / Serial / Lot Stent Complete [place] [id number] - [id number] Implanted:Qty: 2 on 09/22/2014 by Andrés Guzmán MD at [facility] Right: Femoral Artery [employer] : VASCULAR 05/02/2016 [id number] / / [id number] documented as of this encounter Advance Directives * Full Code (Latest Code Status on File) Date Activated Date Inactivated Comments 10/01/2015 1:43 PM 10/05/2015 5:21 PM This order re flects the patients wishes and were consensually agreed upon. * Full Code Date Activated Date Inactivated Comments 09/19/2015 6:27 PM 09/23/2015 5:00 PM This order r eflects the patients wishes and were consensually agreed upon. * Full Code Date Activated Date Inactivated Comments 08/18/2015 8:52 AM 08/26/2015 4:46 PM Question Answer Comments Discussion of Advance Directives occurred with: Not Discussed Does the patient have a Living Will? No Does the patient have Health Care Power of Attor rut? No * Full Code Date Activated Date Inactivated Comments 05/02/2015 10:37 AM 05/02/2015 6:36 PM This order re flects the patients wishes and were consensually agreed upon. * Full Code Date Activated Date Inactivated Comments 02/18/2015 12:17 PM 02/19/2015 8:50 PM This orde r reflects the patients wishes and were consensually agreed upon. Care Teams Histologist Relationship Specialty Start Date End Date Pieter Benavides MD [address] [facility] [place] [phone] PCP - General Family Medicine 05/04/18 documented as of this encounter
--- OUTSIDE RECORDS SUMMARY | 2024-07-24 01:33 | External Medical Summary | Summary of Care ---
Author Name Unknown Organization [facility] Address [address] [place] [address] Phone [phone] Care Team Providers Care Cone Worker Name Role Phone Pieter Benavides MD Primary Care Provider + Encounter Details Date Type Department Care Team (Late st Contact Info) Description 07/20/[address] [facility] [address] [facility], [place] [place] [phone] Pieter Benavides MD [address] [facility] [place] [phone] Allergies Active Allergy Reactions Criticality Noted Date Comments Vitamin K Chills/rigors 07/29/2014 documented as of this encounter (statuses as of 07/20/2024) Medications Sodium Fluoride 1.1 % Dental Gel (PreviDent) [place] onto teeth 2 times a day. 100 [...] as of this encounter (statuses as of 07/20/2024) Active Problems Problem Noted Date Diagnosed Date [...] disease) 08/04/2020 Overview (08/04/2020): 07/31/20 mild CAD [facility] 1 diagonal branch Hyperlipidemia, unspecified 04/19/2019 Medical marijuana use 04/19/2019 Recurrent major depressive disorder, in partial remission 12/27/2017 Lung nodule 12/27/2017 Overview (12/27/2017): 12/13 4mm rll @[facility] MEDICATION USE AGREEMENT 11/30/2017 Other osteoporosis without current pathological fracture 03/13/2017 Medical home patient encounter 03/13/2017 Overview (11/19/2022): 01/12 Pap under sedation unable to read. Consider repeat w/anesthesia. COlonoscopy-tubular adenoma oneal 5y 03/13 new dx Osteoporosis-- eval Rx,reassess ETOH Daughter--Maria Abraham (I see). 12/07 colonoscopy [facility] tubular adenoma. 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 0 08/26/2011 Overview (12/27/2016): ICD-10 update of inactive term Cervical spondylosis 03/06/2002 documented as of this encounter (statuses as of 07/20/2024) Resolved Problems Problem Noted Date Diagnosed Date [...] see daughter Maria Panchal 01/09 brain MRI WNL-[facility] 07/09 Colpo-GREGG I, 09/08 LEEP-GREGG I, 05/12 [...] Joint effusion, knee 03/12/2009 017 DISC DIS [id number] 08/23/200706/26 ADVANCE DIRECTIVE INFORMATION 11/11/2004 01/30/2024 Overview (11/11/2004): Yes, Patient instructed to provide copy of advance directive for provider to review and to be scanned into Electronic Medical Record Tobacco use disorder 04/29/2004 011 ADJ DISORDER W/DEPRES MOOD 06/16/2001 0 08/17/2022 Menopause 06/16/2001 05/22/2003 documented as of this encounter (statuses as of 07/20/2024) Immunizations Name Administration Dates Next Due COVID-19 mRNA, LNP-s, No Pre serve, 2-Dose Series (Veotag) 02/26/2021,08/25/2020,08/04/2020 COVID-19, LNP-s, No Preserve , Ivan-sucrose, Ages 12+ (Pfizer) 08/14/2021 H1N1 2009 Influenza, IM 03/17/2009 Pneumococcal Conjugate Vacci ne, 20-valent ([id number]) 09/06/2022 Pneumococcal Polysaccharide PPV23 (Pneumovax) 06/01/2014,01/03/2009 Seasonal [...] 5:37 PM EDT Haven Bernard RN * Are you blind or do [...] 5:37 PM EDT Haven Bernard RN * Because of a physical, [...] Haven Bernard RN documented in this encounter Miscellaneous Notes * Telephone Encounter - Albina Sandoval MD - 07/20/2024 5:18 PM EDT call worker person, just received [place] Text regarding x-ray results Known multiple acute rib fractures. Small amount of left pleural fluid, likely hemothorax. No consolidation. No new findings (these were all seen on imaging in the ER on 07/14/24). * Telephone Encounter - Pieter Benavides MD - 07/20/2024 5:06 PM EDT Call pt/daughter. White count low, recheck 1 week. Was 8.7 on 07/14, now 2. (ANC ok) CBC ordered, please sched. No left shift, CXR doubt pneumonia. Cc: Maxime Gould. documented in this encounter Plan of Treatment Upcoming Encounters Date Type Department Care Team (Late st Contact Info) Description 08/24/2024 7:15 AM EDT Cardiac Studies Cardiac Studies, [facility] [place] [address] [place] [phone] 09/11/2024 10:00 AM EDT Office Visit Family Practice [facility] [place] [address] [place] [phone] Zoe Gould CRNP [address] [place] [address] Scheduled Orders Name Type Priority Associated Diagnoses Orde r Schedule CBC WITH WBC DIFFERENTIAL AND ANEMIA REFLEX WORKUP Lab Routine Leukopenia, unspecified type Expected: 07/27/2024 (Approximate), Expires: 07/20/2025 Scheduled Procedures Name Priority Associated Diagnoses Date/Ti me COLONOSCOPY FLEXIBLE PROXIMAL DIAGNOSTIC Recall History of colon polyps Health Maintenance Due Date Last Done Comments DISCUSS TOBACCO CESSATION (REFER TO SMARTSET #2678) 1960 O2 ASSESSMENT COMPLETED IN PAST YEAR FOR COPD 1976 Cologuard 05/31/2003 Fecal Occult Blood Test 05/31/2003 Sigmoidoscopy 05/31/2003 *COPD SEVERITY VERIFIED BY PFT 09/29/2014 Lung Cancer Screening 09/02/2018 09/02/2017, 013 DXA Scan 03/07/2019 03/07/2017 Mammogram 06/05/2021 06/05/2020, 08/2016, 12/10/2014, Additional history exists Colonoscopy 01/06/2023 01/06/2018, 11/26, 05/11/2011 Colorectal Cancer Screening 01/06/2023 Depression Monitoring 02/25/2023 02/25/2022 COVID-19 Vaccine ( season) 2023 08/14/2021, 02/26/2021, 08/25/2020, Additional history exists Adult Wellness Visit 2024 Diabetes Screening 12/03/2025 12/03/2022, 0 08/09/2022, 06/25/2022, Additional history exists DTap/Tdap Vaccines (3 - Td or Tdap) 04/09/2030 04/09/2020, 02/13/2010, 03/28/2004 *BISPHONATE OR OTHER ACCEPTABLE MEDICATION NEEDED FOR OSTEOPOROSIS (REFER TO SMARTSET #1146) Addressed 04/13/2017 Overridden sirisha h the intention of not completing the topic VITAMIN D LEVEL ONCE IN A LIFETIME-USE SMARTSET# 99442 Completed 08/16/2017 Pap Smear Discontinued 09/02/2017, 04/29, [...] this encounter Medical Devices Implanted Type Area Dry Clipper Tender Device Identifier Shelf Expiration Date Model / Serial / Lot Stent Complete [place] [id number] - [id number] Implanted:Qty: 2 on 09/22/2014 by Andrés Guzmán MD at OR [facility] Right: Femoral Artery [employer] : VASCULAR 05/02/2016 [id number] / / [id number] documented as of this encounter Visit Diagnoses Diagnosis Leukopenia, unspecified type- Primary documented in this encounter Advance Directives * Full Code [...] and were consensually agreed upon. Care Teams Cone Worker Relationship Specialty Start Date End Date Pieter Benavides MD [address] [place] [address] PCP - General Family Medicine 05/04/18 documented as of this encounter
--- OUTSIDE RECORDS SUMMARY | 2024-07-24 01:34 | External Medical Summary ---
Author Name Unknown Address Unknown Organization K01:[facility] [place] - [address] [place] [id number] Laboratory Report Ordering Provider Test Date Status MALAIKAHOMEMaxime 07/20/2024 16:00:15 Final Exclude Heart Failure: <300 pg/mL
Diagnose Heart Failure:
Age <50 yr: >450 pg/mL
50-75 yr: >900 pg/mL
>75 yr: >1800 pg/mL
GFR is 30-59 mL/min: >1200 pg/mL or Age- adjusted values
GFR <30 mL/min: do not use, not reliable

Prognostic threshold: 1000 pg/mL Observation Date Value Abnormality Reference (Units ) Status BNP, Pro-hormone 07/20/2024 16:00:15 1362 Above high no rmal <300 (pg/mL) Final Performing Location [facility] [place] - [address] [place] [id number]
--- OUTSIDE RECORDS SUMMARY | 2024-07-24 01:34 | External Medical Summary | Summary of Care ---
Author Name Unknown Organization [facility] Address [address] [place] [address] Phone [phone] Care Team Providers Care Hvac Field Service Technician Name Role Phone Pieter Benavides MD Primary Care Provider + Reason for Referral * Precert (Diagnostic Medical) (Within 10 days (routine)) - Authorized Specialty Diagnoses / Procedures Referred By Lashell baca Referred To Contact Cardiac Studies Diagnoses Lower leg edema Procedures ECHO, COMPLETE (2D), TRANS-THORACIC Zoe Gould CRNP [address] [place] [address] Phone: tel: fax: Referral ID Status Reason Start Date Expiration Date V isits Requested Visits Authorized [id number] Authorized Precert 07/27/2024 999 999 Reason for Visit * Reason Comments Emergency Department Follow-Up Broken ri bs, in lots of pain. Using spirometry. Legs swollen. Encounter Details Date Type Department Care Team (Latest Contact Info) Description 07/20/2024 2:40 PM EDT Office Visit Family [facility] [address] [place] [address] Zoe Gould CRNP [address] [place] [address] Closed fracture of multiple ribs of left side, initial encounter*; Cough, unspecified type; Hypokalemia; Abdominal bloating; Lower leg edema; COPD, group A, by GOLD 2017 classification ([facility]); Peripheral vascular disease ([facility]); Raynaud's disease without gangrene; Fibromyalgia; Neuropathy; Medical home patient encounter; Recurrent major depressive disorder, in partial remission ([facility]); History of tobacco use; History of DVT (deep vein thrombosis); Medical marijuana use Allergies Active Allergy Reactions Criticality Noted Date Comments Vitamin K Chills/rigors 07/29/2014 documented as of this encounter (statuses as of 07/20/2024) Medications Sodium Fluoride 1.1 % Dental Gel (PreviDent) Laurel onto teeth 2 times a day. 100 [...] on 07/20/2024 Apixaban 5 MG Oral Tablet (Eliquis)Indica tions:MTHFR mutation,Histor y of DVT (deep vein thrombosis) Take 1 Tablet by mouth in the morning and 1 Tablet before bedtime. 200 Tablet 3 5 Active Aspirin 81 MG Oral Tablet Delayed Release Take 1 Tablet by mouth in the morning. 100 Tablet 3 5 Active Atorvastatin Calcium 40 MG Oral Tablet (Lipitor)Indica tions:Dyslipide deshawn Take 1 Tablet by mouth in the morning. 100 Tablet 3 5 Active DULoxetine HCl 30 MG Oral Capsule Delayed Release Particles (Cymbalta)Indic ations:Disc disorder of lumbar region Week 1-2: Take 1 capsule once daily. Week 3+: Take 2 capsules once daily 200 Capsule 3 5 Active Mirtazapine 30 MG Oral Tablet (Remeron)Indica tions:MDD (major depressive disorder), recurrent episode, moderate (HCC),Insomnia, [...] or Wheezing. 18 g 1 5 Active Ventolin HFA 108 (90 Base) MCG/ACT Inhalation Aerosol Solution Inhale 2 Puffs by mouth every 4 hours as needed for Cough, Shortness of Breath or Wheezing. 18 g 1 3 025 Discontin ued(Refil l) documented as of this encounter (statuses as [...] disease) 08/04/2020 Overview (08/04/2020): 07/31/20 mild CAD [facility] 1 diagonal branch Hyperlipidemia, unspecified 04/19/2019 Medical marijuana use 04/19/2019 Recurrent major depressive disorder, in partial remission 12/27/2017 Lung nodule 12/27/2017 Overview (12/27/2017): 12/13 4mm rll @[facility] MEDICATION USE AGREEMENT 11/30/2017 Other osteoporosis without current pathological fracture 03/13/2017 Medical home patient encounter 03/13/2017 Overview (11/19/2022): 01/12 Pap under sedation unable to read. Consider repeat w/anesthesia. COlonoscopy-tubular adenoma oneal 5y 03/13 new dx Osteoporosis-- eval Rx,reassess ETOH Daughter--Maria Abraham (I see). 12/07 colonoscopy [facility] tubular adenoma. History of tobacco use [...] vein thrombosis) 08/26/2011 Anticoagulation management encounter 08/26/2011 prison current use of anticoagulant therapy 0 08/26/2011 Overview (12/27/2016): ICD-10 update of inactive term Cervical spondylosis 03/06/2002 documented as of this encounter (statuses as of 07/20/2024) Resolved Problems Problem Noted Date Diagnosed Date Resolved Date Possible alcohol use disorde r on screening for alcoholism 09/06/2022 12/17/2022 Medical home patient encounter 06/28/2022 08/24/2022 Malaise and fatigue 05/21/2022 04/05/19 24 Chest heaviness 05/21/2022 08/17/2022 Upper respiratory tract [...] see daughter Maria Panchal 01/09 brain MRI WNL-[facility] 07/09 Colpo-GREGG I, 09/08 LEEP-GREGG I, [...] Joint effusion, knee 03/12/2009 017 DISC DIS [id number] 08/23/200706/26 ADVANCE DIRECTIVE INFORMATION 11/11/2004 01/30/2024 Overview [...] mRNA, LNP-s, No Pre serve, 2-Dose Series (ClauseMatch) 02/26/2021,08/25/2020,08/04/2020 COVID-19, LNP-s, No Preserve , Ivan-sucrose, Ages 12+ (Pfizer) 08/14/2021 H1N1 2009 Influenza, IM 03/17/2009 Pneumococcal Conjugate Vacci ne, 20-valent ([id number]) 09/06/2022 Pneumococcal Polysaccharide PPV23 (Pneumovax) 06/01/2014,01/03/2009 Seasonal [...] on file documented as of this encounter Last Filed Vital Signs Vital Sign Reading Time Taken Comments Blood Pressure 92/60 07/20/2024 2:40 PM EDT Pulse 95 07/20/2024 2:40 PM EDT Temperature - - Respiratory Rate - - Oxygen Saturation - - Inhaled Oxygen Concentration - - Weight 59.6 kg (131 lb 8 oz) 07/20/2024 2:40 PM EDT Height - - Body Mass Index 25.68 2024 8:37 AM EST documented in this encounter Functional Status * Are you [...] Haven Bernard RN documented in this encounter Progress Notes * Zoe Gould CRNP - 07/20/2024 3:26 PM EDT Images from the original note were not included. Subjective Genesis Cleary is a 64 year old female that presents for Emergency Department Follow-Up (Broken ribs, in lots of pain. Using spirometry. Legs swollen.) History of Present Illness Genesis, a patient with a history of COPD, tobacco use, substance use disorder and chronic pain, presents with her daughter for ER follow up. Reports she fell at home and landed on L side and hit her head. Chest imaging in ER found fractures in L ribs 9-11 and also noted pulmonary vascular congestion and small L pleural effusion. Head imaging was ok. She is on eliquis for hx DVT. She denies any dizziness or lightheadedness prior to the fall and reports tripping on rug in kitchen. Today she c/o difficulty breathing (deep breaths) and coughing up green phlegm. She also notes increased swelling in her legs, which are usually the size of her arms. She describes her legs as feeling "weird" and "swollen" - note she does have significant PAD/PVD. She also reports feeling bloatedin her abdomen but is having BM's. Main complaint is pain. States tramadol not helpful. Also using tylenol, and using an old albuterolinhaler. She has been using lidocaine patches for pain relief, but reports they are not helping. She also reports difficulty sleeping due to the pain. States she is 'miserable' though daughter notes that the patient always says she is miserable so it is hard to tell. She denies any fever. She struggles with medication management and is not sure how much tylenol she is using. She also admits she'sprobably not using spirometer as much as she should. Daughter notes that in past she has "squirreled away" pain medications and has concerns about her being given anything stronger for pain. Daughter also notes that in hospital patient's oxygen decreased when given morphine. The patient is specifically requesting morphine today. Current Outpatient Medications Medication Sig Dispense Refill Ventolin HFA 108 (90 Base) MCG/ACT Inhalation Aerosol Solution Inhale 2 Puffs by mouth every 4 hours as needed for Cough, Shortness of Breath or Wheezing. 18 g 1 Apixaban 5 MG Oral Tablet (Eliquis) Take 1 Tablet by mouth in the morning and 1 Tablet before bedtime. 200 Tablet 3 Aspirin 81 MG Oral Tablet Delayed Release Take 1 Tablet by mouth in the morning. 100 Tablet 3 Atorvastatin Calcium 40 MG Oral Tablet (Lipitor) Take 1 Tablet by mouth in the morning. 100 Tablet 3 DULoxetine HCl 30 MG Oral Capsule Delayed Release Particles (Cymbalta) Week 1-2: Take 1 capsule once daily. Week 3+: Take 2 capsules once daily 200 Capsule 3 Memantine HCl 10 MG Oral Tablet Take 1 Tablet by mouth in the morning and 1 Tablet before bedtime. Mirtazapine 30 MG Oral Tablet (Remeron) Take 1 Tablet by mouth at bedtime. . 100 Tablet 3 Gabapentin 300 MG Oral Capsule (Neurontin) Take 1 Capsule by mouth in the morning and 1 Capsule at noon and 1 Capsule before bedtime. (Patient taking differently: Take 2 Capsules by mouth in the morning and 2 Capsules before bedtime.) 90 Capsule 0 Sodium Fluoride 1.1 % Dental Gel (PreviDent) Laurel onto teeth 2 times a day. 100 mL 11 guaiFENesin ER 600 MG Oral Tablet Extended Release 12 Hour (Mucinex) Take 1 Tablet by mouth 2 timesa day as needed for Congestion. Take with plenty of water. Do not cut, crush or chew (Patient not taking: Reported on 07/20/2024) 60 Tablet 2 No current facility-administered medications for this visit. Objective BP 92/60 | Pulse 95 | Wt 131 lb 8 oz (59.6 kg) | LMP 08/11/2006 | BMI 25.68 kg/m² | BSA 1.59 m² Physical Exam Physical Exam Vitals reviewed. Constitutional: General: She is not in acute distress. HENT: Head: Normocephalic and atraumatic. Right Ear: Tympanic membrane, ear canal and external ear normal. Left Ear: Tympanic membrane, ear canal and external ear normal. Nose: Nose normal. Mouth/Throat: Mouth: Mucous membranes are moist. Eyes: Extraocular Movements: Extraocular movements intact. Conjunctiva/sclera: Conjunctivae normal. Pupils: Pupils are equal, round, and reactive to light. Cardiovascular: Rate and Rhythm: Normal rate and regular rhythm. Heart sounds: Normal heart sounds. Pulmonary: Effort: Pulmonary effort is normal. Breath sounds: Normal breath sounds. Abdominal: General: There is distension. Palpations: Abdomen is soft. Tenderness: There is no abdominal tenderness. Musculoskeletal: General: Normal range of motion. Cervical back: Neck supple. Right lower leg: Edema (ankle, 1+) present. Left lower leg: Edema (ankl, 1+) present. Lymphadenopathy: Cervical: No cervical adenopathy. Skin: General: Skin is warm and dry. Capillary Refill: Capillary refill takes less than 2 seconds. Neurological: Mental Status: She is alert and oriented to person, place, and time. Psychiatric: Behavior: Behavior normal. Thought Content: Thought content normal. Results I reviewed ER report, labs, imaging report Assessment and Plan Assessment & Plan Shortness of breath Shortness of breath likely related to rib fractures and pulmonary vascular congestion. Concerns about potential pneumonia and heart function. - Order chest x-ray to evaluate for pneumonia and fluid accumulation. - Check blood work including BNP to assess heart function. - Refill albuterol inhaler. - Recommend guaifenesin to thin secretions. - Advise use of incentive spirometer once an hour while awake. Potential pneumonia Potential pneumonia due to cough, green sputum, and shortness of breath. No fever reported. - Order chest x-ray to evaluate for pneumonia. - Monitor for fever, increased respiratory rate, or worsening symptoms. Pulmonary vascular congestion Mild pulmonary vascular congestion on imaging, raising concerns about heart function. - Order echocardiogram to assess heart function. - Monitor for signs of heart failure or worsening congestion. Leg swelling Leg swelling possibly due to decreased mobility, low protein intake, or heart function issues. Vascular disease and clotting disorder noted. - Check blood work including liver enzymes and potassium. Rib fractures Acute fractures of the left ninth, tenth, and eleventh ribs causing significant pain. Pain management challenging due to medication interactions and side effects. - Continue acetaminophen three times a day for pain management. - Use lidocaine patches on affected area. - Apply heat and ice as needed. - Avoid aggravating movements. - Consider hospital admission if pain becomes unmanageable. Low potassium Low potassium noted during hospital stay, contributing to weakness and fatigue. - Check blood work to reassess potassium levels. Bloating and abdominal discomfort Bloating and abdominal discomfort possibly due to decreased mobility and dietary factors. - Check blood work including liver enzymes. - Advise increased mobility and dietary adjustments if possible. Follow-up Follow-up care and monitoring required due to multiple health concerns and recent fall. - Schedule follow-up appointment in six weeks. - Order echocardiogram as soon as possible. - Advise monitoring for worsening symptoms and seek emergency care if necessary. Noted that it is Tuesday afternoon and results will likely not become available until after office closes. Encouraged daughter to call on-call provider if she has concerns about results over weekend. ER if any worsening, fever, AMS, or pain is not controlled. Wrap-Up Follow-up: Return in 6 weeks (on 08/31/2024), or if symptoms worsen or fail to improve. | Check-out note: Xray now Labs now Echo - dharmesh I spent a total of 30-39 minutes (exact time 35 mins) on the date of service in preparation, delivery, and documentation of the care provided to Genesis Cleary excluding any time spent in the performance of separately billed services. Text in this note was generated using an ambient documentation service. I discussed the use of a device to record and summarize our discussion today. All persons present during the encounter consented to its use. documented in this encounter Plan of Treatment Upcoming Encounters Date Type Department Care Team (Late st Contact Info) Description 08/24/2024 7:15 AM EDT Cardiac Studies Cardiac Studies, [facility] [address] [place] [phone] 09/11/2024 10:00 AM EDT Office Visit Family Practice [facility] [address] [place] [address] Zoe Gould CRNP [address] [place] [id number] Pending Results Name Type Priority Associated Diagnoses Date /Time BNP, NT-PRO Lab Routine Lower leg edema 07/20/2024 4:00 PM EDT Scheduled Orders Name Type Priority Associated Diagnoses Orde r Schedule ECHO, COMPLETE (2D), TRANS-THORACIC Echocardiology Routine Lower leg edema Expected: 07/27/2024, Expires: 08/19/2026 BNP, NT-PRO Lab Routine Lower leg edema Expected: 07/20/2024 (Approximate), Expires: 07/20/2025 Scheduled Procedures Name Priority Associated Diagnoses Date/Ti me COLONOSCOPY FLEXIBLE PROXIMAL DIAGNOSTIC Recall History of colon polyps Health Maintenance Due Date Last Done Comments DISCUSS TOBACCO CESSATION (REFER TO SMARTSET #8780) 1960 O2 ASSESSMENT COMPLETED IN PAST YEAR [...] TO SMARTSET #1146) Addressed 04/13/2017 Overridden sirisha lee the intention of not completing the topic VITAMIN D LEVEL ONCE IN A LIFETIME-USE SMARTSET# [id number] Completed 08/16/2017 Pap Smear Discontinued 09/02/2017, 04/29, [...] this encounter Medical Devices Implanted Type Area Technician Helper Instrument Device Identifier Shelf Expiration Date Model / Serial / Lot Stent Complete De 5x150 - [id number] Implanted:Qty: 2 on 09/22/2014 by Andrés Guzmán MD at [facility] Right: Femoral Artery [employer] : VASCULAR 05/02/2016 [id number] / / [id number] documented as of this encounter Procedures Procedure Name Priority Date/Time Associated Diagnosis Comments XR RIBS UNILATERAL W/PA CHEST MINIMUM 3 VIEWS STAT 07/20/2024 3:50 PM EDT Closed fracture of multiple ribs of left side, initial encounter Cough, unspecified type documented in this encounter Results * XR RIBS UNILATERAL W/PA CHEST MINIMUM 3 VIEWS (07/20/2024 3:50 PM EDT) Anatomical Region Laterality Modality Chest Digital Radiogra phy 07/20/2024 5:03 PM EDT Narrative 07/20/2024 5:01 PM EDT EXAM: XR RIBS UNILATERAL W/PA CHEST MINIMUM 3 VIEWS HISTORY: productive cough and worsening pain with recent fracture of ribs 9-11 L side. r/o pneumonia COMPARISON: 01/06/2021. FINDINGS: Acute mildly displaced fractures anterior aspect left 7th and 8th rib. Mildly displaced segmental fractures left 9th and 10th ribs. Small amount of left pleural fluid is present which appears to be loculated. Patchy opacification is present in the right lower chest. No gross pneumothorax. The cardiomediastinal silhouette is within normal limits for size. Multilevel degenerative changes are present in the thoracolumbar spine. Dextrocurvature of the lumbar spine. Surgical clips are present in the right upper quadrant. IMPRESSION: 1. Multiple acute left-sided rib fractures without gross pneumothorax. 2. Small amount of left pleural fluid which appears to be loculated most likely representing a hemothorax. Follow-up evaluation is recommended to ensure resolution in to exclude any underlying nodule/mass.. 3. Patchy right lower chest opacification which when correlated to the prior examination probably represents scarring with differential consideration including atelectasis. Attention to be directed at the time of follow-up examination. 4. Details as above. (In compliance with Act 112, the SENIOR ADVISORY (Claim Agent) was contacted to invoke system generated communication of the patient's results.) Procedure Note Hay Harmon MD - 07/20/2024 EXAM: XR RIBS UNILATERAL W/PA CHEST MINIMUM 3 VIEWS HISTORY: productive cough and worsening pain with recent fracture of ribs 9-11 Lside. r/o pneumonia COMPARISON: 01/06/2021. FINDINGS: Acute mildly displaced fractures anterior aspect left 7th and 8th rib.Mildly displaced segmental fractures left 9th and 10th ribs. Small amountof left pleural fluid is present which appears to be loculated. Patchyopacification is present in the right lower chest. No gross pneumothorax.The cardiomediastinal silhouette is within normal limits for size.Multilevel degenerative changes are present in the thoracolumbar spine.Dextrocurvature of the lumbar spine. Surgical clips are present in theright upper quadrant. IMPRESSION: 1. Multiple acute left-sided rib fractures without gross pneumothorax. 2. Small amount of left pleural fluid which appears to be loculated mostlikely representing a hemothorax. Follow-up evaluation is recommended toensure resolution in to exclude any underlying nodule/mass.. 3. Patchy right lower chest opacification which when correlated to theprior examination probably represents scarring with differentialconsideration including atelectasis. Attention to be directed at the timeof follow-up examination. 4. Details as above. (In compliance with Act 112, the SENIOR ADVISORY (Claim Agent) wascontacted to invoke system generated communication of the patient'sresults.) [facility] ([facility]) Fi nal Result documented in this encounter Visit Diagnoses Diagnosis Closed fracture of multiple ribs of left side, initial encounter- Primary Cough, unspecified type Hypokalemia Hypopotassemia Abdominal bloating Flatulence, eructation, and gas pain Lower leg edema Edema COPD, group A, by GOLD 2017 classification ([facility]) Peripheral vascular disease (HCC) Peripheral vascular disease, unspecified Raynaud's disease without gangrene Fibromyalgia Mylagia and myositis, unspecified Neuropathy Mononeuritis of unspecified site Medical home patient encounter Other specified examination Recurrent major depressive disorder, in partial remission ([facility]) History of tobacco use Personal history of tobacco use, presenting hazards to health History of DVT (deep vein thrombosis) Personal history of venous thrombosis and embolism Medical marijuana use Encounter for long-term (current) use of other medications documented in this encounter Advance Directives * [...] and were consensually agreed upon. Care Teams Hvac Field Service Technician Relationship Specialty Start Date End Date Pieter Benavides MD [address] [place] [phone] PCP - General Family Medicine 05/04/18 documented as of this encounter
--- OUTSIDE RECORDS SUMMARY | 2024-07-24 01:34 | External Medical Summary ---
Author Name Unknown Address Unknown Organization [id number]:[place] [place] [address] [place] [address] Laboratory Report Ordering Provider Test Date Status MARYCARMEN CASEY 07/20/2024 16:00:15 Final Observation Date Value Abnormality Reference (Units ) Status Folic Acid 07/20/2024 16:00:15 17.8 >4.5 (ng/ mL) Final Performing Location LABORATORY [facility] - [address] [place] [address]
--- OUTSIDE RECORDS SUMMARY | 2024-07-24 01:34 | External Medical Summary ---
Author Name Unknown Address Unknown Organization [id number]:LABORATORY [facility] [place] [address] - [address] [place] [address] Laboratory Report Ordering Provider Test Date Status MARYCARMEN CASEY 07/20/2024 16:00:15 Final Observation Date Value Abnormality Reference (Units ) Status SYNC LEUKOCYTES IN BLOOD BY AUTOMATED COUNT 07/20/2024 16:00:15 2.68 Below low normal 4.00-10.80 (K/uL) Final Segs 07/20/2024 16:00:15 53.7 40.0-75.0 (%) Final Lymphs % 07/20/2024 16:00:15 22.0 18.0-42.0 (%) Final Monos 07/20/2024 16:00:15 20.8 Above high normal 1.0-11.0 (%) Final Eosinophils 07/20/2024 16:00:15 2.3 0.0-6.0 (%) Final Basos 07/20/2024 16:00:15 1.2 0.0-2.0 (%) Final Absolute Segs 07/20/2024 16:00:15 1.39 Below low normal 1.80-7.70 (K/uL) Final Lymphs, absolute 07/20/2024 16:00:15 0.57 Below low normal 1.00-4.80 (K/ul) Final Monos, Abs 07/20/2024 16:00:15 0.54 0.00-1.10 (K/uL) Final Eos, Abs 07/20/2024 16:00:15 0.06 0.00-0.70 (K/uL) Final Basos, Abs 07/20/2024 16:00:15 0.03 0.00-0.20 (K/uL) Final Performing Location LABORATORY [facility] [address] - [address] [place] [address]
--- OUTSIDE RECORDS SUMMARY | 2024-07-24 01:34 | External Medical Summary ---
Author Name Unknown Address Unknown Organization [id number]:LAB[facility]ATORY [facility] [place] - [address] [place] [address] Laboratory Report Ordering Provider Test Date Status MARYCARMEN CASEY 07/20/2024 16:00:15 Final Observation Date Value Abnormality Reference (Units ) Status Triglyceride 07/20/2024 16:00:15 316 Above high normal <=174 (mg/dL) Final Triglyceride Reference Range s (mg/dL):
<150 Acceptable
150-174 Borderline high
175-499 High
>=500 Very high Cholesterol 07/20/2024 16:00:15 131 <200 (mg /dL) Final Total Cholesterol Reference Ranges (mg/dL):
<200 Desirable
200-239 Borderline high
>=240 High HDL 07/20/2024 16:00:15 11 Below low normal >49 (mg/dL) Final HDL Cholesterol Reference Ra nges (mg/dL):
>=60 High (Desirable)
<50 Low (Undesirable) For Females
<40 Low (Undesirable) For Males NON-HDL CHOLESTEROL 07/20/2024 16:00:15 120 <=159 (mg/dL) Final Non-HDL Cholesterol Referenc e Range (mg/dL):
<100 Target level for high risk ASCVD patient
<130 Optimal for general population
130-159 Near optimal for general population
160-189 Borderline High
190-219 High
>=220 Very High Performing Location LABORATORY [facility] - [address] [place] [address]
--- OUTSIDE RECORDS SUMMARY | 2024-07-24 01:34 | External Medical Summary ---
Author Name Unknown Address Unknown Organization [id number] [address] [place] [address] Laboratory Report Ordering Provider Test Date Status MARYCARMEN CASEY 07/20/2024 16:00:15 Final Observation Date Value Abnormality Reference (Units ) Status WBC, Total 07/20/2024 16:00:15 2.68 Below low normal 4. 00-10.80 (K/uL) Final RBC 07/20/2024 16:00:15 3.95 3.85-5.15 (M/uL) Final Hemoglobin 07/20/2024 16:00:15 12.6 12.0-15.3 (g/dL) Final Anemia reflex testing trigge rs on a HGB < 12.0 for Females and HGB < 13.0 for Males in accordance with the WHO Anemia Guidelines HCT 07/20/2024 16:00:15 36.5 36.0-45.2 (%) Final MCV 07/20/2024 16:00:15 92.4 81.5-97.5 (fL) Final MCH 07/20/2024 16:00:15 31.9 27.0-34.0 (pg) Final MCHC 07/20/2024 16:00:15 34.5 32.0-36.0 (g/dL) Final RDW 07/20/2024 16:00:15 15.5 11.5-15.5 (%) Final Platelets 07/20/2024 16:00:15 200 140-400 (K /uL) Final Results rechecked. MPV 07/20/2024 16:00:15 11.4 6.6-11.1 ( fL) Final Performing Location LABORATORY [facility] [place] [address] - [address] [place] [address]
--- OUTSIDE RECORDS SUMMARY | 2024-07-24 01:34 | External Medical Summary ---
Author Name Unknown Address Unknown Organization [id number]:[facility] [address] [place] [address] Laboratory Report Ordering Provider Test Date Status MARYCARMEN CASEY 07/20/2024 16:00:15 Final Observation Date Value Abnormality Reference (Units ) Status Nucleated erythrocytes/100 leukocytes [Ratio] in Blood by Automated count 07/20/2024 16:00:15 Final Performing Location [facility] - [address] [place] [address]
--- OUTSIDE RECORDS SUMMARY | 2024-07-24 01:34 | External Medical Summary ---
Author Name Unknown Address Unknown Organization [id number]:LABORATORY [facility] [place] - [address] [facility] [address] Laboratory Report Ordering Provider Test Date Status MARYCARMEN CASEY 07/20/2024 16:00:15 Final Observation Date Value Abnormality Reference (Units ) Status BUN 07/20/2024 16:00:15 56 Above high normal 6-20 (mg/dL) Final Creatinine 07/20/2024 16:00:15 5.7 Above high normal 0.5-1.0 (mg/dL) Final Glomerular filtration rate/1.73 sq M.predicted [Volume Rate/Area] in Serum, Plasma or Blood by Creatinine-based formula (CKD-EPI) 07/20/2024 16:00:15 8 Below low normal >=60 (mL/min) Final eGFR is calculated based on the CKD-EPI 2020 equation. Sodium 07/20/2024 16:00:15 130 Below low normal 135 -146 (mmol/L) Final Potassium 07/20/2024 16:00:15 6.2 Above high normal 3. 5-5.1 (mmol/L) Final Results may be falsely eleva noe due to hemolysis. Cl 07/20/2024 16:00:15 90 Below low normal 98- 107 (mmol/L) Final CO2 07/20/2024 16:00:15 21 Below low normal 22- 32 (mmol/L) Final Anion gap 07/20/2024 16:00:15 19 Above high normal 7- 15 (mmol/L) Final Glucose 07/20/2024 16:00:15 123 Above high normal 70 -120 (mg/dL) Final Albumin 07/20/2024 16:00:15 3.5 Below low normal 3.8 -5.0 (g/dL) Final AST (Aspartate aminotransferase) 07/20/2024 16:00:15 1956 Above high normal 10-35 (U/L) Final Results may be falsely eleva noe due to hemolysis. Alk Phos 07/20/2024 16:00:15 665 Above high normal 35 -130 (U/L) Final Bilirubin, Total 07/20/2024 16:00:15 3.2 Above high no rmal <=1.2 (mg/dL) Final Calcium 07/20/2024 16:00:15 8.5 8.4-10.2 ( mg/dL) Final Protein 07/20/2024 16:00:15 6.3 6.0-8.3 (g /dL) Final ALT (Alanine aminotransferase) 07/20/2024 16:00:15 2180 Above high normal 10-35 (U/L) Final Results may be falsely eleva noe due to hemolysis. Performing Location LABORATORY [facility] [place] - [address] [facility] [address]
--- OUTSIDE RECORDS SUMMARY | 2024-07-24 01:34 | External Medical Summary ---
Author Name Unknown Address Unknown Organization [id number]:LAB[facility]ATORY [facility] - [address] [place] [address] Laboratory Report Ordering Provider Test Date Status MARYCARMEN CASEY 07/20/2024 16:00:15 Final Observation Date Value Abnormality Reference (Units ) Status Vitamin B12 07/20/2024 16:00:15 >2000 Above high normal 232-1245 (pg/mL) Final Performing Location [facility] - [address] [place] [address]
--- OUTSIDE RECORDS SUMMARY | 2024-07-24 01:34 | External Medical Summary | Summary of Care ---
Author Name Unknown Organization [facility] Address [address] [place] [address] Phone [phone] Care Team Providers Care Outsole Flexer Name Role Phone Pieter Benavides MD Primary Care Provider + Reason for Visit * Reason Comments Outpatient Testing Encounter Details Date Type Department Care Team (Latest Contact Info) Description 07/20/2024 3:50 PM EDT Laboratory Laboratory, [facility] [address] [place] [address] [facility] [address] [place] [address] Atherosclerosis of [place] coronary artery without angina pectoris, unspecified whether skokomish or transplanted heart; Neuropathy; History of alcohol abuse; Hypokalemia; Lower leg edema; Closed fracture of multiple ribs of left side, initial encounter; Cough, unspecified type; Abdominal bloating Allergies Active Allergy Reactions Criticality Noted Date Comments Vitamin K Chills/rigors 07/29/2014 documented as of this encounter (statuses as of 07/20/2024) Medications Sodium Fluoride 1.1 % Dental Gel (PreviDent) [place] onto teeth 2 times a day. 100 [...] disease) 08/04/2020 Overview (08/04/2020): 07/31/20 mild CAD [facility] 1 diagonal branch Hyperlipidemia, unspecified 04/19/2019 Medical marijuana use 04/19/2019 Recurrent major depressive disorder, in partial remission 12/27/2017 Lung nodule 12/27/2017 Overview (12/27/2017): 12/13 4mm rll @[facility] MEDICATION USE AGREEMENT 11/30/2017 Other osteoporosis without current pathological fracture 03/13/2017 Medical home patient encounter 03/13/2017 Overview (11/19/2022): 01/12 Pap under sedation unable to read. Consider repeat w/anesthesia. COlonoscopy-tubular adenoma oneal 5y 03/13 new dx Osteoporosis-- eval Rx,reassess ETOH Daughter--Maria Abraham (I see). 12/07 colonoscopy [facility] tubular adenoma. History of tobacco use [...] vein thrombosis) 08/26/2011 Anticoagulation management encounter 08/26/2011 senior care current use of anticoagulant therapy 0 08/26/2011 [...] see daughter Maria Panchal 01/09 brain MRI WNL-[facility] 07/09 Colpo-GREGG I, 09/08 LEEP-GREGG I, [...] Joint effusion, knee 03/12/2009 017 DISC DIS [id number] 08/23/200706/26 ADVANCE DIRECTIVE INFORMATION 11/11/2004 01/30/2024 Overview [...] mRNA, LNP-s, No Pre serve, 2-Dose Series (Gynzy) 02/26/2021,08/25/2020,08/04/2020 COVID-19, LNP-s, No Preserve , Ivan-sucrose, Ages 12+ (Gynzy) 08/14/2021 H1N1 2009 Influenza, IM 03/17/2009 Pneumococcal Conjugate Vacci ne, 20-valent ([id number]) 09/06/2022 Pneumococcal Polysaccharide PPV23 (Pneumovax) 06/01/2014,01/03/2009 Seasonal [...] AM EDT Cardiac Studies Cardiac Studies, [facility] [address] [phone] 09/11/2024 10:00 AM EDT Office Visit Family Practice [facility] [address] [address] Zoe Gould CRNP [address] [address] Pending Results Name Type Priority Associated Diagnoses Date /Time CBC WITH WBC DIFFERENTIAL AND ANEMIA REFLEX WORKUP Lab Routine Atherosclerosis of [place] coronary artery without angina pectoris, unspecified whether sk[place]ish or transplanted heart 07/20/2024 4:00 PM EDT COMPREHENSIVE METABOLIC PANEL Lab Routine Atherosclerosis of [place] coronary artery without angina pectoris, unspecified whether [place] or transplanted heart 07/20/2024 4:00 PM EDT LIPID PANEL WITH DIRECT LDL IF TG IS HIGH Lab Routine Atherosclerosis of [place] coronary artery without angina pectoris, unspecified whether sk[place]omish or transplanted heart 07/20/2024 4:00 PM EDT COPPER, SERUM OR PLASMA Lab Routine Neuropathy 07/20/2024 4:00 PM EDT VITAMIN B12 Lab Routine Neuropathy 07/20/2024 4:00 PM EDT FOLIC ACID Lab Routine History of alcohol abuse 07/20/2024 4:00 PM EDT VITAMIN B1 (THIAMINE), BLOOD, LC/MS/MS Lab Routine Neuropathy 07/20/2024 4:00 PM EDT BNP, NT-PRO Lab Routine Lower leg edema 07/20/2024 4:00 PM EDT ANEMIA REFLEX CHEMISTRY HOLD Lab Routine Atherosclerosis of [place] coronary artery without angina pectoris, unspecified whether sk[place]om[place] or transplanted heart 07/20/2024 4:00 PM EDT Scheduled Procedures Name Priority Associated Diagnoses Date/Ti me COLONOSCOPY FLEXIBLE PROXIMAL DIAGNOSTIC Recall History of colon polyps Health Maintenance Due Date Last Done Comments DISCUSS TOBACCO CESSATION (REFER TO SMARTSET #5818) 1960 O2 ASSESSMENT COMPLETED IN PAST YEAR [...] D LEVEL ONCE IN A LIFETIME-USE SMARTSET# 49681 Completed 08/16/2017 Pap Smear Discontinued 09/02/2017, 04/29, [...] this encounter Medical Devices Implanted Type Area Jewelsmith Device Identifier Shelf Expiration Date Model / Serial / Lot Stent Complete Ok [id number] - [id number] Implanted:Qty: 2 on 09/22/2014 by Andrés Guzmán [place] [facility] [place]: Femoral Artery [employer] : VASCULAR 05/02/2016 [id number] / / [id number] documented as of this encounter Procedures Procedure Name Priority Date/Time Associated Diagnosis Comments ANEMIA CBC Routine 07/20/2024 4:00 PM EDT Atherosclerosis of sk[place] coronary artery without angina pectoris, unspecified whether skokomish or transplanted heart DIFFERENTIAL, AUTOMATED Routine 07/20/2024 4:00 PM EDT Atherosclerosis of [place] coronary artery without angina pectoris, unspecified whether sk[place]ish or transplanted heart DIFFERENTIAL, TECHNOLOGIST REVIEW Routine 07/20/2024 4:00 PM EDT Atherosclerosis of sk[place] coronary artery without angina pectoris, unspecified whether skokomish or transplanted heart documented in this encounter Results * DIFFERENTIAL, TECHNOLOGIST REVIEW (07/20/2024 4:00 PM EDT) NRs 07/20/2024 4:26 PM EDT [facility] [place] [facility] Blood Venous blood specimen / Unknown Venipuncture / Unknown 07/20/2024 4:00 PM EDT 07/20/2024 4:00 PM EDT Pieter Benavides MD LAB BLOOD ORDERABLES [facility] al Result [facility] [place] [address] [place] [address] * (ABNORMAL) DIFFERENTIAL, AUTOMATED (07/20/2024 4:00 PM EDT) WBC 2.68(L) 4.00 - 10.80 K/uL 07/20/2024 4:26 PM EDT [facility] [place] [facility]10 Neutrophils % 53.7 40.0 - 75.0 % 07/20/2024 4:26 PM EDT [facility] [place] 57[facility]10 Lymphocytes % 22.0 18.0 - 42.0 % 07/20/2024 4:26 PM EDT [facility] [place] 57[facility]10 Monocytes % 20.8(H) 1.0 - 11.0 % 07/20/2024 4:26 PM EDT [facility] [place] 57[facility]10 Eosinophils % 2.3 0.0 - 6.0 % 07/20/2024 4:26 PM EDT [facility] [place] 57[facility]10 Basophils % 1.2 0.0 - 2.0 % 07/20/2024 4:26 PM EDT [facility] Absolute Neutrophils 1.39(L) 1.80 - 7.70 K/uL 07/20/2024 4:26 PM EDT [facility] [place] [facility] Absolute Lymphocytes 0.57(L) 1.00 - 4.80 K/ul 07/20/2024 4:26 PM EDT [facility] 57[facility]10 Absolute Monocytes 0.54 0.00 - 1.10 K/uL 07/20/2024 4:26 PM EDT [facility] Absolute Eosinophils 0.06 0.00 - 0.70 K/uL 07/20/2024 4:26 PM EDT [facility] 57[facility]10 Absolute Basophils 0.03 0.00 - 0.20 K/uL 07/20/2024 4:26 PM EDT LAB[facility] [place] 57[facility]10 Blood Venous blood specimen / Unknown Venipuncture / Unknown 07/20/2024 4:00 PM EDT 07/20/2024 4:00 PM EDT us Pieter Benavides MD LAB BLOOD ORDERABLES Fin al Result LAB[facility]AT[facility] [place] [address] [place] [address] * (ABNORMAL) ANEMIA CBC (07/20/2024 4:00 PM EDT) WBC 2.68(L) 4.00 - 10.80 K/uL 07/20/2024 4:26 PM EDT LAB[facility] [place] 57[facility]10 RBC 3.95 3.85 - 5.15 M/uL 07/20/2024 4:26 PM EDT [facility] [place] 57[facility]10 HGB 12.6 12.0 - 15.3 g/dL 07/20/2024 4:26 PM EDT LAB[facility] [place] 57[facility]10 Comment:Anemia reflex testin g triggers on a HGB < 12.0 for Females and HGB < 13.0 for Males in accordance with the WHO Anemia Guidelines HCT 36.5 36.0 - 45.2 % 07/20/2024 4:26 PM EDT LAB[facility]10 MCV 92.4 81.5 - 97.5 fL 07/20/2024 4:26 PM EDT LAB[facility] [place] 57[facility] MCH 31.9 27.0 - 34.0 pg 07/20/2024 4:26 PM EDT [facility] 57[facility]10 MCHC 34.5 32.0 - 36.0 g/dL 07/20/2024 4:26 PM EDT [facility] RDW 15.5 11.5 - 15.5 % 07/20/2024 4:26 PM EDT [facility] PLT 200 140 - 400 K/uL 07/20/2024 4:26 PM EDT [facility] [place] 57[facility]10 Comment: Results rechecked. MPV 11.4 6.6 - 11.1 fL 07/20/2024 4:26 PM EDT LAB[facility] 57[facility]10 Blood Venous blood specimen / Unknown Venipuncture / Unknown 07/20/2024 4:00 PM EDT 07/20/2024 4:00 PM EDT us Pieter Benavides MD LAB BLOOD ORDERABLES Fin al Result [facility] [address] [place] [address] documented in this encounter Visit Diagnoses Diagnosis Atherosclerosis of sk[place]om[place] coronary artery without angina pectoris, unspecified whether skokomish or transplanted heart Neuropathy Mononeuritis of unspecified site History of alcohol abuse Nondependent alcohol abuse, in remission Hypokalemia Hypopotassemia Lower leg edema Edema Closed fracture of multiple ribs of left side, initial encounter Cough, unspecified type Abdominal bloating Flatulence, eructation, and gas pain documented in this encounter Advance Directives * [...] and were consensually agreed upon. Care Teams Outsole Flexer Relationship Specialty Start Date End Date Pieter Benavides MD [address] [address] PCP - General Family Medicine 05/04/18 documented as of this encounter
--- OUTSIDE RECORDS SUMMARY | 2024-07-24 01:34 | External Medical Summary ---
Author Name Unknown Address Unknown Organization K01:LABORATORY [facility] [place] - [address] [place] [address] Laboratory Report Ordering Provider Test Date Status SHONDA CASEYSOPHIAMaxime 07/20/2024 16:00:15 Final Observation Date Value Abnormality Reference (Units ) Status LDL, (direct) 07/20/2024 16:00:15 11 <=129 (mg/dL) Final LDL Cholesterol Reference Ra nges (mg/dL):
<70 � � Target level for high risk ASCVD patient
<100 � �Optimal for general population
100-129 Near optimal for general population
130-159 Borderline high
160-189 High
>=190 � Very high Performing Location LAB[facility]AT[facility] - [address] [place] [address]
[2024-07-24 06:08] LABS: Basophils # (auto) 0.04 K/uL (0.00-0.20); Basophils % (auto) 0.6 %; Eosinophils # (auto) 0.36 K/uL (0.00-0.50); Eosinophils % (auto) 5.5 %; Hematocrit (blood only) 22.8 % (37.0-47.0); Hemoglobin 7.8 g/dl (12.0-16.0); Immature Granulocytes # (auto) 0.07 K/uL (0.01-0.20); Immature Granulocytes % (auto) 1.1 %; Lymphocytes # (auto) 1.01 K/uL (1.20-3.40); Lymphocytes % (auto) 15.5 %; Mean Corpuscular Hemoglobin 31.8 pg (25.0-34.0); Mean Corpuscular Hgb Conc 34.2 g/dL (32.0-36.0); Mean Corpuscular Volume 93.1 fL (80.0-100.0); Mean Platelet Volume 10.9 fL (9.4-12.4); Monocytes # (auto) 1.04 K/uL (0.11-0.59); Monocytes % (auto) 15.9 %; Neutrophils # (auto) 4.01 K/uL (1.40-6.50); Neutrophils % (auto) 61.4 %; Platelet Count 176 K/uL (130-400); RDW Coefficient of Variation 17.2 % (11.5-14.5); RDW Standard Deviation 52.3 fL (36.4-46.3); Red Blood Count 2.45 M/uL (4.20-5.40); White Blood Count 6.53 K/ul (4.8-10.8)
[2024-07-24] MEDS: PIPERACILLIN/TAZOBACTAM 4.5 GM/100 ML BAG IV SCH (06:11)
[2024-07-24 06:32] LABS: RBC Morphology Unremarkable
[2024-07-24 06:34] LABS: Albumin Level 2.6 gm/dl (3.4-5.0); BUN Creatinine Ratio 11.2 (10-20); Bilirubin,Total 1.2 mg/dl (0.2-1.0); Calcium 7.9 mg/dl (8.6-10.3); Creatinine Clr Calc Pharmacy 5.6 ml/min; Globulin 2.5 gm/dl (2.5-4.0); Potassium 3.8 mmol/L (3.5-5.1); Total Protein 5.1 gm/dl (6.0-8.3)
--- NOTE | 2024-07-24 09:01 | Nephrology Consultation ---
Date of Consultation July 24, 2024 Assessment & Plan (1) Acute renal failure: Stage 3 nonoliguric very slowly improving TERESA in setting of EtOH abuse and acute on chronic pain and severe though improving liver failure. cause unclear at this time since I have little insight about OP meds she was actually using or events over weekend. behaving for now as though at least a prerenal component is present not overloaded currently; chemistries ok except mild hyponatremia which is stable; K ok no indication for emergent dialysis though cannot r/o need this admission; acid base status acceptable >> did have AG on presentation which has resolved > suspect starvation acidosis do not at this time believe she needs a renal biopsy, though nephritic sediment noted and warrants further eval deanne w/ SOB and severe liver failure -cont strict I/O -added phos, mag to labs from today -repeat bmp 1800 phos, mag as well >>> monitor for refeeding -ordered repeat UA and prot/creat ratio -cont NS current rate unless hypoxic Care coordinated with Dr Short via TText re lack of need for dialysis, plausible etiologies, f/u labs; we are in agreement. (2) Elevated LFTs: AST/ALT 209/640 on presentation; down trending today; was AST /ALT 7/2180 prior to admission on 07/20. no active OP GI follow up. hepatitis w/u per primary service; suspect EtOH hepatitis but other toxins possible given her memory impairment track transaminase trends History of Present Illness Reason for Consultation: TERESA Requesting Physician: Dr Rizvi Attending Physician: Lauri Short, History of Present Illness 64 y/o F whom I'm asked to see for TERESA was admitted last evening for same after OP labs on 07/20 showed creatinine 5.7, K 6.2 (hemolyzed), AST /ALT 7/2180; she was found to have R pneumonia on admission w/ a known L sided rib fracture and small L pleural effusion. PMH includes CAD, prolonged QT, PAD status post femoral-tibial bypass, COPD w/ active tobacco use, MTHFR mutation w/ h/o DVT, EtOH abuse, cognitive/memory impairment, history of traumatic subdural hematoma, fibromyalgia, depression. Seen in [facility] ER 07/14 w/ EtOH 46 after a fall at home > L rib fractures x 3 and K 2.8; creatinine 0.8; d/c home on tramadol, cyclobenzaprine, lidocaine patch, tylenol for f/u w/in 2-3 days w/ PCP. Saw PCP 07/20 w/ c/o dyspnea, rib pain and was asking for pain meds, specifically morphine > labs as above. Her presenting creatinine was 8.7; down to 8.2 this AM. Baseline creatinine 07/14/24 is 0.8. CK wnl. Tylenol and salicylate levels were wnl on presentation here. She has voided 375 mL in the past 10-12 hours. she is on RA. She is receiving NS at 80 mL hourly after 2L in ED; on zosyn now after initial dose of ceftriaxone. Pt c/o pain down her legs, in BL shoulders, hands. Does also mention ribs. Tells me repeatedly she's "miserable." RN reports marked issues w/ recall > repeating questions etc. Eating some/most food. no abd pain. no sob; + productive cough and L pleuritic pain. no diarrhea, no edema. cannot really tell me what medications she was taking prior to PCP visit or over recent weekend. unsure if she took nsaids or not. tells me she's been unable to walk / move at home for at least a few weeks d/t generalized weakness even before fall. Allergies Allergy/AdvReac Type Severity Reaction Status Date / Time menaquinone-7 (vitamin K2) Allergy Severe SOB CHEST Verified 07/23/24 18:08 [vitamin K2] PAIN SHAKING Home Medications Medication Instructions Recorded Confirmed Type atorvastatin 40 mg tablet 40 mg PO QAM 09/13/18 07/23/24 History Medical Marijuanas ~ Oil Vape 1 inh inhalation DIRECTED PRN 07/30/20 07/23/24 History Unknown mirtazapine 30 mg tablet 30 mg PO HS 05/30/22 07/23/24 History apixaban 5 mg tablet (Eliquis) 5 mg PO BID 06/12/22 07/23/24 History polyethylene glycol 3350 17 gram 17 g PO DAILY PRN laxative effect 06/17/22 07/23/24 Rx oral powder packet (Miralax) #30 ea duloxetine 30 mg capsule,delayed 60 mg PO DAILY 09/21/23 07/23/24 History release memantine 10 mg tablet 10 mg PO BID #60 tabs 09/21/23 07/23/24 Rx gabapentin 600 mg tablet 600 mg PO BID #60 tabs 09/26/23 07/23/24 Rx aspirin 81 mg tablet,delayed 81 mg PO QAM 07/14/24 07/23/24 History release lidocaine 4 % topical patch 1 patch topical DAILY PRN pain #5 07/14/24 07/23/24 Rx (Lidocaine Pain Relief) ea Patient History Medical History Vitamin D insufficiency Depression MTHFR gene mutation PVD (peripheral vascular disease) Unstable angina Chest pain Tobacco abuse HLD (hyperlipidemia) DVT prophylaxis MDD (major depressive disorder) Angina at rest Peptic ulcer disease CURRENT GERD (gastroesophageal reflux disease) Chronic back pain Degenerative disc disease Osteoarthritis Diverticular disease Factor 5 Leiden mutation, heterozygous Migraine Deep vein thrombosis (2015) FEMORAL BYPASS IN BILATERAL LEGS History of MTHFR mutation Depression COPD (chronic obstructive pulmonary disease) NO PROBLEMS Peripheral vascular disease Fibromyalgia Peripheral vascular disease MTHFR mutation COPD (chronic obstructive pulmonary disease) Deep vein thrombosis Surgical History History of right cataract extraction H/O surgical biopsy VAGINAL BIOPSY History of esophagogastroduodenoscopy (EGD) EGD 12/23/2017. Sedation no issues. History of colonoscopy History of arthroscopy LEFT SHOULDER H/O vascular surgery MULTIPLE BILATERAL LEG SURGERIES History of section X1 History of cholecystectomy LAP History of nasal septoplasty History of tonsillectomy Family History Mother PAD (peripheral artery disease) Arthritis Gastrointestinal disorder Father Heart disease Sister Arthritis Depression Deep vein thrombosis Brother Sepsis Other Coronary heart disease Social History Smoking Status: Current every day smoker Tobacco Type: Cigarettes Cigarettes Per Day: 6; Second Hand Exposure: No; Do You Dip or Chew Tobacco: No; Tobacco Cessation Education Requested by Patient: No Hx Alcohol Use: Yes Alcohol type: beer, wine and hard liquor Hx Substance Use: No Preferred Language: Tristanian Communication Ability: Effective Putty Worker Required: No Beliefs That Will Affect Care: None Current Living Situation: Alone Other Information That Helps Us Care for You: No Feels Safe at Home: Yes Safety Concerns: Feels Safe At This Time Assistive Devices: None Review of Systems 2 Review of Systems: All systems reviewed & are unremarkable except as noted in HPI & below Physical Exam 2 Constitutional: well developed, + acute distress (mild, tearful, confused), + behavioral limitations and + physical limitations Eyes: EOM intact bilaterally ENMT: Mouth: + dry oral mucous membranes Respiratory: normal respiratory effort Auscultation: + diminished lung sounds Cardiovascular: Rate/Rhythm: regular rhythm and + tachycardic Extremities: no edema Gastrointestinal (Abdomen): Inspection/Auscultation: normal bowel sounds P ercussion/Palpation: abdomen soft; abdomen nontender Musculoskeletal: Extremities: strength 5/5 throughout Skin: no rashes, warm and dry Neurologic: iglesias, fluent speech, no tremor Psychiatric: Orientation: alert, oriented to person and cooperative soft voice, poor historian; minimal insight, some perseverant/tangential speech Results & Data Vital Signs (Past 12 Hours) Vital Signs Temp Pulse Pulse Resp BP Pulse Ox O2 Del Method 07/24/24 07:04 36.8 C 92 H 18 105/65 93 Room Air 07/24/24 06:59 88 18 90 Room Air 07/24/24 03:30 36.7 C 96 H 16 103/65 92 Room Air 07/24/24 00:33 87 07/24/24 00:17 84 15 95 Room Air 07/23/24 23:07 36.6 C 84 18 106/70 94 Room Air 07/23/24 22:23 Room Air 07/23/24 21:01 36.8 C 83 18 138/71 95 Room Air Laboratory Results 07/24/24 05:52 07/24/24 05:52 UA > cloudy 1011 w/ trace protein,ketones, blood; trace LE, >20 epis, 2+ bacteria salicylates and acetaminophen undetectable CK 92 Diagnostic Findings TTE borderline CLVH; else valves/EF ok renal u/s today > no acute abnormalities CT a/p non con > small ascites; no bladder/ureteral/renal anomalies CT chest non con > unchanged L rib fractures and increased small L pl effusion, new mild R bronchoPNA, worse BL base atelectasis, emphysemia head CT > cerebral atrophy/chornic small vessel dz
[2024-07-24] MEDS: ASPIRIN 81 MG ECTAB PO SCH (09:14)
[2024-07-24] MEDS: DULoxetine HCL 60 MG CAP PO SCH (09:16)
[2024-07-24 09:38] LABS: Hep B Surface Ag with confirm Negative (Negative)
[2024-07-24 09:43] LABS: Hep C Ab Rflx HepCQuant RNA Negative (Negative)
[2024-07-24] MEDS ORDERED: ALBUT/IPRATROP 3MG/0.5MG NEB 3 ML VIAL NEB PRN (09:53)
[2024-07-24 12:31] LABS: Magnesium 1.9 mg/dl (1.7-2.4)
[2024-07-24 12:36] LABS: Phosphorus 4.3 mg/dl (2.5-4.9)
[2024-07-24 14:00] LABS: Appearance Urine Cloudy (Clear); Bacteria Urine Automated None Seen (None Seen); Bilirubin Urine Negative (Negative); Blood Urine 3+ (Negative); Color Urine Yellow; Epithelial Cell Urine Auto 0-2 /hpf (0-2); Glucose Urine UA Negative (Negative); Ketones Urine Negative (Negative); Leukocyte Esterase Urine 3+ (Negative); Nitrite Urine Negative (Negative); Protein Urine Negative (Negative); Urobilinogen Urine Negative (Negative); WBC Urine Automated >50 /hpf (0-5); pH Urine 5.5 (4.5-7.5)
--- NOTE | 2024-07-24 14:48 | Hospitalist Progress Note ---
Date of Service July 24, 2024 Assessment & Plan (1) Acute renal failure: (2) Fracture of rib: (3) Factor 5 Leiden mutation, heterozygous: (4) COPD (chronic obstructive pulmonary disease): (5) Protein-calorie malnutrition, severe: (6) Fracture, ribs: (7) Alcoholic hepatitis with ascites: (8) Alcohol use: Plan Patient presented with acute renal failure. Most likely multifactorial. Suspect possible ATN in the setting of hypotension due to poor oral intake. Exacerbated by alcohol misuse Continue gentle hydration Continue to avoid nephrotoxins Liver functions are improving with cessation of alcohol, will continue to monitor, may need outpatient GI/liver specialist evaluation Communication with nephrology, no indication for hemodialysis. Suspect patient's poor nutrition is contributing significantly to her other medical issues, continue to encourage oral intake Therapies Case management for discharge planning [facility] Admission and Anticipated Discharge Date Admission Date: July 23, 2024 Subjective Patient overall states she is feeling better. Denies any chest pain or shortness of breath. Physical Exam Physical Exam: Constitutional: Alert, frail HEENT: Mucous membranes moist. Lungs: Decreased breath sounds CV: S1-S2, regular Abdomen: Soft, nontender, nondistended Extremities: No significant edema Neuro: No focal deficits, generalized weakness Psych: Cooperative, normal mood Results & Data Results & Data Vital Signs (Past 12 Hours) Vital Signs Temp Pulse Resp BP Pulse Ox O2 Del Method O2 Flow Rate 07/24/24 14:34 36.7 C 93 H 18 95/56 L 93 Room Air 07/24/24 13:00 Room Air 0 07/24/24 11:06 36.7 C 98 H 18 95/65 L 91 Room Air 07/24/24 07:04 36.8 C 92 H 18 105/65 93 Room Air 07/24/24 06:59 88 18 90 Room Air 07/24/24 03:30 36.7 C 96 H 16 103/65 92 Room Air Diagnostic Findings Reviewed imaging, laboratory and diagnostic studies. Pertinent findings as below. WBC 6.5 Hemoglobin 7.8 Sodium 131 Creatinine 8.16, slightly improved LFTs reviewed, slowly improving Blood cultures no growth Urine culture, pinpoint growth Reviewed CT of the abdomen pelvis, no significant liver abnormalities Hepatitis panel negative to date (2) Fracture of rib Encounter type: initial encounter Fracture type: closed Laterality: left Rib fracture type: multiple ribs Qualified Code(s): S22.42XA - Multiple fractures of ribs, left side, initial encounter for closed fracture
[2024-07-24 14:49] LABS: A calco-baum cmplx NotReported Not Detected (NotDetected); Bact fragilis Not Reported Not Detected (NotDetected); Blood Culture Id Panel See PCR Comment (NotDetected); C auris Not Reported Not Detected (NotDetected); Calbicans Not Reported Not Detected (NotDetected); Candida glabrata Not Reported Not Detected (NotDetected); Candida krusei Not Reported Not Detected (NotDetected); Cneoformans/gatti Not Reported Not Detected (NotDetected); Cparapsilosis Not Reported Not Detected (NotDetected); Ctropicalis Not Reported Not Detected (NotDetected); E cloacae compx Not Reported Not Detected (NotDetected); Efaecalis Not Reported Not Detected (NotDetected); Efaecium Not Reported Not Detected (NotDetected); Enterobacterales Not Reported Not Detected (NotDetected); Escherichia coli Not Reported Not Detected (NotDetected); H influenzae Not Reported Not Detected (NotDetected); K aerogenes Not Reported Not Detected (NotDetected); Koxytoca Not Reported Not Detected (NotDetected); Kpneumoniae grp Not Reported Not Detected (NotDetected); Lmonocyt Not Reported Not Detected (NotDetected); N meningitidis Not Reported Not Detected (NotDetected); P aeruginosa Not Reported Not Detected (NotDetected); Proteus spp Not Reported Not Detected (NotDetected); Salmonella spp Not Reported Not Detected (NotDetected); Staph lugdunensis Not Reported Not Detected (NotDetected); Staph spp. Not Reported DETECTED (NotDetected); Staphaureus Not Reported Not Detected (NotDetected); Staphepi Not Reported DETECTED (NotDetected); Stenmaltophilia Not Reported Not Detected (NotDetected); Strep agal(GrpB) Not Reported Not Detected (NotDetected); Strep pneum Not Reported Not Detected (NotDetected); Strep pyog (GrpA) Not Reported Not Detected (NotDetected); Strep spp Not Reported DETECTED (NotDetected)
[2024-07-24 14:57] LABS: Staphylococcus spp. DETECTED (NotDetected); mecAC Resistant Gene DETECTED (NotDetected)
[2024-07-24 14:58] LABS: Staphylococcus epidermidis DETECTED (NotDetected); Streptococcus spp DETECTED (NotDetected)
[2024-07-24] MEDS ORDERED: VANCOMYCIN HCL 1,250 MG in SODIUM CHLORIDE 0.9% 500 ML IV ONE (15:39)
[2024-07-24] MEDS ORDERED: VANCOMYCIN CONSULT ACTIVE PRN (15:39)
[2024-07-24 16:06] LABS: Creatinine Urine Random 50.9 mg/dl; Protein Creatinine Ratio Urine 0.3 (0-0.2)
[2024-07-24] MEDS: VANCOMYCIN HCL 1,250 MG in SODIUM CHLORIDE 0.9% 250 ML IV ONE (16:38)
[2024-07-24 19:44] LABS: Calcium 7.7 mg/dl (8.6-10.3); Creatinine Clr Calc Pharmacy 5.7 ml/min; Magnesium 1.7 mg/dl (1.7-2.4); Phosphorus 3.7 mg/dl (2.5-4.9); Potassium 3.6 mmol/L (3.5-5.1)
[2024-07-24] MEDS: oxyCODONE HCL IR 5 MG TAB (IMMEDIATE RELEASE) PO PRN (20:04)
[2024-07-25 07:42] LABS: Hematocrit (blood only) 25.9 % (37.0-47.0); Hemoglobin 8.6 g/dl (12.0-16.0); Mean Corpuscular Hemoglobin 31.5 pg (25.0-34.0); Mean Corpuscular Hgb Conc 33.2 g/dL (32.0-36.0); Mean Corpuscular Volume 94.9 fL (80.0-100.0); Mean Platelet Volume 11.3 fL (9.4-12.4); Nucleated RBC # (auto) 0.02 K/uL (0.00-0.12); Nucleated RBC % (auto) 0.2 %; Platelet Count 203 K/uL (130-400); RDW Coefficient of Variation 18.1 % (11.5-14.5); RDW Standard Deviation 58.9 fL (36.4-46.3); Red Blood Count 2.73 M/uL (4.20-5.40); White Blood Count 10.04 K/ul (4.8-10.8)
[2024-07-25 08:22] LABS: Bilirubin Direct 0.6 mg/dl (0-0.2); Bilirubin,Total 1.3 mg/dl (0.2-1.0); Creatinine Clr Calc Pharmacy 5.9 ml/min; Total Protein 6.1 gm/dl (6.0-8.3)
--- NOTE | 2024-07-25 09:10 | Nephrology Progress Note ---
Date of Service July 25, 2024 Assessment & Plan (1) Acute renal failure: Plan: Stage 3 nonoliguric very slowly improving TERESA in setting of EtOH abuse and acute on chronic pain and severe though improving liver failure. cause unclear at this time since I have little insight about OP meds she was actually using or events over weekend prior to admission. behaving for now as though at least a prerenal component is present but with 300 mg proteinuria, markedly inflamed urine w/o e/o infection, interstitial nephritis high on list along with ATN. not overloaded currently; chemistries ok except mild hyponatremia and mild low k no indication for emergent dialysis though cannot r/o need this admission; acid base status acceptable >> did have AG on presentation which had resolved > suspect starvation acidosis do not at this time believe she needs a renal biopsy, though nephritic sediment noted and warrants further eval deanne w/ SOB and severe liver failure -cont strict I/O >>f/u repeat blood cxs and agree w/ doxy > vanco -added full chem panel to creatinine from today d/t Stage 3 TERESA >> notable for Na 131 (stable); K 3.6 (stable) >> will give another liter of NS w/ 20 mEq K -no e/o refeeding >> phos, mag have been wnl as of last evenign > will recheck again tomorrow am -cont NS current rate unless hypoxic Care coordinated with Dr Short via TText re labs, TERESA etiologies, therapeutics above; we are in agreement. (2) Elevated LFTs: Plan: AST/ALT 209/640 on presentation; down trending today to 108/380; was AST /ALT 7/2180 prior to admission on 07/20. no active OP GI follow up. hepatitis w/u per primary service; suspect EtOH hepatitis but other toxins possible given her memory impairment -cont to track transaminase trends Admission and Anticipated Discharge Date Admission Date: July 23, 2024 Subjective blood cxs + GPC chains/clusters (03/31; repeat pending) > one dose vanco; started doxy. NS off as of 2099; ongoing confusion; RN found pt smoking this am in room; c/o pain but starts w/ L hip pain and shoulders/hands > doesn't mention ribs to me but has to RN; states breathing is "heavy" Review of Systems 2 Review of Systems: All systems reviewed & are unremarkable except as noted in Subjective Physical Exam 2 Constitutional: well developed, + behavioral limitations and + physical limitations; no acute distress Eyes: EOM intact bilaterally ENMT: Mouth: + dry oral mucous membranes Respiratory: normal respiratory effort Auscultation: + diminished lung sounds Cardiovascular: Rate/Rhythm: regular rate and regular rhythm Extremities: n o edema Gastrointestinal (Abdomen): Inspection/Auscultation: normal bowel sounds P ercussion/Palpation: abdomen soft; abdomen nontender Musculoskeletal: Extremities: strength 5/5 throughout Skin: no rashes, warm and dry Psychiatric: Orientation: alert, oriented to person and cooperative Results & Data Vital Signs (Past 12 Hours) Vital Signs Temp Pulse Resp BP Pulse Ox O2 Del Method 07/25/24 07:22 37.1 C 85 16 107/68 93 Room Air Laboratory Results 07/25/24 07:02 07/25/24 07:02
[2024-07-25] MEDS: cefTRIAXone SODIUM 1,000 MG/50 ML BAG IV SCH (09:19)
[2024-07-25] MEDS: DOXYCYCLINE HYCLATE 100 MG CAP PO SCH (09:20)
[2024-07-25 09:33] LABS: BUN Creatinine Ratio 10.2 (10-20); Calcium 8.5 mg/dl (8.6-10.3); Potassium 3.6 mmol/L (3.5-5.1)
[2024-07-25] MEDS: POTASSIUM CHLORIDE 20 MEQ in SODIUM CHLORIDE 0.9% 1,000 ML IV SCH (11:55)
--- NOTE | 2024-07-25 12:45 | Hospitalist Progress Note ---
Date of Service July 25, 2024 Assessment & Plan (1) Acute renal failure: Plan: Suspect ATN from multiple factors (2) Pneumonia involving right lung: (3) Protein-calorie malnutrition, severe: (4) Dementia, vascular with delirium: (5) Factor 5 Leiden mutation, heterozygous: (6) COPD (chronic obstructive pulmonary disease): (7) Fracture, ribs: (8) Alcoholic hepatitis with ascites: (9) Alcohol use: Plan Patient with acute renal failure suspect multifactorial. Suspect ATN in setting of hypotension and infection. Continue IV hydration, creatinine slowly improving Communication with antibiotic stewardship team. Bio fire and blood cultures most consistent with contamination. Imaging with possible pneumonia. Will de- escalate antibiotics to community-acquired pneumonia coverage. Monitor surveillance blood cultures Communication with nephrology: Agrees with IV fluids, potassium supplementation. Monitor creatinine daily Therapies-recommending rehab Case management Trial of nicotine replacement Hemoglobin stable, resume Eliquis Phone update to patient's daughter Maria. She confirms that patient has a diagnosis of dementia. Probably also exacerbated by her alcohol use. She also mention that anytime patient is in the hospital or rehab her confusion, memory and delirium exacerbates. She is agreeable and understands patient will need rehab placement at time of discharge. 53 minutes spent in coordinating care, evaluation of patient, communication with specialist, update to family, documentation Admission and Anticipated Discharge Date Admission Date: July 23, 2024 Subjective Patient found smoking in bathroom overnight, cigarettes confiscated. She seems to think nicotine patches do not really help too much but willing to give another try. No chest pain or shortness of breath. Reports that she is eating well. Physical Exam Physical Exam: Constitutional: Alert, frail HEENT: Mucous membranes moist. Lungs: Decreased breath sounds, few crackles CV: S1-S2, regular Abdomen: Soft, nontender, nondistended Extremities: No significant edema Neuro: No focal deficits Psych: Cooperative, normal mood Results & Data Results & Data Vital Signs (Past 12 Hours) Vital Signs Temp Pulse Resp BP Pulse Ox O2 Del Method 07/25/24 08:00 Room Air 07/25/24 07:22 37.1 C 85 16 107/68 93 Room Air Diagnostic Findings Reviewed imaging, laboratory and diagnostic studies. Pertinent findings as below. Bio fire serology most consistent with contaminants Reviewed blood cultures: Staph epidermidis and Streptococcus oralis and only 1 bottle. This is most consistent with contaminant Urine culture contaminated with skin ruth Echocardiogram shows normal ejection fraction normal ventricular function, no valvular disease LFTs reviewed, steadily improving Creatinine 7.73, improving Sodium 131, stable
[2024-07-25 14:17] LABS: Hepatitis A Antibody IgM NON-REACTIVE (NON-REACTIVE); Hepatitis B Core Antibody IgM NON-REACTIVE (NON-REACTIVE)
[2024-07-25] MEDS: FOLIC ACID 1 MG TAB PO SCH (17:06)
[2024-07-25] MEDS: NICOTINE 14 MG/24 HR PATCH TD SCH (17:06)
[2024-07-25] MEDS: APIXABAN 5 MG TABLET PO SCH (20:39)
--- NOTE | 2024-07-25 22:04 | Electrocardiogram Report ---
Test Reason : Blood Pressure : */* mmHG Vent. Rate : 92 BPM Atrial Rate : 92 BPM P-R Int : 144 ms QRS Dur : 68 ms QT Int : 362 ms P-R-T Axes : 73 82 68 degrees QTcB Int : 447 ms Normal sinus rhythm Low voltage QRS Borderline ECG When compared with ECG of 14-Jul-2024 11:02, T wave inversion no longer evident in Anterior leads Confirmed by Yogesh Rivas ([id number]) on 07/25/2024 10:03:42 PM Referred By: Pieter Benavides Confirmed By: Yogesh Rivas
[2024-07-26] MEDS: DULoxetine HCL 30 MG CAP PO SCH (07:30)
[2024-07-26] MEDS: THIAMINE HCL 100 MG TAB PO SCH (07:31)
[2024-07-26 07:54] LABS: BUN Creatinine Ratio 9.3 (10-20); Calcium 8.1 mg/dl (8.6-10.3); Magnesium 1.5 mg/dl (1.7-2.4); Phosphorus 4.7 mg/dl (2.5-4.9); Potassium 3.9 mmol/L (3.5-5.1)
[2024-07-26] MEDS ORDERED: ONDANSETRON INJ 2 MG/ML 2 ML VIAL IV PRN (08:50)
--- NOTE | 2024-07-26 10:31 | XRay Report ---
KUB HISTORY: Follow-up ileus COMPARISON STUDY: CT of the abdomen and pelvis dated 07/23/2024 FINDINGS: The bowel gas pattern is nonspecific. There is no evidence of obstruction. There is no stro ng concern for ileus. The properitoneal fat lines are maintained. Severe multilevel degenerative smith ge in the spine with scoliosis. Cholecystectomy clips are noted in the right upper quadrant. Atelecta sis and/or infiltrate in the left lower lobe associated with blunting of the left costophrenic angle is redemonstrated. There is a sclerotic rim identified within a right femoral head lesion suspicious for AVN. IMPRESSION: Nonspecific bowel gas pattern. Atelectasis and/or infiltrate left lung base associated wi th a small left pleural effusion is redemonstrated. Possible AVN right femoral head. ACT 112: Negative or not required by law. The above report was generated using voice recognition software. It may contain grammatical, syntax o r spelling errors. Electronically signed by: Radha Manuel M.D. 07/26/2024 10:29 AM
--- NOTE | 2024-07-26 11:54 | Nephrology Progress Note ---
Date of Service July 26, 2024 Assessment & Plan (1) Acute renal failure: Plan: Stage 3 nonoliguric very slowly improving TERESA in setting of EtOH abuse and acute on chronic pain and severe though improving liver failure. cause unclear at this time since I have little insight about OP meds she was actually using or events over weekend prior to admission. behaving for now as though at least a prerenal component is present but with 300 mg proteinuria, markedly inflamed urine w/o e/o infection, interstitial nephritis high on list along with ATN as well as hepatorenal syndrome or vascular process. Also cannot exclude glomerular processes. No wedge defects on 07/23 u/s, so large scale vascular event less likely not overloaded currently; chemistries ok except mild hyponatremia and mild hypomagnesemia no indication for emergent dialysis though cannot r/o need this admission; acid base status acceptable >> did have AG on presentation which had resolved > suspect starvation acidosis concern w/ stalled improvement in the setting of severe liver failure and dyspnea she may need renal biopsy which would need [facility] [place] [facility] [place] [facility] on eliquis also >>sent nephritic syndrome serologies; hepatitis serologies negative >>sent urine eos x 1 >> will repeat assay this evening and in AM >> needs 3 assays negative to have reasonable determination of negative -cont strict I/O >>f/u repeat blood cxs and agree w/ doxy > vanco; f/u cxs NGTD as of 24 hr -no e/o refeeding >> phos, mag have been wnl as of this am; no Eo EtOH withdrawal Care coordinated with Dr Short via TText re labs, TERESA etiologies, therapeutics above; we are in agreement. (2) Elevated LFTs: Plan: AST/ALT 209/640 on presentation; down trending 07/25 to 108/380; was AST /ALT 7/2180 prior to admission on 07/20. no active OP GI follow up. hepatitis w/u per primary service; suspect EtOH hepatitis but other toxins possible given her memory impairment -cont to track transaminase trends Admission and Anticipated Discharge Date Admission Date: July 23, 2024 Subjective confused on eval > oriented to self only. knows she's in a medical facility but thinks it's OP. no c/o pain or dypsnea. denies n/v Review of Systems 2 Review of Systems: All systems reviewed & are unremarkable except as noted in Subjective Physical Exam 2 Constitutional: well developed, + behavioral limitations and + physical limitations; no acute distress Eyes: EOM intact bilaterally ENMT: Mouth: + dry oral mucous membranes Respiratory: normal respiratory effort Auscultation: + diminished lung sounds Cardiovascular: Rate/Rhythm: regular rate and regular rhythm Extremities: n o edema Gastrointestinal (Abdomen): Inspection/Auscultation: normal bowel sounds P ercussion/Palpation: abdomen soft; abdomen nontender Musculoskeletal: Extremities: strength 5/5 throughout Skin: no rashes, warm and dry Psychiatric: Orientation: alert, oriented to person and cooperative Results & Data Vital Signs (Past 12 Hours) Vital Signs Temp Pulse Resp BP Pulse Ox O2 Del Method 07/26/24 07:20 Room Air 07/26/24 07:16 36.5 C 84 16 101/65 93 Room Air Laboratory Results 07/25/24 07:02 07/26/24 07:06
--- NOTE | 2024-07-26 12:26 | Hospitalist Progress Note ---
Date of Service July 26, 2024 Assessment & Plan (1) Acute renal failure: Plan: Suspect ATN from multiple factors (2) Pneumonia involving right lung: (3) Protein-calorie malnutrition, severe: (4) Dementia, vascular with delirium: (5) Factor 5 Leiden mutation, heterozygous: (6) COPD (chronic obstructive pulmonary disease): (7) Fracture, ribs: (8) Alcoholic hepatitis with ascites: (9) Alcohol use: Plan Patient's renal function continues to slowly improve, reviewed nephrology notation. Replace magnesium Patient with acute episode of nausea and vomitus morning. May be due to the fact that she received oxycodone, doxycycline all prior to breakfast. Treated with Zofran. KUB of the abdomen ordered. No acute abnormalities as mentioned above. Appears that patient is on Eliquis due to the fact that she has factor V Leiden heterozygous mutation with history of DVT. Reviewing dosing for Eliquis 2.5 mg twice daily is appropriate for prophylaxis recurrent DVT will adjust Eliquis dose Continue therapies Ongoing evaluation for possible encompass placement Initial blood cultures contaminants, surveillance blood cultures remain no growth to date. Can discontinue antibiotics tomorrow after 5-day treatment for presumed pneumonia Admission and Anticipated Discharge Date Admission Date: July 23, 2024 Subjective Patient with an episode of nausea and emesis this morning. Feels that her abdomen might be a little bit bloated. Some chronic arthritic pains. Physical Exam Physical Exam: Constitutional: Alert, frail HEENT: Mucous membranes moist. Lungs: Decreased breath sounds CV: S1-S2, regular Abdomen: Soft, slightly distended, minimal tenderness, no guarding or rigidity Extremities: No significant edema Neuro: No focal deficits Psych: Cooperative, impaired memory Results & Data Results & Data Vital Signs (Past 12 Hours) Vital Signs Temp Pulse Resp BP Pulse Ox O2 Del Method 07/26/24 07:20 Room Air 07/26/24 07:16 36.5 C 84 16 101/65 93 Room Air Diagnostic Findings Reviewed imaging, laboratory and diagnostic studies. Pertinent findings as below. Personally reviewed KUB, no significant air-fluid levels Sodium 134 Potassium 3.9 Creatinine 7.61, slowly improving Magnesium 1.5
[2024-07-26] MEDS: MAGNESIUM SULFATE / D5W 1 GM/100 ML BAG IV SCH (12:30)
[2024-07-26] MEDS: bisacodyL 10 MG SUPP PR ONE (12:42)
[2024-07-26] MEDS: POLYETHYLENE (MIRALAX) 17 GM PACK PO SCH (12:42)
[2024-07-26] MEDS ORDERED: APIXABAN 2.5 MG TAB PO SCH (21:00)
[2024-07-26] MEDS ORDERED: NICOTINE 14 MG/24 HR PATCH TD SCH (22:15)
[2024-07-27 07:12] LABS: BUN Creatinine Ratio 9.7 (10-20); Calcium 8.8 mg/dl (8.6-10.3); Creatinine Clr Calc Pharmacy 6.9 ml/min; Magnesium 2.6 mg/dl (1.7-2.4); Potassium 3.6 mmol/L (3.5-5.1)
[2024-07-27] MEDS: NICOTINE 14 MG/24 HR PATCH TD SCH (08:05)
[2024-07-27] MEDS: ENOXAPARIN INJ 30 MG/0.3 ML SYR SQ SCH (08:12)
--- NOTE | 2024-07-27 11:51 | Nephrology Progress Note ---
Date of Service July 27, 2024 Assessment & Plan (1) Acute renal failure: Plan: Stage 3 nonoliguric very slowly improving TERESA in setting of EtOH abuse and acute on chronic pain and severe though improving liver failure. cause unclear at this time since I have little insight about OP meds she was actually using or events over weekend prior to admission. behaving for now as though at least a prerenal component is present but with 300 mg proteinuria, markedly inflamed urine w/o e/o infection, interstitial nephritis high on list along with ATN as well as hepatorenal syndrome or vascular process given her known vascular disease. Also cannot exclude glomerular processes. No wedge defects on 07/23 u/s, so large scale vascular event impacting kidneys less likely not overloaded currently; chemistries ok except mild hyponatremia no indication for emergent dialysis though cannot r/o need this admission > unclear if her altered MS (consistent during my interactions w/ her) represents encephalopathy or her underlying dementia; acid base status acceptable >> did have AG on presentation which had resolved > suspect starvation acidosis concern w/ stalled improvement and unclear etiology of renal failure in the setting of severe liver failure and dyspnea she may need renal biopsy which would need transfer to [facility] [place] [facility] [place]; on eliquis/ASA also >last doses of these 07/26 and on SQ lovenox now >>sent nephritic syndrome serologies - some still in process; FLC, JESÚS/dsDNA, hepatitis serologies, urine eos x 2 checks negative >>await 3rd urine eos x 3 >> first 2 negative >> needs 3 assays negative to have reasonable determination of negative -cont strict I/O >>f/u repeat blood cxs and agree w/ doxy > vanco; f/u cxs NGTD as of 48 hr and consider narrowing abtx -no e/o refeeding >> phos, mag have been wnl as of 5 am; no e/o EtOH withdrawal >>dementia medication on hold > caution use in severe liver failure Care coordinated with Dr Short via TText re labs, TERESA etiologies, therapeutics above, possible/even likely renal biopsy; we are in agreement. (2) Elevated LFTs: Plan: AST/ALT 209/640 on presentation; down trending 07/25 to 108/380; was AST /ALT 7/2180 prior to admission on 07/20. no active OP GI follow up. hepatitis w/u per primary service; suspect EtOH hepatitis but other toxins possible given her memory impairment -cont to track transaminase trends Admission and Anticipated Discharge Date Admission Date: July 23, 2024 Subjective seen on early afternoon rounds; pt confused and oriented to self only. Tells me she used to have a pillbox with alarms so she could remember her medications but stopped using it because she was too weak to get up to turn off the alarms; also talking about where she put money for me to take in the hospital room and referring to lines of people who were not in the room. Pain not so severe today. No nausea vomiting. Denies edema. Review of Systems 2 Review of Systems: All systems reviewed & are unremarkable except as noted in Subjective Physical Exam 2 Constitutional: well developed, + behavioral limitations and + physical limitations; no acute distress Eyes: EOM intact bilaterally ENMT: Mouth: + dry oral mucous membranes Respiratory: normal respiratory effort Auscultation: + diminished lung sounds and + crackles (Right base) Cardiovascular: Rate/Rhythm: regular rate and regular rhythm Extremities: n o edema Gastrointestinal (Abdomen): Inspection/Auscultation: normal bowel sounds P ercussion/Palpation: abdomen soft; abdomen nontender Musculoskeletal: Extremities: strength 5/5 throughout Skin: no rashes, warm and dry Psychiatric: Orientation: alert, oriented to person and cooperative Results & Data Vital Signs (Past 12 Hours) Vital Signs Temp Pulse Resp BP Pulse Ox O2 Del Method 07/27/24 07:25 36.4 C L 82 16 104/63 94 Room Air 07/27/24 07:05 Room Air Laboratory Results 07/25/24 07:02 07/27/24 06:16
[2024-07-27 15:12] LABS: Anti Nuclear Antibody Screen NEGATIVE (NEGATIVE); Anti-dsDNA Recombinant 1 IU/mL; Free Kappa 80.2 mg/L (3.3-19.4); Free Kappa/Lambda Ratio 0.73 (0.26-1.65); Free Lambda 109.2 mg/L (5.7-26.3)
--- NOTE | 2024-07-27 15:27 | Hospitalist Progress Note ---
Date of Service July 27, 2024 Assessment & Plan (1) Acute renal failure: Plan: Suspect ATN from multiple factors (2) Pneumonia involving right lung: (3) Protein-calorie malnutrition, severe: (4) Dementia, vascular with delirium: (5) Factor 5 Leiden mutation, heterozygous: (6) COPD (chronic obstructive pulmonary disease): (7) Fracture, ribs: (8) Alcoholic hepatitis with ascites: (9) Alcohol use: Plan Patient with ongoing significant kidney dysfunction. Definitive etiology still elusive. Suspect it is multifactorial. Continue to work with nephrology on treatment and evaluation of kidney injury Extensive conversation with patient at the bedside this morning. She reports that prior to admission she was managing all of her finances, making all of her own medical decisions. Extensive conversation with the patient's daughter and the patient the bedside this afternoon. Daughter confirms that the patient had been making all of her own medical and financial decisions prior to admission. She did reports she is POA and is able to make decisions for her mom if needed but up into this point mother has been making all her decisions. PCP indicated that the patient could still make her own decisions when the daughter had asked them as well. Discussed potential need for renal biopsy Continue to monitor renal function Admission and Anticipated Discharge Date Admission Date: July 23, 2024 Subjective Patient did not have any nausea this morning. This afternoon was eating [employer] fries and a milkshake. Daughter at bedside this afternoon. Physical Exam Physical Exam: Constitutional: Alert, frail HEENT: Mucous membranes moist. Lungs: Clear to auscultation, decreased, no wheezes rales or rhonchi CV: S1-S2, regular Abdomen: Soft, nontender, nondistended Extremities: No significant edema Neuro: No focal deficits, generally weak Psych: Cooperative, normal mood, short-term memory issues did not remember seeing me this morning when I visited again this afternoon Results & Data Results & Data Vital Signs (Past 12 Hours) Vital Signs Temp Pulse Resp BP Pulse Ox O2 Del Method 07/27/24 14:03 Room Air 07/27/24 07:25 36.4 C L 82 16 104/63 94 Room Air 07/27/24 07:05 Room Air Diagnostic Findings Reviewed imaging, laboratory and diagnostic studies. Pertinent findings as below. Sodium 134 Creatinine 7.2 Phosphorus 5.0 Magnesium 2.6
[2024-07-28 06:18] LABS: Hematocrit (blood only) 21.6 % (37.0-47.0); Hemoglobin 7.2 g/dl (12.0-16.0); Mean Corpuscular Hemoglobin 31.9 pg (25.0-34.0); Mean Corpuscular Hgb Conc 33.3 g/dL (32.0-36.0); Mean Corpuscular Volume 95.6 fL (80.0-100.0); Mean Platelet Volume 11.3 fL (9.4-12.4); Platelet Count 188 K/uL (130-400); RDW Coefficient of Variation 19.1 % (11.5-14.5); RDW Standard Deviation 63.4 fL (36.4-46.3); Red Blood Count 2.26 M/uL (4.20-5.40); White Blood Count 10.93 K/ul (4.8-10.8)
[2024-07-28 06:52] LABS: Alanine Aminotransferase 152 U/L (7-52); Albumin Level 2.5 gm/dl (3.4-5.0); Alkaline Phosphatase 194 U/L (34-104); Anion Gap 10 (3-11); BUN Creatinine Ratio 9.9 (10-20); Blood Urea Nitrogen 68 mg/dl (6-23); Calcium 8.5 mg/dl (8.6-10.3); Carbon Dioxide 21 mmol/L (21-32); Chloride 105 mmol/L (98-107); Creatinine Clr Calc Pharmacy 7.2 ml/min; Glucose 99 mg/dl (70-99(Fasting)); Sodium 136 mmol/L (136-145); Total Protein 5.4 gm/dl (6.0-8.3)
[2024-07-28] MEDS: LORazepam 0.5 MG TAB PO PRN (09:23)
[2024-07-28 09:42] LABS: Bilirubin Direct 0.4 mg/dl (0-0.2); Potassium 3.6 mmol/L (3.5-5.1)
--- NOTE | 2024-07-28 10:49 | Hospitalist Progress Note ---
Date of Service July 28, 2024 Assessment & Plan (1) Acute renal failure: Plan: Suspect ATN from multiple factors (2) Pneumonia involving right lung: Plan: Completed antibiotics (3) Protein-calorie malnutrition, severe: (4) Dementia, vascular with delirium: (5) Factor 5 Leiden mutation, heterozygous: (6) COPD (chronic obstructive pulmonary disease): (7) Fracture, ribs: (8) Alcoholic hepatitis with ascites: (9) Alcohol use: Plan Patient continues to show slow improvement in renal function, continue to monitor Continue to communicate with nephrology over plans for kidney function and ongoing evaluation Patient completed course of antibiotics for pneumonia Continue therapies Case management to coordinate home care services Anticipate if renal function continues to improve potential discharge on Tuesday with outpatient renal biopsy. Continue to hold Eliquis in anticipation of renal biopsy, Lovenox for VTE prophylaxis Admission and Anticipated Discharge Date Admission Date: July 23, 2024 Subjective No acute issues overnight. Patient ate a good breakfast. Physical Exam Physical Exam: Constitutional: Alert, frail, underweight HEENT: Mucous membranes moist. Lungs: Clear to auscultation, decreased, no wheezes rales or rhonchi CV: S1-S2, regular Abdomen: Soft, nontender, nondistended Extremities: No significant edema Neuro: No focal deficits, generalized weakness Psych: Cooperative, normal mood Results & Data Results & Data Vital Signs (Past 12 Hours) Vital Signs Temp Pulse Resp BP Pulse Ox O2 Del Method 07/28/24 07:09 36.5 C 89 16 102/63 97 Room Air Diagnostic Findings Reviewed imaging, laboratory and diagnostic studies. Pertinent findings as below. WBCs 10.9 Hemoglobin 7.2 Creatinine 0.89, slightly improved AST 33, significantly improved ALT 152, improved Alk phos 194, improved Total bilirubin 1.0, improved
--- NOTE | 2024-07-28 17:26 | Nephrology Progress Note ---
Date of Service July 28, 2024 Assessment & Plan (1) Acute renal failure: Plan: Stage 3 nonoliguric very slowly improving TERESA in setting of EtOH abuse and acute on chronic pain and severe though improving liver failure. cause unclear at this time since I have little insight about OP meds she was actually using or events over weekend prior to admission. behaving for now as though at least a prerenal component is present but with 300 mg proteinuria, markedly inflamed urine w/o e/o infection, interstitial nephritis high on list along with ATN as well as hepatorenal syndrome or vascular process given her known vascular disease. Also cannot exclude glomerular processes. No wedge defects on 07/23 u/s, so large scale vascular event impacting kidneys less likely not overloaded currently; chemistries ok except mild hyponatremia no indication for emergent dialysis though cannot r/o need this admission > unclear if her altered MS (consistent during my interactions w/ her) represents encephalopathy or her underlying dementia; acid base status acceptable >> did have AG on presentation which had resolved > suspect starvation acidosis concern w/ stalled improvement and unclear etiology of renal failure in the setting of severe liver failure and dyspnea she may need renal biopsy which would need transfer to [facility] or [facility]; on eliquis/ASA also >last doses of these 07/26 and on SQ lovenox now >>sent nephritic syndrome serologies - some still in process; FLC, JESÚS/dsDNA, hepatitis serologies, urine eos x 2 checks negative >>await 3rd urine eos x 3 >> first 2 negative >> needs 3 assays negative to have reasonable determination of negative -cont strict I/O >>f/u repeat blood cxs and agree w/ doxy > vanco; f/u cxs NGTD as of 48 hr and consider narrowing abtx -no e/o refeeding >> phos, mag have been wnl as of 5 am; no e/o EtOH withdrawal >>dementia medication on hold > caution use in severe liver failure Care coordinated with Dr Short via TText re labs, TERESA etiologies, therapeutics, possible/even likely renal biopsy, d/c dispo; we are in agreement. (2) Elevated LFTs: Plan: AST/ALT 209/640 on presentation; down trending 07/25 to 108/380; was AST /ALT 7/2180 prior to admission on 07/20. no active OP GI follow up. hepatitis w/u per primary service; suspect EtOH hepatitis but other toxins possible given her memory impairment -cont to track transaminase trends > further improvement Admission and Anticipated Discharge Date Admission Date: July 23, 2024 Physical Exam 2 Constitutional: well developed, + behavioral limitations and + physical limitations; no acute distress Eyes: EOM intact bilaterally ENMT: Mouth: + dry oral mucous membranes Respiratory: normal respiratory effort Auscultation: + diminished lung sounds and + crackles (Right base) Cardiovascular: Rate/Rhythm: regular rate, regular rhythm and + tachycardic Extremities: no edema Gastrointestinal (Abdomen): Inspection/Auscultation: normal bowel sounds P ercussion/Palpation: abdomen soft; abdomen nontender Musculoskeletal: Extremities: strength 5/5 throughout Skin: no rashes, warm and dry Psychiatric: Orientation: alert, oriented to person and cooperative Results & Data Vital Signs (Past 12 Hours) Vital Signs Temp Pulse Resp BP Pulse Ox O2 Del Method 07/28/24 16:58 36.5 C 78 15 106/67 96 Room Air 07/28/24 08:45 Room Air 07/28/24 07:09 36.5 C 89 16 102/63 97 Room Air Laboratory Results 07/28/24 05:48 07/28/24 08:13 creat 6.9
[2024-07-29 07:20] VITALS: RESP 16
[2024-07-29 07:22] LABS: BUN Creatinine Ratio 10.3 (10-20); Calcium 8.3 mg/dl (8.6-10.3); Creatinine Clr Calc Pharmacy 7.6 ml/min; Potassium 3.8 mmol/L (3.5-5.1)
--- NOTE | 2024-07-29 11:21 | Hospitalist Progress Note ---
Date of Service July 29, 2024 Assessment & Plan (1) Acute renal failure: Plan: Suspect ATN from multiple factors (2) Pneumonia involving right lung: Plan: Completed antibiotics (3) Protein-calorie malnutrition, severe: (4) Dementia, vascular with delirium: (5) Factor 5 Leiden mutation, heterozygous: (6) COPD (chronic obstructive pulmonary disease): (7) Fracture, ribs: (8) Alcoholic hepatitis with ascites: (9) Alcohol use: Plan Patient presented with acute kidney injury that is slowly improving. Patient has slowed steady improvement, anticipate can be followed outpatient Coordinate with case management multiple home services in anticipation discharge home tomorrow Coordinate outpatient renal biopsy early this coming week. Updated patient's daughter to anticipated plans for discharge tomorrow with home services and outpatient renal biopsy Continue to hold anticoagulation while anticipating renal biopsy Admission and Anticipated Discharge Date Admission Date: July 23, 2024 Subjective Patient states she had a restful night. No acute issues. Physical Exam Physical Exam: Constitutional: Alert HEENT: Mucous membranes moist. Lungs: Clear to auscultation, decreased, no wheezes rales or rhonchi CV: S1-S2, regular Abdomen: Soft, nontender, nondistended Extremities: No significant edema Neuro: No focal deficits Psych: Cooperative, abnormal cognition Results & Data Results & Data Vital Signs (Past 12 Hours) Vital Signs Temp Pulse Resp BP Pulse Ox O2 Del Method 07/29/24 07:19 36.4 C L 79 16 103/66 95 Room Air Diagnostic Findings Reviewed imaging, laboratory and diagnostic studies. Pertinent findings as below. Creatinine 6.59, continuing to improve
--- NOTE | 2024-07-29 14:58 | Nephrology Progress Note ---
Date of Service July 29, 2024 Assessment & Plan (1) Acute renal failure: Plan: Stage 3 nonoliguric very slowly improving TERESA in setting of EtOH abuse and acute on chronic pain and severe though improving liver failure. cause unclear at this time since I have little insight about OP meds she was actually using or events over weekend prior to admission. behaving for now as though at least a prerenal component is present but with 300 mg proteinuria, markedly inflamed urine w/o e/o infection, interstitial nephritis high on list along with ATN as well as hepatorenal syndrome or vascular process given her known vascular disease. Also cannot exclude glomerular processes. No wedge defects on 07/23 u/s, so large scale vascular event impacting kidneys less likely not overloaded currently; chemistries ok except mild hyponatremia no indication for emergent dialysis though cannot r/o need this admission > unclear if her altered MS (consistent during my interactions w/ her) represents encephalopathy or her underlying dementia; acid base status acceptable; continue to remain cautiously optimistic that renal function will improve w/o HD >> did have AG on presentation which had resolved > suspect starvation acidosis concern w/ stalled improvement and unclear etiology of renal failure in the setting of severe liver failure and dyspnea >>>>>>favor renal biopsy at [facility] or [facility] [place]; on eliquis/ASA also >last doses of these 07/26 and on SQ lovenox now >>sent nephritic syndrome serologies - some still in process; FLC, JESÚS/dsDNA, hepatitis serologies, urine eos x 2 checks negative >> urine eos x 2 negative -cont strict I/O -no e/o refeeding >> phos, mag have been wnl as of 07/26 am; no e/o EtOH withdrawal >>dementia medication on hold > caution use in severe liver failure Care coordinated with Dr Short via TText re labs, recommended renal biopsy, d/c dispo; we are in agreement. (2) Elevated LFTs: Plan: AST/ALT 209/640 on presentation; down trending 07/25 to 108/380; was AST /ALT 7/0 prior to admission on 07/20. no active OP GI follow up. hepatitis w/u per primary service; suspect EtOH hepatitis but other toxins possible given her memory impairment -cont to track transaminase trends > further improvement Admission and Anticipated Discharge Date Admission Date: July 23, 2024 Subjective remains very confused; denies sob, n/v, uncontrolled pain. Review of Systems 2 Review of Systems: All systems reviewed & are unremarkable except as noted in Subjective Physical Exam 2 Constitutional: well developed and well nourished Eyes: EOM intact bilaterally ENMT: Mouth: + dry oral mucous membranes Respiratory: normal respiratory effort Auscultation: + diminished lung sounds Gastrointestinal (Abdomen): Inspection/Auscultation: normal bowel sounds P ercussion/Palpation: abdomen soft; abdomen nontender Musculoskeletal: Extremities: strength 5/5 throughout Skin: no rashes, warm and dry Neurologic: iglesias, fluent speech, no tremor Results & Data Vital Signs (Past 12 Hours) Vital Signs Temp Pulse Resp BP Pulse Ox O2 Del Method 07/29/24 14:37 36.6 C 85 16 116/74 94 Room Air 07/29/24 07:19 36.4 C L 79 16 103/66 95 Room Air Laboratory Results 07/28/24 05:48 07/29/24 06:16
[2024-07-30 07:04] LABS: Hematocrit (blood only) 21.9 % (37.0-47.0); Hemoglobin 7.2 g/dl (12.0-16.0); Mean Corpuscular Hemoglobin 31.4 pg (25.0-34.0); Mean Corpuscular Hgb Conc 32.9 g/dL (32.0-36.0); Mean Corpuscular Volume 95.6 fL (80.0-100.0); Mean Platelet Volume 10.8 fL (9.4-12.4); Platelet Count 208 K/uL (130-400); RDW Coefficient of Variation 19.1 % (11.5-14.5); RDW Standard Deviation 64.3 fL (36.4-46.3); Red Blood Count 2.29 M/uL (4.20-5.40); White Blood Count 9.01 K/ul (4.8-10.8)
[2024-07-30 07:19] VITALS: BP 117/71; PULSE 90; TEMP 98.4; O2SAT 93
[2024-07-30 07:27] LABS: BUN Creatinine Ratio 10.5 (10-20); Calcium 8.2 mg/dl (8.6-10.3); Creatinine Clr Calc Pharmacy 8.3 ml/min; Potassium 3.3 mmol/L (3.5-5.1)
--- NOTE | 2024-07-30 10:24 | Discharge Summary ---
Discharge Summary Date of Service July 30, 2024 Principal Dx & Hospital Course #1 = Principal Diagnosis (1) Acute renal failure: Suspect ATN from multiple factors (2) Pneumonia involving right lung: Completed antibiotics (3) Protein-calorie malnutrition, severe: (4) Dementia, vascular with delirium: (5) Factor 5 Leiden mutation, heterozygous: (6) COPD (chronic obstructive pulmonary disease): (7) Fracture, ribs: (8) Alcoholic hepatitis with ascites: (9) Alcohol use: Plan Patient is 64-year-old female who initially presented to the emergency room with increasing cough and chills. She had been in the hospital for rib fractures after mechanical fall prior to this hospitalization. Her pain was fairly well- controlled but she was not managing well at home. In the emergency room it appeared as though imaging she may have had a pneumonia. Also had acute kidney injury which was new. Patient was admitted to the hospital. There was no immediate need for hemodialysis. Nephrology consultation was obtained. She was given IV hydration for acute kidney injury. There was most likely multiple etiologies for her renal failure. She also had some evidence of hepatitis. Jose soto does admit to drinking alcohol at home And had presented previously with an elevated alcohol level. She was empirically treated with antibiotics for pneumonia most likely due to the fact that she was not taking deep breaths from her recent rib fractures. The patient's renal function was monitored throughout her hospitalization and very slowly improved. She underwent advanced laboratory testing for other etiologies of her acute kidney injury. Suspecting multifactorial kidney injury ATN and possibly AIN. Nephrology was recommending renal biopsy. With this potential plan, her Eliquis was held. She is on anticoagulation for heterozygous factor V Leiden deficiency with history of VTE. Based on her renal function is recommended that her Eliquis dose be decreased to 2.5 mg 2 times daily when it is resumed. If her renal function will return to baseline may need to consider resuming or transitioning back to 5 mg 2 times daily. Her elevated liver functions rapidly improved through her hospitalization with the cessation of alcohol. And return to baseline. She completed a course of antibiotics for her pneumonia here in the hospital. She has significant short-term memory loss and known dementia. Her Cymbalta was decreased due to the fact that with liver injury or chronic liver issues recommended not to use Cymbalta can consider continue to titrate this off and substituting with a different medication. Her her memantine was on hold as well due to her kidney dysfunction. Her daughter was involved with her care throughout her hospitalization and updated regularly. Her renal function has shown steady improvement throughout her hospitalization. Attempts were made to peer to peer to have patient qualify for rehab and or SNF rehab this was declined. She was set up with home services as much as possible. On the day of discharge her vital signs are stable. Has shown steady improvement her renal function. Will coordinate outpatient renal biopsy and outpatient follow-up with nephrology and her PCP. Notes For Next Care Provider If renal function returns to normal, may need to increase Eliquis dose Consider continuing to titrate Cymbalta to off in the setting of liver injury Continue to encourage abstinence from alcohol Continue outpatient follow-up with nephrology Follow-up on renal biopsy results Medication Changes From Visit Cymbalta dose decreased due to liver dysfunction Eliquis dose decreased due to renal dysfunction, resume after renal biopsy Aspirin on hold until after renal biopsy Memantine stopped due to renal dysfunction Admission HPI Per Admitting Provider History obtained from interview with the patient and chart review. Medical history of MTHFR mutation, hyperlipidemia, COPD, peripheral vascular disease, coronary artery disease, prolonged QT syndrome, fibromyalgia, history of DVT, depression, history of traumatic subdural hematoma, PAD status post femoral-tibial bypass, history of tobacco use, history of depression, medical marijuana use, memory problem, alcohol use disorder Patient had presented on May 16, 2024 with mechanical fall. She underwent workup including CT chest which showed acute fracture of left 9th, 10th and 11th rib, age indeterminant fractures of right 8th, 9th and 10th rib. CT head, CT cervical spine did not show any acute finding. She was discharged home on tramadol and lidocaine patch for pain control. Patient followed up with her primary care provider on 07/20 with complaint of pain on her left rib. She also reports difficulty sleeping due to pain; also reports cough which was productive. Patient reports that she has not been eating or drinking at home. She started to have cough, reports chills but denies fever. She reports that she is drinking plenty of water. Patient lives alone and has Meals on Wheels delivered which is not appetizing for her. CMP done on 07/20/2024 showed creatinine of 5.7, BUN of 57, serum potassium of 6.2. AST of 1957, ALT of 2180, ALP of 665. BNP of 1362. Patient was asked to go to the ED for evaluation. Admission Exam Per Admitting Provider See H&P Discharge Exam Constitutional: Alert, nontoxic HEENT: Mucous membranes moist. Lungs: Decreased breath sounds, no wheezes CV: S1-S2, regular Abdomen: Soft, nontender, nondistended Extremities: No significant edema Neuro: No focal deficits, generally weak Psych: Cooperative, abnormal short-term memory Updated Medication List Medication Instructions Recorded Confirmed Type atorvastatin 40 mg tablet 40 mg PO QAM 09/13/18 07/23/24 History Medical Marijuanas ~ Oil Vape 1 inh inhalation DIRECTED PRN 07/30/20 07/23/24 History Unknown mirtazapine 30 mg tablet 30 mg PO HS 05/30/22 07/23/24 History apixaban 5 mg tablet (Eliquis) 5 mg PO BID 06/12/22 07/23/24 History polyethylene glycol 3350 17 gram 17 g PO DAILY PRN laxative effect 06/17/22 07/23/24 Rx oral powder packet (Miralax) #30 ea duloxetine 30 mg capsule,delayed 60 mg PO DAILY 09/21/23 07/23/24 History release memantine 10 mg tablet 10 mg PO BID #60 tabs 09/21/23 07/23/24 Rx gabapentin 600 mg tablet 600 mg PO BID #60 tabs 09/26/23 07/23/24 Rx aspirin 81 mg tablet,delayed 81 mg PO QAM 07/14/24 07/23/24 History release lidocaine 4 % topical patch 1 patch topical DAILY PRN pain #5 07/14/24 07/23/24 Rx (Lidocaine Pain Relief) ea apixaban 2.5 mg tablet (Eliquis) 2.5 mg PO BID #60 tabs 07/30/24 Rx duloxetine 30 mg capsule,delayed 30 mg PO DAILY #30 caps 07/30/24 Rx release folic acid 1 mg tablet 1 mg PO QAM #30 tabs 07/30/24 Rx nicotine 7 mg/24 hr daily 1 patch transdermal QAM #14 ea 07/30/24 Rx transdermal patch thiamine HCl (vitamin B1) 100 mg 100 mg PO QAM #30 tabs 07/30/24 Rx tablet Hospital Stay Data Consultations 07/23/24 18:15 ED Decision to Admit Stat 07/23/24 20:56 Consult Nephrology Routine Diagnostic Imagining Performed 07/23/24 16:33 CT abd pelvis wo con Stat 07/23/24 16:36 CT chest diagnostic wo con Stat 07/23/24 16:39 CT head/brain wo con Stat 07/23/24 20:56 US Renal Bladder [US renal/blad retro comp] Routine Reviewed imaging, laboratory and diagnostic studies. Pertinent findings as below. WBCs 9.0 Hemoglobin 7.2 Platelets 208 Sodium 143 Potassium 3.3, repleted prior to discharge Chloride of 112 BUN 63 Creatinine 6.01 significantly improved Glucose 86 Echocardiogram showed normal ejection fraction 65 to 70%, no significant valvular dysfunction Blood cultures all no growth to date Urine culture mixed skin ruth no singular growth Urine pathology no definitive eosinophils x 2 Renal ultrasound no acute abnormalities Head CT, cerebral atrophy and small vessel disease, no acute findings Chest CT on admission showed left rib fractures as previous possible right lung pneumonia, emphysema and atelectasis Pending Results Patient Have Any Pending Studies at Discharge: No Discharge Instructions Given to Patient (Per Discharging Provider) Hold the Eliquis and aspirin until after your renal biopsy you will need to follow-up with nephrology after you get the renal biopsy Please get renal biopsy performed at [facility] as coordinated Please refrain and abstain from all beer and alcohol Continue to work with home therapies Home Health Attestation I certify that this patient is under my care and that I, or a physicians residential real estate assistant working with me, had a face to-face encounter that meets the home health [id number] encounter requirements with this patient. The encounter with the patient was in whole, or in part, for the following medical condition, which is the primary reason for home health care (list medical condition): I certify that, based on my findings, the following services are medically necessary home health services: My clinical findings support the need for the above services because: OT Assess ADL Status and Restore Function w ADLs PT Assessment for Endurance / Balance / Strength Skilled Nsg Assessment Further, I certify that my clinical findings support that this patient is homebound (i.e. absences from home require considerable and taxing effort and are for medical reasons or christian services or infrequently or of short duration when for other reasons) because: Certification for Home Health Services: Based on the above findings, I certify that this patient is confined to the home and needs intermittent fdc care, physical therapy and/or speech therapy or continues to need occupational therapy. The patient is under my care, and I have initiated the establishment of the plan of care. This patient will be followed by a physician who will periodically review the plan of care. Total Time Total Time Spent Total Time Spent (In Minutes): 40
[2024-07-30] MEDS: POTASSIUM CHLORIDE CRTAB 20 MEQ TABCR PO STA (10:42)
--- NOTE | 2024-07-30 14:23 | Nephrology Progress Note ---
Date of Service July 30, 2024 Assessment & Plan Admission and Anticipated Discharge Date Admission Date: July 23, 2024 Subjective Assessment & Plan (1) Acute renal failure: Plan: Nonoliguric slowly improving TERESA sec to ATN with Shock liver also--LFT improving faster than ATN though. She most likely had Hypoxic/Hypotensive event around 07/19/2024--as per daughter she was weak and also had fall after easter. Or had Acute Overdose--Alcohol/Opioids causing Transient Severe Hypoxia causing ATN/Shock liver LFt were 2000 + on 07/20 and now much better. This clinical picture is pretty classic for ATN with shock liver and so is the recovery. With her underlying Liver issues, use of eliquis and also the fact that her current hgb is only 7.2--I think renal biopsy does not add much here deanne given improving renal function. But risk of bleeding and complications is much higher. Cancel plan for renal biopsy No indication for dialysis-- continue to remain cautiously optimistic that renal function will improve w/o HD Most serologies are pending. Will see her in 2 days in my clinic with labs to be done in 2 days. Most likely no renal biopsy but may change plan depending on renal recovery trend. mental status seems baseline as per daughter. Appetite is good and no acute symptoms Care coordinated with Dr Short via telephone call x 2. (2) Elevated LFTs: Plan: AST/ALT 209/640 on presentation. Down trending 07/25 to 108/380; was AST /ALT 1957/2180 prior to admission on 07/20. That kind of high LFT number and rapid improvement is almost always sec to shock liver or acute Viral Hepatitis or some Acute Hepatic toxicity--hepatitis is negative. Most other toxic Screen was negative except Alcohol level was very high and urinary opioids was also high Subjective No Acute Symptoms currently. Was eating and drinking just fine. No edema and no SOB. making good amount of urine Review of Systems Review of Systems: All systems reviewed & are unremarkable except as noted in Subjective Physical Exam Constitutional: well developed and well nourished Eyes: EOM intact bilaterally ENMT: Mouth: + dry oral mucous membranes Respiratory: normal respiratory effort Auscultation: + diminished lung sounds Gastrointestinal (Abdomen): Inspection/Auscultation: normal bowel sounds Percussion/Palpation: abdomen soft; abdomen nontender Musculoskeletal: Extremities: strength 5/5 throughout Skin: no rashes, warm and dry Neurologic: iglesias, fluent speech, no tremor Results & Data Vital Signs (Past 12 Hours) Vital Signs Temp Pulse Resp BP Pulse Ox O2 Del Method 07/30/24 07:18 36.9 C 90 16 117/71 93 Room Air
[2024-07-31 13:22] LABS: Albumin 2.7 g/dL (3.8-4.8); Alpha 1 Globulin 0.5 g/dL (0.2-0.3); Alpha 2 Globulin 0.6 g/dL (0.5-0.9); Beta-1-Globulin 0.4 g/dL (0.4-0.6); Beta-2-Globulin 0.4 g/dL (0.2-0.5); Monoclonal Protein Band 1 DNR g/dL (NONE DETECTED); Monoclonal Protein Band 2 DNR g/dL (NONE DETECTED); Monoclonal Protein Band 3 DNR g/dL (NONE DETECTED); Total Protein 5.6 g/dL (6.1-8.1)
[2024-07-31 16:07] LABS: Complement C3 117 mg/dL (83-193); Complement Total(CH50) >60 U/mL (31-60)
== END 2024-07-30 14:25 | disposition home health service (06) | DRG 682 ==
LOC: ED 15:34 → SUATTDRO 18:51 → 2E 18:51 → 3E 07-24 18:00